=== PATIENT | male | born 1955 | race Caucasian/White ===

== ENCOUNTER 2016-11-14 12:33 | Emergency (ER) | payer OTHER ==
--- NOTE | 2016-11-14 14:10 | ERPHSYRPT ---
- History of Present Illness Time Seen by Provider: 11/14/16 14:04 Source: patient Exam Limitations: no limitations Patient Subjective Stated Complaint: urinary retention. has urinated off and on all day today but only scant amounts, groin and flank pain. abd soft nontender bowel sounds present in all four quads. Triage Nursing Assessment: pt alert x 3. walked into ER. skin is pink warm and dry. respirations even and unlabored. pt in constant pain sitting or standing. Physician History: The patient is a 61-year-old male complaining of urinary urgency, hesitancy, and retention since last night. He now has supra pubic pain and fullness. He typically has to get up 4 times a night to urinate. He denies fever or chills. His past medical history is significant for stroke, hypertension, high cholesterol, and BPH. Timing/Duration: yesterday Activites at Onset: none Quality: aching Onset Location: suprapubic Pain Radiation: none Severity of Pain-Max: moderate Severity of Pain-Current: none Modifying Factors: Improves With: nothing Associated Symptoms: urinary frequency Prior abdominal problems: none Sexual intercourse history: non-contributory Allergies/Adverse Reactions: acetaminophen [From Vicodin] Allergy (Mild, Verified 02/27/15 02:30) hydrocodone bitartrate [From Vicodin] Allergy (Mild, Verified 02/27/15 02:30) morphine Allergy (Mild, Verified 02/27/15 02:30) Home Medications: Clopidogrel Bisulfate [Plavix] 75 mg PO DAILY 01/17/14 [History] Metoprolol Succinate [Toprol Xl] 25 mg PO DAILY 01/17/14 [History] Amlodipine Besylate 5 mg [Norvasc 5 mg] 5 mg PO DAILY 09/18/14 [History] Atorvastatin Calcium 10 mg PO DAILY 09/18/14 [History] Hydrochlorothiazide 12.5 mg PO DAILY 09/18/14 [History] Losartan Potassium 50 mg [Cozaar 50 MG] 50 mg PO DAILY 09/18/14 [History] Hx Tetanus, Diphtheria Vaccination/Date Given: No Hx Influenza Vaccination/Date Given: No Hx Pneumococcal Vaccination/Date Given: Yes (2014) Immunizations Up to Date: Yes (unknown) - Past Medical History Pertinent Past Medical History: Yes Neurological History: Stroke, TIA, Other ENT History: Cataracts Cardiac History: Coronary Artery Disease, High Cholesterol, Hypertension, Myocardial Infarction ([place]) Respiratory History: COPD, Emphysema Endocrine Medical History: No Pertinent History Musculoskeletal History: No Pertinent History GI Medical History: No Pertinent History History: No Pertinent History Psycho-Social History: No Pertinent History Male Reproductive Disorders: No Pertinent History Other Medical History: pt-scarlet fever as a child. 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 - Past Surgical History Past Surgical History: Yes Neuro Surgical History: No Pertinent History Cardiac: Cardiac Catheterization, Cardiac Stent Respiratory: No Pertinent History Gastrointestinal: No Pertinent History Genitourinary: No Pertinent History Musculoskeletal: Orthopedic Surgery Male Surgical History: No Pertinent History Other Surgical History: R hand and R leg surgeries - Social History Smoking Status: Current every day smoker How long have you smoked: 47 Exposure to second hand smoke: Yes Drug Use: marijuana Patient Lives Alone: No - Review of Systems Constitutional: No Fever, No Chills Eyes: No Symptoms Ears, Nose, & Throat: No Symptoms Respiratory: No Cough, No Dyspnea Cardiac: No Chest Pain, No Edema, No Syncope Abdominal/Gastrointestinal: Abdominal Pain Genitourinary Symptoms: Dysuria, Frequency, Hesitancy, Urinary Retention Musculoskeletal: No Back Pain, No Neck Pain Skin: No Rash Neurological: No Dizziness, No Focal Weakness, No Sensory Changes Psychological: No Symptoms Endocrine: No Symptoms Hematologic/Lymphatic: No Symptoms Immunological/Allergic: No Symptoms All Other Systems: Reviewed and Negative - Nursing Vital Signs Nursing Vital Signs: Initial Vital Signs Temperature 98.3 F 11/14/16 12:48 Pulse Rate 87 11/14/16 12:48 Respiratory Rate 18 11/14/16 12:48 Blood Pressure 115/54 11/14/16 12:48 O2 Sat by Pulse Oximetry 91 L 11/14/16 12:48 Pain Scale Pain Intensity 6 - Physical Exam General Appearance: no apparent distress (brower cath has been placed), alert Eye Exam: PERRL/EOMI Ears, Nose, Throat Exam: pharynx normal, moist mucous membranes Neck Exam: normal inspection, supple Respiratory Exam: normal breath sounds, lungs clear Cardiovascular Exam: regular rate/rhythm, No edema Gastrointestinal/Abdomen Exam: soft, No tenderness Rectal Exam: not done Back Exam: normal inspection, No CVA tenderness Extremity Exam: normal inspection, normal range of motion, No pedal edema Neurologic Exam: alert, oriented x 3, cooperative, sensation nml, No motor deficits Skin Exam: normal color, warm, dry, No rash SpO2 Interpretation: normal SpO2: 91 Oxygen Delivery: Room Air Ordered Tests: Active Orders 24 hr Category Date Time Status Brower [Catheter-Seminary Brower] STAT Care 11/14/16 14:11 Active CULTURE,URINE Stat Lab 11/14/16 14:08 Received UA W/ MICROSCOPIC Stat Lab 11/14/16 14:08 Completed Lab/Rad Data: Laboratory Results 11/14/16 Range/Units 14:08 Ur Collection Type VOID Urine Color YELLOW (YELLOW) Urine Appearance CLOUDY (CLEAR) Urine pH 5.0 (5-6) Ur Specific [place] 1.025 (1.005-1.025) Urine Protein 100 (Negative) Urine Ketones TRACE (NEGATIVE) Urine Blood 250 (0-5) Javier/ul Urine Nitrite NEGATIVE (NEGATIVE) Urine Bilirubin NEGATIVE (NEGATIVE) Urine Urobilinogen NORMAL (0-1) mg/dL Ur Leukocyte Esterase 2+ (NEGATIVE) Urine Microscopic RBC >100 (0-2) /HPF Urine Microscopic WBC 50-100 (0-5) /HPF Ur Epithelial Cells FEW (FEW) /HPF Urine Bacteria FEW (NEGATIVE) /HPF Urine Glucose NEGATIVE (NEGATIVE) mg/dL Specimen Received 11/14/16 1400 - Progress Progress: improved Counseled pt/family regarding: lab results, diagnosis - Departure Time of Disposition: 15:59 Departure Disposition: Home Clinical Impression: Urinary retention, UTI (urinary tract infection) Condition: Stable Critical Care Time: No Referrals: PAULA LEONARD [Primary Care Provider] - Additional Instructions: You had urinary retention and a UTI. A Brower catheter was placed. Have the catheter removed by your doctor in 2-3 days. Take ciprofloxacin 500 mg twice a day for 10 days. You will also need to follow-up with the urologist within a week. Prescriptions: Ciprofloxacin [Cipro 500 MG] 1 tab PO BID #20 tablet
[2016-11-14 15:17] LABS: Collection Type VOID
[2016-11-14 15:18] LABS: Bilirubin NEGATIVE (NEGATIVE); Blood 250 Ery/ul (0-5); COMPLETE URINE MICROSCOPIC? YES; Epithelial Cells FEW /HPF (FEW); Glucose NEGATIVE (NEGATIVE); Leukocyte Esterase 2+ (NEGATIVE); WBC 50-100 /HPF (0-5)
[2016-11-14 15:19] LABS: ADD URINE CULTURE? YES (NO); Bacteria FEW /HPF (NEGATIVE)
[2016-11-14 16:16] VITALS: BP 154/67; PULSE 79; O2SAT 98
== END 2016-11-14 16:16 | disposition home or self-care (01) ==
LOC: ED 12:33
DX: R33.9 Retention of urine, unspecified (principal); N39.0 Urinary tract infection, site not specified
CPT/HCPCS: 51702; 81000; 87077; 87086; 87186; 99283; P9612

== ENCOUNTER 2019-10-29 03:25 | Observation (INO) | payer OTHER ==
[2019-10-29] MEDS ORDERED: Sodium Chloride 0.9% 1000 ML 1,000 ML IV STA (03:52)
[2019-10-29] MEDS ORDERED: Zofran 4 MG/2 ML VIAL IV ONE (03:52)
--- NOTE | 2019-10-29 03:53 | ERPHSYRPT ---
- History of Present Illness Time Seen by Provider: 10/29/19 03:45 Historian: patient Exam Limitations: no limitations Patient Subjective Stated Complaint: pt states for last 3 days he has had pain in his rt flank. radiating to rt groin and rt leg. pt states he thinks he has parasites from a bug bite approx 1.5 years ago and that is what is causing his pain. Triage Nursing Assessment: pt alert and oriented, answers questions approp. pt very restless in bed. respirations nonlabored. abd nontender to light palpation. skin warm and dry. no urine at this time. 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 However, in reviewing his medication list it appears as though he has not had the Plavix refilled in several months. He presents to the emergency department via EMS with complaint of right lower back pain with radiation to the right groin, right buttock and posterior leg. He has had the symptoms for about 3 days. Patient made comments to the nurses and myself about parasites causing the pain secondary to a bug bite he sustained many years ago. Patient denies chest pain, he denies shortness of breath, he denies abdominal pain. He has had no nausea vomiting or diarrhea. He denies fever. Denies loss of bowel or bladder control. He appears uncomfortable. She has been given fentanyl in the past and tolerated this intravenous narcotic. Timing/Duration: day(s) (3), worse Activities at Onset: none Quality: sharpness, stabbing Severity of Pain-Max: moderate Severity of Pain-Current: moderate Modifying Factors: Improves With: nothing Associated Symptoms: No chest pain, No loss of appetite, No shortness of breath, No testicular pain Previous symptoms: no prior history Allergies/Adverse Reactions: hydrocodone bitartrate [From Vicodin] Allergy (Mild, Verified 10/29/19 03:55) morphine Allergy (Mild, Verified 10/29/19 03:55) Home Medications: Clopidogrel Bisulfate [Plavix] 75 mg PO DAILY 01/17/14 [History] Metoprolol Succinate [Toprol Xl] 25 mg PO DAILY 01/17/14 [History] Amlodipine Besylate 5 mg [Norvasc 5 mg] 5 mg PO DAILY 09/18/14 [History] Atorvastatin Calcium 10 mg PO DAILY 09/18/14 [History] Losartan Potassium 50 mg [Cozaar 50 MG] 50 mg PO DAILY 09/18/14 [History] hydroCHLOROthiazide [Hydrochlorothiazide] 12.5 mg PO DAILY 09/18/14 [History] Hx Tetanus, Diphtheria Vaccination/Date Given: No Hx Influenza Vaccination/Date Given: No Hx Pneumococcal Vaccination/Date Given: Yes (2014) Immunizations Up to Date: No Travel Risk - International Travel Have you traveled outside of the country in past 3 weeks: No - Coronavirus Screening Are you exhibiting any of the following symptoms?: No Close contact with a COVID-19 positive Pt in past 14-21 Days: No - Review of Systems Constitutional: No Symptoms Eyes: No Symptoms Ears, Nose, & Throat: No Symptoms Respiratory: No Symptoms Cardiac: No Symptoms Abdominal/Gastrointestinal: No Symptoms Genitourinary Symptoms: Flank Pain (Right flank pain), No Urinary Retention Musculoskeletal: Back Pain (Right lower back pain), No Injury Skin: No Symptoms Neurological: No Symptoms Psychological: No Symptoms Endocrine: No Symptoms Hematologic/Lymphatic: No Symptoms Immunological/Allergic: No Symptoms All Other Systems: Reviewed and Negative - Past Medical History Pertinent Past Medical History: Yes Neurological History: Stroke, TIA, Other ENT History: Cataracts Cardiac History: Coronary Artery Disease, High Cholesterol, Hypertension, Myocardial Infarction ([place]) Respiratory History: COPD, Emphysema Endocrine Medical History: No Pertinent History Musculoskeletal History: No Pertinent History GI Medical History: No Pertinent History History: No Pertinent History Psycho-Social History: No Pertinent History Male Reproductive Disorders: No Pertinent History Other Medical History: pt-scarlet fever as a child. 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 mult blood clots - Past Surgical History Past Surgical History: Yes Neuro Surgical History: No Pertinent History Cardiac: Cardiac Catheterization, Cardiac Stent Respiratory: No Pertinent History Gastrointestinal: No Pertinent History Genitourinary: No Pertinent History Musculoskeletal: Orthopedic Surgery Male Surgical History: No Pertinent History Other Surgical History: R hand and R leg surgeries - Social History Smoking Status: Current every day smoker How long have you smoked: 47 Exposure to second hand smoke: Yes Drug Use: marijuana Patient Lives Alone: No - Nursing Vital Signs Nursing Vital Signs: Initial Vital Signs Pulse Rate 78 10/29/19 03:31 Respiratory Rate 18 10/29/19 03:31 Blood Pressure 178/78 10/29/19 03:31 O2 Sat by Pulse Oximetry 98 10/29/19 03:31 Pain Scale Pain Intensity 9 - Physical Exam General Appearance: moderate distress, alert, anxiety Eye Exam: PERRL/EOMI, eyes nml inspection Ears, Nose, Throat Exam: normal ENT inspection, moist mucous membranes Neck Exam: normal inspection, non-tender, supple, full range of motion Respiratory Exam: normal breath sounds, lungs clear, airway intact, No chest tenderness, No respiratory distress Cardiovascular Exam: regular rate/rhythm, normal heart sounds, normal peripheral pulses Gastrointestinal/Abdomen Exam: soft, normal bowel sounds, No tenderness Rectal Exam: not done Back Exam: CVA tenderness (Right side), decreased range of motion, muscle spasm (Right lower back), No vertebral tenderness Extremity Exam: normal inspection, normal range of motion, pelvis stable Neurologic Exam: alert, oriented x 3, cooperative, cardiology consultants II-XII nml as tested, sensation nml Skin Exam: normal color, warm, dry Lymphatic Exam: No adenopathy SpO2 Interpretation: normal SpO2: 98 O2 Delivery: Room Air - Course Nursing assessment & vital signs reviewed: Yes Ordered Tests: Active Orders 24 hr Category Date Time Status IV Insertion STAT Care 10/29/19 03:52 Active ABDOMEN AND PELVIS W/0 CONTRAS [CT] Stat Exams 10/29/19 03:53 Taken AMYLASE Stat Lab 10/29/19 04:00 Completed CBC W DIFF Stat Lab 10/29/19 04:00 Completed CMP Stat Lab 10/29/19 04:00 Completed D-DIMER QUANTITATIVE Stat Lab 10/29/19 04:00 Completed LIPASE Stat Lab 10/29/19 04:00 Completed Lactic Acid Stat Lab 10/29/19 04:15 Completed PROTIME WITH INR Stat Lab 10/29/19 04:00 Completed UA W/RFX UR CULTURE Stat Lab 10/29/19 04:00 Completed Medication Summary Discontinued Medications Generic Name Dose Route Start Last Admin Trade Name Freq PRN Reason Stop Dose Admin Fentanyl Citrate 50 mcg 10/29/19 03:59 10/29/19 04:05 Sublimaze 100 Mcg/2 Ml IV 10/29/19 04:00 50 mcg STAT ONE Administration Fentanyl Citrate Confirm 10/29/19 04:00 Sublimaze 100 Mcg/2 Ml Administered 10/29/19 04:01 Dose 100 mcg .ROUTE .STK-MED ONE Fentanyl Citrate 50 mcg 10/29/19 05:25 10/29/19 05:30 Sublimaze 100 Mcg/2 Ml IV 10/29/19 05:26 50 mcg STAT ONE Administration Sodium Chloride 1,000 mls @ 999 mls/hr 10/29/19 03:52 10/29/19 04:03 Sodium Chloride 0.9% 1000 Ml IV 10/29/19 04:52 999 mls/hr .Q1H1M STA Administration Sodium Chloride Confirm 10/29/19 04:01 Sodium Chloride 0.9% 1000 Ml Administered 10/29/19 04:02 Dose 1,000 mls @ ud .ROUTE .STK-MED ONE Lorazepam 1 mg 10/29/19 04:20 10/29/19 04:27 Ativan 2 Mg/1 Ml Vial IV 10/29/19 04:21 1 mg STAT ONE Administration Lorazepam Confirm 10/29/19 04:21 Ativan 2 Mg/1 Ml Vial Administered 10/29/19 04:22 Dose 2 mg .ROUTE .STK-MED ONE Lorazepam 1 mg 10/29/19 05:25 10/29/19 05:31 Ativan 2 Mg/1 Ml Vial IV 10/29/19 05:26 1 mg STAT ONE Administration Methylprednisolone Sodium Succinate 125 mg 10/29/19 05:24 10/29/19 05:30 Solu-Medrol 125 Mg IV 10/29/19 05:25 125 mg STAT ONE Administration Methylprednisolone Sodium Succinate Confirm 10/29/19 05:28 Solu-Medrol 125 Mg Administered 10/29/19 05:29 Dose 125 mg .ROUTE .STK-MED ONE Ondansetron HCl 4 mg 10/29/19 03:52 10/29/19 04:04 Zofran 4 Mg/2 Ml Vial IV 10/29/19 03:53 4 mg STAT ONE Administration Ondansetron HCl Confirm 10/29/19 04:00 Zofran 4 Mg/2 Ml Vial Administered 10/29/19 04:01 Dose 4 mg .ROUTE .STK-MED ONE Lab/Rad Data: Laboratory Result Diagrams 10/29/19 04:00 10/29/19 04:00 Laboratory Results 10/29/19 10/29/19 10/29/19 Range/Units 04:15 04:00 04:00 WBC (4.0-10.5) K/mm3 RBC (4.1-5.6) M/mm3 Hgb (12.5-18.0) gm/dl Hct (42-50) % MCV (78-100) fl MCH (26-32) pg MCHC (32-36) g/dl RDW (11.5-14.0) % Plt Count (150-450) K/mm3 MPV (7.5-11.0) fl Gran % (36.0-66.0) % Eos # (Auto) (0-0.5) Absolute Lymphs (auto) (1.0-4.6) Absolute Monos (auto) (0.0-1.3) Lymphocytes % (24.0-44.0) % Monocytes % (0.0-12.0) % Eosinophils % (0.00-5.0) % Basophils % (0.0-0.4) % Absolute Granulocytes (1.4-6.9) Basophils # (0-0.4) PT 12.9 H (8.83-12.87) SECONDS INR 1.14 (0.8-3.0) D-Dimer 296 (215-500) ng/mL Sodium (137-145) mmol/L Potassium (3.5-5.1) mmol/L Chloride (98-107) mmol/L Carbon Dioxide (22-30) mmol/L Anion Gap (5-15) MEQ/L BUN (9-20) mg/dL Creatinine (0.66-1.25) mg/dL Estimated GFR ML/MIN Glucose (74-106) mg/dL Lactic Acid 0.8 (0.4-2.0) Calcium (8.4-10.2) mg/dL Total Bilirubin (0.2-1.3) mg/dL AST (17-59) U/L ALT (0-50) U/L Alkaline Phosphatase (38-126) U/L Serum Total Protein (6.3-8.2) g/dL Albumin (3.5-5.0) g/dL Amylase (30-110) U/L Lipase (23-300) U/L Urine Color STRAW (YELLOW) Urine Appearance CLEAR (CLEAR) Urine pH 5.0 (5-6) Ur Specific [place] 1.004 (1.005-1.025) Urine Protein NEGATIVE (Negative) Urine Ketones NEGATIVE (NEGATIVE) Urine Blood MODERATE (0-5) Javier/ul Urine Nitrite NEGATIVE (NEGATIVE) Urine Bilirubin NEGATIVE (NEGATIVE) Urine Urobilinogen NEGATIVE (0-1) mg/dL Ur Leukocyte Esterase NEGATIVE (NEGATIVE) Urine WBC (Auto) 3-5 (0-5) /HPF Urine RBC (Auto) 3-5 (0-2) /HPF U Epithel Cells (Auto) NONE (FEW) /HPF Urine Bacteria (Auto) NONE (NEGATIVE) /HPF Uric Acid Cryst (Auto) 0-2 (NEGATIVE) /HPF Urine Mucus (Auto) SLIGHT (NEGATIVE) /HPF Urine Culture Reflexed NO (NO) Urine Glucose NEGATIVE (NEGATIVE) mg/dL 10/29/19 10/29/19 Range/Units 04:00 04:00 WBC 9.1 (4.0-10.5) K/mm3 RBC 4.24 (4.1-5.6) M/mm3 Hgb 13.2 (12.5-18.0) gm/dl Hct 39.6 L (42-50) % MCV 93.4 (78-100) fl MCH 31.1 (26-32) pg MCHC 33.3 (32-36) g/dl RDW 13.9 (11.5-14.0) % Plt Count 211 (150-450) K/mm3 MPV 9.1 (7.5-11.0) fl Gran % 48.5 (36.0-66.0) % Eos # (Auto) 0.46 (0-0.5) Absolute Lymphs (auto) 3.06 (1.0-4.6) Absolute Monos (auto) 1.11 (0.0-1.3) Lymphocytes % 33.8 (24.0-44.0) % Monocytes % 12.3 H (0.0-12.0) % Eosinophils % 5.1 H (0.00-5.0) % Basophils % 0.3 (0.0-0.4) % Absolute Granulocytes 4.39 (1.4-6.9) Basophils # 0.03 (0-0.4) PT (8.83-12.87) SECONDS INR (0.8-3.0) D-Dimer (215-500) ng/mL Sodium 134 L (137-145) mmol/L Potassium 4.1 (3.5-5.1) mmol/L Chloride 105 (98-107) mmol/L Carbon Dioxide 23 (22-30) mmol/L Anion Gap 9.8 (5-15) MEQ/L BUN 19 (9-20) mg/dL Creatinine 1.33 H (0.66-1.25) mg/dL Estimated GFR 57.5 ML/MIN Glucose 110 H (74-106) mg/dL Lactic Acid (0.4-2.0) Calcium 9.1 (8.4-10.2) mg/dL Total Bilirubin 0.60 (0.2-1.3) mg/dL AST 22 (17-59) U/L ALT 14 (0-50) U/L Alkaline Phosphatase 84 (38-126) U/L Serum Total Protein 7.2 (6.3-8.2) g/dL Albumin 4.0 (3.5-5.0) g/dL Amylase 76 (30-110) U/L Lipase 88 (23-300) U/L Urine Color (YELLOW) Urine Appearance (CLEAR) Urine pH (5-6) Ur Specific [place] (1.005-1.025) Urine Protein (Negative) Urine Ketones (NEGATIVE) Urine Blood (0-5) Javier/ul Urine Nitrite (NEGATIVE) Urine Bilirubin (NEGATIVE) Urine Urobilinogen (0-1) mg/dL Ur Leukocyte Esterase (NEGATIVE) Urine WBC (Auto) (0-5) /HPF Urine RBC (Auto) (0-2) /HPF U Epithel Cells (Auto) (FEW) /HPF Urine Bacteria (Auto) (NEGATIVE) /HPF Uric Acid Cryst (Auto) (NEGATIVE) /HPF Urine Mucus (Auto) (NEGATIVE) /HPF Urine Culture Reflexed (NO) Urine Glucose (NEGATIVE) mg/dL - Progress Progress: improved, pain not gone completely, re-examined Progress Note: 10/29/19 05:29 CAT scan of the abdomen and pelvis reveals no acute findings. There is no obstructive stone or hydronephrosis present. The appendix is visualized and it is normal. There is increased degenerative disc disease. The other chronic changes at the L5-S1 level have not changed when compared to a prior CAT scan of the lumbosacral spine Medical decision making: This patient clinically appeared as though he may have a ureteral stone. His work-up does not reveal this. He has no urinary tract infection. There was a moderate amount of blood microscopically in his urine. I feel his pain is secondary to degenerative disc disease in his lower spine. Patient has had fentanyl in the past and we will repeat the dose of fentanyl prior to his discharge, add methylprednisolone intravenously and a second dose of Ativan 1 mg intravenously. We will have him follow-up with Dr. Watson, his primary care physician today. 10/29/19 05:44 10/29/19 05:58 I reviewed old charts on Mr. Jones. Despite him having mild allergies to [place] and morphine, on 01/17/2014, patient had a toe injury and was given a prescription for oxycodone with acetaminophen. He tolerated this pain medicine well. We will discharge him to home with a prescription for Percocet 5, pr ednisone 10 mg, and Soma 350 mg. Counseled pt/family regarding: lab results, diagnosis, need for follow-up, rad results - Departure Departure Disposition: Home Clinical Impression: Acute exacerbation of chronic low back pain, Hematuria Condition: Stable Critical Care Time: No Referrals: PAULA WATSON [Primary Care Provider] - Additional Instructions: Call your primary care physician today, Dr. Watson, for further management and pain control. If unable to obtain an appointment today or tomorrow, you may follow-up as a walk-in to the [facility] orthopedic clinic between the hours of 8 AM and 10 AM Monday through Monday. Take your medication as prescribed. Prescriptions: Oxycodone HCl/Acetaminophen [Percocet 5-325 mg Tablet] 1 each PO Q8H PRN PRN #10 tablet MDD 3 PRN Reason: Pain Carisoprodol 350 mg [Soma 350 mg] 350 mg PO Q8H PRN PRN #10 tablet PRN Reason: Muscle Spasms Prednisone 10 mg [Deltasone 10 mg] 10 mg PO TID #12 tablet
[2019-10-29] MEDS ORDERED: SUBLIMAZE 100 MCG/2 ML IV ONE ×2 (03:59→05:25)
[2019-10-29] MEDS ORDERED: SUBLIMAZE 100 MCG/2 ML ONE (04:00)
[2019-10-29] MEDS ORDERED: Zofran 4 MG/2 ML VIAL ONE (04:00)
[2019-10-29] MEDS ORDERED: Sodium Chloride 0.9% 1000 ML 1,000 ML ONE (04:01)
[2019-10-29 04:04] LABS: Absolute Neutrophil Ct (ANC) 4.39 (1.4-6.9); BASOPHIL % 0.3 % (0.0-0.4); Basophil (Absolute #) 0.03 (0-0.4); Eosinophil % 5.1 % (0.00-5.0); Eosinophil (Absolute #) 0.46 (0-0.5); Hematocrit 39.6 % (42-50); Hemoglobin 13.2 gm/dl (12.5-18.0); Lymphocyte (Absolute #) 3.06 (1.0-4.6); Lymphocytes % 33.8 % (24.0-44.0); Mean Cell Volume 93.4 fl (78-100); Mean Corpuscular Hemoglobin 31.1 pg (26-32); Mean Corpuscular Hgb Concent. 33.3 g/dl (32-36); Mean Platelet Volume 9.1 fl (7.5-11.0); Monocyte (Absolute #) 1.11 (0.0-1.3); Monocytes % 12.3 % (0.0-12.0); Neutrophil % 48.5 % (36.0-66.0); Platelet Count 211 K/mm3 (150-450); Red Blood Count 4.24 M/mm3 (4.1-5.6); Red Cell Distribution Width 13.9 % (11.5-14.0); White Blood Count 9.1 K/mm3 (4.0-10.5)
[2019-10-29 04:14] LABS: INR 1.14 (0.8-3.0); PROTIME 12.9 SECONDS (8.83-12.87)
[2019-10-29 04:19] LABS: ANION GAP 9.8 MEQ/L (5-15); BILIRUBIN,TOTAL 0.6 mg/dL (0.2-1.3); Calcium 9.1 mg/dL (8.4-10.2); Creatinine 1 1.33 mg/dL (0.66-1.25); EST GLOMERULAR FILTRATION RATE 57.5 ML/MIN; Potassium 4.1 mmol/L (3.5-5.1); Total Protein 7.2 g/dL (6.3-8.2)
[2019-10-29] MEDS ORDERED: Ativan 2 MG/1 ML VIAL IV ONE ×2 (04:20→05:25)
[2019-10-29] MEDS ORDERED: Ativan 2 MG/1 ML VIAL ONE (04:21)
[2019-10-29 04:24] LABS: Appearance CLEAR (CLEAR); Bilirubin NEGATIVE (NEGATIVE); Blood MODERATE Ery/ul (0-5); Glucose NEGATIVE (NEGATIVE); Ketones NEGATIVE (NEGATIVE); Leukocyte Esterase NEGATIVE (NEGATIVE); Mucus SLIGHT /HPF (NEGATIVE); Nitrite NEGATIVE (NEGATIVE); Protein,Urine Dip NEGATIVE (Negative); Specific Gravity 1.004 (1.005-1.025); Uric Acid Crystals 0-2 /HPF (NEGATIVE); Urobilinogen NEGATIVE mg/dL (0-1)
[2019-10-29] MEDS ORDERED: solu-MEDROL 125 MG IV ONE ×2 (05:24→08:48)
[2019-10-29] MEDS ORDERED: solu-MEDROL 125 MG ONE (05:28)
[2019-10-29] MEDS ORDERED: Zofran 4 MG/2 ML VIAL IV PRN (08:13)
[2019-10-29] MEDS ORDERED: SUBLIMAZE 100 MCG/2 ML IV PRN (08:56)
--- NOTE | 2019-10-29 09:08 | XRAY ---
Indication: Right flank, right groin, and right leg pain. Multiple contiguous axial images obtained through the abdomen and pelvis without contrast as ordered. Comparison: August 01, 2014. Several images throughout the exam is slightly degraded by respiration artifact. Lung bases again demonstrates minimal bibasilar dependent atelectasis. No infiltrate or effusion. Heart is not enlarged. Stable small hiatal hernia. Noncontrasted stomach and bowel loops appear nonobstructed. Normal appendix. There is now mild diffuse scattered colonic fecal debris throughout. No free fluid/air. Right lower kidney demonstrates new subcentimeter exophytic hyperdense lesion. Remaining liver, gallbladder, pancreas, spleen, adrenal glands, kidneys, ureters, and bladder appear unremarkable for noncontrast exam. Again enlarged prostate gland impresses on the base of the bladder. Stable mild scattered aortoiliac calcifications again with minimal distal aortic ectasia. Osseous structures again demonstrates mild degenerative changes throughout the spine, bilateral L5 spondylolysis with grade 2 spondylolisthesis, and bilateral hip degenerative arthropathy. No ventral or inguinal hernias. Impression: 1. New diffuse fecal stasis. 2. New subcentimeter right lower renal hyperdense lesion, possible viscus/complex cyst. Initial renal sonogram may yield further information. 3. Stable small hiatal hernia, enlarged prostate gland, arteriosclerotic disease with distal aortic ectasia, and chronic bony findings. Comment: Preliminary interpretation was made by [facility]. No critical discrepancy.
[2019-10-29] MEDS: ENOXAPARIN SODIUM SQ SCH (10:17)
--- NOTE | 2019-10-29 13:09 | XRAY ---
Indication: Severe back pain radiating right groin and right buttock. Axial and coronal MRI of both hips performed using T1, T2, and STIR sequences. Additional T2 fat sat images obtained through the right hip. Comparison: None Both hips are bilaterally symmetric without large effusion. No acute fracture, suspicious bony lesions, bony remodeling, or evidence for avascular necrosis. Visualized surrounding soft tissues unremarkable. Visualized pelvis demonstrates enlarged prostate gland slightly impressing on the base of the bladder. Impression: Negative MRI hips. Incidental enlarged prostate gland.
--- NOTE | 2019-10-29 13:30 | XRAY ---
Indication: Severe low back pain radiating right groin and right buttock. No known injury. Sagittal and axial MRI lumbar spine performed using T1 and T2-weighted sequences. Comparison: None Same day CT abdomen/pelvis documents 5 lumbar vertebral segments. Sagittal MRI images demonstrates normal lumbar lordosis with mild multilevel degenerative disc desiccation signal with disc space narrowing greatest at L5-S1. The L4-L5 disc level is spared. L5-S1 level also demonstrates bilateral L5 spondylolysis with 1.5 cm spondylolisthesis. Same level also demonstrates opposing endplate degenerative discogenic signal changes, Modic type II. No acute fracture, suspicious bony lesions, or abnormal bone marrow signal. Conus medullaris terminates at the L2 level. Sagittal images through the T12-L3 levels demonstrates minimal broad-based disc bulge without spinal canal or foraminal stenosis. Axial images at the L3-L4 level demonstrates minimal annular disc bulge minimally effacing the thecal sac and producing minimal bilateral foraminal narrowing. No disc herniation or canal stenosis. Mild bilateral degenerative facet arthropathy. At the L4-L5 level, there is no disc herniation, spinal canal, or foraminal stenosis. Mild bilateral degenerative facet arthropathy. At the L5-S1 level, there is severe bilateral foraminal stenosis with bilateral L5 nerve root impingement due to combination of broad-based disc bulge and grade 2 spondylolisthesis. No focal disc herniation or canal stenosis. Impression: 1. Severe bilateral L5-S1 foraminal stenosis with bilateral L5 nerve root impingement due to combination of broad-based disc bulge and grade 2 spondylolisthesis. 2. Minimal T12-L4 degenerative disc disease as detailed. 3. Negative disc herniation or spinal canal stenosis.
[2019-10-30 07:44] VITALS: O2SAT 99
[2019-10-30] MEDS ORDERED: MELOXICAM PO SCH (10:30)
[2019-10-30] MEDS ORDERED: Lopressor 25MG Tab PO SCH (10:30)
[2019-10-30] MEDS ORDERED: Cyclobenzaprine 10 MG PO SCH (10:30)
[2019-10-30] MEDS ORDERED: ZOCOR 20MG PO SCH (10:30)
[2019-10-30] MEDS ORDERED: LASIX 20 MG PO SCH (10:30)
[2019-10-30] MEDS: ENOXAPARIN SODIUM SQ SCH (10:55)
[2019-10-30 11:49] VITALS: BP 145/63; PULSE 72
--- NOTE | 2019-10-30 14:31 | SSS ---
DISCHARGE DIAGNOSIS: INTRACTABLE BACK PAIN DUE TO SPINAL STENOSIS AND NEUROFAMINAL NARROWING IN THE L5-S1 AREA. HISTORY: The patient was seen in the emergency room. He was moaning despite medication. They were about to discharge him home but the patient was continuing to have pain. He lives alone and therefore it was felt the patient should be admitted for further evaluation and management of what was felt to be intractable back pain. The patient had CT scan in the emergency room which was essentially unremarkable. MRI was ordered which did show significant problems specifically showing severe bilateral L5-S1 foraminal stenosis with bilateral L5 nerve root impingement due to combination of broad base disc bulge and grade II spondylolisthesis. There was negative disc herniation or spinal canal stenosis. PAST MEDICAL HISTORY: Significant for hyperlipidemia and some mild cardiomyopathy. He sees Dr. Nicholas routinely. He has not seen me for three and a half years. HOME MEDICATIONS: Include atorvastatin 80 mg daily, furosemide 20 mg daily, metoprolol 12.5 mg b.i.d. ALLERGIES: VICODINE. MORPHINE. PHYSICAL EXAMINATION: Revealed a well-nourished, well-developed 64 year old white male patient in no obvious distress. The patient's vital signs on admission showed temperature afebrile, pulse 78, respiratory rate 18 and blood pressure 178/78. O2 saturation 98% on room air. HEENT: Normocephalic, atraumatic. Pupils equal round reactive to light. Extraocular movements intact. Oropharynx is pink and moist. NECK: Supple without lymphadenopathy, thyromegaly or JVD. CHEST: Clear to auscultation. HEART: Regular rate and rhythm. ABDOMEN: Soft. No palpable masses. EXTREMITIES: Without cyanosis, clubbing or edema. NEUROLOGIC: The patient is alert and oriented x3 at this time. On my initial evaluation however he was lethargic from the medications he received in the emergency room. HOSPITAL COURSE: The patient was admitted to the hospital. Evaluation by CT will be obtained and we will have evaluation by physical therapy. He will receive Flexeril 10 mg t.i.d. on PRN basis and Mobic 7.5 mg daily. We will also arrange for the patient to see Dr. Lamb in [place] for neurosurgery evaluation.
[2019-10-31] MEDS ORDERED: NON-FORMULARY ITEM (Atorvastatin Calcium [Atorvastatin Calcium] 80 MG) PO SCH (10:00)
== END 2019-10-30 12:57 | disposition home or self-care (01) ==
LOC: ED 03:25 → MED SURG 08:10
PROVIDERS: ADMIT Family Medicine; ATTEND Family Medicine
DX: M48.07 Spinal stenosis, lumbosacral region (principal); E78.5 Hyperlipidemia, unspecified; I42.9 Cardiomyopathy, unspecified; Z79.899 Other long term (current) drug therapy; Z86.718 Personal history of other venous thrombosis and embolism; E78.00 Pure hypercholesterolemia, unspecified; I25.2 Old myocardial infarction; J44.9 Chronic obstructive pulmonary disease, unspecified
CPT/HCPCS: 36000; 36415; 72148; 73721; 74176; 80053; 81001; 82150; 83605; 83690; 85025; 85379; 85610; 85652; 94762; 96374; 96375; 96376; 97161; 99285; G0378; J1650; J2060; J2405; J2930; J3010; 97110-GP; A9270-GY

== ENCOUNTER 2019-11-06 21:30 | Emergency (ER) | payer OTHER ==
[2019-11-06] MEDS ORDERED: Sodium Chloride 0.9% 1000 ML 1,000 ML IV STA ×2 (22:07→22:53)
--- NOTE | 2019-11-06 22:07 | ERPHSYRPT ---
- History of Present Illness Time Seen by Provider: 11/06/19 22:06 Source: patient, EMS Exam Limitations: no limitations Patient Subjective Stated Complaint: pt called EMS, pt had blurry vision and falling, had been taking too much rx medication Triage Nursing Assessment: pt called EMS, pt had blurry vision, dizziness and falling, had been taking too much rx medication. Pt was taking 3 Flexeril 10mg po bid instead of as prescribed of 10mg (1 tabs tid prn). Also pt's meloxicam 7.5 mg bottle was empty. Pt states, "I dropped them in the toilet". Both Rx were filled on 10/30/19, meloxicam #30, zero left. Cyclobenzaprine #90, 36 left. Pt alert and oriented, pleasant. Pt states, "I just took them to get rid of the pain, I was miserable". Lungs clear, heart tones reg. Pt has skin abrasion to left posterior head, 3.0 cm L x 2.0 cm W. Physician History: A 64-year-old male who has been having back pain he went to see his family doctor and was diagnosed with degenerative disc disease. He was treated with me loxicam and Flexeril apparently over the last 6 to 7 days he is taken 56 Flexeril and 30 meloxicam 7.5. His pain medicine is all gone. He rates his pain here he also has been lightheaded and has fallen and does have a skin tear on his occiput no loss of consciousness. Timing/Duration: today Severity: moderate Modifying Factors: Improves With: medication Associated Symptoms: headaches, syncope Allergies/Adverse Reactions: hydrocodone bitartrate [From Vicodin] Allergy (Mild, Verified 11/06/19 21:55) morphine Allergy (Mild, Verified 11/06/19 21:55) Home Medications: Atorvastatin Calcium 80 mg PO DAILY 10/29/19 [History] Furosemide 20 mg [Lasix 20 mg] 20 mg PO DAILY 10/29/19 [History] Metoprolol Tartrate 12.5 mg PO BID 10/29/19 [History] Hx Tetanus, Diphtheria Vaccination/Date Given: No Hx Influenza Vaccination/Date Given: No Hx Pneumococcal Vaccination/Date Given: Yes (2014) Immunizations Up to Date: No Travel Risk - International Travel Have you traveled outside of the country in past 3 weeks: No - Coronavirus Screening Close contact with a COVID-19 positive Pt in past 14-21 Days: No - Review of Systems Constitutional: Malaise, Weakness, No Fever, No Chills Eyes: No Symptoms Ears, Nose, & Throat: No Symptoms Respiratory: No Cough, No Dyspnea Cardiac: No Chest Pain, No Edema, No Syncope Abdominal/Gastrointestinal: No Abdominal Pain, No Nausea, No Vomiting, No Diarrhea Genitourinary Symptoms: No Dysuria Musculoskeletal: Back Pain, No Neck Pain Skin: No Rash Neurological: Other, No Dizziness, No Focal Weakness, No Sensory Changes Psychological: No Symptoms Endocrine: No Symptoms All Other Systems: Reviewed and Negative - Past Medical History Pertinent Past Medical History: Yes Neurological History: Stroke, TIA, Other ENT History: Cataracts Cardiac History: Coronary Artery Disease, High Cholesterol, Hypertension, Myocardial Infarction (MA) Respiratory History: COPD, Emphysema Endocrine Medical History: No Pertinent History Musculoskeletal History: No Pertinent History GI Medical History: No Pertinent History History: No Pertinent History Psycho-Social History: No Pertinent History Male Reproductive Disorders: No Pertinent History Other Medical History: pt-scarlet fever as a child. 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 mult blood clots. took home medication incorrectly - Past Surgical History Past Surgical History: Yes Neuro Surgical History: No Pertinent History Cardiac: Cardiac Catheterization, Cardiac Stent Respiratory: No Pertinent History Gastrointestinal: No Pertinent History Genitourinary: No Pertinent History Musculoskeletal: Orthopedic Surgery Male Surgical History: No Pertinent History Other Surgical History: R hand and R leg surgeries - Social History Smoking Status: Current every day smoker How long have you smoked: 50 yrs Exposure to second hand smoke: Yes Drug Use: none Patient Lives Alone: Yes - Nursing Vital Signs Nursing Vital Signs: Initial Vital Signs Temperature 98.1 F 11/06/19 21:32 Pulse Rate 91 H 11/06/19 21:32 Respiratory Rate 16 11/06/19 21:32 Blood Pressure 133/81 11/06/19 21:32 O2 Sat by Pulse Oximetry 98 11/06/19 21:32 Pain Scale Pain Intensity 0 - Physical Exam General Appearance: mild distress, alert Eye Exam: PERRL/EOMI, eyes nml inspection Ears, Nose, Throat Exam: normal ENT inspection, TMs normal, pharynx normal, moist mucous membranes Neck Exam: normal inspection, non-tender, supple, full range of motion Respiratory Exam: normal breath sounds, lungs clear, No respiratory distress Cardiovascular Exam: regular rate/rhythm, normal heart sounds, normal peripheral pulses Gastrointestinal/Abdomen Exam: soft, normal bowel sounds, No tenderness, No mass Back Exam: normal inspection, decreased range of motion, muscle spasm, No CVA tenderness, No vertebral tenderness Extremity Exam: normal inspection, normal range of motion, pelvis stable Neurologic Exam: alert, oriented x 3, cooperative, normal mood/affect, nml cerebellar function, nml station & gait, sensation nml, abnormal gait, No motor deficits Skin Exam: normal color, warm, dry, other (Laceration of the scalp on the over the occiput), No rash Lymphatic Exam: No adenopathy SpO2 Interpretation: normal SpO2: 98 O2 Delivery: Room Air Procedures - Laceration/Wound Repair Head Wound Location: head (Has a skin tear over the occiput cleaned dressed no sutures) - Course Nursing assessment & vital signs reviewed: Yes EKG Interpreted by Me: RATE (78), Sinus Rhythm, NORMAL AXIS, NORMAL INTERVALS, Left Bundle Branch Block, Non-specific ST Changes - CT Exams Head CT Interpretation: Negative Lumbar Spine CT Interpretation: Other (CT of the head showed no acute findings CT of the [place] mbar spine severe bilateral neural foraminal stenosis at L5-S1) Ordered Tests: Active Orders 24 hr Category Date Time Status Geomagnetist STAT Care 11/06/19 22:20 Active EKG-ER Only STAT Care 11/06/19 22:07 Active IV Insertion STAT Care 11/06/19 22:07 Active IV Insertion-2nd Peripheral STAT Care 11/06/19 22:19 Active CHEST 1 VIEW (PORTABLE) Stat Exams 11/06/19 22:07 Taken HEAD WITHOUT CONTRAST [CT] Stat Exams 11/06/19 22:07 Taken LUMBAR SPINE W/O [CT] Stat Exams 11/06/19 22:58 Taken ACETAMINOPHEN Stat Lab 11/06/19 22:31 Completed CBC W DIFF Stat Lab 11/06/19 22:31 Completed CMP Stat Lab 11/06/19 22:31 Completed ETHYL ALCOHOL Stat Lab 11/06/19 22:31 Completed Lactic Acid Stat Lab 11/06/19 22:16 Completed PROTIME WITH INR Stat Lab 11/06/19 22:31 Completed SALICYLATE Stat Lab 11/06/19 22:31 Completed UA W/RFX UR CULTURE Stat Lab 11/07/19 00:10 Completed Urine Triage Profile Stat Lab 11/07/19 00:10 Completed Medication Summary Discontinued Medications Generic Name Dose Route Start Last Admin Trade Name Coleman PRN Reason Stop Dose Admin Sodium Chloride 1,000 mls @ 999 mls/hr 11/06/19 22:07 11/06/19 22:55 Sodium Chloride 0.9% 1000 Ml IV 11/06/19 23:07 Infused .Q1H1M STA Infusion Sodium Chloride Confirm 11/06/19 22:23 Sodium Chloride 0.9% 1000 Ml Administered 11/06/19 22:24 Dose 1,000 mls @ ud .ROUTE .STK-MED ONE Sodium Chloride 1,000 mls @ 999 mls/hr 11/06/19 22:53 11/06/19 22:56 Sodium Chloride 0.9% 1000 Ml IV 11/06/19 23:53 999 mls/hr .Q1H1M STA Administration Sodium Chloride Confirm 11/06/19 22:55 Sodium Chloride 0.9% 1000 Ml Administered 11/06/19 22:56 Dose 1,000 mls @ ud .ROUTE .[facility] ONE Lab/Rad Data: Laboratory Result Diagrams 11/06/19 22:31 11/06/19 22:31 Laboratory Results 11/07/19 11/07/19 11/06/19 Range/Units 00:10 00:10 22:31 WBC (4.0-10.5) K/mm3 RBC (4.1-5.6) M/mm3 Hgb (12.5-18.0) gm/dl Hct (42-50) % MCV (78-100) fl MCH (26-32) pg MCHC (32-36) g/dl RDW (11.5-14.0) % Plt Count (150-450) K/mm3 MPV (7.5-11.0) fl Gran % (36.0-66.0) % Eos # (Auto) (0-0.5) Absolute Lymphs (auto) (1.0-4.6) Absolute Monos (auto) (0.0-1.3) Lymphocytes % (24.0-44.0) % Monocytes % (0.0-12.0) % Eosinophils % (0.00-5.0) % Basophils % (0.0-0.4) % Absolute Granulocytes (1.4-6.9) Basophils # (0-0.4) PT 13.1 H (8.83-12.87) SECONDS INR 1.16 (0.8-3.0) Sodium (137-145) mmol/L Potassium (3.5-5.1) mmol/L Chloride (98-107) mmol/L Carbon Dioxide (22-30) mmol/L Anion Gap (5-15) MEQ/L BUN (9-20) mg/dL Creatinine (0.66-1.25) mg/dL Estimated GFR ML/MIN Glucose (74-106) mg/dL Lactic Acid (0.4-2.0) Calcium (8.4-10.2) mg/dL Total Bilirubin (0.2-1.3) mg/dL AST (17-59) U/L ALT (0-50) U/L Alkaline Phosphatase (38-126) U/L Serum Total Protein (6.3-8.2) g/dL Albumin (3.5-5.0) g/dL Urine Color YELLOW (YELLOW) Urine Appearance CLEAR (CLEAR) Urine pH 6.0 (5-6) Ur Specific [place] 1.014 (1.005-1.025) Urine Protein NEGATIVE (Negative) Urine Ketones NEGATIVE (NEGATIVE) Urine Blood NEGATIVE (0-5) Javier/ul Urine Nitrite NEGATIVE (NEGATIVE) Urine Bilirubin NEGATIVE (NEGATIVE) Urine Urobilinogen NEGATIVE (0-1) mg/dL Ur Leukocyte Esterase NEGATIVE (NEGATIVE) Urine WBC (Auto) 0-2 (0-5) /HPF Urine RBC (Auto) 0-2 (0-2) /HPF U Hyaline Cast (Auto) 0-2 (0-2) /LPF U Epithel Cells (Auto) NONE (FEW) /HPF Urine Bacteria (Auto) NONE SEEN (NEGATIVE) /HPF Other Casts (Auto) NEGATIVE (NEGATIVE) /LPF Urine Mucus (Auto) SLIGHT (NEGATIVE) /HPF Urine Culture Reflexed NO (NO) Urine Glucose NEGATIVE (NEGATIVE) mg/dL Salicylates (2-20) mg/dL Urine Opiates Level NEGATIVE (NEGATIVE) Ur Methadone NEGATIVE (NEGATIVE) Acetaminophen (10-30) ug/ml Urine Barbiturates NEGATIVE (NEGATIVE) Ur Phencyclidine (PCP) NEGATIVE (NEGATIVE) Urine Amphetamine NEGATIVE (NEGATIVE) U Benzodiazepine Level NEGATIVE (NEGATIVE) Urine Cocaine NEGATIVE (NEGATIVE) Urine Marijuana (THC) POSITIVE (NEGATIVE) Ethyl Alcohol (0-10) mg/dL 11/06/19 11/06/19 11/06/19 Range/Units 22:31 22:31 22:16 WBC 10.2 (4.0-10.5) K/mm3 RBC 4.70 (4.1-5.6) M/mm3 Hgb 14.6 (12.5-18.0) gm/dl Hct 44.1 (42-50) % MCV 93.8 (78-100) fl MCH 31.1 (26-32) pg MCHC 33.1 (32-36) g/dl RDW 14.3 H (11.5-14.0) % Plt Count 234 (150-450) K/mm3 MPV 8.6 (7.5-11.0) fl Gran % 67.6 H (36.0-66.0) % Eos # (Auto) 0.10 (0-0.5) Absolute Lymphs (auto) 2.12 (1.0-4.6) Absolute Monos (auto) 1.06 (0.0-1.3) Lymphocytes % 20.8 L (24.0-44.0) % Monocytes % 10.4 (0.0-12.0) % Eosinophils % 1.0 (0.00-5.0) % Basophils % 0.2 (0.0-0.4) % Absolute Granulocytes 6.88 (1.4-6.9) Basophils # 0.02 (0-0.4) PT (8.83-12.87) SECONDS INR (0.8-3.0) Sodium 137 (137-145) mmol/L Potassium 4.7 (3.5-5.1) mmol/L Chloride 104 (98-107) mmol/L Carbon Dioxide 27 (22-30) mmol/L Anion Gap 9.5 (5-15) MEQ/L BUN 26 H (9-20) mg/dL Creatinine 2.04 H (0.66-1.25) mg/dL Estimated GFR 35.1 ML/MIN Glucose 119 H (74-106) mg/dL Lactic Acid 0.9 (0.4-2.0) Calcium 9.3 (8.4-10.2) mg/dL Total Bilirubin 0.60 (0.2-1.3) mg/dL AST 20 (17-59) U/L ALT 18 (0-50) U/L Alkaline Phosphatase 80 (38-126) U/L Serum Total Protein 7.2 (6.3-8.2) g/dL Albumin 3.9 (3.5-5.0) g/dL Urine Color (YELLOW) Urine Appearance (CLEAR) Urine pH (5-6) Ur Specific [place] (1.005-1.025) Urine Protein (Negative) Urine Ketones (NEGATIVE) Urine Blood (0-5) Javier/ul Urine Nitrite (NEGATIVE) Urine Bilirubin (NEGATIVE) Urine Urobilinogen (0-1) mg/dL Ur Leukocyte Esterase (NEGATIVE) Urine WBC (Auto) (0-5) /HPF Urine RBC (Auto) (0-2) /HPF U Hyaline Cast (Auto) (0-2) /LPF U Epithel Cells (Auto) (FEW) /HPF Urine Bacteria (Auto) (NEGATIVE) /HPF Other Casts (Auto) (NEGATIVE) /LPF Urine Mucus (Auto) (NEGATIVE) /HPF Urine Culture Reflexed (NO) Urine Glucose (NEGATIVE) mg/dL Salicylates < 1.0 L (2-20) mg/dL Urine Opiates Level (NEGATIVE) Ur Methadone (NEGATIVE) Acetaminophen < 10 L (10-30) ug/ml Urine Barbiturates (NEGATIVE) Ur Phencyclidine (PCP) (NEGATIVE) Urine Amphetamine (NEGATIVE) U Benzodiazepine Level (NEGATIVE) Urine Cocaine (NEGATIVE) Urine Marijuana (THC) (NEGATIVE) Ethyl Alcohol < 10 (0-10) mg/dL - Progress Progress: improved, pain not gone completely - Departure Departure Disposition: Home Clinical Impression: Dehydration, Bilateral neuroforaminal stenosis L5-S1, Acute exacerbation of chronic low back pain Condition: Stable Critical Care Time: No Referrals: PAULA LEONARD [Primary Care Provider] - Instructions: Dehydration, Adult (DC), Degenerative Disc Disease (DC) Prescriptions: Tramadol HCl 50 mg [Ultram 50 mg] 50 mg PO Q6H 3 Days #14 tablet
[2019-11-06] MEDS ORDERED: Sodium Chloride 0.9% 1000 ML 1,000 ML ONE ×2 (22:23→22:55)
[2019-11-06 22:34] LABS: Absolute Neutrophil Ct (ANC) 6.88 (1.4-6.9); BASOPHIL % 0.2 % (0.0-0.4); Basophil (Absolute #) 0.02 (0-0.4); Hematocrit 44.1 % (42-50); Hemoglobin 14.6 gm/dl (12.5-18.0); Lymphocyte (Absolute #) 2.12 (1.0-4.6); Lymphocytes % 20.8 % (24.0-44.0); Mean Cell Volume 93.8 fl (78-100); Mean Corpuscular Hemoglobin 31.1 pg (26-32); Mean Corpuscular Hgb Concent. 33.1 g/dl (32-36); Mean Platelet Volume 8.6 fl (7.5-11.0); Monocyte (Absolute #) 1.06 (0.0-1.3); Monocytes % 10.4 % (0.0-12.0); Neutrophil % 67.6 % (36.0-66.0); Platelet Count 234 K/mm3 (150-450); Red Cell Distribution Width 14.3 % (11.5-14.0); White Blood Count 10.2 K/mm3 (4.0-10.5)
[2019-11-06 22:42] LABS: INR 1.16 (0.8-3.0); PROTIME 13.1 SECONDS (8.83-12.87)
[2019-11-06 22:47] LABS: ACETAMINOPHEN < 10 ug/ml (10-30); ALBUMIN 3.9 g/dL (3.5-5.0); ALKALINE PHOSPHATASE 80 U/L (38-126); ANION GAP 9.5 MEQ/L (5-15); BLOOD UREA NITROGEN 26 mg/dL (9-20); CHLORIDE 104 mmol/L (98-107); Calcium 9.3 mg/dL (8.4-10.2); Carbon Dioxide 27 mmol/L (22-30); Creatinine 1 2.04 mg/dL (0.66-1.25); EST GLOMERULAR FILTRATION RATE 35.1 ML/MIN; ETHYL ALCOHOL < 10 mg/dL (0-10); Glucose 119 mg/dL (74-106); Potassium 4.7 mmol/L (3.5-5.1); SALICYLATE < 1.0 mg/dL (2-20); SGOT/AST 20 U/L (17-59); SGPT/ALT 18 U/L (0-50); SODIUM 137 mmol/L (137-145); Total Protein 7.2 g/dL (6.3-8.2)
[2019-11-07 00:32] LABS: Amphetamine,Urine NEGATIVE (NEGATIVE); Barbiturate,Urine NEGATIVE (NEGATIVE); Benzodiazepine,Urine NEGATIVE (NEGATIVE); Cocaine,Urine NEGATIVE (NEGATIVE); Methadone,Urine NEGATIVE (NEGATIVE); Opiate,Urine NEGATIVE (NEGATIVE); PCP,Urine NEGATIVE (NEGATIVE); THC,Urine POSITIVE (NEGATIVE)
[2019-11-07 00:33] LABS: Appearance CLEAR (CLEAR); Bilirubin NEGATIVE (NEGATIVE); Blood NEGATIVE Ery/ul (0-5); Glucose NEGATIVE (NEGATIVE); Hyaline Casts 0-2 /LPF (0-2); Ketones NEGATIVE (NEGATIVE); Leukocyte Esterase NEGATIVE (NEGATIVE); Mucus SLIGHT /HPF (NEGATIVE); Nitrite NEGATIVE (NEGATIVE); Protein,Urine Dip NEGATIVE (Negative); RBC 0-2 /HPF (0-2); Specific Gravity 1.014 (1.005-1.025); Urobilinogen NEGATIVE mg/dL (0-1); WBC 0-2 /HPF (0-5)
[2019-11-07 00:39] LABS: Bacteria NONE SEEN /HPF (NEGATIVE)
[2019-11-07] MEDS ORDERED: ULTRAM 50 MG PO PRN (01:35)
[2019-11-07] MEDS ORDERED: ULTRAM 50 MG ONE (01:43)
[2019-11-07] MEDS ORDERED: TORAdol 30 mg Injection IV ONE (05:25)
[2019-11-07] MEDS ORDERED: TORAdol 30 mg Injection ONE (05:27)
[2019-11-07] MEDS ORDERED: solu-MEDROL 125 MG IV ONE (05:36)
[2019-11-07] MEDS ORDERED: solu-MEDROL 125 MG ONE (05:36)
[2019-11-07 06:19] VITALS: BP 153/81; PULSE 67; O2SAT 100
--- NOTE | 2019-11-07 08:51 | XRAY ---
Indication: Status post fall. Comparison: August 01, 2014. Portable apical lordotic chest remains hyperinflated and clear with incidental calcified granulomas. Heart is not enlarged. Bony thorax intact again with mild degenerative changes and old right clavicle fracture. No new/acute findings.
--- NOTE | 2019-11-07 08:57 | XRAY ---
Indication: Posterior laceration following fall. Multiple contiguous axial images obtained through the head without contrast. Comparison: September 18, 2014. Again normal appearing brain parenchyma, ventricles, and bony calvarium. Visualized paranasal sinuses and mastoid air cells are clear. Impression: Continued normal CT head without contrast exam. Comment: Preliminary interpretation was made by [facility]. No critical discrepancy.
--- NOTE | 2019-11-07 08:58 | XRAY ---
Indication: Low back pain 3 weeks. Status post fall. Multiple contiguous axial images obtained through the lumbar spine. Sagittal and coronal reformatted images obtained. Comparison: October 29, 2019. Stable mild/moderate multilevel thoracolumbar degenerative spondylosis greatest L5-S1 and bilateral L5 spondylolysis with grade 2 spondylolisthesis. No acute fracture, suspicious bony lesions, or spinal canal stenosis. Visualized noncontrasted soft tissues again demonstrates mild scattered aortoiliac calcifications. Impression: Stable multilevel degenerative spondylosis and L5 spondylolysis with grade 2 spondylolisthesis. No new/acute findings. Comment: Preliminary interpretation was made by [facility]. No critical discrepancy.
== END 2019-11-07 06:30 | disposition home or self-care (01) ==
LOC: ED 21:30
DX: E86.0 Dehydration (principal); M48.07 Spinal stenosis, lumbosacral region; M54.5 Low back pain; S01.01XA Laceration without foreign body of scalp, initial encounter; Z79.899 Other long term (current) drug therapy; R51 Headache; R55 Syncope and collapse; I10 Essential (primary) hypertension; I25.2 Old myocardial infarction; I25.10 Atherosclerotic heart disease of native coronary artery without angina pectoris; E78.00 Pure hypercholesterolemia, unspecified
CPT/HCPCS: 36000; 36415; 70450; 71045; 72131; 80053; 80307; 81001; 83605; 85025; 85610; 93005; 93041; 96360; 96361; 96374; 96375; 99285; J1885; J2930; A9270-GY; G0480

== ENCOUNTER 2021-03-11 05:23 | Inpatient (IN) | payer MEDICARE ==
[2021-03-11] MEDS ORDERED: Zofran 4 MG/2 ML VIAL IV ONE (05:42)
[2021-03-11] MEDS ORDERED: Ativan 2 MG/1 ML VIAL IV ONE ×2 (05:43→07:39)
[2021-03-11] MEDS ORDERED: Zofran 4 MG/2 ML VIAL ONE (05:48)
[2021-03-11] MEDS ORDERED: Ativan 2 MG/1 ML VIAL ONE (05:49)
[2021-03-11 06:01] LABS: INR 1.08 (0.8-3.0); PROTIME 12.8 SECONDS (9.4-12.5)
[2021-03-11 06:04] LABS: PTT 31.9 SECONDS (25.1-36.5)
[2021-03-11 06:07] LABS: Absolute Neutrophil Ct (ANC) 6.34 (1.4-6.9); Basophil (Absolute #) 0 (0-0.4); Eosinophil % 0.1 % (0.00-5.0); Eosinophil (Absolute #) 0.01 (0-0.5); Hematocrit 47.5 % (42-50); Hemoglobin 16.2 gm/dl (12.5-18.0); Lymphocyte (Absolute #) 1.63 (1.0-4.6); Lymphocytes % 18.4 % (24.0-44.0); Mean Cell Volume 87.2 fl (78-100); Mean Corpuscular Hemoglobin 29.7 pg (26-32); Mean Corpuscular Hgb Concent. 34.1 g/dl (32-36); Mean Platelet Volume 9.3 fl (7.5-11.0); Monocyte (Absolute #) 0.88 (0.0-1.3); Monocytes % 9.9 % (0.0-12.0); Neutrophil % 71.6 % (36.0-66.0); Platelet Count 204 K/mm3 (150-450); Red Blood Count 5.45 M/mm3 (4.1-5.6); Red Cell Distribution Width 13.3 % (11.5-14.0); White Blood Count 8.9 K/mm3 (4.0-10.5)
--- NOTE | 2021-03-11 06:16 | ERPHSYRPT ---
- History of Present Illness Source: patient, EMS Exam Limitations: other (Poor historian) Patient Subjective Stated Complaint: Patient c/o SOB and N/V. He stated to nurse that he has been suffering from these things for the past 3 days then he told the MD that it has been around a week. Patient denies any pain at this time. Triage Nursing Assessment: Patient brought into ED by an ambulance. He was SOB upon arrival using accessory muscles to breath. Patient unable to lay flat in bed and is restless in bed. He is answering questions with one to two word answer; unable to speak in full sentences related to SOB. Patient is cool to touch. He did vomit a small amount during assessment X 1; yellow liquid. Lungs clear with rhales to right post base noted. Timing/Duration: other (1wk) Cough Quality/Degree: dry cough Possible Cause: no prior episodes Modifying Factors: Improves With: coughing Associated Symptoms: fever, chills, cough, muscle aches, nasal drainage, shortness of breath, sore throat Hx Tetanus, Diphtheria Vaccination/Date Given: No Hx Influenza Vaccination/Date Given: No Hx Pneumococcal Vaccination/Date Given: No Immunizations Up to Date: Yes <MARC HAJI - Last Filed: 03/11/21 07:03> <ELLEN REED - Last Filed: 03/11/21 07:51> - History of Present Illness Physician History: 65 yo wm w N/V/cough/coryza/fever/myalgias x 1wk. Pt smokes 1 ppd and is unvaccinated against CV19. (MARC HAJI) Allergies/Adverse Reactions: hydrocodone bitartrate [From Vicodin] Allergy (Mild, Verified 04/07/20 17:14) morphine Allergy (Mild, Verified 04/07/20 17:14) oxycodone [From OxyContin] Allergy (Verified 03/11/21 06:09) Home Medications: Atorvastatin Calcium 80 mg PO DAILY 10/29/19 [History] Furosemide 20 mg [Lasix 20 mg] 20 mg PO DAILY 10/29/19 [History] Metoprolol Tartrate 12.5 mg PO BID 10/29/19 [History] Clotrimazole/Betamet Diprop [Lotrisone Cream] 1 gm TOP BID 04/07/20 [History] Hydroxyzine HCl 25 mg [Atarax 25 mg] 25 mg PO TID 04/07/20 [History] Travel Risk - International Travel Have you traveled outside of the country in past 3 weeks: No - Coronavirus Screening Are you exhibiting any of the following symptoms?: Yes Symptoms: Cough: New Onset, Shortness of Breath, Vomiting/Diarrhea Close contact with a COVID-19 positive Pt in past 14-21 Days: No - Vaccine Status Have you recieved a Covid-19 vaccination: No <MARC HAJI - Last Filed: 03/11/21 07:03> - Review of Systems Constitutional: No Symptoms, Fever, Chills Eyes: No Symptoms Ears, Nose, & Throat: No Symptoms, Nose Congestion, Nose Discharge Respiratory: No Symptoms, Cough, Dyspnea Cardiac: No Symptoms Abdominal/Gastrointestinal: No Symptoms, Nausea, Vomiting Genitourinary Symptoms: No Symptoms Musculoskeletal: Arthralgias, Myalgias Skin: No Symptoms Neurological: No Symptoms Psychological: No Symptoms Endocrine: No Symptoms Hematologic/Lymphatic: No Symptoms Immunological/Allergic: No Symptoms <MARC HAJI - Last Filed: 03/11/21 07:03> - Past Medical History Pertinent Past Medical History: Yes Neurological History: Stroke ENT History: Cataracts Cardiac History: Coronary Artery Disease, Deep Vein Thrombosis, High Cholesterol, Hypertension, Myocardial Infarction ([place]) Respiratory History: COPD Endocrine Medical History: Adrenal Insufficiency, Diabetes Type II, Other Musculoskeletal History: Osteoarthritis GI Medical History: No Pertinent History History: No Pertinent History Psycho-Social History: Anxiety, Bipolar, Depression Male Reproductive Disorders: No Pertinent History Other Medical History: Blood clots - Past Surgical History Past Surgical History: Yes Neuro Surgical History: No Pertinent History Cardiac: Cardiac Catheterization, Cardiac Stent, Vascular Surgery Respiratory: No Pertinent History Gastrointestinal: No Pertinent History Genitourinary: No Pertinent History Musculoskeletal: Orthopedic Surgery Male Surgical History: No Pertinent History Other Surgical History: R hand and R leg surgeries - Social History Smoking Status: Current every day smoker How long have you smoked: 50 yrs Exposure to second hand smoke: Yes Drug Use: none Patient Lives Alone: Yes Significant Family History: no pertinent family hx <MARC HAJI - Last Filed: 03/11/21 07:03> - Physical Exam General Appearance: mild distress, anxiety Eye Exam: PERRL/EOMI, eyes nml inspection Ears, Nose, Throat Exam: normal ENT inspection, TMs normal, pharynx normal, moist mucous membranes Neck Exam: normal inspection, non-tender, No meningismus, No mass, No Brudzinski, No Kernig's Respiratory Exam: airway intact, crackles/rales (Rales B base) Cardiovascular Exam: regular rate/rhythm, No murmur Gastrointestinal/Abdomen Exam: soft, normal bowel sounds, No tenderness Back Exam: normal inspection, normal range of motion Extremity Exam: normal inspection, normal range of motion Neurologic Exam: alert, oriented x 3, health insurance assessor II-XII nml as tested, sensation nml, agitation, No motor deficits, No sensory deficit Skin Exam: warm, dry Lymphatic Exam: No adenopathy SpO2 Interpretation: normal SpO2: 99 O2 Delivery: Room Air <MARC HAJI - Last Filed: 03/11/21 07:03> - Nursing Vital Signs Nursing Vital Signs: Initial Vital Signs Temperature 98.3 F 03/11/21 05:33 Pulse Rate 64 03/11/21 05:33 Respiratory Rate 25 H 03/11/21 05:33 Blood Pressure 188/82 03/11/21 05:33 O2 Sat by Pulse Oximetry 99 03/11/21 05:33 Pain Scale Pain Intensity 0 Hypertensive/Tachyneic (MARC HAJI) - Course Nursing assessment & vital signs reviewed: Yes EKG Interpreted by Me: RATE (NSR/Rate 67/Prolonged QT-QTc/PVC occasion ally/Incomplete RBBB) - Radiology Exams Chest X-ray Interpretation: Interpreted by me (COPD/Nothing acute) <MARC HAJI - Last Filed: 03/11/21 07:03> Ordered Tests: Active Orders 24 hr Category Date Time Status EKG-ER Only STAT Care 03/11/21 05:41 Active CHEST 1 VIEW (PORTABLE) Stat Exams 03/11/21 06:21 Taken CBC W DIFF Stat Lab 03/11/21 05:46 Completed CMP Stat Lab 03/11/21 05:46 Completed NT PRO BNP Stat Lab 03/11/21 05:46 Completed PROTIME WITH INR Stat Lab 03/11/21 05:46 Completed PTT Stat Lab 03/11/21 05:46 Completed TROPONIN Q3H Lab 03/11/21 05:46 Completed TROPONIN Q3H Lab 03/11/21 08:45 Ordered TROPONIN Q3H Lab 03/11/21 11:45 Ordered TROPONIN Q3H Lab 03/11/21 14:45 Ordered TROPONIN Q3H Lab 03/11/21 17:45 Ordered UA W/RFX UR CULTURE Stat Lab 03/11/21 06:31 Ordered Urine Triage Profile Stat Lab 03/11/21 06:31 Ordered Transfer Order Routine Transfer 03/11/21 Ordered Medication Summary Discontinued Medications Generic Name Dose Route Start Last Admin Trade Name Freq PRN Reason Stop Dose Admin Enoxaparin Sodium 80 mg 03/11/21 07:40 Enoxaparin Sodium 80 Mg/0.8 Ml Syringe SQ 03/11/21 07:41 STAT ONE Furosemide 40 mg 03/11/21 07:33 Furosemide 40 Mg/4 Ml Vial IV 03/11/21 07:34 STAT ONE Lorazepam 1 mg 03/11/21 05:43 03/11/21 05:53 Lorazepam 2 Mg/1 Ml 2 Mg Vial IV 03/11/21 05:44 1 mg STAT ONE Administration Lorazepam Confirm 03/11/21 05:49 Lorazepam 2 Mg/1 Ml 2 Mg Vial Administered 03/11/21 05:50 Dose 2 mg .ROUTE .STK-MED ONE Lorazepam 1 mg 03/11/21 07:39 Lorazepam 2 Mg/1 Ml 2 Mg Vial IV 03/11/21 07:40 STAT ONE Ondansetron HCl 4 mg 03/11/21 05:42 03/11/21 05:50 Ondansetron Hcl 4 Mg/2 Ml Vial IV 03/11/21 05:43 4 mg STAT ONE Administration Ondansetron HCl Confirm 03/11/21 05:48 Ondansetron Hcl 4 Mg/2 Ml Vial Administered 03/11/21 05:49 Dose 4 mg .ROUTE .STK-MED ONE Lab/Rad Data: Laboratory Result Diagrams 03/11/21 05:46 03/11/21 05:46 Laboratory Results 03/11/21 03/11/21 03/11/21 Range/Units 06:06 05:46 05:46 WBC (4.0-10.5) K/mm3 RBC (4.1-5.6) M/mm3 Hgb (12.5-18.0) gm/dl Hct (42-50) % MCV (78-100) fl MCH (26-32) pg MCHC (32-36) g/dl RDW (11.5-14.0) % Plt Count (150-450) K/mm3 MPV (7.5-11.0) fl Gran % (36.0-66.0) % Eos # (Auto) (0-0.5) Absolute Lymphs (auto) (1.0-4.6) Absolute Monos (auto) (0.0-1.3) Lymphocytes % (24.0-44.0) % Monocytes % (0.0-12.0) % Eosinophils % (0.00-5.0) % Basophils % (0.0-0.4) % Absolute Granulocytes (1.4-6.9) Basophils # (0-0.4) PT 12.8 H (9.4-12.5) SECONDS INR 1.08 (0.8-3.0) APTT 31.9 (25.1-36.5) SECONDS Sodium (137-145) mmol/L Potassium (3.5-5.1) mmol/L Chloride (98-107) mmol/L Carbon Dioxide (22-30) mmol/L Anion Gap (5-15) MEQ/L BUN (9-20) mg/dL Creatinine (0.66-1.25) mg/dL Estimated GFR ML/MIN Glucose (74-106) mg/dL Calcium (8.4-10.2) mg/dL Total Bilirubin (0.2-1.3) mg/dL AST (17-59) U/L ALT (0-50) U/L Alkaline Phosphatase (38-126) U/L Troponin I 0.055 H* (0.000-0.034) ng/mL NT-Pro-B Natriuret Pep (0-900) pg/mL Serum Total Protein (6.3-8.2) g/dL Albumin (3.5-5.0) g/dL Influenza Type A Ag NEGATIVE (NEGATIVE) Influenza Type B Ag NEGATIVE (NEGATIVE) RSV (PCR) NEGATIVE (Negative) SARS-CoV-2 (PCR) POSITIVE A (NEGATIVE) 03/11/21 03/11/21 Range/Units 05:46 05:46 WBC 8.9 (4.0-10.5) K/mm3 RBC 5.45 (4.1-5.6) M/mm3 Hgb 16.2 (12.5-18.0) gm/dl Hct 47.5 (42-50) % MCV 87.2 (78-100) fl MCH 29.7 (26-32) pg MCHC 34.1 (32-36) g/dl RDW 13.3 (11.5-14.0) % Plt Count 204 (150-450) K/mm3 MPV 9.3 (7.5-11.0) fl Gran % 71.6 H (36.0-66.0) % Eos # (Auto) 0.01 (0-0.5) Absolute Lymphs (auto) 1.63 (1.0-4.6) Absolute Monos (auto) 0.88 (0.0-1.3) Lymphocytes % 18.4 L (24.0-44.0) % Monocytes % 9.9 (0.0-12.0) % Eosinophils % 0.1 (0.00-5.0) % Basophils % 0.0 (0.0-0.4) % Absolute Granulocytes 6.34 (1.4-6.9) Basophils # 0 (0-0.4) PT (9.4-12.5) SECONDS INR (0.8-3.0) APTT (25.1-36.5) SECONDS Sodium 139 (137-145) mmol/L Potassium 4.3 (3.5-5.1) mmol/L Chloride 104 (98-107) mmol/L Carbon Dioxide 18 L (22-30) mmol/L Anion Gap 21.2 H (5-15) MEQ/L BUN 24 H (9-20) mg/dL Creatinine 1.54 H (0.66-1.25) mg/dL Estimated GFR 48.4 ML/MIN Glucose 130 H (74-106) mg/dL Calcium 9.6 (8.4-10.2) mg/dL Total Bilirubin 1.00 (0.2-1.3) mg/dL AST 32 (17-59) U/L ALT 24 (0-50) U/L Alkaline Phosphatase 126 (38-126) U/L Troponin I (0.000-0.034) ng/mL NT-Pro-B Natriuret Pep 3620 H (0-900) pg/mL Serum Total Protein 8.1 (6.3-8.2) g/dL Albumin 4.3 (3.5-5.0) g/dL Influenza Type A Ag (NEGATIVE) Influenza Type B Ag (NEGATIVE) RSV (PCR) (Negative) SARS-CoV-2 (PCR) (NEGATIVE) <MARC HAJI - Last Filed: 03/11/21 07:03> - Progress Progress: improved, re-examined Air Movement: fair Discussed with DrMackenzie: Other (Katlyn) Counseled pt/family regarding: lab results, diagnosis, need for follow-up, rad results <ELLEN REED - Last Filed: 03/11/21 07:51> - Progress Progress Note: 03/11/21 06:51 4mg IV Zofran/1mg IV Ativan w improvement 03/11/21 07:[address] turned over to Dr[address] Reed at 7:00AM (MARC HAJI) <AMRC HAJI - Last Filed: 03/11/21 07:03> - Departure Departure Disposition: In-patient Admission Critical Care Time: Yes Critical Care Time(excluding separately billable procedures): Critical 30-74 mins (30) <ELLEN REED - Last Filed: 03/11/21 07:51> - Departure Clinical Impression: COVID-19 virus infection, CHF (congestive heart failure), Non-STEMI (non-ST elevated myocardial infarction), Shortness of breath Condition: Fair Referrals: PAULA LEONARD [Primary Care Provider] - Follow up/PCP as directed Instructions: Heart Failure
[2021-03-11 06:51] LABS: ALBUMIN 4.3 g/dL (3.5-5.0); ANION GAP 21.2 MEQ/L (5-15); Calcium 9.6 mg/dL (8.4-10.2); Creatinine 1 1.54 mg/dL (0.66-1.25); EST GLOMERULAR FILTRATION RATE 48.4 ML/MIN; Total Protein 8.1 g/dL (6.3-8.2)
[2021-03-11 06:52] LABS: Potassium 4.3 mmol/L (3.5-5.1)
[2021-03-11 07:10] LABS: INFLUENZA A NEGATIVE (NEGATIVE); INFLUENZA B NEGATIVE (NEGATIVE); RESPIRATORY SYNCTIAL VIRUS NEGATIVE (Negative)
[2021-03-11 07:21] LABS: SARS-CoV-2 Xpert Express POSITIVE (NEGATIVE)
[2021-03-11] MEDS ORDERED: Lasix 40 MG/4 ML IV ONE (07:33)
[2021-03-11] MEDS ORDERED: ENOXAPARIN SODIUM SQ ONE ×2 (07:40→08:16)
[2021-03-11] MEDS ORDERED: Lasix 40 MG/4 ML ONE (08:16)
[2021-03-11] MEDS ORDERED: Compazine 10 MG/2 ML IV ONE (08:59)
[2021-03-11] MEDS ORDERED: Compazine 10 MG/2 ML ONE (09:05)
[2021-03-11 09:29] LABS: Appearance SLIGHTLY CLOUDY (CLEAR); Bilirubin NEGATIVE (NEGATIVE); Blood SMALL Ery/ul (0-5); Epithelial Cells RARE /HPF (FEW); Glucose NEGATIVE (NEGATIVE); Hyaline Casts 0-2 /LPF (0-2); Ketones SMALL (NEGATIVE); Leukocyte Esterase NEGATIVE (NEGATIVE); Mucus SLIGHT /HPF (NEGATIVE); Nitrite NEGATIVE (NEGATIVE); Protein,Urine Dip NEGATIVE (Negative); RBC 0-2 /HPF (0-2); Specific Gravity 1.011 (1.005-1.025); Urobilinogen NEGATIVE mg/dL (0-1)
--- NOTE | 2021-03-11 09:29 | XRAY ---
Indication: Cough. Short of breath. Comparison: November 06, 2019. Portable chest again hyperinflated with incidental calcified granulomas. No focal infiltrate, consolidation, or large effusion. Heart not enlarged. Bony thorax intact again with mild osteopenia, degenerative changes, and old right clavicle fracture. Impression: Continued nonacute hyperinflated chest with chronic features.
[2021-03-11 09:40] LABS: Amphetamine,Urine NEGATIVE (NEGATIVE); Bacteria FEW /HPF (NEGATIVE); Barbiturate,Urine NEGATIVE (NEGATIVE); Benzodiazepine,Urine NEGATIVE (NEGATIVE); Cocaine,Urine NEGATIVE (NEGATIVE); Methadone,Urine NEGATIVE (NEGATIVE); Opiate,Urine NEGATIVE (NEGATIVE); PCP,Urine NEGATIVE (NEGATIVE); THC,Urine POSITIVE (NEGATIVE); WBC 0-2 /HPF (0-5)
[2021-03-11] MEDS ORDERED: Sodium Chloride 0.9% 1000 ML 1,000 ML IV SCH (09:43)
[2021-03-11] MEDS ORDERED: Ativan 2 MG/1 ML VIAL IV PRN (09:43)
[2021-03-11] MEDS ORDERED: Zofran 4 MG/2 ML VIAL IV PRN (09:43)
[2021-03-11] MEDS ORDERED: TYLENOL 325 MG PO PRN (09:43)
[2021-03-11] MEDS: ENOXAPARIN SODIUM SQ SCH (10:05)
[2021-03-11] MEDS: DECADRON 10MG INJ. IV SCH (10:29)
[2021-03-11] MEDS ORDERED: REMDESIVIR 200 MG in Sodium Chloride 0.9% 250 ML 250 ML IV ONE (11:00)
[2021-03-11] MEDS ORDERED: Ativan 1 MG PO PRN (14:07)
[2021-03-11] MEDS ORDERED: TYLENOL EXTRA STRENGTH 500 MG PO PRN (14:08)
[2021-03-11] MEDS ORDERED: HYDROCODONE-CHLORPHEN ER SUSP PO PRN (14:08)
[2021-03-11] MEDS ORDERED: VENTOLIN COMMON CANISTER IH PRN (14:09)
[2021-03-11] MEDS: OLUMIANT PO SCH (14:26)
[2021-03-11] MEDS: ENTRESTO 49 MG-51 MG TABLET PO SCH (14:26)
[2021-03-11] MEDS: ZOCOR 20MG PO SCH (14:26)
[2021-03-11] MEDS: PLAVIX 75 MG Tablet PO SCH (14:26)
[2021-03-11] MEDS: lamISIL 250 MG PO SCH (14:26)
--- NOTE | 2021-03-11 15:14 | HP ---
CHIEF COMPLAINT: Nausea, vomiting, cough, shortness of breath. HISTORY OF PRESENT ILLNESS: The patient has been having nausea and vomiting for three to four days and now he has started coughing and had gotten short of breath last night so they called an ambulance. He denied any chest pain. He said he had a heart attack several years ago but does not feel anything like that. He just feels really tired, short of breath, nauseated and sick. We are in the middle of a COVID epidemic at the present time and he is not vaccinated. He states he has had some fever but he has not checked it. He has some runny nose, drainage, stopped up and aches all over. CORONAVIRUS SCREENING: No COVID immunizations, none for influenza. MEDICATIONS: Atorvastatin, Lasix 20 q.d., metoprolol 12.5 b.i.d., Lotrisone cream b.i.d. to his legs, hydralazine 25 t.i.d. for itching. ALLERGIES: HYDROCODONE. MORPHINE. OXYCODONE. PAST MEDICAL HISTORY: Cataracts, coronary artery disease, deep vein thrombosis, hypertension, myocardial infarction, osteoarthritis, chronic obstructive pulmonary disease, anxiety, bipolar, depression. PAST SURGICAL HISTORY: Cardiac stenting. Vein stripping right leg. Broken bones in right hand and leg in the distant past requiring surgery. REVIEW OF SYSTEMS: He denies any psychiatric problems. CONSTITUTIONAL: He thinks he has had some fever perhaps, does not have a thermometer. HEENT: The patient still has his taste. Runny nose. RESPIRATORY: A little bit of a cough. He feels short of breathe all of the time in the last 24 hours. CVS: No symptoms. Myocardial infarction apparently several years ago. : No problems urinating. MUSCULOSKELETAL: Aching all over. SKIN: No problems. NEUROLOGIC: The patient apparently had a stroke while in [place] with damage to his right leg. He had some vein stripping there and had some type of trauma there. PSYCHOSOCIAL: The patient said he has anxiety, bipolar and depression. He does strike me as being somewhat bipolar. Apparently I am supposed to know him from the past but I do not really remember him but if I do it is more in relationship to his mother. 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 SOCIAL HISTORY: He has smoked a pack a day for 50 years. He has drank a fair amount but known recently. No drug use. He lives by himself. PHYSICAL EXAMINATION: The patient is a pretty strong, healthy looking 70-year-old white male in no acute distress as 12 o'clock today. VITAL SIGNS: Temperature 98F, pulse 80, respirations 20, blood pressure 188/82. O2 saturations 99%. Pain score 0. GENERAL APPEARANCE: Mild anxiety, depressed, speaking fast. No severe pain. HEENT: Pupils equal and reactive to light. NECK: Supple without adenopathy. CHEST: Clear. CVS: No murmurs or gallops. ABDOMEN: Soft. No tenderness. EXTREMITIES: He has got pedal stasis right side more than left otherwise extremities are normal. LAB DATA AND TESTS: Chest x-ray showed some chronic obstructive pulmonary disease changes. His troponins are mildly elevated x3 but not extremely so. He probably has some subendocardial ischemia probably secondary to the COVID, nothing that would require a heart cath. His white count is 8.9, hemoglobin 16.2. Electrolytes are normal. Creatinine 1.5, glucose 130. BNP markedly elevated at 3600. Total protein is a little bit high at 8.1. IMPRESSION: The patient has: 1) COVID-19. 2) Gastroenteritis from COVID-19. 3) Shortness of breath from COVID. 4) History of congestive heart failure. 5) Coronary artery disease and possibly non-STEMI. PLAN: The patient will be treated with the usual COVID medications, IV fluid, Lovenox, Remdesivir, Decadron and be followed with cardiac monitoring. His BNP will be followed. It is elevated at 3,600. He will be continued on his Lasix, potassium and should be on an NELSY inhibitor like lisinopril.
[2021-03-11] MEDS ORDERED: Lasix 20 MG/2 ML IV SCH (17:00)
[2021-03-11] MEDS: Lopressor 25MG Tab PO SCH (21:44)
[2021-03-12 05:50] LABS: Absolute Neutrophil Ct (ANC) 6.48 (1.4-6.9); Basophil (Absolute #) 0 (0-0.4); Eosinophil (Absolute #) 0 (0-0.5); Hematocrit 41.1 % (42-50); Hemoglobin 13.9 gm/dl (12.5-18.0); Lymphocyte (Absolute #) 1.24 (1.0-4.6); Lymphocytes % 13.8 % (24.0-44.0); Mean Cell Volume 88.4 fl (78-100); Mean Corpuscular Hemoglobin 29.9 pg (26-32); Mean Corpuscular Hgb Concent. 33.8 g/dl (32-36); Mean Platelet Volume 9.1 fl (7.5-11.0); Monocyte (Absolute #) 1.24 (0.0-1.3); Monocytes % 13.8 % (0.0-12.0); Neutrophil % 72.4 % (36.0-66.0); Platelet Count 174 K/mm3 (150-450); Red Blood Count 4.65 M/mm3 (4.1-5.6); Red Cell Distribution Width 13.4 % (11.5-14.0)
[2021-03-12 06:44] LABS: ALBUMIN 3.3 g/dL (3.5-5.0); ANION GAP 14.3 MEQ/L (5-15); BILIRUBIN,TOTAL 0.4 mg/dL (0.2-1.3); Calcium 8.5 mg/dL (8.4-10.2); Creatinine 1 1.4 mg/dL (0.66-1.25); EST GLOMERULAR FILTRATION RATE 54.1 ML/MIN; Potassium 3.9 mmol/L (3.5-5.1); Total Protein 6.3 g/dL (6.3-8.2)
[2021-03-12] MEDS: Lopressor 25MG Tab PO SCH ×2 (09:15→21:29)
[2021-03-12] MEDS: ENOXAPARIN SODIUM SQ SCH (09:15)
[2021-03-12] MEDS: OLUMIANT PO SCH (09:16)
[2021-03-12] MEDS: ENTRESTO 49 MG-51 MG TABLET PO SCH (09:16)
[2021-03-12] MEDS: ZOCOR 20MG PO SCH (09:16)
[2021-03-12] MEDS: PLAVIX 75 MG Tablet PO SCH (09:17)
[2021-03-12] MEDS: LASIX 20 MG PO SCH (09:17)
[2021-03-12] MEDS: DECADRON 10MG INJ. IV SCH (09:17)
[2021-03-12] MEDS: REMDESIVIR 100 MG in Sodium Chloride 0.9% 100 ML BAG 100 ML IV SCH (09:17)
[2021-03-12] MEDS: lamISIL 250 MG PO SCH (09:17)
[2021-03-12] MEDS ORDERED: NON-FORMULARY ITEM (Sacubitril/Valsartan [Entresto 24 Mg-26 Mg Tablet] 1 EACH Tablet) PO SCH (10:00)
[2021-03-12] MEDS ORDERED: NON-FORMULARY ITEM (Atorvastatin Calcium [Atorvastatin Calcium] 80 MG Tablet) PO SCH (10:00)
--- NOTE | 2021-03-12 12:55 | PROG NOTE ---
DATE: 03/12/2021 CHIEF COMPLAINT: Cough, shortness of breath, nausea. HISTORY: The patient's history and physical was done yesterday. The patient has improved. He is eating small amounts, has less nausea. His O2 is now at 2 liters. He has O2 saturation at 90%. PHYSICAL EXAMINATION: CHEST: Clear. CVS: Heart sounds are regular. ABDOMEN: Soft. LAB DATA AND TESTS: The patient is improved. We note his D-dimer is 5591. Creatinine 1.40. Chest x-ray is not on the chart and will have to get that. IMPRESSION: 1) COVID gastroenteritis. 2) COVID pneumonia, improved. 3) Coronary artery disease with history of congestive heart failure. PLAN: Hopefully if he is eating well and his O2 saturations are holding on 2 liters, we will send him home tomorrow on oxygen. PROGNOSIS: Fairly good.
[2021-03-13 07:42] VITALS: BP 133/89
[2021-03-13] MEDS: DECADRON 10MG INJ. IV SCH (09:49)
[2021-03-13] MEDS: ENOXAPARIN SODIUM SQ SCH (09:49)
[2021-03-13] MEDS: ENTRESTO 49 MG-51 MG TABLET PO SCH (09:50)
[2021-03-13] MEDS: lamISIL 250 MG PO SCH (09:51)
[2021-03-13] MEDS: LASIX 20 MG PO SCH (09:51)
[2021-03-13] MEDS: Lopressor 25MG Tab PO SCH (09:52)
[2021-03-13] MEDS: PLAVIX 75 MG Tablet PO SCH (09:53)
[2021-03-13] MEDS: OLUMIANT PO SCH (09:53)
[2021-03-13] MEDS: ZOCOR 20MG PO SCH (09:54)
[2021-03-13] MEDS: REMDESIVIR 100 MG in Sodium Chloride 0.9% 100 ML BAG 100 ML IV SCH (09:54)
[2021-03-13 11:48] VITALS: PULSE 55; O2SAT 96
== END 2021-03-13 12:15 | disposition home or self-care (01) | DRG 177 ==
LOC: ED 05:23 → OBSVTOIN 09:30 → MED SURG 09:30
PROVIDERS: ADMIT Family Medicine; ATTEND Family Medicine
DX: U07.1 COVID-19 (principal); J12.82 Pneumonia due to coronavirus disease 2019; K52.9 Noninfective gastroenteritis and colitis, unspecified; I11.0 Hypertensive heart disease with heart failure; I50.9 Heart failure, unspecified; I25.10 Atherosclerotic heart disease of native coronary artery without angina pectoris; J44.9 Chronic obstructive pulmonary disease, unspecified; E11.9 Type 2 diabetes mellitus without complications; I25.2 Old myocardial infarction; Z72.0 Tobacco use; Z79.899 Other long term (current) drug therapy; Z86.718 Personal history of other venous thrombosis and embolism
CPT/HCPCS: 0241U; 36415; 71045; 80053; 80307; 81001; 83880; 84484; 85025; 85610; 85730; 93005; 94762; 96372; 96374; 96375; 99285; 99291; J0248; J1100; J1650; J1940; J2060; J2405; A9270-GY

== ENCOUNTER 2021-08-09 22:08 | Emergency (ER) | payer MEDICARE ==
--- NOTE | 2021-08-09 22:11 | ERPHSYRPT ---
- History of Present Illness Time Seen by Provider: 08/09/21 22:11 Historian: patient Exam Limitations: clinical condition Physician History: This is a 66-year-old white male patient who has a history of COPD, hypertension, coronary artery disease, type 2 diabetes, anxiety, bipolar disorder and elevated cholesterol who presents with nausea and vomiting episodes x2 days. He also has some generalized abdominal pain. Patient states that he drank one half beer 2 days ago. He feels that maybe he was poisoned. He is a current daily smoker of cigarettes. He denies chest pain. He denies shortness of breath. Timing/Duration: day(s) (2) Activities at Onset: none Quality: aching Abdominal Pain Onset Location: generalized abdomen Pain Radiation: no radiation Severity of Pain-Max: moderate Severity of Pain-Current: mild Modifying Factors: Improves With: vomiting Associated Symptoms: loss of appetite, nausea, vomiting Previous symptoms: no prior history Allergies/Adverse Reactions: hydrocodone bitartrate [From Vicodin] Allergy (Mild, Verified 08/09/21 22:24) morphine Allergy (Mild, Verified 08/09/21 22:24) oxycodone [From OxyContin] Allergy (Verified 08/09/21 22:24) Home Medications: Atorvastatin Calcium 80 mg PO DAILY 10/29/19 [History] Furosemide 20 mg [Lasix 20 mg] 20 mg PO DAILY 10/29/19 [History] Metoprolol Tartrate 12.5 mg PO BID 10/29/19 [History] Clopidogrel Bisulfate [PLAVIX 75 MG Tablet] 75 mg PO DAILY 03/11/21 [History] Sacubitril/Valsartan [Entresto 24 mg-26 mg Tablet] 1 tab PO DAILY 03/11/21 [History] terbinafine HCL [Terbinafine HCl] 250 mg PO DAILY 03/11/21 [History] Hx Tetanus, Diphtheria Vaccination/Date Given: No Hx Influenza Vaccination/Date Given: No Hx Pneumococcal Vaccination/Date Given: No Travel Risk - International Travel Have you traveled outside of the country in past 3 weeks: No - Coronavirus Screening Are you exhibiting any of the following symptoms?: Yes Symptoms: Vomiting/Diarrhea Close contact with a COVID-19 positive Pt in past 14-21 Days: No - Vaccine Status Have you recieved a Covid-19 vaccination: No - Review of Systems Constitutional: Weakness Eyes: No Symptoms Ears, Nose, & Throat: No Symptoms Respiratory: No Symptoms Cardiac: No Symptoms Abdominal/Gastrointestinal: Abdominal Pain, Nausea Genitourinary Symptoms: No Symptoms Musculoskeletal: No Symptoms Skin: No Symptoms Neurological: No Symptoms Psychological: Anxiety Endocrine: No Symptoms Hematologic/Lymphatic: No Symptoms Immunological/Allergic: No Symptoms All Other Systems: Reviewed and Negative - Past Medical History Pertinent Past Medical History: Yes Neurological History: Stroke ENT History: Cataracts Cardiac History: Coronary Artery Disease, Deep Vein Thrombosis, High Cholesterol, Hypertension, Myocardial Infarction (DE) Respiratory History: COPD Endocrine Medical History: Adrenal Insufficiency, Diabetes Type II, Other Musculoskeletal History: Osteoarthritis GI Medical History: No Pertinent History History: No Pertinent History Psycho-Social History: Anxiety, Bipolar, Depression Male Reproductive Disorders: No Pertinent History Other Medical History: Blood clots - Past Surgical History Past Surgical History: Yes Neuro Surgical History: No Pertinent History Cardiac: Cardiac Catheterization, Cardiac Stent, Vascular Surgery Respiratory: No Pertinent History Gastrointestinal: No Pertinent History Genitourinary: No Pertinent History Musculoskeletal: Orthopedic Surgery Male Surgical History: No Pertinent History Other Surgical History: R hand and R leg surgeries - Social History Smoking Status: Current every day smoker How long have you smoked: 50 yrs Exposure to second hand smoke: Yes Drug Use: none Patient Lives Alone: Yes Significant Family History: no pertinent family hx - Nursing Vital Signs Nursing Vital Signs: Initial Vital Signs Temperature 97.9 F 08/09/21 22:09 Pulse Rate 70 08/09/21 22:09 Respiratory Rate 24 08/09/21 22:09 Blood Pressure 181/91 08/09/21 22:09 O2 Sat by Pulse Oximetry 100 08/09/21 22:09 Pain Scale Pain Intensity 0 - Physical Exam General Appearance: mild distress, alert, anxiety, other (? smells of alcohol) Eye Exam: PERRL/EOMI, eyes nml inspection Ears, Nose, Throat Exam: normal ENT inspection, moist mucous membranes Neck Exam: normal inspection, non-tender, supple, full range of motion Respiratory Exam: normal breath sounds, lungs clear, airway intact, No chest tenderness, No respiratory distress Cardiovascular Exam: regular rate/rhythm, normal heart sounds, normal peripheral pulses Gastrointestinal/Abdomen Exam: soft, normal bowel sounds, tenderness, No guarding (Mild), No rebound Rectal Exam: not done Back Exam: normal inspection, normal range of motion, No CVA tenderness, No vertebral tenderness Extremity Exam: normal inspection, normal range of motion, pelvis stable Neurologic Exam: alert, oriented x 3, cooperative, 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 nml as tested, normal mood/affect Skin Exam: normal color, warm, dry Lymphatic Exam: No adenopathy SpO2 Interpretation: normal O2 Delivery: Room Air - Course Nursing assessment & vital signs reviewed: Yes Ordered Tests: Active Orders 24 hr Category Date Time Status IV Insertion STAT Care 08/09/21 22:55 Active ABDOMEN AND PELVIS W/0 CONTRAS [CT] Stat Exams 08/10/21 00:15 Taken AMYLASE Stat Lab 08/09/21 23:07 Completed CBC W DIFF Stat Lab 08/09/21 23:07 Completed CMP Stat Lab 08/09/21 23:07 Completed ETHYL ALCOHOL Stat Lab 08/09/21 23:07 Completed LIPASE Stat Lab 08/09/21 23:07 Completed Lactic Acid Stat Lab 08/09/21 23:07 Completed Urine Triage Profile Stat Lab 08/10/21 00:58 Completed Medication Summary Discontinued Medications Generic Name Dose Route Start Last Admin Trade Name Deepakq PRN Reason Stop Dose Admin Sodium Chloride 1,000 mls @ 999 mls/hr 08/09/21 22:55 08/10/21 00:51 Sodium Chloride 0.9% 1000 Ml IV 08/09/21 23:55 Infused .Q1H1M STA Infusion Sodium Chloride Confirm 08/09/21 23:01 Sodium Chloride 0.9% 1000 Ml Administered 08/09/21 23:02 Dose 1,000 mls @ ud .ROUTE .STK-MED ONE Sodium Chloride 500 mls @ 500 mls/hr 08/10/21 00:15 08/10/21 00:53 Sodium Chloride 0.9% 500 Ml IV 08/10/21 01:14 500 mls/hr .Q1H ONE Administration Sodium Chloride Confirm 08/10/21 00:52 Sodium Chloride 0.9% 500 Ml Administered 08/10/21 00:53 Dose 500 mls @ ud IV .STK-MED ONE Pantoprazole Sodium 40 mg 08/09/21 23:02 08/09/21 23:08 Pantoprazole 40 Mg Vial IV 08/09/21 23:03 40 mg STAT ONE Administration Pantoprazole Sodium Confirm 08/09/21 23:03 Pantoprazole 40 Mg Vial Administered 08/09/21 23:04 Dose 40 mg IV .STK-MED ONE Potassium Chloride 10 meq 08/10/21 02:37 08/10/21 02:42 Potassium Chloride Tab 10 Meq Tab PO 08/10/21 02:38 10 meq STAT ONE Administration Potassium Chloride Confirm 08/10/21 02:42 Potassium Chloride Tab 10 Meq Tab Administered 08/10/21 02:43 Dose 10 meq PO .STK-MED ONE Prochlorperazine Edisylate 10 mg 08/09/21 22:55 08/09/21 23:07 Prochlorperazine Edisylate 10 Mg/2 Ml Vial IV 08/09/21 22:56 10 mg STAT ONE Administration Prochlorperazine Edisylate Confirm 08/09/21 23:00 Prochlorperazine Edisylate 10 Mg/2 Ml Vial Administered 08/09/21 23:01 Dose 10 mg .ROUTE .STK-MED ONE Lab/Rad Data: Laboratory Result Diagrams 08/09/21 23:07 08/09/21 23:07 Laboratory Results 08/10/21 08/10/21 08/09/21 Range/Units 00:58 00:37 Unknown WBC (4.0-10.5) x10^3/uL RBC (4.1-5.6) x10^6/uL Hgb (12.5-18.0) g/dL Hct (42-50) % MCV (78-100) fL MCH (26-32) pg MCHC (32-36) g/dL RDW (11.5-14.0) % Plt Count (150-450) x10^3/uL MPV (7.5-11.0) fL Gran % (36.0-66.0) % Immature Gran % (Auto) (0.00-0.4) % Nucleat RBC Rel Count (0.00-0.1) % Eos # (Auto) (0-0.5) x10^3/uL Immature Gran # (Auto) (0.00-0.03) x10^3u/L Absolute Lymphs (auto) (1.0-4.6) x10^3/uL Absolute Monos (auto) (0.0-1.3) x10^3/uL Absolute Nucleated RBC (0.00-0.01) x10^3u/L Lymphocytes % (24.0-44.0) % Monocytes % (0.0-12.0) % Eosinophils % (0.00-5.0) % Basophils % (0.0-0.4) % Absolute Granulocytes (1.4-6.9) x10^3/uL Basophils # (0-0.4) x10^3/uL Sodium (137-145) mmol/L Potassium (3.5-5.1) mmol/L Chloride (98-107) mmol/L Carbon Dioxide (22-30) mmol/L Anion Gap (5-15) MEQ/L BUN (9-20) mg/dL Creatinine (0.66-1.25) mg/dL Estimated GFR ML/MIN Glucose (74-106) mg/dL Lactic Acid (0.4-2.0) Calcium (8.4-10.2) mg/dL Total Bilirubin (0.2-1.3) mg/dL AST (17-59) U/L ALT (0-50) U/L Alkaline Phosphatase (38-126) U/L Serum Total Protein (6.3-8.2) g/dL Albumin (3.5-5.0) g/dL Amylase (30-110) U/L Lipase (23-300) U/L Urinalys Dipstick Clnc MAIN LAB Urine Color YELLOW (YELLOW) Urine Appearance CLEAR (CLEAR) Urine pH 7.0 (5-6) Ur Specific [place] 1.020 (1.005-1.025) POC Urine Protein Conf 30 (Negative) Urine Ketones SMALL-15 (NEGATIVE) Urine Nitrite NEGATIVE (NEGATIVE) Urine Bilirubin NEGATIVE (NEGATIVE) Urine Urobilinogen 1 (0-1) mg/dL Urine Leukocytes NEGATIVE (NEGATIVE) Urine WBC (Auto) 0-2 (0-5) /HPF Urine RBC (Auto) 3-5 (0-2) /HPF U Hyaline Cast (Auto) 3-5 (0-2) /LPF U Epithel Cells (Auto) RARE (FEW) /HPF Urine Bacteria (Auto) RARE (NEGATIVE) /HPF Urine RBC SMALL (0-5) Javier/ul Urine Mucus (Auto) SLIGHT (NEGATIVE) /HPF Ur Culture Indicated? YES Urine Glucose NEGATIVE (NEGATIVE) mg/dL Urine Opiates Level NEGATIVE (NEGATIVE) Ur Methadone NEGATIVE (NEGATIVE) Urine Barbiturates NEGATIVE (NEGATIVE) Ur Phencyclidine (PCP) NEGATIVE (NEGATIVE) Urine Amphetamine NEGATIVE (NEGATIVE) U Benzodiazepine Level NEGATIVE (NEGATIVE) Urine Cocaine NEGATIVE (NEGATIVE) Urine Marijuana (THC) POSITIVE (NEGATIVE) Ethyl Alcohol (0-10) mg/dL Influenza Type A Ag NEGATIVE (NEGATIVE) Influenza Type B Ag NEGATIVE (NEGATIVE) RSV (PCR) NEGATIVE (Negative) SARS-CoV-2 (PCR) NEGATIVE (NEGATIVE) 08/09/21 08/09/21 08/09/21 Range/Units 23:07 23:07 23:07 WBC (4.0-10.5) x10^3/uL RBC (4.1-5.6) x10^6/uL Hgb (12.5-18.0) g/dL Hct (42-50) % MCV (78-100) fL MCH (26-32) pg MCHC (32-36) g/dL RDW (11.5-14.0) % Plt Count (150-450) x10^3/uL MPV (7.5-11.0) fL Gran % (36.0-66.0) % Immature Gran % (Auto) (0.00-0.4) % Nucleat RBC Rel Count (0.00-0.1) % Eos # (Auto) (0-0.5) x10^3/uL Immature Gran # (Auto) (0.00-0.03) x10^3u/L Absolute Lymphs (auto) (1.0-4.6) x10^3/uL Absolute Monos (auto) (0.0-1.3) x10^3/uL Absolute Nucleated RBC (0.00-0.01) x10^3u/L Lymphocytes % (24.0-44.0) % Monocytes % (0.0-12.0) % Eosinophils % (0.00-5.0) % Basophils % (0.0-0.4) % Absolute Granulocytes (1.4-6.9) x10^3/uL Basophils # (0-0.4) x10^3/uL Sodium 138 (137-145) mmol/L Potassium 3.3 L (3.5-5.1) mmol/L Chloride 102 (98-107) mmol/L Carbon Dioxide 23 (22-30) mmol/L Anion Gap 16.5 H (5-15) MEQ/L BUN 32 H (9-20) mg/dL Creatinine 1.87 H (0.66-1.25) mg/dL Estimated GFR 38.6 ML/MIN Glucose 141 H (74-106) mg/dL Lactic Acid 4.1 H (0.4-2.0) Calcium 9.4 (8.4-10.2) mg/dL Total Bilirubin 1.50 H (0.2-1.3) mg/dL AST 29 (17-59) U/L ALT 23 (0-50) U/L Alkaline Phosphatase 120 (38-126) U/L Serum Total Protein 7.4 (6.3-8.2) g/dL Albumin 4.1 (3.5-5.0) g/dL Amylase 64 (30-110) U/L Lipase 68 (23-300) U/L Urinalys Dipstick Clnc Urine Color (YELLOW) Urine Appearance (CLEAR) Urine pH (5-6) Ur Specific [place] (1.005-1.025) POC Urine Protein Conf (Negative) Urine Ketones (NEGATIVE) Urine Nitrite (NEGATIVE) Urine Bilirubin (NEGATIVE) Urine Urobilinogen (0-1) mg/dL Urine Leukocytes (NEGATIVE) Urine WBC (Auto) (0-5) /HPF Urine RBC (Auto) (0-2) /HPF U Hyaline Cast (Auto) (0-2) /LPF U Epithel Cells (Auto) (FEW) /HPF Urine Bacteria (Auto) (NEGATIVE) /HPF Urine RBC (0-5) Javier/ul Urine Mucus (Auto) (NEGATIVE) /HPF Ur Culture Indicated? Urine Glucose (NEGATIVE) mg/dL Urine Opiates Level (NEGATIVE) Ur Methadone (NEGATIVE) Urine Barbiturates (NEGATIVE) Ur Phencyclidine (PCP) (NEGATIVE) Urine Amphetamine (NEGATIVE) U Benzodiazepine Level (NEGATIVE) Urine Cocaine (NEGATIVE) Urine Marijuana (THC) (NEGATIVE) Ethyl Alcohol < 10 (0-10) mg/dL Influenza Type A Ag (NEGATIVE) Influenza Type B Ag (NEGATIVE) RSV (PCR) (Negative) SARS-CoV-2 (PCR) (NEGATIVE) 08/09/21 Range/Units 23:07 WBC 10.0 (4.0-10.5) x10^3/uL RBC 4.78 (4.1-5.6) x10^6/uL Hgb 14.3 (12.5-18.0) g/dL Hct 42.7 (42-50) % MCV 89.3 (78-100) fL MCH 29.9 (26-32) pg MCHC 33.5 (32-36) g/dL RDW 13.0 (11.5-14.0) % Plt Count 249 (150-450) x10^3/uL MPV 8.5 (7.5-11.0) fL Gran % 76.3 H (36.0-66.0) % Immature Gran % (Auto) 0.4 (0.00-0.4) % Nucleat RBC Rel Count 0.0 (0.00-0.1) % Eos # (Auto) 0.03 (0-0.5) x10^3/uL Immature Gran # (Auto) 0.04 H (0.00-0.03) x10^3u/L Absolute Lymphs (auto) 1.23 (1.0-4.6) x10^3/uL Absolute Monos (auto) 1.04 (0.0-1.3) x10^3/uL Absolute Nucleated RBC 0.00 (0.00-0.01) x10^3u/L Lymphocytes % 12.3 L (24.0-44.0) % Monocytes % 10.4 (0.0-12.0) % Eosinophils % 0.3 (0.00-5.0) % Basophils % 0.3 (0.0-0.4) % Absolute Granulocytes 7.60 H (1.4-6.9) x10^3/uL Basophils # 0.03 (0-0.4) x10^3/uL Sodium (137-145) mmol/L Potassium (3.5-5.1) mmol/L Chloride (98-107) mmol/L Carbon Dioxide (22-30) mmol/L Anion Gap (5-15) MEQ/L BUN (9-20) mg/dL Creatinine (0.66-1.25) mg/dL Estimated GFR ML/MIN Glucose (74-106) mg/dL Lactic Acid (0.4-2.0) Calcium (8.4-10.2) mg/dL Total Bilirubin (0.2-1.3) mg/dL AST (17-59) U/L ALT (0-50) U/L Alkaline Phosphatase (38-126) U/L Serum Total Protein (6.3-8.2) g/dL Albumin (3.5-5.0) g/dL Amylase (30-110) U/L Lipase (23-300) U/L Urinalys Dipstick Clnc Urine Color (YELLOW) Urine Appearance (CLEAR) Urine pH (5-6) Ur Specific [place] (1.005-1.025) POC Urine Protein Conf (Negative) Urine Ketones (NEGATIVE) Urine Nitrite (NEGATIVE) Urine Bilirubin (NEGATIVE) Urine Urobilinogen (0-1) mg/dL Urine Leukocytes (NEGATIVE) Urine WBC (Auto) (0-5) /HPF Urine RBC (Auto) (0-2) /HPF U Hyaline Cast (Auto) (0-2) /LPF U Epithel Cells (Auto) (FEW) /HPF Urine Bacteria (Auto) (NEGATIVE) /HPF Urine RBC (0-5) Javier/ul Urine Mucus (Auto) (NEGATIVE) /HPF Ur Culture Indicated? Urine Glucose (NEGATIVE) mg/dL Urine Opiates Level (NEGATIVE) Ur Methadone (NEGATIVE) Urine Barbiturates (NEGATIVE) Ur Phencyclidine (PCP) (NEGATIVE) Urine Amphetamine (NEGATIVE) U Benzodiazepine Level (NEGATIVE) Urine Cocaine (NEGATIVE) Urine Marijuana (THC) (NEGATIVE) Ethyl Alcohol (0-10) mg/dL Influenza Type A Ag (NEGATIVE) Influenza Type B Ag (NEGATIVE) RSV (PCR) (Negative) SARS-CoV-2 (PCR) (NEGATIVE) - Progress Progress Note: 08/10/21 03:02 CAT scan of the abdomen and pelvis shows no acute abdominal or pelvic abnormality. There is a 12 mm isodense lesion arising from the inferior pole of the right kidney not definitely characterized on this CAT scan of the abdomen pelvis. Recommend further evaluation. This was discussed with the patient. Mild compression deformity of the superior endplate of L5 vertebral body which was new from compared to study on 10/29/2019. 08/10/21 03:05 Patient states that he is feeling much better at the time of discharge. Counseled pt/family regarding: lab results, diagnosis, need for follow-up, rad results - Departure Departure Disposition: Home Clinical Impression: Vomiting, Hypokalemia, Lesion of right [place] kidney Condition: Stable Critical Care Time: No Referrals: SAMANTHA GRIFFITH MD [Primary Care Provider] - Follow up/PCP as directed Additional Instructions: Drink plenty of fluids. If not allergic and or no contraindications eat more green leafy vegetables, bananas and nuts. Follow-up with your primary care physician to further analyze the right kidney lesion.
[2021-08-09] MEDS ORDERED: Sodium Chloride 0.9% 1000 ML 1,000 ML IV STA (22:55)
[2021-08-09] MEDS ORDERED: Compazine 10 MG/2 ML IV ONE (22:55)
[2021-08-09] MEDS ORDERED: Compazine 10 MG/2 ML ONE (23:00)
[2021-08-09] MEDS ORDERED: Sodium Chloride 0.9% 1000 ML 1,000 ML ONE (23:01)
[2021-08-09] MEDS ORDERED: PROTONIX 40 MG IV IV ONE ×2 (23:02→23:03)
[2021-08-09 23:09] LABS: Basophil (Absolute #) 0.03 x10^3/uL (0-0.4); Eosinophil % 0.3 % (0.00-5.0); Eosinophil (Absolute #) 0.03 x10^3/uL (0-0.5); Hematocrit 42.7 % (42-50); Hemoglobin 14.3 g/dL (12.5-18.0); Lymphocyte (Absolute #) 1.23 x10^3/uL (1.0-4.6); Lymphocytes % 12.3 % (24.0-44.0); Mean Cell Volume 89.3 fL (78-100); Mean Corpuscular Hemoglobin 29.9 pg (26-32); Mean Corpuscular Hgb Concent. 33.5 g/dL (32-36); Mean Platelet Volume 8.5 fL (7.5-11.0); Monocyte (Absolute #) 1.04 x10^3/uL (0.0-1.3); Monocytes % 10.4 % (0.0-12.0); Neutrophil % 76.3 % (36.0-66.0); Platelet Count 249 x10^3/uL (150-450); Red Blood Count 4.78 x10^6/uL (4.1-5.6)
[2021-08-09 23:29] LABS: ALBUMIN 4.1 g/dL (3.5-5.0); ANION GAP 16.5 MEQ/L (5-15); BILIRUBIN,TOTAL 1.5 mg/dL (0.2-1.3); Calcium 9.4 mg/dL (8.4-10.2); Creatinine 1 1.87 mg/dL (0.66-1.25); EST GLOMERULAR FILTRATION RATE 38.6 ML/MIN; Potassium 3.3 mmol/L (3.5-5.1); Total Protein 7.4 g/dL (6.3-8.2)
[2021-08-10] MEDS ORDERED: Sodium Chloride 0.9% 500 ML 500 ML IV ONE ×2 (00:15→00:52)
[2021-08-10 01:12] LABS: Bacteria RARE /HPF (NEGATIVE); Epithelial Cells RARE /HPF (FEW); Mucus SLIGHT /HPF (NEGATIVE); WBC 0-2 /HPF (0-5)
[2021-08-10 01:13] LABS: Appearance CLEAR (CLEAR); Bilirubin NEGATIVE (NEGATIVE); Glucose NEGATIVE (NEGATIVE); Ketones SMALL-15 (NEGATIVE); RBC SMALL Ery/ul (0-5)
[2021-08-10 01:14] LABS: Dipstick done @ ? MAIN LAB; Nitrite NEGATIVE (NEGATIVE); Protein,Urine Dip 30 (Negative); Urine Cultured Indicated? YES; Urobilinogen 1 mg/dL (0-1)
[2021-08-10 01:19] LABS: SARS-CoV-2 Xpert Express NEGATIVE (NEGATIVE)
[2021-08-10 01:20] LABS: INFLUENZA A NEGATIVE (NEGATIVE); INFLUENZA B NEGATIVE (NEGATIVE); RESPIRATORY SYNCTIAL VIRUS NEGATIVE (Negative)
[2021-08-10 01:21] LABS: Benzodiazepine,Urine NEGATIVE (NEGATIVE); Cocaine,Urine NEGATIVE (NEGATIVE); Methadone,Urine NEGATIVE (NEGATIVE); Opiate,Urine NEGATIVE (NEGATIVE); PCP,Urine NEGATIVE (NEGATIVE); THC,Urine POSITIVE (NEGATIVE)
[2021-08-10 01:42] LABS: Amphetamine,Urine NEGATIVE (NEGATIVE); Barbiturate,Urine NEGATIVE (NEGATIVE)
[2021-08-10] MEDS ORDERED: Klor Con PO ONE ×2 (02:37→02:42)
[2021-08-10 03:12] VITALS: BP 101/40; PULSE 71; O2SAT 98
--- NOTE | 2021-08-10 08:51 | XRAY ---
Indication: Midabdomen pain, nausea, vomiting, and dry heaves. Multiple contiguous axial images obtained through the abdomen and pelvis without contrast. Comparison: October 29, 2019. Lung bases again demonstrates mild dependent atelectasis. Incidental tiny right lower lobe calcified granuloma not previously imaged. No infiltrate or effusion. Heart not enlarged. Stable small hiatal hernia. Noncontrasted stomach and bowel loops are nonobstructed again with normal appendix. Stable enlarged prostate gland impresses on the base of the bladder and subcentimeter right lower renal exophytic hyperdense lesion. No free fluid/air. Remaining liver, gallbladder, pancreas, spleen, adrenal glands, kidneys, ureters, and bladder are unremarkable for noncontrast exam. There remains mild diffuse scattered arteriosclerotic calcifications with minimal distal aortic ectasia. Osseous structures demonstrates new L5 concave superior endplate fracture with 25-50% height loss, subacute to chronic in appearance. Stable osteopenia, mild/moderate multilevel degenerative spondylosis, bilateral L5 spondylolysis with grade 2 anterolisthesis, and mild bilateral hip degenerative arthropathy. Impression: 1. New subacute to chronic appearing L5 endplate fracture. 2. Again chronic findings including small hiatal hernia, enlarged prostate gland, subcentimeter right lower renal hyperdense lesion, arteriosclerotic disease with distal aortic ectasia, and chronic bony findings. 3. Remaining CT abdomen/pelvis without contrast exam is negative. Comment: Preliminary interpretation made by [facility]. No critical discrepancy.
== END 2021-08-10 03:19 | disposition home or self-care (01) ==
LOC: ED 22:08
DX: E87.6 Hypokalemia (principal); R11.2 Nausea with vomiting, unspecified; N28.9 Disorder of kidney and ureter, unspecified; R10.84 Generalized abdominal pain; J44.9 Chronic obstructive pulmonary disease, unspecified; I10 Essential (primary) hypertension; E11.9 Type 2 diabetes mellitus without complications; E78.5 Hyperlipidemia, unspecified; Z79.02 Long term (current) use of antithrombotics/antiplatelets; Z79.899 Other long term (current) drug therapy; Z72.0 Tobacco use; Z28.310 Unvaccinated for COVID-19
CPT/HCPCS: 0241U; 36000; 36415; 74176; 80053; 80307; 81015; 82150; 83605; 83690; 85025; 87086; 96360; 96374; 96375; 99284; G0480; A9270-GY

== ENCOUNTER 2021-10-18 12:59 | Emergency (ER) | payer MEDICARE ==
[2021-10-18 13:09] VITALS: O2SAT 98
--- NOTE | 2021-10-18 13:20 | ERPHSYRPT ---
- History of Present Illness Time Seen by Provider: 10/18/21 13:10 Source: patient Exam Limitations: no limitations Patient Subjective Stated Complaint: PT states "I hurt all over and I just feel tired and weak." Triage Nursing Assessment: Pt presented alert and oriented X 3, skin pwd. Pt ambulates with an upright steady gait, able to speak in clear full sentences. pt in no apparent respiratory distress. pt resting comfortably on the bed, laughing and telling jokes. Physician History: This is a 66 yr old pt. presenting with hurting all over from last night - reports subjective fever, chills, sweats, headache- frontal, not the worst headache of his life - Had covid in february - is on plavix - Endorses mild occasional cough. 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 Timing/Duration: yesterday Fever Severity: mild Fever Therapy [employer]PERINTENDENT: none Associated Symptoms: cough, headache, muscle aches, weakness, No abdominal pain, No chest pain, No confusion, No diaphoresis, No shortness of breath, No sore throat, No stiff neck, No syncope Allergies/Adverse Reactions: hydrocodone bitartrate [From Vicodin] Allergy (Mild, Verified 08/09/21 22:24) morphine Allergy (Mild, Verified 08/09/21 22:24) oxycodone [From OxyContin] Allergy (Verified 08/09/21 22:24) Home Medications: Atorvastatin Calcium 80 mg PO DAILY 10/29/19 [History] Furosemide 20 mg [Lasix 20 mg] 20 mg PO DAILY 10/29/19 [History] Metoprolol Tartrate 12.5 mg PO BID 10/29/19 [History] Clopidogrel Bisulfate [PLAVIX 75 MG Tablet] 75 mg PO DAILY 03/11/21 [History] Sacubitril/Valsartan [Entresto 24 mg-26 mg Tablet] 1 tab PO DAILY 03/11/21 [History] terbinafine HCL [Terbinafine HCl] 250 mg PO DAILY 03/11/21 [History] Hx Tetanus, Diphtheria Vaccination/Date Given: No Hx Influenza Vaccination/Date Given: No Hx Pneumococcal Vaccination/Date Given: No Immunizations Up to Date: Yes Travel Risk - International Travel Have you traveled outside of the country in past 3 weeks: No - Coronavirus Screening Are you exhibiting any of the following symptoms?: No Close contact with a COVID-19 positive Pt in past 14-21 Days: No - Vaccine Status Have you recieved a Covid-19 vaccination: No - Review of Systems Constitutional: Fever, Chills Eyes: No Discharge, No Vision Changes, No Double Vision, No Foreign Body Sensation Ears, Nose, & Throat: No Ear Pain, No Ear Discharge, No Nose Congestion, No Sinus Drainage, No Throat Pain, No Painful Swallowing Respiratory: Cough, No Dyspnea, No Dyspnea on Exertion (OLIVER) Cardiac: No Chest Pain, No Palpitations, No Syncope, No Orthopnea, No PND Abdominal/Gastrointestinal: No Abdominal Pain, No Nausea, No Vomiting, No Chivo temesis, No Hematochezia, No Melena, No Dysphagia Genitourinary Symptoms: No Dysuria, No Frequency, No Hematuria, No Hesitancy, No Flank Pain Musculoskeletal: No Arthralgias, No Back Pain, No Joint Pain, No Joint Swelling Skin: No Cellulitis, No Rash Neurological: Headache, No Dizziness, No Focal Weakness, No Gait Changes, No Irritability, No Lethargy, No Paralysis, No Seizure, No Speech Changes, No Vertigo Psychological: No Alcohol Abuse, No Drug Abuse Endocrine: No Symptoms Hematologic/Lymphatic: No Symptoms Immunological/Allergic: No Symptoms All Other Systems: Reviewed and Negative - Past Medical History Pertinent Past Medical History: Yes Neurological History: Stroke ENT History: Cataracts Cardiac History: Coronary Artery Disease, Deep Vein Thrombosis, High Cholesterol, Hypertension, Myocardial Infarction (VA) Respiratory History: COPD Endocrine Medical History: Adrenal Insufficiency, Diabetes Type II, Other Musculoskeletal History: Osteoarthritis GI Medical History: No Pertinent History History: No Pertinent History Psycho-Social History: Anxiety, Bipolar, Depression Male Reproductive Disorders: No Pertinent History Other Medical History: Blood clots - Past Surgical History Past Surgical History: Yes Neuro Surgical History: No Pertinent History Cardiac: Cardiac Catheterization, Cardiac Stent, Vascular Surgery Respiratory: No Pertinent History Gastrointestinal: No Pertinent History Genitourinary: No Pertinent History Musculoskeletal: Orthopedic Surgery Male Surgical History: No Pertinent History Other Surgical History: R hand and R leg surgeries - Social History Smoking Status: Current every day smoker How long have you smoked: 50 yrs Exposure to second hand smoke: Yes Drug Use: none Patient Lives Alone: Yes Significant Family History: no pertinent family hx - Nursing Vital Signs Nursing Vital Signs: Initial Vital Signs Temperature 98.2 F 10/18/21 13:03 Pulse Rate 75 10/18/21 13:03 Respiratory Rate 20 10/18/21 13:03 Blood Pressure 180/74 10/18/21 13:03 O2 Sat by Pulse Oximetry 98 10/18/21 13:03 Pain Scale Pain Intensity 0 - Physical Exam General Appearance: no apparent distress Eye Exam: PERRL/EOMI, eyes nml inspection ENT Exam: normal ENT inspection, no apparent trauma, hearing grossly normal Neck Exam: normal inspection, non-tender, supple, full range of motion Respiratory Exam: normal breath sounds, chest non-tender, lungs clear, no respiratory distress, no accessory muscle use Cardiovascular/Chest Exam: normal heart sounds, regular rate/rhythm, normal peripheral pulses, No murmur, No edema Gastrointestinal/Abdominal Exam: soft, non tender, no distention, no mass, no organomegaly, normal bowel sounds, No distended, No guarding, No rebound Rectal Exam: deferred Extremity Exam: non-tender, normal range of motion, normal inspection, normal capillary refill Neurologic Exam: alert, oriented x 3, cooperative, 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, nml cerebellar function, nml station & gait, other (NIH 0), No motor deficits, No sensory deficit, No disoriented, No confusion, No abnormal gait Skin Exam: normal color, warm, dry Lymphatic: No adenopathy SpO2 Interpretation: normal SpO2: 98 O2 Delivery: Room Air Lab/Rad Data: Laboratory Results 10/18/21 10/18/21 Range/Units Unknown 13:51 Urinalys Dipstick Clnc MAIN LAB Urine Color YELLOW (YELLOW) Urine Appearance CLEAR (CLEAR) Urine pH 6.0 (5-6) Ur Specific [place] 1.010 (1.005-1.025) POC Urine Protein Conf NEGATIVE (Negative) Urine Ketones NEGATIVE (NEGATIVE) Urine Nitrite NEGATIVE (NEGATIVE) Urine Bilirubin NEGATIVE (NEGATIVE) Urine Urobilinogen 0.2 (0-1) mg/dL Urine Leukocytes NEGATIVE (NEGATIVE) Urine WBC (Auto) NONE (0-5) /HPF Urine RBC (Auto) 0-2 (0-2) /HPF U Epithel Cells (Auto) NONE (FEW) /HPF Urine Bacteria (Auto) NONE (NEGATIVE) /HPF Urine RBC TRACE-INTACT (0-5) Javier/ul Urine Mucus (Auto) SLIGHT (NEGATIVE) /HPF Ur Culture Indicated? NO Urine Glucose NEGATIVE (NEGATIVE) mg/dL Influenza Type A Ag NEGATIVE (NEGATIVE) Influenza Type B Ag NEGATIVE (NEGATIVE) RSV (PCR) NEGATIVE (Negative) SARS-CoV-2 (PCR) NEGATIVE (NEGATIVE) - Progress Progress: improved, re-examined (Much improved, no s/s) Progress Note: 1) Flu like s/s - NIH 0 - CXR showed no acute acrdiopulmonary disease - UA- showed no evidence of UTI - Covid/flu/RSV negative - Initially pt. was hypertensive with pressure of 180/74 which improved to 124/70 without intervention - Pt. kept pacing the room and was wanting to go home. - Discussed results and advised to alternate tylenol/motrin for fever - F/u with pcp in am - Advised to return for any new or worsening s/s or any concern at all - Pt. voiced understanding - Departure Clinical Impression: Flu-like symptoms Condition: Stable Critical Care Time: No Referrals: SAMANTHA GRIFFITH MD [Primary Care Provider] - Follow up/PCP as directed Additional Instructions: Discharge/Care Plan MIRELLA AQUINO was seen on 10/18/21 in the Emergency Room. The patient was co unseled regarding Diagnosis,Lab results, Imaging studies, need for follow up and when to return to the Emergency Room. Prescriptions given: Discharge Note I have spoken with the patient and/or caregivers. I have explained the patient's condition, diagnosis and treatment plan based on the information available to me at this time. I have answered the patient's and/or caregiver's questions and addressed any concerns. The patient and/or caregivers have as good understanding of the patient's diagnosis, condition and treatment plan as can be expected at this point. The vital signs have been stable. The patient's condition is stable and appropriate for discharge from the emergency department. The patient will pursue further outpatient evaluation with the primary care physician or other designated or consulting physician as outlined in the discharge instructions. The patient and/or caregivers are agreeable to this plan of care and follow-up instructions have been explained in detail. The patient and/or caregivers have received these instruction. The patient/and or caregivers are aware that any significant change in condition or worsening of symptoms should prompt an immediate return to this or the closest emergency department or call 911.
[2021-10-18 14:10] LABS: INFLUENZA A NEGATIVE (NEGATIVE); INFLUENZA B NEGATIVE (NEGATIVE); RESPIRATORY SYNCTIAL VIRUS NEGATIVE (Negative); SARS-CoV-2 Xpert Express NEGATIVE (NEGATIVE)
[2021-10-18 14:20] LABS: Mucus SLIGHT /HPF (NEGATIVE); RBC 0-2 /HPF (0-2)
[2021-10-18 14:22] LABS: Appearance CLEAR (CLEAR); Bilirubin NEGATIVE (NEGATIVE); Dipstick done @ ? MAIN LAB; Glucose NEGATIVE (NEGATIVE); Ketones NEGATIVE (NEGATIVE); Nitrite NEGATIVE (NEGATIVE); Protein,Urine Dip NEGATIVE (Negative); RBC TRACE-INTACT Ery/ul (0-5); Urine Cultured Indicated? NO; Urobilinogen 0.2 mg/dL (0-1)
--- NOTE | 2021-10-18 14:58 | XRAY ---
Exam: PA and lateral chest films from 10/18/2021. Comparison: PA and lateral chest films from 06/30/2021. Indication: Shortness of breath. Findings: Upright PA and lateral chest films were obtained. The heart size is normal. The fadumo and mediastinal structures appear intact. There is either a coronary artery stent or coronary artery vascular calcification overlying the upper left side of the heart. Correlate with prior surgical procedures. A stable calcified granuloma is seen at the right lung base. There is mild right apical pleural-parenchymal scarring representing no change. The remainder of the lung yang appears well-inflated and clear. Pulmonary vascularity is normal. No pneumothorax or pleural effusion is seen. I again see an old fracture deformity of the lateral aspect of the right clavicle. Degenerative changes are seen within the mid and lower thoracic spine representing no change. Impression: 1. No acute cardiopulmonary disease is seen. This appears similar to 06/30/2021.
[2021-10-18 15:05] VITALS: BP 124/70; PULSE 57
== END 2021-10-18 15:15 | disposition home or self-care (01) ==
LOC: ED 12:59
DX: B34.9 Viral infection, unspecified (principal); M79.10 Myalgia, unspecified site; R50.9 Fever, unspecified; R51.9 Headache, unspecified; R05.9 Cough, unspecified; E78.5 Hyperlipidemia, unspecified; I10 Essential (primary) hypertension; J44.9 Chronic obstructive pulmonary disease, unspecified; Z72.0 Tobacco use; Z79.02 Long term (current) use of antithrombotics/antiplatelets; Z79.899 Other long term (current) drug therapy; Z28.310 Unvaccinated for COVID-19; Z86.16 Personal history of COVID-19
CPT/HCPCS: 0241U; 71046; 81015; 99283

== ENCOUNTER 2022-07-27 22:51 | Emergency (ER) | payer MEDICARE ==
[2022-07-27] MEDS ORDERED: Sodium Chloride 0.9% 1000 ML 1,000 ML IV STA (23:22)
--- NOTE | 2022-07-27 23:25 | ERPHSYRPT ---
- History of Present Illness Time Seen by Provider: 07/27/22 23:25 Historian: patient Exam Limitations: clinical condition Patient Subjective Stated Complaint: vomiting and diarrhea x 3 days Triage Nursing Assessment: pt brought in by ambulance. Pt alert and oriented x3, cooperative. Pt c/o nausea, vomiting and diarrhea x3 days. Pt did cough up some blood this evening. Abd soft with active bs x4 quad, nontender. LBM today, diarrhea. Vomiting and diarrhea have improved somewhat today. Pt denies any chest pain. Pt aches all over. Pt's voice is hoarse, lung yang are coarse throughout bilat ant/post. Physician History: 67-year-old male presents to the emergency room via ambulance after a 3-day history of nausea, vomiting, diarrhea and generalized abdominal pain. Patient reports the symptoms began worsening today. He rates his pain as a 8 out of 10 in severity without radiation. He feels like his belly is very full and distended despite having multiple episodes of vomiting and diarrhea. He denies any fever, chills or sick contacts. Patient has no dysuria or hematuria. It is difficult to obtain history from the patient as he is very vague and unsure of a lot of historical questions. On arrival patient was placed on 4 L of oxygen due to desaturations. He does report increased shortness of breath over the past day. He has a history of multiple clots and is supposed to be on a blood thinner but he is unsure what the name of it is. He has no current chest pain, but does say he has some chest pressure. Timing/Duration: day(s) (3) Activities at Onset: none Quality: fullness, pressure Abdominal Pain Onset Location: generalized abdomen Pain Radiation: no radiation Severity of Pain-Max: severe Severity of Pain-Current: severe Modifying Factors: Improves With: nothing. Worsens With: movement, palpation, vomiting Associated Symptoms: chest pain, diarrhea, fever/chills, loss of appetite, nausea, vomiting, No diaphoresis Previous symptoms: no prior history Allergies/Adverse Reactions: hydrocodone bitartrate [From Vicodin] Allergy (Mild, Verified 07/27/22 23:07) morphine Allergy (Mild, Verified 07/27/22 23:07) oxycodone [From OxyContin] Allergy (Verified 07/27/22 23:07) Home Medications: Atorvastatin Calcium 80 mg PO DAILY 10/29/19 [History] Furosemide 20 mg [Lasix 20 mg] 20 mg PO DAILY 10/29/19 [History] Metoprolol Tartrate 12.5 mg PO BID 10/29/19 [History] Clopidogrel Bisulfate [PLAVIX 75 MG Tablet] 75 mg PO DAILY 03/11/21 [History] Sacubitril/Valsartan [Entresto 24 mg-26 mg Tablet] 1 tab PO DAILY 03/11/21 [History] terbinafine HCL [Terbinafine HCl] 250 mg PO DAILY 03/11/21 [History] Hx Tetanus, Diphtheria Vaccination/Date Given: (unknown) Hx Influenza Vaccination/Date Given: No Hx Pneumococcal Vaccination/Date Given: No Travel Risk - International Travel Have you traveled outside of the country in past 3 weeks: No - Coronavirus Screening Symptoms: Cough: New Onset, Vomiting/Diarrhea Close contact with a COVID-19 positive Pt in past 14-21 Days: No - Vaccine Status Have you recieved a Covid-19 vaccination: No - Review of Systems Constitutional: Fever, Chills Eyes: No Symptoms Ears, Nose, & Throat: No Symptoms Respiratory: Dyspnea, Dyspnea on Exertion (OLIVER), No Cough Cardiac: Chest Pain, No Edema, No Orthopnea, No PND Abdominal/Gastrointestinal: Abdominal Pain, Nausea, Vomiting, Diarrhea, Hematemesis, Appetite Changes Genitourinary Symptoms: No Symptoms Musculoskeletal: No Symptoms Skin: No Symptoms Neurological: No Symptoms Hematologic/Lymphatic: Blood Clots All Other Systems: Reviewed and Negative - Past Medical History Pertinent Past Medical History: Yes Neurological History: Stroke ENT History: Cataracts Cardiac History: Coronary Artery Disease, Deep Vein Thrombosis, High Cholesterol, Hypertension, Myocardial Infarction ([place]) Respiratory History: COPD Endocrine Medical History: Adrenal Insufficiency, Diabetes Type II, Other Musculoskeletal History: Osteoarthritis GI Medical History: No Pertinent History History: No Pertinent History Psycho-Social History: Anxiety, Bipolar, Depression Male Reproductive Disorders: No Pertinent History Other Medical History: Blood clots, skin cancer - Past Surgical History Past Surgical History: Yes Neuro Surgical History: No Pertinent History Cardiac: Cardiac Catheterization, Cardiac Stent, Vascular Surgery Respiratory: No Pertinent History Gastrointestinal: No Pertinent History Genitourinary: No Pertinent History Musculoskeletal: Orthopedic Surgery Male Surgical History: No Pertinent History Other Surgical History: R hand and R leg surgeries - Social History Smoking Status: Current every day smoker How long have you smoked: 40 yrs Exposure to second hand smoke: Yes Drug Use: marijuana Patient [place] Al[place]: [place] Significant Family History: no pertinent family hx - Nursing Vital Signs Nursing Vital Signs: Initial Vital Signs Temperature 98.1 F 07/27/22 22:52 Pulse Rate 98 H 07/27/22 22:52 Respiratory Rate 20 07/27/22 22:52 Blood Pressure 118/77 07/27/22 22:52 O2 Sat by Pulse Oximetry 94 L 07/27/22 22:52 Pain Scale Pain Intensity 0 - Physical Exam General Appearance: mild distress Eye Exam: eyes nml inspection Ears, Nose, Throat Exam: normal ENT inspection Neck Exam: normal inspection, non-tender, supple, full range of motion Respiratory Exam: airway intact, crackles/rales (b/l lungs in all yang), No respiratory distress Cardiovascular Exam: normal heart sounds, tachycardia, capillary refill <2 sec Gastrointestinal/Abdomen Exam: soft, normal bowel sounds, tenderness (generalized), distention, No mass, No guarding, No rebound Back Exam: normal inspection, normal range of motion, No CVA tenderness Extremity Exam: normal inspection, normal range of motion, No swelling, No tenderness Neurologic Exam: alert, oriented x 3, cooperative Skin Exam: normal color, warm, dry SpO2 Interpretation: hypoxic, O2 applied SpO2: 94 O2 Delivery: Nasal Cannula (4L) - Course Nursing assessment & vital signs reviewed: Yes EKG Interpreted by Me: RATE (102), Sinus Tach, NORMAL AXIS, prolonged QT interval (qtc 504), NORMAL QRS, Non-specific ST Changes - CT Exams Chest CT Interpretation: Tele-radiologist Report, No PE, Other (pleural effusion on right w/ ground glass opacitites throughout right lung and some areas in left) Abdomen/Pelvis CT Interpretation: Tele-radiologist Report, Other (bladder wall thickening, prostamegaly w/ signs of prostatitis, but similar to previous exams) Ordered Tests: Active Orders 24 hr Category Date Time Status EKG-ER Only STAT Care 07/27/22 23:22 Active IV Insertion STAT Care 07/27/22 23:22 Active ABDOMEN AND PELVIS W CONTRAST [CT] Stat Exams 07/27/22 23:23 Completed CHEST WITH CONTRAST [CT] Stat Exams 07/27/22 23:24 Completed BLOOD CULTURE Stat Lab 07/28/22 00:20 Received BNPII [NT PRO BNPII] Stat Lab 07/28/22 00:07 Completed CBC W DIFF Stat Lab 07/27/22 23:32 Completed CMP Stat Lab 07/27/22 23:32 Completed CULTURE,URINE Stat Lab 07/28/22 01:09 Received Direct Bilirubin Stat Lab 07/28/22 00:01 Completed LIPASE Stat Lab 07/27/22 23:32 Completed Lactic Acid Stat Lab 07/27/22 23:31 Completed MAGNESIUM Stat Lab 07/27/22 23:43 Completed Manual Differential NC Stat Lab 07/27/22 23:32 Completed PROCALCITONIN Stat Lab 07/28/22 00:01 Completed TROPONIN Q4H Lab 07/27/22 23:32 Completed TROPONIN Q4H Lab 07/28/22 03:30 Ordered TROPONIN Q4H Lab 07/28/22 07:30 Ordered UA W/RFX UR CULTURE Stat Lab 07/28/22 01:09 Completed VENOUS BLOOD GAS Stat Lab 07/28/22 00:05 Completed Respiratory Therapy Assessment DAILY RT 07/27/22 23:57 Active Medication Summary Discontinued Medications Generic Name Dose Route Start Last Admin Trade Name Freq PRN Reason Stop Dose Admin Acetaminophen 975 mg 07/28/22 00:05 07/28/22 00:27 Acetaminophen 325 Mg Tablet PO 07/28/22 00:06 975 mg STAT STA Administration Acetaminophen Confirm 07/28/22 00:26 Acetaminophen 325 Mg Tablet Administered 07/28/22 00:27 Dose 975 mg .ROUTE .STK-MED ONE Albuterol/Ipratropium 3 ml 07/27/22 23:40 07/27/22 23:57 Ipratropium/Albuterol Sulfate 3 Ml Ampul.Neb IH 07/27/22 23:41 3 ml STAT ONE Administration Albuterol/Ipratropium Confirm 07/27/22 23:48 Ipratropium/Albuterol Sulfate 3 Ml Ampul.Neb Administered 07/27/22 23:49 Dose 3 ml IH .STK-MED ONE Droperidol 1.25 mg 07/27/22 23:22 07/27/22 23:59 Droperidol 5 Mg/2 Ml Vial IV 07/27/22 23:23 Not Given STAT ONE Furosemide 40 mg 07/28/22 01:08 07/28/22 01:28 Furosemide 40 Mg/4 Ml Vial IV 07/28/22 01:09 40 mg STAT ONE Administration Furosemide Confirm 07/28/22 01:27 Furosemide 40 Mg/4 Ml Vial Administered 07/28/22 01:28 Dose 40 mg .ROUTE .STK-MED ONE Sodium Chloride 1,000 mls @ 999 mls/hr 07/27/22 23:22 07/27/22 23:54 Sodium Chloride 0.9% 1000 Ml IV 07/28/22 00:22 999 mls/hr .Q1H1M STA Administration Sodium Chloride Confirm 07/27/22 23:54 Sodium Chloride 0.9% 1000 Ml Administered 07/27/22 23:55 Dose 1,000 mls @ ud .ROUTE .STK-MED ONE Piperacillin Sod/Tazobactam 100 mls @ 200 mls/hr 07/28/22 00:05 07/28/22 0 0:27 Sod 3.375 gm/ Sodium Chloride IV 07/28/22 00:34 200 mls/hr STAT ONE Administration Vancomycin HCl 1 gm in 200 mls @ 125 mls/hr 07/28/22 00:05 07/28/22 01:23 Vancomycin 1 Gram/200 Ml Bag IV 07/28/22 01:40 125 mls/hr STAT ONE 125 mls/hr Administration Sodium Chloride Confirm 07/28/22 00:26 Sodium Chloride 100ml Mini-Bag Plus Administered 07/28/22 00:27 Dose 100 mls @ ud IV .STK-MED ONE Vancomycin HCl Confirm 07/28/22 00:57 Vancomycin 1 Gram/200 Ml Bag Administered 07/28/22 00:58 Dose 1 gm in 200 mls @ ud IV .STK-MED ONE Piperacillin Sod/Tazobactam Sod Confirm 07/28/22 00:26 Piperacillin/Tazobactam Sodium 3.375 Gm Vial Administered 07/28/22 00:27 Dose 3.375 gm IV .STK-MED ONE Lab/Rad Data: Laboratory Result Diagrams 07/27/22 23:32 07/27/22 23:32 Laboratory Results 07/28/22 07/28/22 07/28/22 Range/Units 01:09 00:07 00:05 WBC (4.0-10.5) x10^3/uL RBC (4.1-5.6) x10^6/uL Hgb (12.5-18.0) g/dL Hct (42-50) % MCV (78-100) fL MCH (26-32) pg MCHC (32-36) g/dL RDW (11.5-14.0) % Plt Count (150-450) x10^3/uL MPV (7.5-11.0) fL Segmented Neutrophils (36.-66.) % Band Neutrophils (0.0-2.0) % Lymphocytes (Manual) (24-44) % Monocytes (Manual) (0.0-12.0) % Platelet Estimate (NORMAL) RBC Morphology pO2/FiO2 Ratio 21.0 % VBG pH 7.52 H (7.32-7.42) VBG pCO2 at Pat Temp 41 L (42-55) mm/Hg VBG pO2 at Pat Temp 29 (25-40) mm/Hg VBG HCO3 33.5 H* (22-28) meq/L VBG O2 Sat (Roberta) 49.5 L (95-100) VBG Base Excess 9.7 H (-2.0-2.0) VBG Hemoglobin 13.0 VBG Carboxyhemoglobin 3.6 (0.0-6.9) % T HGB POC Potassium 3.8 (3.5-5.1) Sodium (137-145) mmol/L Potassium (3.5-5.1) mmol/L Chloride (98-107) mmol/L Carbon Dioxide (22-30) mmol/L Anion Gap (5-15) MEQ/L BUN (9-20) mg/dL Creatinine (0.66-1.25) mg/dL Estimated GFR ML/MIN Glucose (74-106) mg/dL Lactic Acid (0.4-2.0) Calcium (8.4-10.2) mg/dL Magnesium (1.6-2.3) mg/dL Total Bilirubin (0.2-1.3) mg/dL Direct Bilirubin (0.0-0.4) mg/dL AST (17-59) U/L ALT (0-50) U/L Alkaline Phosphatase (38-126) U/L Troponin I (0.000-0.034) ng/mL NT-Pro-B Natriuret Pep > 83740 (<300) pg/mL Serum Total Protein (6.3-8.2) g/dL Albumin (3.5-5.0) g/dL Lipase (23-300) U/L Procalcitonin (0.030-0.080) ng/mL Urine Color Yellow (Yellow) Urine Appearance Clear (Clear) Urine pH 6.0 (4.6-8.0) Ur Specific [place] >=1.030 A (1.005-1.030) Urine Protein 30 (Negative) Urine Glucose (UA) Negative (Negative) mg/dL Urine Ketones Negative (Negative) Urine Blood Large A (Negative) Urine Nitrite Negative (Negative) Urine Bilirubin Negative (Negative) Urine Urobilinogen 1.0 A (0.2) mg/dL Ur Leukocyte Esterase Negative (Negative) U Hyaline Cast (Auto) 3-5 A (0-2) /LPF Urine Microscopic RBC 51-100 A (0-5) /HPF Urine Microscopic WBC 3-5 (0-5) /HPF Ur Epithelial Cells None Seen (None Seen) /HPF Urine Bacteria None Seen (None Seen) /HPF Urine Culture Reflexed YES (NO) 07/28/22 07/28/22 07/27/22 Range/Units 00:01 00:01 23:43 WBC (4.0-10.5) x10^3/uL RBC (4.1-5.6) x10^6/uL Hgb (12.5-18.0) g/dL Hct (42-50) % MCV (78-100) fL MCH (26-32) pg MCHC (32-36) g/dL RDW (11.5-14.0) % Plt Count (150-450) x10^3/uL MPV (7.5-11.0) fL Segmented Neutrophils (36.-66.) % Band Neutrophils (0.0-2.0) % Lymphocytes (Manual) (24-44) % Monocytes (Manual) (0.0-12.0) % Platelet Estimate (NORMAL) RBC Morphology pO2/FiO2 Ratio % VBG pH (7.32-7.42) VBG pCO2 at Pat Temp (42-55) mm/Hg VBG pO2 at Pat Temp (25-40) mm/Hg VBG HCO3 (22-28) meq/L VBG O2 Sat (Roberta) (95-100) VBG Base Excess (-2.0-2.0) VBG Hemoglobin VBG Carboxyhemoglobin (0.0-6.9) % T HGB POC Potassium (3.5-5.1) Sodium (137-145) mmol/L Potassium (3.5-5.1) mmol/L Chloride (98-107) mmol/L Carbon Dioxide (22-30) mmol/L Anion Gap (5-15) MEQ/L BUN (9-20) mg/dL Creatinine (0.66-1.25) mg/dL Estimated GFR ML/MIN Glucose (74-106) mg/dL Lactic Acid (0.4-2.0) Calcium (8.4-10.2) mg/dL Magnesium 1.9 (1.6-2.3) mg/dL Total Bilirubin (0.2-1.3) mg/dL Direct Bilirubin 0.1 (0.0-0.4) mg/dL AST (17-59) U/L ALT (0-50) U/L Alkaline Phosphatase (38-126) U/L Troponin I (0.000-0.034) ng/mL NT-Pro-B Natriuret Pep (<300) pg/mL Serum Total Protein (6.3-8.2) g/dL Albumin (3.5-5.0) g/dL Lipase (23-300) U/L Procalcitonin 0.173 H (0.030-0.080) ng/mL Urine Color (Yellow) Urine Appearance (Clear) Urine pH (4.6-8.0) Ur Specific [place] (1.005-1.030) Urine Protein (Negative) Urine Glucose (UA) (Negative) mg/dL Urine Ketones (Negative) Urine Blood (Negative) Urine Nitrite (Negative) Urine Bilirubin (Negative) Urine Urobilinogen (0.2) mg/dL Ur Leukocyte Esterase (Negative) U Hyaline Cast (Auto) (0-2) /LPF Urine Microscopic RBC (0-5) /HPF Urine Microscopic WBC (0-5) /HPF Ur Epithelial Cells (None Seen) /HPF Urine Bacteria (None Seen) /HPF Urine Culture Reflexed (NO) 07/27/22 07/27/22 07/27/22 Range/Units 23:32 23:32 23:32 WBC 19.1 H (4.0-10.5) x10^3/uL RBC 4.15 (4.1-5.6) x10^6/uL Hgb 12.7 (12.5-18.0) g/dL Hct 38.5 L (42-50) % MCV 92.8 (78-100) fL MCH 30.6 (26-32) pg MCHC 33.0 (32-36) g/dL RDW 13.2 (11.5-14.0) % Plt Count 194 (150-450) x10^3/uL MPV 8.6 (7.5-11.0) fL Segmented Neutrophils 85 H (36.-66.) % Band Neutrophils 2 (0.0-2.0) % Lymphocytes (Manual) 6 L (24-44) % Monocytes (Manual) 7 (0.0-12.0) % Platelet Estimate NORMAL (NORMAL) RBC Morphology NORMAL pO2/FiO2 Ratio % VBG pH (7.32-7.42) VBG pCO2 at Pat Temp (42-55) mm/Hg VBG pO2 at Pat Temp (25-40) mm/Hg VBG HCO3 (22-28) meq/L VBG O2 Sat (Roberta) (95-100) VBG Base Excess (-2.0-2.0) VBG Hemoglobin VBG Carboxyhemoglobin (0.0-6.9) % T HGB POC Potassium (3.5-5.1) Sodium 136 L (137-145) mmol/L Potassium 3.8 (3.5-5.1) mmol/L Chloride 98 (98-107) mmol/L Carbon Dioxide 30 (22-30) mmol/L Anion Gap 11.0 (5-15) MEQ/L BUN 39 H (9-20) mg/dL Creatinine 1.32 H (0.66-1.25) mg/dL Estimated GFR 57.5 ML/MIN Glucose 132 H (74-106) mg/dL Lactic Acid (0.4-2.0) Calcium 8.4 (8.4-10.2) mg/dL Magnesium (1.6-2.3) mg/dL Total Bilirubin 1.40 H (0.2-1.3) mg/dL Direct Bilirubin (0.0-0.4) mg/dL AST 36 (17-59) U/L ALT 23 (0-50) U/L Alkaline Phosphatase 80 (38-126) U/L Troponin I 0.682 H* (0.000-0.034) ng/mL NT-Pro-B Natriuret Pep (<300) pg/mL Serum Total Protein 6.9 (6.3-8.2) g/dL Albumin 3.6 (3.5-5.0) g/dL Lipase 21 L (23-300) U/L Procalcitonin (0.030-0.080) ng/mL Urine Color (Yellow) Urine Appearance (Clear) Urine pH (4.6-8.0) Ur Specific [place] (1.005-1.030) Urine Protein (Negative) Urine Glucose (UA) (Negative) mg/dL Urine Ketones (Negative) Urine Blood (Negative) Urine Nitrite (Negative) Urine Bilirubin (Negative) Urine Urobilinogen (0.2) mg/dL Ur Leukocyte Esterase (Negative) U Hyaline Cast (Auto) (0-2) /LPF Urine Microscopic RBC (0-5) /HPF Urine Microscopic WBC (0-5) /HPF Ur Epithelial Cells (None Seen) /HPF Urine Bacteria (None Seen) /HPF Urine Culture Reflexed (NO) 07/27/ Range/Units 23:31 WBC (4.0-10.5) x10^3/uL RBC (4.1-5.6) x10^6/uL Hgb (12.5-18.0) g/dL Hct (42-50) % MCV (78-100) fL MCH (26-32) pg MCHC (32-36) g/dL RDW (11.5-14.0) % Plt Count (150-450) x10^3/uL MPV (7.5-11.0) fL Segmented Neutrophils (36.-66.) % Band Neutrophils (0.0-2.0) % Lymphocytes (Manual) (24-44) % Monocytes (Manual) (0.0-12.0) % Platelet Estimate (NORMAL) RBC Morphology pO2/FiO2 Ratio % VBG pH (7.32-7.42) VBG pCO2 at Pat Temp (42-55) mm/Hg VBG pO2 at Pat Temp (25-40) mm/Hg VBG HCO3 (22-28) meq/L VBG O2 Sat (Roberta) (95-100) VBG Base Excess (-2.0-2.0) VBG Hemoglobin VBG Carboxyhemoglobin (0.0-6.9) % T HGB POC Potassium (3.5-5.1) Sodium (137-145) mmol/L Potassium (3.5-5.1) mmol/L Chloride (98-107) mmol/L Carbon Dioxide (22-30) mmol/L Anion Gap (5-15) MEQ/L BUN (9-20) mg/dL Creatinine (0.66-1.25) mg/dL Estimated GFR ML/MIN Glucose (74-106) mg/dL Lactic Acid 1.6 (0.4-2.0) Calcium (8.4-10.2) mg/dL Magnesium (1.6-2.3) mg/dL Total Bilirubin (0.2-1.3) mg/dL Direct Bilirubin (0.0-0.4) mg/dL AST (17-59) U/L ALT (0-50) U/L Alkaline Phosphatase (38-126) U/L Troponin I (0.000-0.034) ng/mL NT-Pro-B Natriuret Pep (<300) pg/mL Serum Total Protein (6.3-8.2) g/dL Albumin (3.5-5.0) g/dL Lipase (23-300) U/L Procalcitonin (0.030-0.080) ng/mL Urine Color (Yellow) Urine Appearance (Clear) Urine pH (4.6-8.0) Ur Specific [place] (1.005-1.030) Urine Protein (Negative) Urine Glucose (UA) (Negative) mg/dL Urine Ketones (Negative) Urine Blood (Negative) Urine Nitrite (Negative) Urine Bilirubin (Negative) Urine Urobilinogen (0.2) mg/dL Ur Leukocyte Esterase (Negative) U Hyaline Cast (Auto) (0-2) /LPF Urine Microscopic RBC (0-5) /HPF Urine Microscopic WBC (0-5) /HPF Ur Epithelial Cells (None Seen) /HPF Urine Bacteria (None Seen) /HPF Urine Culture Reflexed (NO) - Progress Progress: unchanged Progress Note: 07/28/22 00:08 Patient's white blood cell count came back greater than 19,000, his heart rate continues to be in the low 100s with a respiratory rate in the low 20s. His mental status is still intact, but due to meeting 3 out of 4 SIRS criteria decision was made to treat the patient as sepsis so blood cultures were ordered and broad-spectrum antibiotics were initiated. Patient has a history of heart failure and has bilateral crackles on exam with increased oxygen requirement but due to current clinical situation decision was made to give a 1 L bolus and reassess if needed we will give IV Lasix but feel that IV hydration is more imperative to his clinical outcome at this time. 07/28/22 02:08 Lab evaluation shows a venous blood gas pH of 7.52, PCO2 of 41 and a bicarb of 33.5. Patient has a white blood cell count of 19.1 and a creatinine of 1.32 which is actually better than his baseline kidney function. His AST and ALT were 36 and 23 respectively with a total bilirubin of 1.4. Indirect bilirubin was obtained which was normal at 0.1. His initial troponin was 0.682 with an EKG that was similar to his baseline. His BNP was over 30,000. His procal citonin was 0.173. His urinalysis showed large amounts of blood with 51-100 red blood cells. CTA of the chest showed no PE, right-sided mild pleural effusion with groundglass opacities throughout the right lung. There was a few focal areas of groundglass opacities in the left lung without pleural effusion. CT of his abdomen and pelvis showed bladder wall thickening with prostamegaly and signs of prostatitis, but CT scan was similar to scans in the past. Due to the patient's laboratory and imaging findings and current clinical situation I will reach out to surrounding hospitals to see if the patient can be transferred. 07/28/22 02:39 Patient accepted for ER to ER transfer by Dr. Schafer at 231. No further orders requested. 07/28/22 02:41 Patient wishes to be full code. Discussed with : Luther (Robin Schafer [facility]) Counseled pt/family regarding: lab results, diagnosis, need for follow-up, rad results Medical Desision Making - Discussion of managment Care discussed with:: hospitalist Reviewed:: Test results Agreed on:: Treatment plan, decision to admit - Diagnostic Testing Diagnostic test were ordered, analyzed, and reviewed by me: Yes Radiological Interpretation: Interpreted by me, Reviewed by me, Teleradiologist Report - Risk of complications The pt has a mod risk of morbidity or mortality based on: Need for prescription drug management The pt has a high risk of morbidity or mortality based on: Decision regarding hospitilization or escalation of hosp level of care - Departure Departure Disposition: Transfer ([facility]) Clinical Impression: Non-STEMI (non-ST elevated myocardial infarction), Hematuria, Enlarged prostate, Acute and chronic respiratory failure with hypoxia, Acute exacerbation of CHF (congestive heart failure), Pleural effusion, Bladder wall thickening, Ground glass opacity present on imaging of lung, Sepsis, Indirect hype rbilirubinemia, Pneumonia, Generalized abdominal pain, Nausea and vomiting, Diarrhea Condition: Stable Critical Care Time: No Referrals: SAMANTHA GRIFFITH MD [Primary Care Provider] - Follow up/PCP as directed Instructions: Heart Failure, Pneumonia, Adult (DC)
[2022-07-27 23:34] LABS: Hematocrit 38.5 % (42-50); Hemoglobin 12.7 g/dL (12.5-18.0); Mean Cell Volume 92.8 fL (78-100); Mean Corpuscular Hemoglobin 30.6 pg (26-32); Mean Platelet Volume 8.6 fL (7.5-11.0); Platelet Count 194 x10^3/uL (150-450); Red Blood Count 4.15 x10^6/uL (4.1-5.6); Red Cell Distribution Width 13.2 % (11.5-14.0); White Blood Count 19.1 x10^3/uL (4.0-10.5)
[2022-07-27] MEDS ORDERED: DUONEB 0.5-3 MG/3 ml Neb IH ONE ×2 (23:40→23:48)
[2022-07-27 23:48] LABS: ALBUMIN 3.6 g/dL (3.5-5.0); BILIRUBIN,TOTAL 1.4 mg/dL (0.2-1.3); Calcium 8.4 mg/dL (8.4-10.2); Creatinine 1 1.32 mg/dL (0.66-1.25); EST GLOMERULAR FILTRATION RATE 57.5 ML/MIN; Potassium 3.8 mmol/L (3.5-5.1); Total Protein 6.9 g/dL (6.3-8.2)
[2022-07-27] MEDS ORDERED: Sodium Chloride 0.9% 1000 ML 1,000 ML ONE (23:54)
[2022-07-28] MEDS ORDERED: PIPERACILLIN/TAZOBACTAM 3.375 GM in Sodium Chloride 100ML MINI-BAG PLUS 100 ML IV ONE (00:05)
[2022-07-28] MEDS ORDERED: VANCOMYCIN 1 GRAM/200 ML BAG 1 GM/200 ML PIGGYBACK IV ONE ×2 (00:05→00:57)
[2022-07-28] MEDS ORDERED: TYLENOL 325 MG PO STA (00:05)
[2022-07-28 00:15] LABS: VBG BASE EXCESS 9.7 (-2.0-2.0); VBG CARBOXYHEMOGLOBIN 3.6 % T HGB (0.0-6.9); VBG HCO3- 33.5 meq/L (22-28); VBG O2 SATURATION 49.5 (95-100); VBG POTASSIUM 3.8 (3.5-5.1); VBG pH 7.52 (7.32-7.42)
[2022-07-28] MEDS ORDERED: TYLENOL 325 MG ONE (00:26)
[2022-07-28] MEDS ORDERED: Sodium Chloride 100ML MINI-BAG PLUS 100 ML IV ONE (00:26)
[2022-07-28] MEDS ORDERED: PIPERACILLIN/TAZOBACTAM IV ONE (00:26)
[2022-07-28 00:28] LABS: BAND 2 % (0.0-2.0); Lymphocytes 6 % (24-44); Monocyte 7 % (0.0-12.0); Neutrophils 85 % (36.-66.); Platelet Estimate NORMAL (NORMAL); Total Cells Counted 100
[2022-07-28] MEDS ORDERED: Lasix 40 MG/4 ML IV ONE (01:08)
[2022-07-28 01:22] LABS: Appearance Clear (Clear); Bacteria None Seen /HPF (None Seen); Bilirubin Negative (Negative); Blood Large (Negative); Epithelial Cells None Seen /HPF (None Seen); Glucose, Urine Negative (Negative); Ketones Negative (Negative); Leukocyte Esterase Negative (Negative); Nitrite Negative (Negative); Protein,Urine Dip 30 (Negative); RBC 51-100 /HPF (0-5); Specific Gravity >=1.030 (1.005-1.030)
[2022-07-28 01:25] LABS: ADD URINE CULTURE? YES (NO)
[2022-07-28] MEDS ORDERED: Lasix 40 MG/4 ML ONE (01:27)
--- NOTE | 2022-07-28 01:42 | XRAY ---
CLINICAL HISTORY:Chest pain, rule out PE; COMPARISON:06/26/2006; TECHNIQUES:Contiguous 3.[address] images of the chest were acquired with the administration of intravenous contrast. Coronal and sagittal reconstructions were obtained. 80cc of Isovue 370 was given as a contrast agent; FINDINGS: Mild right-sided pleural effusion noted. Confluent areas of ground-glass haziness with interstitial thickening are seen involving the majority of the right upper lobe with partial involvement of the right middle and lower lobes, and relative sparing of the periphery. A few focal areas of ground-glass haziness are also seen in the left lung. No pleural effusion was seen on the left side. Bibasal subpleural reticulations and atelectatic changes are seen. Heart size is normal, and there is no pericardial effusion. No pathologically enlarged mediastinal, hilar, or axillary lymph node was identified. The thoracic spine shows degenerative changes. There is no definite mass lesion in the chest wall. The scanned upper abdomen is unremarkable. IMPRESSION: Confluent areas of ground-glass haziness in the right lung with mild right-sided pleural effusion and focal areas of ground-glass haziness in the left lung, the possibility of infective etiology appears likely. No evidence of pulmonary embolism in the present study. In comparison to the previous CT chest dated 06/26/2006, there is the development of pleural effusion with ground-glass haziness in the right lung at the present study. Electronically Signed by: Mauricio Phillip MD. (07/28/2022 00:37:44 SOLE BUFFER)
--- NOTE | 2022-07-28 02:02 | XRAY ---
CLINICAL HISTORY:Abdominal pain, and hematuria for 3 days; COMPARISON:08/10/2021; TECHNIQUES:CT scan of the abdomen and pelvis was performed with contrast. Coronal and sagittal reconstructive images were also obtained. 80cc of Isovue 370 was given as a contrast agent; FINDINGS: Abdomen: The liver is of average size. No focal or diffuse parenchymal abnormality. The portal vein, intrahepatic biliary radicals, and bile ducts are normal. The spleen, pancreas, and adrenal glands are unremarkable. The kidneys are unremarkable. They are normal in size and shape. No calculi or hydronephrosis. The gallbladder is distended. There is no evidence of wall thickening/ pericholecystic collection. The ascending colon, the transverse colon, and the descending colon visualized small bowel loops are unremarkable. There is no evidence of significant enlargement of the mesenteric or retroperitoneal lymph nodes. The abdominal aorta and its branches show atherosclerotic changes with calcified plaques. Pelvis: The urinary bladder is distended and shows mild diffuse wall thickening. The prostate is enlarged, measuring 4.4 x 5.8 x 5 cm, and reveals a few small hypodense areas in its parenchyma. No evidence of pelvic lymphadenopathy. The lumbar spine shows degenerative changes. IMPRESSION: Mild urinary bladder wall thickening, suggestion of cystitis, and/or chronic outflow obstruction. Prostatomegaly with possible prostatitis. Suggested clinical and biochemical correlation. When compared to previous CT: The findings are similar. Electronically Signed by: Mauricio Phillip MD. (07/28/2022 00:57:20 DIRECTOR OF CUSTOMER SERVICE)
[2022-07-28 03:45] VITALS: BP 154/86; PULSE 88; O2SAT 92
== END 2022-07-28 03:18 | disposition short-term general hospital (02) ==
LOC: ED 22:51
DX: I21.4 Non-ST elevation (NSTEMI) myocardial infarction (principal); R31.9 Hematuria, unspecified; N40.0 Benign prostatic hyperplasia without lower urinary tract symptoms; A41.9 Sepsis, unspecified organism; J18.9 Pneumonia, unspecified organism; R65.20 Severe sepsis without septic shock; J96.21 Acute and chronic respiratory failure with hypoxia; J91.8 Pleural effusion in other conditions classified elsewhere; I11.0 Hypertensive heart disease with heart failure; I50.9 Heart failure, unspecified; R93.41 Abnormal radiologic findings on diagnostic imaging of renal pelvis, ureter, or bladder; R91.8 Other nonspecific abnormal finding of lung field; E80.6 Other disorders of bilirubin metabolism; R10.84 Generalized abdominal pain; R11.2 Nausea with vomiting, unspecified; R19.7 Diarrhea, unspecified; E78.5 Hyperlipidemia, unspecified; E11.9 Type 2 diabetes mellitus without complications; Z79.02 Long term (current) use of antithrombotics/antiplatelets; Z79.899 Other long term (current) drug therapy; Z28.310 Unvaccinated for COVID-19; Z72.0 Tobacco use
CPT/HCPCS: 36000; 36415; 51702; 71260; 74177; 80053; 81001; 82248; 82805; 83605; 83690; 83735; 83880; 84145; 84484; 85025; 87040; 87086; 93005; 94640; 96360; 96365; 96366; 96374; 96375; 99285; J1940; A9270-GY; J3370

== ENCOUNTER 2022-10-06 20:43 | Emergency (ER) | payer MEDICARE ==
--- NOTE | 2022-10-06 20:55 | ERPHSYRPT ---
- History of Present Illness Time Seen by Provider: 10/06/22 20:55 Historian: patient, EMS Exam Limitations: clinical condition Physician History: This is a 67-year-old white male patient of Dr. Griffith who has multiple medical problems. Patient presents with diaphoresis, severe anxiety and complaints of intermittent vomiting for a month. He denies chest pain. He states he has shortness of breath when he starts to gag and vomit. Patient has severe anxiety issues as well as bipolar disorder. Patient has a history of hyperlipidemia, CHF, coronary artery disease (stents) COPD, hypertension and diabetes. He is on Plavix because he has had DVTs in the past. Patient was brought into the hospital by the ambulance service who provided independent medical history. In addition, I reviewed the most recent hospital stay in our facility as an inpatient. Timing/Duration: other (Symptoms worsening over 1 month period of time) Activities at Onset: emotional stress Quality: other (A "knot" in his abdomen) Abdominal Pain Onset Location: periumbilical, other (A "knot" central abdomen) Pain Radiation: no radiation Severity of Pain-Max: mild Severity of Pain-Current: mild Modifying Factors: Improves With: nothing Associated Symptoms: diaphoresis, nausea, vomiting, No chest pain, No fever/chills, No headache, No heartburn, No shortness of breath Previous symptoms: same symptoms as today, no recent treatment Allergies/Adverse Reactions: hydrocodone bitartrate [From Vicodin] Allergy (Mild, Verified 10/06/22 21:44) morphine Allergy (Mild, Verified 10/06/22 21:44) oxycodone [From OxyContin] Allergy (Verified 10/06/22 21:44) Home Medications: Atorvastatin Calcium 80 mg PO DAILY 10/29/19 [History] Furosemide 20 mg [Lasix 20 mg] 20 mg PO DAILY 10/29/19 [History] Metoprolol Tartrate 12.5 mg PO BID 10/29/19 [History] Clopidogrel Bisulfate [PLAVIX 75 MG Tablet] 75 mg PO DAILY 03/11/21 [History] Sacubitril/Valsartan [Entresto 24 mg-26 mg Tablet] 1 tab PO DAILY 03/11/21 [History] terbinafine HCL [Terbinafine HCl] 250 mg PO DAILY 03/11/21 [History] Hx Tetanus, Diphtheria Vaccination/Date Given: (unknown) Hx Influenza Vaccination/Date Given: No Hx Pneumococcal Vaccination/Date Given: No Travel Risk - International Travel Have you traveled outside of the country in past 3 weeks: No - Coronavirus Screening Are you exhibiting any of the following symptoms?: No Close contact with a COVID-19 positive Pt in past 14-21 Days: No - Vaccine Status Have you recieved a Covid-19 vaccination: No - Review of Systems Constitutional: No Symptoms Eyes: No Symptoms Ears, Nose, & Throat: No Symptoms Respiratory: No Symptoms Cardiac: No Symptoms Abdominal/Gastrointestinal: Abdominal Pain (A "knot" in his central abdomen), Nausea, Vomiting Genitourinary Symptoms: No Symptoms Musculoskeletal: No Symptoms Skin: No Symptoms Neurological: No Symptoms Psychological: No Symptoms Endocrine: No Symptoms Hematologic/Lymphatic: No Symptoms Immunological/Allergic: No Symptoms All Other Systems: Reviewed and Negative - Past Medical History Pertinent Past Medical History: Yes Neurological History: Stroke ENT History: Cataracts Cardiac History: Coronary Artery Disease, Deep Vein Thrombosis, High Cholesterol , Hypertension, Myocardial Infarction ([place]) Respiratory History: COPD Endocrine Medical History: Adrenal Insufficiency, Diabetes Type II, Other Musculoskeletal History: Osteoarthritis GI Medical History: No Pertinent History History: No Pertinent History Psycho-Social History: Anxiety, Bipolar, Depression Male Reproductive Disorders: No Pertinent History Other Medical History: Blood clots, skin cancer - Past Surgical History Past Surgical History: Yes Neuro Surgical History: No Pertinent History Cardiac: Cardiac Catheterization, Cardiac Stent, Vascular Surgery Respiratory: No Pertinent History Gastrointestinal: No Pertinent History Genitourinary: No Pertinent History Musculoskeletal: Orthopedic Surgery Male Surgical History: No Pertinent History Other Surgical History: R hand and R leg surgeries - Social History Smoking Status: Current every day smoker How long have you smoked: 40 yrs Exposure to second hand smoke: Yes Drug Use: marijuana Patient Lives Alone: [place] Significant Family History: no pertinent family hx - Nursing Vital Signs Nursing Vital Signs: Initial Vital Signs Temperature 97.0 F 10/06/22 21:05 Pulse Rate 85 10/06/22 21:05 Respiratory Rate 20 10/06/22 21:05 Blood Pressure 111/81 10/06/22 21:05 O2 Sat by Pulse Oximetry 100 10/06/22 21:05 Pain Scale Pain Intensity 0 - Physical Exam General Appearance: mild distress, alert, anxiety Eye Exam: PERRL/EOMI, eyes nml inspection Ears, Nose, Throat Exam: normal ENT inspection, moist mucous membranes Neck Exam: normal inspection, non-tender, supple, full range of motion Respiratory Exam: lungs clear, airway intact, No normal breath sounds, No chest tenderness, No respiratory distress Cardiovascular Exam: regular rate/rhythm, normal heart sounds, normal peripheral pulses Gastrointestinal/Abdomen Exam: soft, normal bowel sounds, tenderness (Mild central abdominal pressure to palpation), guarding (Mild central abdominal pain to palpation), No rebound Rectal Exam: not done Back Exam: normal inspection, normal range of motion, No CVA tenderness, No vertebral tenderness Extremity Exam: normal inspection, normal range of motion, pelvis stable Neurologic Exam: alert, oriented x 3, cooperative, 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 as tested, nml station & gait, sensation nml, other ([place] anxious) Skin Exam: diaphoresis Lymphatic Exam: No adenopathy SpO2 Interpretation: normal O2 Delivery: Nasal Cannula - Course Nursing assessment & vital signs reviewed: Yes Ordered Tests: Active Orders 24 hr Category Date Time Status EKG-ER Only STAT Care 10/06/22 21:37 Active IV Insertion STAT Care 10/06/22 20:55 Active ABDOMEN AND PELVIS W/0 CONTRAS [CT] Stat Exams 10/06/22 21:34 Taken CHEST 1 VIEW (PORTABLE) Stat Exams 10/06/22 22:44 Completed AMYLASE Stat Lab 10/06/22 21:20 Completed BLOOD CULTURE Stat Lab 10/06/22 21:20 Received CBC W DIFF Stat Lab 10/06/22 21:20 Completed CMP Stat Lab 10/06/22 21:20 Completed CULTURE,URINE Stat Lab 10/07/22 00:24 Received NT PRO BNPII Stat Lab 10/06/22 21:39 Completed TROPONIN Q4H Lab 10/06/22 21:39 Completed TROPONIN Q4H Lab 10/07/22 01:45 Ordered TROPONIN Q4H Lab 10/07/22 05:45 Ordered UA W/RFX UR CULTURE Stat Lab 10/07/22 00:24 Completed Medication Summary Generic Name Dose Route Start Last Admin Trade Name Freq PRN Reason Stop Dose Admin Sodium Chloride 1,000 mls @ 100 mls/hr 10/06/22 21:00 10/07/22 00:18 Sodium Chloride 0.9% 1000 Ml IV 11/05/22 20:59 100 mls/hr .Q10H BUSHRA Administration Discontinued Medications Generic Name Dose Route Start Last Admin Trade Name Deepakq PRN Reason Stop Dose Admin Lorazepam 2 mg 10/06/22 20:57 10/06/22 21:02 Lorazepam 2 Mg/1 Ml 2 Mg Vial IV 10/06/22 20:58 2 mg STAT ONE Administration Lorazepam Confirm 10/06/22 20:57 Lorazepam 2 Mg/1 Ml 2 Mg Vial Administered 10/06/22 20:58 Dose 2 mg .ROUTE .STK-MED ONE Pantoprazole Sodium 40 mg 10/06/22 20:56 10/06/22 21:02 Pantoprazole 40 Mg Vial IV 10/06/22 20:57 40 mg STAT ONE Administration Pantoprazole Sodium Confirm 10/06/22 20:57 Pantoprazole 40 Mg Vial Administered 10/06/22 20:58 Dose 40 mg IV .STK-MED ONE Prochlorperazine Edisylate 5 mg 10/07/22 00:07 10/07/22 00:18 Prochlorperazine Edisylate 10 Mg/2 Ml Vial IV 10/07/22 00:08 5 mg STAT ONE Administration Prochlorperazine Edisylate Confirm 10/07/22 00:14 Prochlorperazine Edisylate 10 Mg/2 Ml Vial Administered 10/07/22 00:15 Dose 10 mg .ROUTE .STK-MED ONE Lab/Rad Data: Laboratory Result Diagrams 10/06/22 21:20 10/06/22 21:20 Laboratory Results 10/07/22 10/06/22 10/06/22 Range/Units 00:24 22:45 21:39 WBC (4.0-10.5) x10^3/uL RBC (4.1-5.6) x10^6/uL Hgb (12.5-18.0) g/dL Hct (42-50) % MCV (78-100) fL MCH (26-32) pg MCHC (32-36) g/dL RDW (11.5-14.0) % Plt Count (150-450) x10^3/uL MPV (7.5-11.0) fL Gran % (36.0-66.0) % Immature Gran % (Auto) (0.00-0.4) % Nucleat RBC Rel Count (0.00-0.1) % Eos # (Auto) (0-0.5) x10^3/uL Immature Gran # (Auto) (0.00-0.03) x10^3u/L Absolute Lymphs (auto) (1.0-4.6) x10^3/uL Absolute Monos (auto) (0.0-1.3) x10^3/uL Absolute Nucleated RBC (0.00-0.01) x10^3u/L Lymphocytes % (24.0-44.0) % Monocytes % (0.0-12.0) % Eosinophils % (0.00-5.0) % Basophils % (0.0-0.4) % Absolute Granulocytes (1.4-6.9) x10^3/uL Basophils # (0-0.4) x10^3/uL Sodium (137-145) mmol/L Potassium (3.5-5.1) mmol/L Chloride (98-107) mmol/L Carbon Dioxide (22-30) mmol/L Anion Gap (5-15) MEQ/L BUN (9-20) mg/dL Creatinine (0.66-1.25) mg/dL Estimated GFR ML/MIN Glucose (74-106) mg/dL Calcium (8.4-10.2) mg/dL Total Bilirubin (0.2-1.3) mg/dL AST (17-59) U/L ALT (0-50) U/L Alkaline Phosphatase (38-126) U/L Troponin I 0.014 (0.000-0.034) ng/mL NT-Pro-B Natriuret Pep 1470 (<300) pg/mL Serum Total Protein (6.3-8.2) g/dL Albumin (3.5-5.0) g/dL Amylase (30-110) U/L Urine Color Yellow (Yellow) Urine Appearance Clear (Clear) Urine pH 7.0 (4.6-8.0) Ur Specific [place] 1.015 (1.005-1.030) Urine Protein 30 (Negative) Urine Glucose (UA) Negative (Negative) mg/dL Urine Ketones 15 A (Negative) Urine Blood Trace (Negative) Urine Nitrite Negative (Negative) Urine Bilirubin Negative (Negative) Urine Urobilinogen 0.2 (0.2) mg/dL Ur Leukocyte Esterase Negative (Negative) U Hyaline Cast (Auto) 6-10 A (0-2) /LPF Urine Microscopic RBC 6-10 A (0-5) /HPF Urine Microscopic WBC 0-2 (0-5) /HPF Ur Epithelial Cells None Seen (None Seen) /HPF Urine Bacteria None Seen (None Seen) /HPF Urine Culture Reflexed YES (NO) Influenza Type A Ag NEGATIVE (NEGATIVE) Influenza Type B Ag NEGATIVE (NEGATIVE) RSV (PCR) NEGATIVE (NEGATIVE) SARS-CoV-2 (PCR) NEGATIVE (NEGATIVE) 10/06/22 10/06/22 Range/Units 21:20 21:20 WBC 14.4 H (4.0-10.5) x10^3/uL RBC 4.73 (4.1-5.6) x10^6/uL Hgb 14.5 (12.5-18.0) g/dL Hct 42.5 (42-50) % MCV 89.9 (78-100) fL MCH 30.7 (26-32) pg MCHC 34.1 (32-36) g/dL RDW 12.7 (11.5-14.0) % Plt Count 286 (150-450) x10^3/uL MPV 9.0 (7.5-11.0) fL Gran % 44.3 (36.0-66.0) % Immature Gran % (Auto) 0.3 (0.00-0.4) % Nucleat RBC Rel Count 0.0 (0.00-0.1) % Eos # (Auto) 0.29 (0-0.5) x10^3/uL Immature Gran # (Auto) 0.05 H (0.00-0.03) x10^3u/L Absolute Lymphs (auto) 6.32 H (1.0-4.6) x10^3/uL Absolute Monos (auto) 1.32 H (0.0-1.3) x10^3/uL Absolute Nucleated RBC 0.00 (0.00-0.01) x10^3u/L Lymphocytes % 43.9 (24.0-44.0) % Monocytes % 9.2 (0.0-12.0) % Eosinophils % 2.0 (0.00-5.0) % Basophils % 0.3 (0.0-0.4) % Absolute Granulocytes 6.35 (1.4-6.9) x10^3/uL Basophils # 0.05 (0-0.4) x10^3/uL Sodium 135 L (137-145) mmol/L Potassium 3.7 (3.5-5.1) mmol/L Chloride 104 (98-107) mmol/L Carbon Dioxide 14 L* (22-30) mmol/L Anion Gap 22.2 H (5-15) MEQ/L BUN 20 (9-20) mg/dL Creatinine 1.95 H (0.66-1.25) mg/dL Estimated GFR 36.7 ML/MIN Glucose 124 H (74-106) mg/dL Calcium 9.4 (8.4-10.2) mg/dL Total Bilirubin 0.70 (0.2-1.3) mg/dL AST 32 (17-59) U/L ALT 42 (0-50) U/L Alkaline Phosphatase 133 H (38-126) U/L Troponin I (0.000-0.034) ng/mL NT-Pro-B Natriuret Pep (<300) pg/mL Serum Total Protein 7.8 (6.3-8.2) g/dL Albumin 4.5 (3.5-5.0) g/dL Amylase 95 (30-110) U/L Urine Color (Yellow) Urine Appearance (Clear) Urine pH (4.6-8.0) Ur Specific [place] (1.005-1.030) Urine Protein (Negative) Urine Glucose (UA) (Negative) mg/dL Urine Ketones (Negative) Urine Blood (Negative) Urine Nitrite (Negative) Urine Bilirubin (Negative) Urine Urobilinogen (0.2) mg/dL Ur Leukocyte Esterase (Negative) U Hyaline Cast (Auto) (0-2) /LPF Urine Microscopic RBC (0-5) /HPF Urine Microscopic WBC (0-5) /HPF Ur Epithelial Cells (None Seen) /HPF Urine Bacteria (None Seen) /HPF Urine Culture Reflexed (NO) Influenza Type A Ag (NEGATIVE) Influenza Type B Ag (NEGATIVE) RSV (PCR) (NEGATIVE) SARS-CoV-2 (PCR) (NEGATIVE) - Progress Progress: improved, re-examined Progress Note: 10/06/22 22:32 This patient's medical issue is at least moderate complexity. He was brought into the emergency department by the ambulance who provided independent separate medical information. I also reviewed the patient's old admission chart. Patient is very anxious and diaphoretic. Workup in this patient was performed based on review of the patient's past medical history, based on review of the patient's medication list, review the patient's drug allergy list, history of present illness and physical findings on examination. The workup included placement of intravenous line, infusion of intravenous fluids, CBC, CMP, troponin level, BNP, twelve-lead EKG, chest x-ray, CT scan of the abdomen pelvis. The results of the CT scan of the abdomen pelvis without contrast was interpreted by the radiologist and I reviewed the impression. The CT scan shows a small hiatal hernia and no new or acute findings when compared to CT scan of the abdomen pelvis dated 07/28/2022. There is persistent minimal urinary bladder thickening. There is enlarged prostate that is unchanged from prior CT scan. We are awaiting obtaining a urine specimen. We are also awaiting the COVID swabs and the chest x-ray result. 10/06/22 23:08 Chest x-ray was interpreted by the radiologist. I reviewed the impression. There is no evidence of any lung consolidation. There is no acute cardiopulmonary abnormality. 10/07/22 02:03 The urinalysis returned and there is no evidence of any urinary tract infection. The patient, clinically, is now comfortable after receiving Compazine 5 mg intravenously to help with his dry heaving and vomiting. He verbally states he is better. His cyclical vomiting may be secondary to marijuana he smokes but he does not believe this is true. We will discharge him to home with instructions to stop smoking marijuana, to follow-up with his primary care physician and I will remotely send a prescription of Compazine to his pharmacy. We turned off the oxygen during the last hour to hour and a half of his stay here and he maintained his oxygen saturation at 97 to 98%. Counseled pt/family regarding: lab results, diagnosis, need for follow-up, rad results Medical Desision Making - Independent Historian Additional History obtained from: In Classroom Tutor/EMT - Diagnostic Testing Diagnostic test were ordered, analyzed, and reviewed by me: Yes Radiological Interpretation: Reviewed by me, Teleradiologist Report - Risk of complications The pt has a mod risk of morbidity or mortality based on: Need for prescription drug management - Departure Departure Disposition: Home Clinical Impression: Anxiety about health, Cyclical vomiting Condition: Stable Critical Care Time: No Referrals: SAMANTHA GRIFFITH MD [Primary Care Provider] - Follow up/PCP as directed Additional Instructions: Stop smoking marijuana. Take your medication as prescribed. Call your primary care provider today, 10/07/2022, to make arrangements for further evaluation management. Prescriptions: Prochlorperazine Maleate 5 mg* [Compazine 5 MG] 5 mg PO Q8H PRN #8 tablet PRN Reason: Nausea/Vomiting
[2022-10-06] MEDS ORDERED: PROTONIX 40 MG IV IV ONE ×2 (20:56→20:57)
[2022-10-06] MEDS ORDERED: Ativan 2 MG/1 ML VIAL IV ONE (20:57)
[2022-10-06] MEDS ORDERED: Ativan 2 MG/1 ML VIAL ONE (20:57)
[2022-10-06] MEDS ORDERED: Sodium Chloride 0.9% 1000 ML 1,000 ML IV SCH (21:00)
[2022-10-06 21:32] LABS: Absolute Neutrophil Ct (ANC) 6.35 x10^3/uL (1.4-6.9); BASOPHIL % 0.3 % (0.0-0.4); Basophil (Absolute #) 0.05 x10^3/uL (0-0.4); Eosinophil (Absolute #) 0.29 x10^3/uL (0-0.5); Hematocrit 42.5 % (42-50); Hemoglobin 14.5 g/dL (12.5-18.0); IMMATURE GRAN # 0.05 x10^3u/L (0.00-0.03); IMMATURE GRAN % 0.3 % (0.00-0.4); Lymphocyte (Absolute #) 6.32 x10^3/uL (1.0-4.6); Lymphocytes % 43.9 % (24.0-44.0); Mean Cell Volume 89.9 fL (78-100); Mean Corpuscular Hemoglobin 30.7 pg (26-32); Mean Corpuscular Hgb Concent. 34.1 g/dL (32-36); Monocyte (Absolute #) 1.32 x10^3/uL (0.0-1.3); Monocytes % 9.2 % (0.0-12.0); Neutrophil % 44.3 % (36.0-66.0); Platelet Count 286 x10^3/uL (150-450); Red Blood Count 4.73 x10^6/uL (4.1-5.6); Red Cell Distribution Width 12.7 % (11.5-14.0); White Blood Count 14.4 x10^3/uL (4.0-10.5)
[2022-10-06 21:47] LABS: ALBUMIN 4.5 g/dL (3.5-5.0); ANION GAP 22.2 MEQ/L (5-15); BILIRUBIN,TOTAL 0.7 mg/dL (0.2-1.3); Calcium 9.4 mg/dL (8.4-10.2); Creatinine 1 1.95 mg/dL (0.66-1.25); EST GLOMERULAR FILTRATION RATE 36.7 ML/MIN; Potassium 3.7 mmol/L (3.5-5.1); Total Protein 7.8 g/dL (6.3-8.2)
[2022-10-06 21:59] LABS: TROPONIN 0.014 ng/mL (0.000-0.034)
--- NOTE | 2022-10-06 23:06 | XRAY ---
CLINICAL HISTORY:fever, chills COMPARISON:No prior chest X-ray is done. TECHNIQUE:Portable X-ray of chest, AP upright view. FINDINGS: No lung consolidation or collapse. Few tiny calcified nodules in the right lung. Normal configuration of the mediastinum. The fadumo are normal in size and position. The cardiac size is normal. Mild degenerative changes along bilateral shoulder joints. The costophrenic and cardiophrenic angles are clear. IMPRESSION: No lung consolidation or collapse. No acute cardiopulmonary abnormality. Electronically Signed by: Mauricio Phillip MD. (10/06/2022 22:04:43 DENTISTRY PROFESSOR)
[2022-10-06 23:26] LABS: INFLUENZA A NEGATIVE (NEGATIVE); INFLUENZA B NEGATIVE (NEGATIVE); RESPIRATORY SYNCTIAL VIRUS NEGATIVE (NEGATIVE); SARS-CoV-2 Xpert Express NEGATIVE (NEGATIVE)
[2022-10-07] MEDS ORDERED: Compazine 10 MG/2 ML IV ONE (00:07)
[2022-10-07] MEDS ORDERED: Compazine 10 MG/2 ML ONE ×2 (00:14→03:35)
[2022-10-07] MEDS ORDERED: Sodium Chloride 0.9% 1000 ML 1,000 ML ONE (00:14)
[2022-10-07 00:49] VITALS: TEMP 97.7
[2022-10-07 00:52] LABS: Appearance Clear (Clear); Bacteria None Seen /HPF (None Seen); Bilirubin Negative (Negative); Blood Trace (Negative); Epithelial Cells None Seen /HPF (None Seen); Glucose, Urine Negative (Negative); Ketones 15 (Negative); Leukocyte Esterase Negative (Negative); Nitrite Negative (Negative); Protein,Urine Dip 30 (Negative); Specific Gravity 1.015 (1.005-1.030); Urobilinogen 0.2 mg/dL (0.2); WBC 0-2 /HPF (0-5)
[2022-10-07 00:53] LABS: ADD URINE CULTURE? YES (NO)
[2022-10-07] MEDS ORDERED: Compazine 10 MG/2 ML IM PRN (03:27)
[2022-10-07 05:36] VITALS: O2SAT 96
[2022-10-07 07:13] VITALS: BP 154/78; PULSE 78; RESP 20
--- NOTE | 2022-10-07 08:47 | XRAY ---
Indication: Nausea, vomiting, and abdomen pain 1 month. Multiple contiguous axial images obtained through the abdomen and pelvis without contrast. Comparison: July 27, 2022 Lung bases again demonstrates pulmonary emphysema with mild/moderate bibasilar peripheral fibrosis/scarring. No infiltrate or effusion. Heart not enlarged. Stable small hiatal hernia. Noncontrasted stomach and bowel loops appear nonobstructed with normal appearing appendix. Mildly distended urinary bladder again demonstrates minimal circumferential wall thickening either incomplete distention versus cystitis. Stable enlarged prostate gland impresses on the base of the bladder. No free fluid/air. Remaining liver, gallbladder, pancreas, spleen, adrenal glands, kidneys, ureters, and bladder are unremarkable for noncontrast exam. Stable moderate scattered aortoiliac calcifications without AAA. Osseous structures again demonstrates osteopenia, mild/moderate multilevel degenerative spondylosis, bilateral L5 spondylolysis with grade 2 listhesis, prominent superior L5 Schmorl node, and mild degenerative changes both hips. Impression: 1. Again pulmonary emphysema, pulmonary fibrosis/scarring, hiatal hernia, urinary bladder wall thickening, enlarged prostate, arteriosclerotic disease, and chronic bony findings. 2. Remaining CT abdomen/pelvis without contrast exam is negative.
== END 2022-10-07 06:54 | disposition home or self-care (01) ==
LOC: ED 20:43
DX: F45.9 Somatoform disorder, unspecified (principal); R11.15 Cyclical vomiting syndrome unrelated to migraine; R06.02 Shortness of breath; E78.5 Hyperlipidemia, unspecified; I11.0 Hypertensive heart disease with heart failure; I50.9 Heart failure, unspecified; E11.9 Type 2 diabetes mellitus without complications; Z79.02 Long term (current) use of antithrombotics/antiplatelets; Z79.899 Other long term (current) drug therapy; Z28.310 Unvaccinated for COVID-19; Z72.0 Tobacco use
CPT/HCPCS: 0241U; 36000; 36415; 71045; 74176; 80053; 81001; 82150; 83880; 84484; 85025; 87040; 87086; 93005; 96372; 96374; 96375; 99285; J2060

== ENCOUNTER 2022-12-12 08:02 | Day surgery (SDC) | payer MEDICARE ==
[2022-12-12] MEDS: Lactated Ringers 1,000 ML IV SCH (08:47)
--- NOTE | 2022-12-12 09:02 | HP ---
DATE OF SURGERY: 12/12/2022 HISTORY OF PRESENT ILLNESS: The patient is a 67-year-old developed abdominal pain. He was here a couple months ago. History of positive Cologuard. No bloody stools. No change in bowel movement. No prior colonoscopy. Some mild abdominal aches. Family history negative for colon cancer. PAST MEDICAL HISTORY: Myocardial infarction, hyperlipidemia, congestive heart failure, coronary artery disease, chronic obstructive pulmonary disease, diabetes mellitus type II, melanoma in the past, hypertension, high cholesterol, chronic back pain. PAST SURGICAL HISTORY: Melanoma removed from face. Lymph nodes biopsied. Fem-pop. Hand surgery in the past. MEDICATIONS: Prochlorperazine, metoprolol, furosemide, Entresto, desvenlafaxine, clopidogrel, Cefdinir, carbidopa/levodopa, atorvastatin, amitriptyline. ALLERGIES: MORPHINE. OXYCONTIN. VICODIN. FAMILY HISTORY: Heart disease, Parkinson's. Negative for colon cancer. SOCIAL HISTORY: Smoker. No alcohol abuse. REVIEW OF SYSTEMS: Fourteen systems reviewed. No chest pain or palpitations. Other systems negative or noncontributory as above and per preadmission questionnaire. PHYSICAL EXAMINATION: Height 6 foot. BMI 24.4. GENERAL: No acute distress. HEENT: Sclerae nonicteric. EOMI. Oral mucous membranes moist. NECK: No JVD. CHEST: Equal excursion, nonlabored breathing. CVS: Regular rate and rhythm. ABDOMEN: Soft. EXTREMITIES: No significant edema. NEURO: Alert, oriented, moving extremities symmetrically. RECTAL: Deferred timed to endoscopy exam. PSYCH: Appropriate mood and affect. SKIN: Dry. IMPRESSION: Multiple medical problems with question of melena, positive Cologuard, right abdominal pain. He is in need of EGD/colonoscopy. Risks and benefits explained in detail including but not limited to risk of bleeding or infection, risk of bowel injury or perforation possibly requiring further procedure, risk of missed or nondiagnosis or incomplete exam possibly requiring barium enema, other studies or procedures, general risk of anesthesia or sedation, risk of bowel prep but not limited to, consent obtained. Will proceed with EGD and colonoscopy as an outpatient under MAC anesthesia. If the endoscopy is negative will need consideration of CT scan in the future. Otherwise, continue medications for heart disease, hypertension and hyperlipidemia. Proceed with EGD and colonoscopy as an outpatient.
[2022-12-12] MEDS: Zofran 4 MG/2 ML VIAL IV STA (11:20)
[2022-12-12] MEDS ORDERED: Xylocaine-Mpf 2% 5 Ml Vial ONE (12:33)
[2022-12-12] MEDS ORDERED: DIPRIVAN 200 MG/20 ML IV ONE ×2 (12:33→13:08)
[2022-12-12] MEDS ORDERED: PHENYLEPHRINE HCL ONE (12:55)
[2022-12-12] MEDS ORDERED: Lactated Ringers 1,000 ML IV ONE (13:08)
[2022-12-12] MEDS ORDERED: Ephedrine Sulfate 50 MG/ML ONE (13:14)
[2022-12-12 13:55] VITALS: RESP 16; TEMP 97.7
--- NOTE | 2022-12-12 14:11 | OP ---
SURGERY DATE/TIME: 12/12/2022 1240 PREOPERATIVE DIAGNOSES: 1) Question of melena. 2) History of positive Cologuard. 3) History of right abdominal aches. POSTOPERATIVE DIAGNOSES: 1) Mild erosive gastritis. 2) Very short segment of distal esophagitis. 3) Poor colon prep. 4) Diverticulosis. 5) Sigmoid colon polyp. 6) ASA Class IV. 7) Withdrawal time less than ten minutes on the colonoscopy. PROCEDURES: 1) EGD with cold biopsy of small bowel to evaluate for celiac sprue. 2) Cold biopsy of antrum to evaluate for Helicobacter pylori. 3) Cold biopsy distal esophagus to evaluate for esophagitis. 4) Colonoscopy to cecum with hot snare polypectomy sigmoid colon polyp. 5) Random cold biopsy of colon to evaluate for microscopic colitis. SURGEON: Dr. Stanley Velázquez. ANESTHESIA: MAC. ESTIMATED BLOOD LOSS: Minimal. INDICATIONS: As noted above. Risks and benefits explained in detail and not limited to and consent obtained. DESCRIPTION OF PROCEDURE AND FINDINGS: The patient is taken to the endoscopy room. MAC anesthesia introduced. After official time out and no disagreement with planned procedure, bite block positioned. Video gastroscope passed down the esophagus to the patent pylorus to the junction of the third and fourth portion of the duodenum. Duodenum grossly unremarkable. Cold biopsy taken to evaluate for celiac given his symptom complaints. After biopsying the small bowel, the scope was pulled back in the stomach. He did have some superficial erosions and small petechial abrasions consistent with some mild erosive gastritis. No signs of any ulcers, polyps or masses. On retroflex the gastroesophageal junction snug against the scope. Scope is straightened. Gastroesophageal junction 40 cm. There was some subsegmental 0.5 mm distal esophagitis, little fingerlet of esophagitis. Cold biopsy is taken. Good hemostasis noted. The remainder of the esophagus grossly unremarkable. The scope is withdrawn. Attention is then turned to colonoscopy. Digital rectal exam did not reveal any rectal masses. He did have some minimal internal hemorrhoids. Video colonoscope inserted and passed up through the poorly prepped colon to the tortuous colon down the transverse colon, ascending colon around to the cecum. Appendiceal orifice and valve well visualized and photo documented. Because of looping the scope would not easily go up the ileum at this stage. The colon was irrigated as well as possible. Appendiceal orifice and valve photo documented. The scope is carefully withdrawn over the next ten minutes. Random cold biopsies taken to evaluate for microscopic colitis. There was no evidence of any gross macroscopic colitis. There was a polyp about 3.5 mm or so in the sigmoid colon removed with hot snare polypectomy. Overall poor prep with large amount of liquidy, semisolid stool coating the wall limiting the exam for small lesions. There was however no evidence of any obvious large or obstructing lesion in the colon and did have two diverticula in the left colon. The scope is withdrawn. The patient tolerated the procedure well. There was no family to discuss the findings with out in the waiting room. Follow up colonoscopy in short term given his poor prep. Await path evaluation.
[2022-12-12 14:22] VITALS: BP 109/62; PULSE 68; O2SAT 91
== END 2022-12-12 14:34 | disposition home or self-care (01) ==
LOC: SDC 08:02
PROVIDERS: ATTEND Surgery
DX: D12.5 Benign neoplasm of sigmoid colon (principal); K29.70 Gastritis, unspecified, without bleeding; R19.5 Other fecal abnormalities; R10.9 Unspecified abdominal pain; E11.9 Type 2 diabetes mellitus without complications; K20.90 Esophagitis, unspecified without bleeding; K57.30 Diverticulosis of large intestine without perforation or abscess without bleeding; K64.8 Other hemorrhoids
CPT/HCPCS: 82947; J2371; J2405; J2704

== ENCOUNTER 2022-12-15 17:14 | Observation (INO) | payer MEDICARE ==
[2022-12-15] MEDS ORDERED: DUONEB 0.5-3 MG/3 ml Neb IH ONE ×2 (17:21→17:32)
[2022-12-15] MEDS ORDERED: solu-MEDROL 125 MG, Sterile H2O 10 ml 2 ML IV ONE ×2 (17:21)
[2022-12-15 17:29] LABS: A-aADO2 500; ABG HEMOGLOBIN 14.9; ABG POTASSIUM 3.5 (3.5-5.1); ARTERIAL BLD GAS O2 SATURATION 99.8 % (95-100); ARTERIAL BLOOD GAS BASE EXCESS -6.1 (-2.0-2.0); ARTERIAL BLOOD GAS FIO2 100 %; ARTERIAL BLOOD GAS PO2 202 mmHg (75-100); ARTERIAL BLOOD GAS VENT MODE NRB; CARBOXYHEMOGLOBIN 1.2 % THgb (0.0-6.9); HCO3- 9.9 (22-28); HGB O2 SAT 97.5 g/dF (94-100); Lactic Acid 6.5 (0.4-2.0); Methhemoglobin 1.1 % (1.4-1.5); paO2 pAO1 0.29
[2022-12-15 17:30] LABS: ARTERIAL BLOOD GAS PCO2 9 mmHg (35-45); ARTERIAL BLOOD GAS pH 7.65 (7.35-7.45)
[2022-12-15] MEDS ORDERED: Zofran 4 MG/2 ML VIAL IV ONE (17:30)
[2022-12-15 17:31] LABS: ABG SITE LEFT BRACHIAL
[2022-12-15] MEDS ORDERED: Zofran 4 MG/2 ML VIAL ONE (17:32)
[2022-12-15] MEDS ORDERED: Sterile H2O 10 ml IJ ONE ×2 (17:32→23:38)
[2022-12-15] MEDS ORDERED: Ativan 2 MG/1 ML VIAL IV ONE (17:32)
[2022-12-15] MEDS ORDERED: solu-MEDROL ONE ×2 (17:33→23:34)
[2022-12-15] MEDS ORDERED: Ativan 2 MG/1 ML VIAL ONE (17:33)
[2022-12-15 17:50] LABS: Absolute Neutrophil Ct (ANC) 13.03 x10^3/uL (1.4-6.9); BASOPHIL % 0.3 % (0.0-0.4); Basophil (Absolute #) 0.05 x10^3/uL (0-0.4); Eosinophil % 0.1 % (0.00-5.0); Eosinophil (Absolute #) 0.01 x10^3/uL (0-0.5); Hematocrit 43.3 % (42-50); Hemoglobin 14.8 g/dL (12.5-18.0); IMMATURE GRAN % 0.6 % (0.00-0.4); Lymphocyte (Absolute #) 1.46 x10^3/uL (1.0-4.6); Lymphocytes % 9.4 % (24.0-44.0); Mean Cell Volume 89.6 fL (78-100); Mean Corpuscular Hemoglobin 30.6 pg (26-32); Mean Corpuscular Hgb Concent. 34.2 g/dL (32-36); Mean Platelet Volume 8.8 fL (7.5-11.0); Monocyte (Absolute #) 0.83 x10^3/uL (0.0-1.3); Monocytes % 5.4 % (0.0-12.0); Neutrophil % 84.2 % (36.0-66.0); Platelet Count 331 x10^3/uL (150-450); Red Blood Count 4.83 x10^6/uL (4.1-5.6); Red Cell Distribution Width 13.2 % (11.5-14.0); White Blood Count 15.5 x10^3/uL (4.0-10.5)
--- NOTE | 2022-12-15 17:59 | ERPHSYRPT ---
- History of Present Illness Time Seen by Provider: 12/15/22 17:21 Source: patient, EMS Exam Limitations: clinical condition Patient Subjective Stated Complaint: EMS states pt is short of breath, have respiratory on standby Triage Nursing Assessment: pt came into the er via ambulance; pt was transferred to cot per ems; c/o SOB; pt is anxious, restless; pt is in a tripod position; labored breathing present; use of accessory muscles; pt was on non-rebreather; clear lung sounds in all lobes; skin PDW; c/o nausea; hypertension; tachypnea; Physician History: 67-year-old male with history of tobacco abuse, COPD, coronary artery disease status post stenting, congestive heart failure presented in the ER via EMS with worsening shortness of breath. Patient reported he was nauseated and vomited x1 earlier and around noon time started to have difficulty breathing. Patient is on nonrebreather with oxygen saturation of 100%, hyperventilating on presentation. He denies any chest pain but shortness of breath. Does report having subjective feeling of fever and chills. No abdominal pain. EKG showed normal sinus rhythm with no acute ischemic changes/STEMI. ABG showed PO2 of 202 and pH of 7.6 with lactate of 6.5. Patient while in the ER started to have chilling. Sepsis work-up is obtained and patient is started on fluids, neb treatment and Solu-Medrol is given. Patient was very anxious and given a dose of Ativan and he calmed down very well. Patient is currently afebrile on presentation. Lungs are fairly clear to auscultation. Allergies/Adverse Reactions: hydrocodone bitartrate [From Vicodin] Allergy (Mild, Verified 12/15/22 17:15) morphine Allergy (Mild, Verified 12/15/22 17:15) oxycodone [From OxyContin] Allergy (Verified 12/15/22 17:15) Home Medications: Atorvastatin Calcium 80 mg PO DAILY 10/29/19 [History] Furosemide 20 mg [Lasix 20 mg] 20 mg PO DAILY 10/29/19 [History] Metoprolol Tartrate 12.5 mg PO BID 10/29/19 [History] Clopidogrel Bisulfate [PLAVIX Tablet] 75 mg PO DAILY 03/11/21 [History] Sacubitril/Valsartan [Entresto 24 mg-26 mg Tablet] 1 tab PO DAILY 03/11/21 [History] Amitriptyline HCl 25 mg [Amitriptyline 25 mg Tablet] 25 mg PO DAILY 11/28/22 [History] Aspirin EC 81 mg [Ecotrin 81 mg] 81 mg PO DAILY 11/28/22 [History] Carbidopa/Levodopa [Carbidopa-Levo 25-100 mg Odt] 1 tab PO DAILY 11/28/22 [Hi story] Desvenlafaxine Succinate [Desvenlafaxine Succinate ER] 50 mg PO DAILY 11/28/22 [History] Hx Tetanus, Diphtheria Vaccination/Date Given: (unknown) Hx Influenza Vaccination/Date Given: No Hx Pneumococcal Vaccination/Date Given: No Travel Risk - International Travel Have you traveled outside of the country in past 3 weeks: No - Coronavirus Screening Are you exhibiting any of the following symptoms?: Yes Symptoms: Fever, Shortness of Breath Close contact with a COVID-19 positive Pt in past 14-21 Days: No - Vaccine Status Have you recieved a Covid-19 vaccination: No - Review of Systems Constitutional: Fever, Chills, Fatigue, Weakness Eyes: No Symptoms Ears, Nose, & Throat: No Symptoms Respiratory: Cough, Dyspnea Cardiac: No Symptoms Abdominal/Gastrointestinal: Nausea, Vomiting Genitourinary Symptoms: No Symptoms Musculoskeletal: No Symptoms Skin: No Symptoms Neurological: No Symptoms - Past Medical History Pertinent Past Medical History: Yes Neurological History: Stroke ENT History: Cataracts Cardiac History: Coronary Artery Disease, Deep Vein Thrombosis, High Cholesterol, Hypertension, Myocardial Infarction ([place]) Respiratory History: COPD Endocrine Medical History: Adrenal Insufficiency, Diabetes Type II, Other Musculoskeletal History: Osteoarthritis GI Medical History: No Pertinent History History: No Pertinent History Psycho-Social History: Anxiety, Bipolar, Depression Male Reproductive Disorders: No Pertinent History Other Medical History: Blood clots, skin cancer,melanoma 2 years ago - Past Surgical History Past Surgical History: Yes Neuro Surgical History: No Pertinent History Cardiac: Cardiac Catheterization, Cardiac Stent, Vascular Surgery Respiratory: No Pertinent History Gastrointestinal: No Pertinent History Genitourinary: No Pertinent History Musculoskeletal: Orthopedic Surgery Male Surgical History: No Pertinent History Other Surgical History: R hand and R leg surgeries, skin cancers removed - Social History Smoking Status: Current every day smoker How long have you smoked: age 15 Exposure to second hand smoke: Yes Drug Use: marijuana Patient Lives Alone: No Significant Family History: no pertinent family hx - Nursing Vital Signs Nursing Vital Signs: Initial Vital Signs Temperature 96.7 F 12/15/22 17:14 Pulse Rate 86 12/15/22 17:14 Respiratory Rate 40 H 12/15/22 17:14 Blood Pressure 182/101 12/15/22 17:14 O2 Sat by Pulse Oximetry 100 12/15/22 17:14 Pain Scale Pain Intensity 0 - Physical Exam General Appearance: moderate distress, alert, anxiety Eye Exam: PERRL/EOMI Ears, Nose, Throat Exam: hearing grossly normal, normal ENT inspection, normal pharynx Neck Exam: normal inspection, non-tender, supple, full range of motion Respiratory Exam: normal breath sounds, respiratory distress, accessory muscle use Cardiovascular/Chest Exam: normal heart sounds, regular rate/rhythm Abdominal/Gastrointestinal Exam: soft, normal bowel sounds, No tenderness Extremity Exam: non-tender, normal range of motion, normal inspection, normal capillary refill Neurologic Exam: alert, oriented x 3, cooperative, 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 nml as tested, nml cerebellar function, sensation nml, No normal mood/affect (Anxious), No motor deficits Skin Exam: normal color SpO2 Interpretation: O2 applied SpO2: 100 O2 Delivery: Nasal Cannula (3 L) - Course EKG Interpreted by Me: RATE, Sinus Rhythm, NORMAL INTERVALS, Left Bundle Branch Block, Non-specific ST Changes Ordered Tests: Active Orders 24 hr Category Date Time Status Front End Engineer STAT Care 12/15/22 17:21 Active EKG-ER Only STAT Care 12/15/22 17:21 Active IV Insertion STAT Care 12/15/22 17:21 Active Oxygen-ED Only Nasal Cannula 6 lpm Care 12/15/22 17:21 Active CHEST 1 VIEW (PORTABLE) Stat Exams 12/15/22 17:15 Taken ARTERIAL BLOOD GASES Stat Lab 12/15/22 17:21 Completed BLOOD CULTURE Stat Lab 12/15/22 17:35 Received CBC W DIFF Stat Lab 12/15/22 17:50 Completed CMP Stat Lab 12/15/22 17:50 Completed D-DIMER QUANTITATIVE Stat Lab 12/15/22 17:21 Completed ETHYL ALCOHOL Stat Lab 12/15/22 17:21 Completed Lactic Acid Stat Lab 12/15/22 17:21 Completed Lactic Acid Stat Lab 12/15/22 19:31 Received MAGNESIUM Stat Lab 12/15/22 17:50 Completed NT PRO BNPII Stat Lab 12/15/22 17:50 Completed POCT GLUCOSE Stat Lab 12/15/22 17:18 Completed PROCALCITONIN Stat Lab 12/15/22 17:50 Completed TROPONIN Q4H Lab 12/15/22 17:50 Completed TROPONIN Q4H Lab 12/15/22 21:30 Ordered TROPONIN Q4H Lab 12/16/22 01:30 Ordered UA W/RFX UR CULTURE Stat Lab 12/15/22 18:34 Completed Urine Triage Profile Stat Lab 12/15/22 18:34 Completed Respiratory Therapy Assessment DAILY RT 12/15/22 17:48 Active Transfer Order Routine Transfer 12/15/22 Ordered Medication Summary Discontinued Medications Generic Name Dose Route Start Last Admin Trade Name Freq PRN Reason Stop Dose Admin Albuterol/Ipratropium 3 ml 12/15/22 17:21 12/15/22 17:36 Ipratropium/Albuterol Sulfate 3 Ml Ampul.Neb IH 12/15/22 17:22 3 ml STAT ONE Administration Albuterol/Ipratropium Confirm 12/15/22 17:32 Ipratropium/Albuterol Sulfate 3 Ml Ampul.Neb Administered 12/15/22 17:33 Dose 3 ml IH .STK-MED ONE Methylprednisolone Sodium 0 mg 12/15/22 17:21 12/15/22 17:34 Succinate 125 mg/ Sterile IV 12/15/22 17:22 125 mg Water 2 ml STAT ONE Administration Ceftriaxone Sodium/Dextrose 2 g in 50 mls @ 100 mls/hr 12/15/22 18:12 12/15/22 19:17 Rocephin 2 Gm-D5w 50ml Bag IV 12/15/22 18:41 Infused STAT STA Infusion Azithromycin 500 mg in 250 mls @ 250 mls/hr 12/15/22 18:12 12/15/22 19:18 Zithromax 500 Mg/ 250 Ml Nacl Premix IV 12/15/22 19:11 Infused STAT STA Infusion Sodium Chloride 1,000 mls @ 999 mls/hr 12/15/22 18:14 12/15/22 19:19 Sodium Chloride 0.9% 1000 Ml IV 12/15/22 19:14 Infused .Q1H1M STA Infusion Azithromycin Confirm 12/15/22 18:17 Zithromax 500 Mg/ 250 Ml Nacl Premix Administered 12/15/22 18:18 Dose 500 mg in 250 mls @ ud IV .STK-MED ONE Sodium Chloride Confirm 12/15/22 18:17 Sodium Chloride 0.9% 1000 Ml Administered 12/15/22 18:18 Dose 1,000 mls @ ud .ROUTE .STK-MED ONE Ceftriaxone Sodium/Dextrose Confirm 12/15/22 18:17 Rocephin 2 Gm-D5w 50ml Bag Administered 12/15/22 18:18 Dose 2 g in 50 mls @ ud IV .STK-MED ONE Lorazepam 1 mg 12/15/22 17:32 12/15/22 17:34 Lorazepam 2 Mg/1 Ml 2 Mg Vial IV 12/15/22 17:33 1 mg STAT ONE Administration Lorazepam Confirm 12/15/22 17:33 Lorazepam 2 Mg/1 Ml 2 Mg Vial Administered 12/15/22 17:34 Dose 2 mg .ROUTE .STK-MED ONE Methylprednisolone Sodium Succinate Confirm 12/15/22 17:33 Methylprednis Sod Succ 125 Mg/2 Ml Vial Administered 12/15/22 17:34 Dose 125 mg .ROUTE .STK-MED ONE Ondansetron HCl 4 mg 12/15/22 17:30 12/15/22 17:34 Ondansetron Hcl 4 Mg/2 Ml Vial IV 12/15/22 17:31 4 mg STAT ONE Administration Ondansetron HCl Confirm 12/15/22 17:32 Ondansetron Hcl 4 Mg/2 Ml Vial Administered 12/15/22 17:33 Dose 4 mg .ROUTE .STK-MED ONE Sterile Water Confirm 12/15/22 17:32 Water For Injection,Sterile 10 Ml Vial Administered 12/15/22 17:33 Dose 10 ml IJ .STK-MED ONE Lab/Rad Data: Laboratory Result Diagrams 12/15/22 17:50 12/15/22 17:50 Laboratory Results 12/15/22 12/15/22 12/15/22 Range/Units 18:34 18:34 17:50 WBC (4.0-10.5) x10^3/uL RBC (4.1-5.6) x10^6/uL Hgb (12.5-18.0) g/dL Hct (42-50) % MCV (78-100) fL MCH (26-32) pg MCHC (32-36) g/dL RDW (11.5-14.0) % Plt Count (150-450) x10^3/uL MPV (7.5-11.0) fL Gran % (36.0-66.0) % Immature Gran % (Auto) (0.00-0.4) % Nucleat RBC Rel Count (0.00-0.1) % Eos # (Auto) (0-0.5) x10^3/uL Immature Gran # (Auto) (0.00-0.03) x10^3u/L Absolute Lymphs (auto) (1.0-4.6) x10^3/uL Absolute Monos (auto) (0.0-1.3) x10^3/uL Absolute Nucleated RBC (0.00-0.01) x10^3u/L Lymphocytes % (24.0-44.0) % Monocytes % (0.0-12.0) % Eosinophils % (0.00-5.0) % Basophils % (0.0-0.4) % Absolute Granulocytes (1.4-6.9) x10^3/uL Basophils # (0-0.4) x10^3/uL D-Dimer (0.0-0.50) mg/L Puncture Site pCO2 (35-45) mmHg pO2 (75-100) mmHg Base Excess (-2.0-2.0) O2 Saturation (94-100) g/dF ABG pH (7.35-7.45) ABG HCO3 (22-28) ABG O2 Sat (Measured) (95-100) % Robbin Test A-a Gradient a/A Ratio Hemoglobin Carboxyhemoglobin (0.0-6.9) % THgb Methemoglobin (1.4-1.5) % Potassium (3.5-5.1) Temperature C POC O2 Flow Rate % Vent Mode Sodium (137-145) mmol/L Chloride (98-107) mmol/L Carbon Dioxide (22-30) mmol/L Anion Gap (5-15) MEQ/L BUN (9-20) mg/dL Creatinine (0.66-1.25) mg/dL Estimated GFR ML/MIN Glucose (74-106) mg/dL POC Glucometer (74 to 106) mg/dL Lactic Acid (0.4-2.0) Calcium (8.4-10.2) mg/dL Magnesium (1.6-2.3) mg/dL Total Bilirubin (0.2-1.3) mg/dL AST (17-59) U/L ALT (0-50) U/L Alkaline Phosphatase (38-126) U/L Troponin I (0.000-0.034) ng/mL NT-Pro-B Natriuret Pep (<300) pg/mL Serum Total Protein (6.3-8.2) g/dL Albumin (3.5-5.0) g/dL Procalcitonin 0.050 (0.030-0.080) ng/mL Urine Color Yellow (Yellow) Urine Appearance Clear (Clear) Urine pH 7.5 (4.6-8.0) Ur Specific [place] 1.015 (1.005-1.030) Urine Protein Trace A (Negative) Urine Glucose (UA) Negative (Negative) mg/dL Urine Ketones 15 A (Negative) Urine Blood Negative (Negative) Urine Nitrite Negative (Negative) Urine Bilirubin Negative (Negative) Urine Urobilinogen 0.2 (0.2) mg/dL Ur Leukocyte Esterase Negative (Negative) U Hyaline Cast (Auto) NONE SEEN (0-2) /LPF Urine Microscopic RBC 3-5 (0-5) /HPF Urine Microscopic WBC 0-2 (0-5) /HPF Ur Epithelial Cells None Seen (None Seen) /HPF Urine Bacteria None Seen (None Seen) /HPF Urine Culture Reflexed NO (NO) Urine Opiates Level NEGATIVE (NEGATIVE) Ur Methadone NEGATIVE (NEGATIVE) Urine Barbiturates NEGATIVE (NEGATIVE) Ur Phencyclidine (PCP) NEGATIVE (NEGATIVE) Urine Amphetamine NEGATIVE (NEGATIVE) U Benzodiazepine Level NEGATIVE (NEGATIVE) Urine Cocaine NEGATIVE (NEGATIVE) Urine Marijuana (THC) POSITIVE (NEGATIVE) Ethyl Alcohol (0-10) mg/dL Influenza Type A Ag (NEGATIVE) Influenza Type B Ag (NEGATIVE) RSV (PCR) (NEGATIVE) SARS-CoV-2 (PCR) (NEGATIVE) 12/15/22 12/15/22 12/15/22 Range/Units 17:50 17:50 17:50 WBC 15.5 H (4.0-10.5) x10^3/uL RBC 4.83 (4.1-5.6) x10^6/uL Hgb 14.8 (12.5-18.0) g/dL Hct 43.3 (42-50) % MCV 89.6 (78-100) fL MCH 30.6 (26-32) pg MCHC 34.2 (32-36) g/dL RDW 13.2 (11.5-14.0) % Plt Count 331 (150-450) x10^3/uL MPV 8.8 (7.5-11.0) fL Gran % 84.2 H (36.0-66.0) % Immature Gran % (Auto) 0.6 H (0.00-0.4) % Nucleat RBC Rel Count 0.0 (0.00-0.1) % Eos # (Auto) 0.01 (0-0.5) x10^3/uL Immature Gran # (Auto) 0.10 H (0.00-0.03) x10^3u/L Absolute Lymphs (auto) 1.46 (1.0-4.6) x10^3/uL Absolute Monos (auto) 0.83 (0.0-1.3) x10^3/uL Absolute Nucleated RBC 0.00 (0.00-0.01) x10^3u/L Lymphocytes % 9.4 L (24.0-44.0) % Monocytes % 5.4 (0.0-12.0) % Eosinophils % 0.1 (0.00-5.0) % Basophils % 0.3 (0.0-0.4) % Absolute Granulocytes 13.03 H (1.4-6.9) x10^3/uL Basophils # 0.05 (0-0.4) x10^3/uL D-Dimer (0.0-0.50) mg/L Puncture Site pCO2 (35-45) mmHg pO2 (75-100) mmHg Base Excess (-2.0-2.0) O2 Saturation (94-100) g/dF ABG pH (7.35-7.45) ABG HCO3 (22-28) ABG O2 Sat (Measured) (95-100) % Robbin Test A-a Gradient a/A Ratio Hemoglobin Carboxyhemoglobin (0.0-6.9) % THgb Methemoglobin (1.4-1.5) % Potassium 3.4 L (3.5-5.1) Temperature C POC O2 Flow Rate % Vent Mode Sodium 137 (137-145) mmol/L Chloride 107 (98-107) mmol/L Carbon Dioxide 10 L* (22-30) mmol/L Anion Gap 23.7 H (5-15) MEQ/L BUN 19 (9-20) mg/dL Creatinine 1.61 H (0.66-1.25) mg/dL Estimated GFR 45.7 ML/MIN Glucose 151 H (74-106) mg/dL POC Glucometer (74 to 106) mg/dL Lactic Acid (0.4-2.0) Calcium 9.7 (8.4-10.2) mg/dL Magnesium 1.9 (1.6-2.3) mg/dL Total Bilirubin 1.30 (0.2-1.3) mg/dL AST 36 (17-59) U/L ALT 34 (0-50) U/L Alkaline Phosphatase 174 H (38-126) U/L Troponin I 0.020 (0.000-0.034) ng/mL NT-Pro-B Natriuret Pep 2780 (<300) pg/mL Serum Total Protein 8.3 H (6.3-8.2) g/dL Albumin 4.7 (3.5-5.0) g/dL Procalcitonin (0.030-0.080) ng/mL Urine Color (Yellow) Urine Appearance (Clear) Urine pH (4.6-8.0) Ur Specific [place] (1.005-1.030) Urine Protein (Negative) Urine Glucose (UA) (Negative) mg/dL Urine Ketones (Negative) Urine Blood (Negative) Urine Nitrite (Negative) Urine Bilirubin (Negative) Urine Urobilinogen (0.2) mg/dL Ur Leukocyte Esterase (Negative) U Hyaline Cast (Auto) (0-2) /LPF Urine Microscopic RBC (0-5) /HPF Urine Microscopic WBC (0-5) /HPF Ur Epithelial Cells (None Seen) /HPF Urine Bacteria (None Seen) /HPF Urine Culture Reflexed (NO) Urine Opiates Level (NEGATIVE) Ur Methadone (NEGATIVE) Urine Barbiturates (NEGATIVE) Ur Phencyclidine (PCP) (NEGATIVE) Urine Amphetamine (NEGATIVE) U Benzodiazepine Level (NEGATIVE) Urine Cocaine (NEGATIVE) Urine Marijuana (THC) (NEGATIVE) Ethyl Alcohol (0-10) mg/dL Influenza Type A Ag (NEGATIVE) Influenza Type B Ag (NEGATIVE) RSV (PCR) (NEGATIVE) SARS-CoV-2 (PCR) (NEGATIVE) 12/15/22 12/15/22 12/15/22 Range/Units 17:32 17:21 17:21 WBC (4.0-10.5) x10^3/uL RBC (4.1-5.6) x10^6/uL Hgb (12.5-18.0) g/dL Hct (42-50) % MCV (78-100) fL MCH (26-32) pg MCHC (32-36) g/dL RDW (11.5-14.0) % Plt Count (150-450) x10^3/uL MPV (7.5-11.0) fL Gran % (36.0-66.0) % Immature Gran % (Auto) (0.00-0.4) % Nucleat RBC Rel Count (0.00-0.1) % Eos # (Auto) (0-0.5) x10^3/uL Immature Gran # (Auto) (0.00-0.03) x10^3u/L Absolute Lymphs (auto) (1.0-4.6) x10^3/uL Absolute Monos (auto) (0.0-1.3) x10^3/uL Absolute Nucleated RBC (0.00-0.01) x10^3u/L Lymphocytes % (24.0-44.0) % Monocytes % (0.0-12.0) % Eosinophils % (0.00-5.0) % Basophils % (0.0-0.4) % Absolute Granulocytes (1.4-6.9) x10^3/uL Basophils # (0-0.4) x10^3/uL D-Dimer 0.42 (0.0-0.50) mg/L Puncture Site pCO2 (35-45) mmHg pO2 (75-100) mmHg Base Excess (-2.0-2.0) O2 Saturation (94-100) g/dF ABG pH (7.35-7.45) ABG HCO3 (22-28) ABG O2 Sat (Measured) (95-100) % Robbin Test A-a Gradient a/A Ratio Hemoglobin Carboxyhemoglobin (0.0-6.9) % THgb Methemoglobin (1.4-1.5) % Potassium (3.5-5.1) Temperature C POC O2 Flow Rate % Vent Mode Sodium (137-145) mmol/L Chloride (98-107) mmol/L Carbon Dioxide (22-30) mmol/L Anion Gap (5-15) MEQ/L BUN (9-20) mg/dL Creatinine (0.66-1.25) mg/dL Estimated GFR ML/MIN Glucose (74-106) mg/dL POC Glucometer (74 to 106) mg/dL Lactic Acid (0.4-2.0) Calcium (8.4-10.2) mg/dL Magnesium (1.6-2.3) mg/dL Total Bilirubin (0.2-1.3) mg/dL AST (17-59) U/L ALT (0-50) U/L Alkaline Phosphatase (38-126) U/L Troponin I (0.000-0.034) ng/mL NT-Pro-B Natriuret Pep (<300) pg/mL Serum Total Protein (6.3-8.2) g/dL Albumin (3.5-5.0) g/dL Procalcitonin (0.030-0.080) ng/mL Urine Color (Yellow) Urine Appearance (Clear) Urine pH (4.6-8.0) Ur Specific [place] (1.005-1.030) Urine Protein (Negative) Urine Glucose (UA) (Negative) mg/dL Urine Ketones (Negative) Urine Blood (Negative) Urine Nitrite (Negative) Urine Bilirubin (Negative) Urine Urobilinogen (0.2) mg/dL Ur Leukocyte Esterase (Negative) U Hyaline Cast (Auto) (0-2) /LPF Urine Microscopic RBC (0-5) /HPF Urine Microscopic WBC (0-5) /HPF Ur Epithelial Cells (None Seen) /HPF Urine Bacteria (None Seen) /HPF Urine Culture Reflexed (NO) Urine Opiates Level (NEGATIVE) Ur Methadone (NEGATIVE) Urine Barbiturates (NEGATIVE) Ur Phencyclidine (PCP) (NEGATIVE) Urine Amphetamine (NEGATIVE) U Benzodiazepine Level (NEGATIVE) Urine Cocaine (NEGATIVE) Urine Marijuana (THC) (NEGATIVE) Ethyl Alcohol < 10 (0-10) mg/dL Influenza Type A Ag NEGATIVE (NEGATIVE) Influenza Type B Ag NEGATIVE (NEGATIVE) RSV (PCR) NEGATIVE (NEGATIVE) SARS-CoV-2 (PCR) NEGATIVE (NEGATIVE) 12/15/22 12/15/22 Range/Units 17:21 17:18 WBC (4.0-10.5) x10^3/uL RBC (4.1-5.6) x10^6/uL Hgb (12.5-18.0) g/dL Hct (42-50) % MCV (78-100) fL MCH (26-32) pg MCHC (32-36) g/dL RDW (11.5-14.0) % Plt Count (150-450) x10^3/uL MPV (7.5-11.0) fL Gran % (36.0-66.0) % Immature Gran % (Auto) (0.00-0.4) % Nucleat RBC Rel Count (0.00-0.1) % Eos # (Auto) (0-0.5) x10^3/uL Immature Gran # (Auto) (0.00-0.03) x10^3u/L Absolute Lymphs (auto) (1.0-4.6) x10^3/uL Absolute Monos (auto) (0.0-1.3) x10^3/uL Absolute Nucleated RBC (0.00-0.01) x10^3u/L Lymphocytes % (24.0-44.0) % Monocytes % (0.0-12.0) % Eosinophils % (0.00-5.0) % Basophils % (0.0-0.4) % Absolute Granulocytes (1.4-6.9) x10^3/uL Basophils # (0-0.4) x10^3/uL D-Dimer (0.0-0.50) mg/L Puncture Site LEFT BRACHIAL pCO2 9 L* (35-45) mmHg pO2 202 H* (75-100) mmHg Base Excess -6.1 L (-2.0-2.0) O2 Saturation 97.5 (94-100) g/dF ABG pH 7.65 H* (7.35-7.45) ABG HCO3 9.9 L* (22-28) ABG O2 Sat (Measured) 99.8 (95-100) % Robbin Test NOT APPLICABLE A-a Gradient 500 a/A Ratio 0.29 Hemoglobin 14.9 Carboxyhemoglobin 1.2 (0.0-6.9) % THgb Methemoglobin 1.1 L (1.4-1.5) % Potassium 3.5 (3.5-5.1) Temperature 37.0 C POC O2 Flow Rate 100 % Vent Mode NRB Sodium (137-145) mmol/L Chloride (98-107) mmol/L Carbon Dioxide (22-30) mmol/L Anion Gap (5-15) MEQ/L BUN (9-20) mg/dL Creatinine (0.66-1.25) mg/dL Estimated GFR ML/MIN Glucose (74-106) mg/dL POC Glucometer 137 H (74 to 106) mg/dL Lactic Acid 6.5 H (0.4-2.0) Calcium (8.4-10.2) mg/dL Magnesium (1.6-2.3) mg/dL Total Bilirubin (0.2-1.3) mg/dL AST (17-59) U/L ALT (0-50) U/L Alkaline Phosphatase (38-126) U/L Troponin I (0.000-0.034) ng/mL NT-Pro-B Natriuret Pep (<300) pg/mL Serum Total Protein (6.3-8.2) g/dL Albumin (3.5-5.0) g/dL Procalcitonin (0.030-0.080) ng/mL Urine Color (Yellow) Urine Appearance (Clear) Urine pH (4.6-8.0) Ur Specific [place] (1.005-1.030) Urine Protein (Negative) Urine Glucose (UA) (Negative) mg/dL Urine Ketones (Negative) Urine Blood (Negative) Urine Nitrite (Negative) Urine Bilirubin (Negative) Urine Urobilinogen (0.2) mg/dL Ur Leukocyte Esterase (Negative) U Hyaline Cast (Auto) (0-2) /LPF Urine Microscopic RBC (0-5) /HPF Urine Microscopic WBC (0-5) /HPF Ur Epithelial Cells (None Seen) /HPF Urine Bacteria (None Seen) /HPF Urine Culture Reflexed (NO) Urine Opiates Level (NEGATIVE) Ur Methadone (NEGATIVE) Urine Barbiturates (NEGATIVE) Ur Phencyclidine (PCP) (NEGATIVE) Urine Amphetamine (NEGATIVE) U Benzodiazepine Level (NEGATIVE) Urine Cocaine (NEGATIVE) Urine Marijuana (THC) (NEGATIVE) Ethyl Alcohol (0-10) mg/dL Influenza Type A Ag (NEGATIVE) Influenza Type B Ag (NEGATIVE) RSV (PCR) (NEGATIVE) SARS-CoV-2 (PCR) (NEGATIVE) - Progress Progress: improved, re-examined Air Movement: good Progress Note: 12/15/22 17:59 67-year-old male with history of tobacco abuse, COPD, coronary artery disease status post stenting, congestive heart failure presented in the ER via EMS with worsening shortness of breath. Patient reported he was nauseated and vomited x1 earlier and around noon time started to have difficulty breathing. Patient is on nonrebreather with oxygen saturation of 100%, hyperventilating on presentation. He denies any chest pain but shortness of breath. Does report having subjective feeling of fever and chills. No abdominal pain. EKG showed normal sinus rhythm with no acute ischemic changes/STEMI. ABG showed PO2 of 202 and pH of 7.6 with lactate of 6.5. Patient while in the ER started to have chilling. Sepsis work-up is obtained and patient is started on fluids, neb treatment and Solu-Medrol is given. Patient was very anxious and given a dose of Ativan and he calmed down very well. Patient is currently afebrile on presentation. Lungs are fairly clear to auscultation. 12/15/22 19:53 Chest x-ray showed no obvious consolidation. Initial troponins negative. White count is 15, lactate of 6.5, given fluids. Patient has a creatinine of 1.6 which is around baseline. Given a dose of antibiotics. Discussed with Dr. Andres, reviewed history, work-up and agreed with admission. Blood Culture(s) Obtained: Yes Antibiotics given: Yes Discussed with : Jb Will see patient in: hospital (observation) Counseled pt/family regarding: lab results, diagnosis, rad results, smoking cessation Medical Desision Making - Discussion of managment Care discussed with:: hospitalist Reviewed:: Test results Agreed on:: Treatment plan, place in obs Will see patient: in hospital - Diagnostic Testing Diagnostic test were ordered, analyzed, and reviewed by me: Yes Radiological Interpretation: Interpreted by me, Reviewed by me - Risk of complications The pt has a high risk of morbidity or mortality based on: Decision regarding hospitilization or escalation of hosp level of care - Departure Departure Disposition: Observation Clinical Impression: COPD with exacerbation, Anxiety Condition: Stable Critical Care Time: Yes Critical Care Time(excluding separately billable procedures): Critical 30-74 mins Referrals: SAMANTHA GRIFFITH MD [Primary Care Provider] - Follow up/PCP as directed Instructions: Chronic Obstructive Pulmonary Disease
[2022-12-15 18:06] LABS: ALBUMIN 4.7 g/dL (3.5-5.0); ANION GAP 23.7 MEQ/L (5-15); BILIRUBIN,TOTAL 1.3 mg/dL (0.2-1.3); Calcium 9.7 mg/dL (8.4-10.2); Creatinine 1 1.61 mg/dL (0.66-1.25); EST GLOMERULAR FILTRATION RATE 45.7 ML/MIN; MAGNESIUM 1.9 mg/dL (1.6-2.3); Potassium 3.4 mmol/L (3.5-5.1); Total Protein 8.3 g/dL (6.3-8.2)
[2022-12-15] MEDS ORDERED: ROCEPHIN 2 Gm-D5w 50ML BAG** 2 G/50 ML IVPB IV STA (18:12)
[2022-12-15] MEDS ORDERED: Zithromax 500 MG/ 250 ML NaCl Premix 500 MG/250 ML IVPB IV STA (18:12)
[2022-12-15] MEDS ORDERED: Sodium Chloride 0.9% 1000 ML 1,000 ML IV STA (18:14)
[2022-12-15] MEDS ORDERED: Zithromax 500 MG/ 250 ML NaCl Premix 500 MG/250 ML IVPB IV ONE (18:17)
[2022-12-15] MEDS ORDERED: ROCEPHIN 2 Gm-D5w 50ML BAG** 2 G/50 ML IVPB IV ONE (18:17)
[2022-12-15] MEDS ORDERED: Sodium Chloride 0.9% 1000 ML 1,000 ML ONE (18:17)
[2022-12-15 18:18] LABS: TROPONIN 0.02 ng/mL (0.000-0.034)
[2022-12-15 18:27] LABS: INFLUENZA A NEGATIVE (NEGATIVE); INFLUENZA B NEGATIVE (NEGATIVE); RESPIRATORY SYNCTIAL VIRUS NEGATIVE (NEGATIVE); SARS-CoV-2 Xpert Express NEGATIVE (NEGATIVE)
[2022-12-15 18:45] LABS: Appearance Clear (Clear); Bacteria None Seen /HPF (None Seen); Bilirubin Negative (Negative); Blood Negative (Negative); Epithelial Cells None Seen /HPF (None Seen); Glucose, Urine Negative (Negative); Hyaline Casts NONE SEEN /LPF (0-2); Ketones 15 (Negative); Leukocyte Esterase Negative (Negative); Nitrite Negative (Negative); Ph 7.5 (4.6-8.0); Protein,Urine Dip Trace (Negative); Specific Gravity 1.015 (1.005-1.030); Urobilinogen 0.2 mg/dL (0.2); WBC 0-2 /HPF (0-5)
[2022-12-15 18:46] LABS: ADD URINE CULTURE? NO (NO)
[2022-12-15 18:56] LABS: Amphetamine,Urine NEGATIVE (NEGATIVE); Barbiturate,Urine NEGATIVE (NEGATIVE); Benzodiazepine,Urine NEGATIVE (NEGATIVE); Cocaine,Urine NEGATIVE (NEGATIVE); Methadone,Urine NEGATIVE (NEGATIVE); Opiate,Urine NEGATIVE (NEGATIVE); PCP,Urine NEGATIVE (NEGATIVE); THC,Urine POSITIVE (NEGATIVE)
[2022-12-15] MEDS ORDERED: Compazine 5 MG PO PRN (21:11)
[2022-12-15] MEDS ORDERED: TYLENOL 325 MG PO PRN (21:24)
[2022-12-15] MEDS ORDERED: Docusate Sodium 100 MG PO PRN (21:24)
[2022-12-15] MEDS ORDERED: Zofran 4 MG/2 ML VIAL IV PRN (21:24)
--- NOTE | 2022-12-15 21:35 | PCM.HP ---
History of Present Illness - Chief Complaint Chief Complaint: COPD EXACERBATION Date: 12/15/22 History of Present Illness: is a 67 year old male with history of tobacco abuse, COPD (not on home oxygen), coronary artery disease (status post stenting), and congestive heart failure who presented to the hospital with worsening shortness of breath. The patient had 1 episode nausea and emesis (nonbilious and nonbloody) but denies diarrhea or abdominal pain. He denied chest pain, but has reported subjective fevers and chills. The patient received treatment in the ED and has had some improvement in his dyspnea. When he was evaluated by EMS, he had been noted to be hyperventilating and was initially placed on a NRB mask, and in the ED was placed on 6L NC which was weaned down to 2L. The patient is able to speak in complete sentences during my assessment - Review of Systems Constitutional: Fever, Chills Eyes: No Symptoms Ears, Nose, & Throat: No Symptoms Respiratory: Cough, Short Of Breath, Wheezing Cardiac: No Symptoms Abdominal/Gastrointestinal: Nausea, Vomiting Genitourinary Symptoms: No Symptoms Musculoskeletal: No Symptoms Skin: No Symptoms Neurological: No Symptoms Psychological: No Symptoms Endocrine: No Symptoms Hematologic/Lymphatic: No Symptoms Immunological/Allergic: No Symptoms Medications & Allergies Home Medications: Home Medication List Atorvastatin Calcium 80 mg PO DAILY 10/29/19 [History Confirmed 12/15/22] Furosemide 20 mg [Lasix 20 mg] 20 mg PO DAILY 10/29/19 [History Confirmed 12/15/22] Metoprolol Tartrate 12.5 mg PO BID 10/29/19 [History Confirmed 12/15/22] Clopidogrel Bisulfate [PLAVIX Tablet] 75 mg PO DAILY 03/11/21 [History Confirmed 12/15/22] Sacubitril/Valsartan [Entresto 24 mg-26 mg Tablet] 1 tab PO DAILY 03/11/21 [History Confirmed 12/15/22] Prochlorperazine Maleate 5 mg* [Compazine 5 MG] 5 mg PO Q8H PRN #8 tablet 10/07/22 [Rx Confirmed 12/15/22] Amitriptyline HCl 25 mg [Amitriptyline 25 mg Tablet] 25 mg PO DAILY 11/28/22 [History Confirmed 12/15/22] Aspirin EC 81 mg [Ecotrin 81 mg] 81 mg PO DAILY 11/28/22 [History Confirmed 12/15/22] Carbidopa/Levodopa [Carbidopa-Levo 25-100 mg Odt] 1 tab PO DAILY 11/28/22 [History Confirmed 12/15/22] Desvenlafaxine Succinate [Desvenlafaxine Succinate ER] 50 mg PO DAILY 11/28/22 [History Confirmed 12/15/22] Allergies/Adverse Reactions: Allergies Allergy/AdvReac Type Severity Reaction Status Date / Time hydrocodone bitartrate Allergy Mild Verified 12/15/22 17:15 [From Vicodin] morphine Allergy Mild Verified 12/15/22 17:15 oxycodone [From OxyContin] Allergy Verified 12/15/22 17:15 - Past Medical History Past Medical History: Yes Neurological History: Stroke, Other (Appears to have history of Parkinsons but has not established care with a neurologist) ENT History: Cataracts Cardiac History: Coronary Artery Disease, Deep Vein Thrombosis, High Cholesterol, Hypertension, Myocardial Infarction ([place]) Respiratory History: COPD Endocrine Medical History: Adrenal Insufficiency, Diabetes Type II, Other Musculoskelatal History: Osteoarthritis GI Medical History: No Pertinent History History: No Pertinent History Pyscho-Social History: Anxiety, Bipolar, Depression Male Reproductive Disorders: No Pertinent History Comment: Blood clots, skin cancer,melanoma 2 years ago - Past Surgical History Past Surgical History: Yes Neuro Surgical History: No Pertinent History Cardiac History: Cardiac Catheterization, Cardiac Stent, Vascular Surgery Respiratory Surgery: No Pertinent History GI Surgical History: No Pertinent History Genitourinary Surgical Hx: No Pertinent History Musculskeletal Surgical Hx: Orthopedic Surgery Male Surgical History: No Pertinent History Other Surgical History: R hand and R leg surgeries, skin cancers removed - Social History Smoking Status: Current every day smoker How long have you smoked: age 15 Exposure to second hand smoke: Yes Alcohol: None Drug Use: marijuana Significant Family History: no pertinent family hx - Physical Exam Vital Signs: Vital Signs - 24 hr Temp Pulse Resp BP BP Pulse Ox 12/15/22 20:26 97.8 F 101 H 18 131/67 94 L 12/15/22 20:00 90 32 H 157/74 98 12/15/22 19:55 100 12/15/22 19:30 91 H 23 158/137 97 12/15/22 19:00 97 H 17 152/76 100 12/15/22 18:30 174/88 12/15/22 18:00 82 36 H 167/108 99 12/15/22 17:51 79 21 156/81 99 12/15/22 17:48 89 30 H 100 12/15/22 17:24 78 17 182/101 96 12/15/22 17:14 96.7 F 86 40 H 182/101 100 General Appearance: no apparent distress, alert Neurologic Exam: alert, oriented x 3, cooperative, 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 II-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 nml as tested, normal mood/affect, nml cerebellar function Eye Exam: PERRL/EOMI, eyes nml inspection Neck Exam: normal inspection, non-tender, supple, full range of motion Respiratory Exam: wheezing (trace wheezes bilaterally but improved relative to reported initial assessment by ED physician) Cardiovascular Exam: regular rate/rhythm, normal heart sounds Gastrointestinal/Abdomen Exam: soft, normal bowel sounds Extremity Exam: normal inspection, normal range of motion Skin Exam: normal color Results - Labs Lab/Micro Results: Lab Results-Last 24 Hours 12/15/22 12/15/22 12/15/22 Range/Units 17:18 17:21 17:21 WBC (4.0-10.5) x10^3/uL RBC (4.1-5.6) x10^6/uL Hgb (12.5-18.0) g/dL Hct (42-50) % MCV (78-100) fL MCH (26-32) pg MCHC (32-36) g/dL RDW (11.5-14.0) % Plt Count (150-450) x10^3/uL MPV (7.5-11.0) fL Gran % (36.0-66.0) % Immature Gran % (Auto) (0.00-0.4) % Nucleat RBC Rel Count (0.00-0.1) % Eos # (Auto) (0-0.5) x10^3/uL Immature Gran # (Auto) (0.00-0.03) x10^3u/L Absolute Lymphs (auto) (1.0-4.6) x10^3/uL Absolute Monos (auto) (0.0-1.3) x10^3/uL Absolute Nucleated RBC (0.00-0.01) x10^3u/L Lymphocytes % (24.0-44.0) % Monocytes % (0.0-12.0) % Eosinophils % (0.00-5.0) % Basophils % (0.0-0.4) % Absolute Granulocytes (1.4-6.9) x10^3/uL Basophils # (0-0.4) x10^3/uL D-Dimer 0.42 (0.0-0.50) mg/L Puncture Site LEFT BRACHIAL pCO2 9 L* (35-45) mmHg pO2 202 H* (75-100) mmHg Base Excess -6.1 L (-2.0-2.0) O2 Saturation 97.5 (94-100) g/dF ABG pH 7.65 H* (7.35-7.45) ABG HCO3 9.9 L* (22-28) ABG O2 Sat (Measured) 99.8 (95-100) % Robbin Test NOT APPLICABLE A-a Gradient 500 a/A Ratio 0.29 Hemoglobin 14.9 Carboxyhemoglobin 1.2 (0.0-6.9) % THgb Methemoglobin 1.1 L (1.4-1.5) % Potassium 3.5 (3.5-5.1) Temperature 37.0 C POC O2 Flow Rate 100 % Vent Mode NRB Sodium (137-145) mmol/L Chloride (98-107) mmol/L Carbon Dioxide (22-30) mmol/L Anion Gap (5-15) MEQ/L BUN (9-20) mg/dL Creatinine (0.66-1.25) mg/dL Estimated GFR ML/MIN Glucose (74-106) mg/dL POC Glucometer 137 H (74 to 106) mg/dL Lactic Acid 6.5 H (0.4-2.0) Calcium (8.4-10.2) mg/dL Magnesium (1.6-2.3) mg/dL Total Bilirubin (0.2-1.3) mg/dL AST (17-59) U/L ALT (0-50) U/L Alkaline Phosphatase (38-126) U/L Troponin I (0.000-0.034) ng/mL NT-Pro-B Natriuret Pep (<300) pg/mL Serum Total Protein (6.3-8.2) g/dL Albumin (3.5-5.0) g/dL Procalcitonin (0.030-0.080) ng/mL Urine Color (Yellow) Urine Appearance (Clear) Urine pH (4.6-8.0) Ur Specific [place] (1.005-1.030) Urine Protein (Negative) Urine Glucose (UA) (Negative) mg/dL Urine Ketones (Negative) Urine Blood (Negative) Urine Nitrite (Negative) Urine Bilirubin (Negative) Urine Urobilinogen (0.2) mg/dL Ur Leukocyte Esterase (Negative) U Hyaline Cast (Auto) (0-2) /LPF Urine Microscopic RBC (0-5) /HPF Urine Microscopic WBC (0-5) /HPF Ur Epithelial Cells (None Seen) /HPF Urine Bacteria (None Seen) /HPF Urine Culture Reflexed (NO) Urine Opiates Level (NEGATIVE) Ur Methadone (NEGATIVE) Urine Barbiturates (NEGATIVE) Ur Phencyclidine (PCP) (NEGATIVE) Urine Amphetamine (NEGATIVE) U Benzodiazepine Level (NEGATIVE) Urine Cocaine (NEGATIVE) Urine Marijuana (THC) (NEGATIVE) Ethyl Alcohol (0-10) mg/dL Influenza Type A Ag (NEGATIVE) Influenza Type B Ag (NEGATIVE) RSV (PCR) (NEGATIVE) SARS-CoV-2 (PCR) (NEGATIVE) 12/15/22 12/15/22 12/15/22 Range/Units 17:21 17:32 17:50 WBC 15.5 H (4.0-10.5) x10^3/uL RBC 4.83 (4.1-5.6) x10^6/uL Hgb 14.8 (12.5-18.0) g/dL Hct 43.3 (42-50) % MCV 89.6 (78-100) fL MCH 30.6 (26-32) pg MCHC 34.2 (32-36) g/dL RDW 13.2 (11.5-14.0) % Plt Count 331 (150-450) x10^3/uL MPV 8.8 (7.5-11.0) fL Gran % 84.2 H (36.0-66.0) % Immature Gran % (Auto) 0.6 H (0.00-0.4) % Nucleat RBC Rel Count 0.0 (0.00-0.1) % Eos # (Auto) 0.01 (0-0.5) x10^3/uL Immature Gran # (Auto) 0.10 H (0.00-0.03) x10^3u/L Absolute Lymphs (auto) 1.46 (1.0-4.6) x10^3/uL Absolute Monos (auto) 0.83 (0.0-1.3) x10^3/uL Absolute Nucleated RBC 0.00 (0.00-0.01) x10^3u/L Lymphocytes % 9.4 L (24.0-44.0) % Monocytes % 5.4 (0.0-12.0) % Eosinophils % 0.1 (0.00-5.0) % Basophils % 0.3 (0.0-0.4) % Absolute Granulocytes 13.03 H (1.4-6.9) x10^3/uL Basophils # 0.05 (0-0.4) x10^3/uL D-Dimer (0.0-0.50) mg/L Puncture Site pCO2 (35-45) mmHg pO2 (75-100) mmHg Base Excess (-2.0-2.0) O2 Saturation (94-100) g/dF ABG pH (7.35-7.45) ABG HCO3 (22-28) ABG O2 Sat (Measured) (95-100) % Robbin Test A-a Gradient a/A Ratio Hemoglobin Carboxyhemoglobin (0.0-6.9) % THgb Methemoglobin (1.4-1.5) % Potassium (3.5-5.1) Temperature C POC O2 Flow Rate % Vent Mode Sodium (137-145) mmol/L Chloride (98-107) mmol/L Carbon Dioxide (22-30) mmol/L Anion Gap (5-15) MEQ/L BUN (9-20) mg/dL Creatinine (0.66-1.25) mg/dL Estimated GFR ML/MIN Glucose (74-106) mg/dL POC Glucometer (74 to 106) mg/dL Lactic Acid (0.4-2.0) Calcium (8.4-10.2) mg/dL Magnesium (1.6-2.3) mg/dL Total Bilirubin (0.2-1.3) mg/dL AST (17-59) U/L ALT (0-50) U/L Alkaline Phosphatase (38-126) U/L Troponin I (0.000-0.034) ng/mL NT-Pro-B Natriuret Pep (<300) pg/mL Serum Total Protein (6.3-8.2) g/dL Albumin (3.5-5.0) g/dL Procalcitonin (0.030-0.080) ng/mL Urine Color (Yellow) Urine Appearance (Clear) Urine pH (4.6-8.0) Ur Specific [place] (1.005-1.030) Urine Protein (Negative) Urine Glucose (UA) (Negative) mg/dL Urine Ketones (Negative) Urine Blood (Negative) Urine Nitrite (Negative) Urine Bilirubin (Negative) Urine Urobilinogen (0.2) mg/dL Ur Leukocyte Esterase (Negative) U Hyaline Cast (Auto) (0-2) /LPF Urine Microscopic RBC (0-5) /HPF Urine Microscopic WBC (0-5) /HPF Ur Epithelial Cells (None Seen) /HPF Urine Bacteria (None Seen) /HPF Urine Culture Reflexed (NO) Urine Opiates Level (NEGATIVE) Ur Methadone (NEGATIVE) Urine Barbiturates (NEGATIVE) Ur Phencyclidine (PCP) (NEGATIVE) Urine Amphetamine (NEGATIVE) U Benzodiazepine Level (NEGATIVE) Urine Cocaine (NEGATIVE) Urine Marijuana (THC) (NEGATIVE) Ethyl Alcohol < 10 (0-10) mg/dL Influenza Type A Ag NEGATIVE (NEGATIVE) Influenza Type B Ag NEGATIVE (NEGATIVE) RSV (PCR) NEGATIVE (NEGATIVE) SARS-CoV-2 (PCR) NEGATIVE (NEGATIVE) 12/15/22 12/15/22 12/15/22 Range/Units 17:50 17:50 17:50 WBC (4.0-10.5) x10^3/uL RBC (4.1-5.6) x10^6/uL Hgb (12.5-18.0) g/dL Hct (42-50) % MCV (78-100) fL MCH (26-32) pg MCHC (32-36) g/dL RDW (11.5-14.0) % Plt Count (150-450) x10^3/uL MPV (7.5-11.0) fL Gran % (36.0-66.0) % Immature Gran % (Auto) (0.00-0.4) % Nucleat RBC Rel Count (0.00-0.1) % Eos # (Auto) (0-0.5) x10^3/uL Immature Gran # (Auto) (0.00-0.03) x10^3u/L Absolute Lymphs (auto) (1.0-4.6) x10^3/uL Absolute Monos (auto) (0.0-1.3) x10^3/uL Absolute Nucleated RBC (0.00-0.01) x10^3u/L Lymphocytes % (24.0-44.0) % Monocytes % (0.0-12.0) % Eosinophils % (0.00-5.0) % Basophils % (0.0-0.4) % Absolute Granulocytes (1.4-6.9) x10^3/uL Basophils # (0-0.4) x10^3/uL D-Dimer (0.0-0.50) mg/L Puncture Site pCO2 (35-45) mmHg pO2 (75-100) mmHg Base Excess (-2.0-2.0) O2 Saturation (94-100) g/dF ABG pH (7.35-7.45) ABG HCO3 (22-28) ABG O2 Sat (Measured) (95-100) % Robbin Test A-a Gradient a/A Ratio Hemoglobin Carboxyhemoglobin (0.0-6.9) % THgb Methemoglobin (1.4-1.5) % Potassium 3.4 L (3.5-5.1) Temperature C POC O2 Flow Rate % Vent Mode Sodium 137 (137-145) mmol/L Chloride 107 (98-107) mmol/L Carbon Dioxide 10 L* (22-30) mmol/L Anion Gap 23.7 H (5-15) MEQ/L BUN 19 (9-20) mg/dL Creatinine 1.61 H (0.66-1.25) mg/dL Estimated GFR 45.7 ML/MIN Glucose 151 H (74-106) mg/dL POC Glucometer (74 to 106) mg/dL Lactic Acid (0.4-2.0) Calcium 9.7 (8.4-10.2) mg/dL Magnesium 1.9 (1.6-2.3) mg/dL Total Bilirubin 1.30 (0.2-1.3) mg/dL AST 36 (17-59) U/L ALT 34 (0-50) U/L Alkaline Phosphatase 174 H (38-126) U/L Troponin I 0.020 (0.000-0.034) ng/mL NT-Pro-B Natriuret Pep 2780 (<300) pg/mL Serum Total Protein 8.3 H (6.3-8.2) g/dL Albumin 4.7 (3.5-5.0) g/dL Procalcitonin 0.050 (0.030-0.080) ng/mL Urine Color (Yellow) Urine Appearance (Clear) Urine pH (4.6-8.0) Ur Specific [place] (1.005-1.030) Urine Protein (Negative) Urine Glucose (UA) (Negative) mg/dL Urine Ketones (Negative) Urine Blood (Negative) Urine Nitrite (Negative) Urine Bilirubin (Negative) Urine Urobilinogen (0.2) mg/dL Ur Leukocyte Esterase (Negative) U Hyaline Cast (Auto) (0-2) /LPF Urine Microscopic RBC (0-5) /HPF Urine Microscopic WBC (0-5) /HPF Ur Epithelial Cells (None Seen) /HPF Urine Bacteria (None Seen) /HPF Urine Culture Reflexed (NO) Urine Opiates Level (NEGATIVE) Ur Methadone (NEGATIVE) Urine Barbiturates (NEGATIVE) Ur Phencyclidine (PCP) (NEGATIVE) Urine Amphetamine (NEGATIVE) U Benzodiazepine Level (NEGATIVE) Urine Cocaine (NEGATIVE) Urine Marijuana (THC) (NEGATIVE) Ethyl Alcohol (0-10) mg/dL Influenza Type A Ag (NEGATIVE) Influenza Type B Ag (NEGATIVE) RSV (PCR) (NEGATIVE) SARS-CoV-2 (PCR) (NEGATIVE) 12/15/22 12/15/22 12/15/22 Range/Units 18:34 18:34 20:47 WBC (4.0-10.5) x10^3/uL RBC (4.1-5.6) x10^6/uL Hgb (12.5-18.0) g/dL Hct (42-50) % MCV (78-100) fL MCH (26-32) pg MCHC (32-36) g/dL RDW (11.5-14.0) % Plt Count (150-450) x10^3/uL MPV (7.5-11.0) fL Gran % (36.0-66.0) % Immature Gran % (Auto) (0.00-0.4) % Nucleat RBC Rel Count (0.00-0.1) % Eos # (Auto) (0-0.5) x10^3/uL Immature Gran # (Auto) (0.00-0.03) x10^3u/L Absolute Lymphs (auto) (1.0-4.6) x10^3/uL Absolute Monos (auto) (0.0-1.3) x10^3/uL Absolute Nucleated RBC (0.00-0.01) x10^3u/L Lymphocytes % (24.0-44.0) % Monocytes % (0.0-12.0) % Eosinophils % (0.00-5.0) % Basophils % (0.0-0.4) % Absolute Granulocytes (1.4-6.9) x10^3/uL Basophils # (0-0.4) x10^3/uL D-Dimer (0.0-0.50) mg/L Puncture Site pCO2 (35-45) mmHg pO2 (75-100) mmHg Base Excess (-2.0-2.0) O2 Saturation (94-100) g/dF ABG pH (7.35-7.45) ABG HCO3 (22-28) ABG O2 Sat (Measured) (95-100) % Robbin Test A-a Gradient a/A Ratio Hemoglobin Carboxyhemoglobin (0.0-6.9) % THgb Methemoglobin (1.4-1.5) % Potassium (3.5-5.1) Temperature C POC O2 Flow Rate % Vent Mode Sodium (137-145) mmol/L Chloride (98-107) mmol/L Carbon Dioxide (22-30) mmol/L Anion Gap (5-15) MEQ/L BUN (9-20) mg/dL Creatinine (0.66-1.25) mg/dL Estimated GFR ML/MIN Glucose (74-106) mg/dL POC Glucometer 151 H (74 to 106) mg/dL Lactic Acid (0.4-2.0) Calcium (8.4-10.2) mg/dL Magnesium (1.6-2.3) mg/dL Total Bilirubin (0.2-1.3) mg/dL AST (17-59) U/L ALT (0-50) U/L Alkaline Phosphatase (38-126) U/L Troponin I (0.000-0.034) ng/mL NT-Pro-B Natriuret Pep (<300) pg/mL Serum Total Protein (6.3-8.2) g/dL Albumin (3.5-5.0) g/dL Procalcitonin (0.030-0.080) ng/mL Urine Color Yellow (Yellow) Urine Appearance Clear (Clear) Urine pH 7.5 (4.6-8.0) Ur Specific [place] 1.015 (1.005-1.030) Urine Protein Trace A (Negative) Urine Glucose (UA) Negative (Negative) mg/dL Urine Ketones 15 A (Negative) Urine Blood Negative (Negative) Urine Nitrite Negative (Negative) Urine Bilirubin Negative (Negative) Urine Urobilinogen 0.2 (0.2) mg/dL Ur Leukocyte Esterase Negative (Negative) U Hyaline Cast (Auto) NONE SEEN (0-2) /LPF Urine Microscopic RBC 3-5 (0-5) /HPF Urine Microscopic WBC 0-2 (0-5) /HPF Ur Epithelial Cells None Seen (None Seen) /HPF Urine Bacteria None Seen (None Seen) /HPF Urine Culture Reflexed NO (NO) Urine Opiates Level NEGATIVE (NEGATIVE) Ur Methadone NEGATIVE (NEGATIVE) Urine Barbiturates NEGATIVE (NEGATIVE) Ur Phencyclidine (PCP) NEGATIVE (NEGATIVE) Urine Amphetamine NEGATIVE (NEGATIVE) U Benzodiazepine Level NEGATIVE (NEGATIVE) Urine Cocaine NEGATIVE (NEGATIVE) Urine Marijuana (THC) POSITIVE (NEGATIVE) Ethyl Alcohol (0-10) mg/dL Influenza Type A Ag (NEGATIVE) Influenza Type B Ag (NEGATIVE) RSV (PCR) (NEGATIVE) SARS-CoV-2 (PCR) (NEGATIVE) - Radiology Impressions Radiology Exams & Impressions: Radiology Procedures Category Date Time Status CHEST 1 VIEW (PORTABLE) Stat Exams 12/15/22 17:15 Taken - Other Procedures and Tests Respiratory Therapy 12/15/22 17:48 Respiratory Therapy Assessment DAILY 12/15/22 20:22 Oxygen Nasal Cannula 2 lpm Respiratory Therapy Consult ONCE Assessment/Plan (1) COPD with exacerbation Current Visit: Yes Status: Acute Assessment & Plan: Nebs steroids, wean oxygen as tolerated for acute hypoxic respiratory failure present on admission. May benefit from referral to pulmonology but the patient does not indicate that he currently follows with pulmonology. PT eval in AM to assess ambulatory oxygen needs. Code(s): J44.1 - CHRONIC OBSTRUCTIVE PULMONARY DISEASE W (ACUTE) EXACERBATION (2) Acute bronchitis Current Visit: Yes Status: Acute Assessment & Plan: CXR negative for infiltrate but patient has had fever, chills, cough and has leukocytosis. Will continue antibiotics. Follow blood culture. Code(s): J20.9 - ACUTE BRONCHITIS, UNSPECIFIED (3) Leukocytosis Current Visit: Yes Status: Acute Assessment & Plan: As above, on antibiotics. Follow blood culture. UA unremarkable. Code(s): D72.829 - ELEVATED WHITE BLOOD CELL COUNT, UNSPECIFIED Telemedicine Encounter - Telemedicine Encounter Telemedicine Encounter: The entirety of this encounter was performed via Telemedicine"
[2022-12-15] MEDS: Lopressor 25MG Tab PO SCH (22:15)
[2022-12-15] MEDS: HEPARIN 5000 UNITS/0.5 ML (HIGH RISK MED) SQ SCH (22:15)
[2022-12-15] MEDS: solu-MEDROL 40 MG, Sterile H2O 10 ml 1 ML IV SCH ×2 (23:37)
[2022-12-16] MEDS ORDERED: Klor Con PO ONE (02:20)
[2022-12-16 04:35] LABS: Absolute Neutrophil Ct (ANC) 6.49 x10^3/uL (1.4-6.9); BASOPHIL % 0.1 % (0.0-0.4); Basophil (Absolute #) 0.01 x10^3/uL (0-0.4); Eosinophil (Absolute #) 0 x10^3/uL (0-0.5); Hematocrit 38.3 % (42-50); Hemoglobin 12.9 g/dL (12.5-18.0); IMMATURE GRAN # 0.06 x10^3u/L (0.00-0.03); IMMATURE GRAN % 0.8 % (0.00-0.4); Lymphocyte (Absolute #) 0.58 x10^3/uL (1.0-4.6); Lymphocytes % 8.1 % (24.0-44.0); Mean Corpuscular Hemoglobin 30.6 pg (26-32); Mean Corpuscular Hgb Concent. 33.7 g/dL (32-36); Mean Platelet Volume 8.8 fL (7.5-11.0); Monocyte (Absolute #) 0.06 x10^3/uL (0.0-1.3); Monocytes % 0.8 % (0.0-12.0); Neutrophil % 90.2 % (36.0-66.0); Platelet Count 258 x10^3/uL (150-450); Red Blood Count 4.21 x10^6/uL (4.1-5.6); Red Cell Distribution Width 14.1 % (11.5-14.0); White Blood Count 7.2 x10^3/uL (4.0-10.5)
[2022-12-16 04:43] LABS: Calcium 8.9 mg/dL (8.4-10.2); Creatinine 1 1.54 mg/dL (0.66-1.25); EST GLOMERULAR FILTRATION RATE 48.1 ML/MIN; Potassium 4.2 mmol/L (3.5-5.1)
[2022-12-16 04:44] LABS: ANION GAP 12.2 MEQ/L (5-15)
[2022-12-16 04:48] LABS: A-aADO2 -30; ABG HEMOGLOBIN 13.1; ABG POTASSIUM 4.3 (3.5-5.1); ARTERIAL BLD GAS O2 SATURATION 99.7 % (95-100); ARTERIAL BLOOD GAS BASE EXCESS -0.5 (-2.0-2.0); ARTERIAL BLOOD GAS FIO2 28 %; ARTERIAL BLOOD GAS PCO2 34 mmHg (35-45); ARTERIAL BLOOD GAS PO2 187 mmHg (75-100); ARTERIAL BLOOD GAS pH 7.44 (7.35-7.45); CARBOXYHEMOGLOBIN 4.7 % THgb (0.0-6.9); HCO3- 23.1 (22-28); HGB O2 SAT 93.9 g/dF (94-100); Methhemoglobin 1.1 % (1.4-1.5); paO2 pAO1 1.19
[2022-12-16 04:49] LABS: ABG SITE LEFT RADIAL; ALLEN TEST OK? YES
[2022-12-16] MEDS: DUONEB 0.5-3 MG/3 ml Neb IH SCH ×4 (05:21→18:45)
[2022-12-16] MEDS ORDERED: solu-MEDROL ONE (05:39)
--- NOTE | 2022-12-16 05:48 | PCM.NOTE ---
Date and Time: 12/16/22544 Subjective Assessment: is a 67 year old male with history of tobacco abuse, COPD (not on home oxygen), coronary artery disease (status post stenting), and congestive heart failure who presented to the hospital 12/15/22 with worsening shortness of breath with one episode of n/v, admitted for copd exacerbation. Currently being treated with DuoNebs, steroids, Ceftriaxone, and azithromycin. Endorses improvement in shortness of breath, continued cough with clear sputum. Titrated from 2L to baseline room air. BP has been soft. Will start oral prednisone and possible discharge tomorrow. Denies fever,cp, abdominal pain, GALLARDO, dizziness, N/V/D. - Review of Systems Constitutional: No Symptoms Eyes: No Symptoms Ears, Nose, & Throat: No Symptoms Respiratory: Cough, Short Of Breath Cardiac: No Symptoms Abdominal/Gastrointestinal: Nausea Genitourinary Symptoms: No Symptoms Musculoskeletal: No Symptoms Skin: No Symptoms Neurological: No Symptoms Psychological: No Symptoms Objective Exam General Appearance: no apparent distress Neurologic Exam: alert, oriented x 3, cooperative Skin Exam: normal color Eye Exam: PERRL Ears, Nose, Throat Exam: normal ENT inspection Respiratory Exam: wheezing Cardiovascular Exam: regular rate/rhythm, normal heart sounds Gastrointestinal/Abdomen Exam: soft, normal bowel sounds Extremity Exam: normal inspection Back Exam: normal inspection OBJECTIVE DATA Vital Signs: Vital Signs - 24 hr Temp Pulse Resp BP BP Pulse Ox 12/16/22 04:00 97.9 F 88 20 96/53 98 12/15/22 23:41 97.9 F 84 19 108/55 99 12/15/22 21:46 95 H 18 93 L 12/15/22 20:26 97.8 F 101 H 18 131/67 94 L 12/15/22 20:00 90 32 H 157/74 98 12/15/22 19:55 100 12/15/22 19:30 91 H 23 158/137 97 12/15/22 19:00 97 H 17 152/76 100 12/15/22 18:30 174/88 12/15/22 18:00 82 36 H 167/108 99 12/15/22 17:51 79 21 156/81 99 12/15/22 17:48 89 30 H 100 12/15/22 17:24 78 17 182/101 96 12/15/22 17:14 96.7 F 86 40 H 182/101 100 Pain Assessment - Last Documented Pain Intensity 0 Intake and Output: Intake & Output 12/13/22 12/14/22 12/15/22 12/16/22 11:59 11:59 11:59 11:59 Weight 81.5 kg Lab Results: Lab Results-Last 24 Hours 12/15/22 12/15/22 12/15/22 Range/Units 17:18 17:21 17:21 WBC (4.0-10.5) x10^3/uL RBC (4.1-5.6) x10^6/uL Hgb (12.5-18.0) g/dL Hct (42-50) % MCV (78-100) fL MCH (26-32) pg MCHC (32-36) g/dL RDW (11.5-14.0) % Plt Count (150-450) x10^3/uL MPV (7.5-11.0) fL Gran % (36.0-66.0) % Immature Gran % (Auto) (0.00-0.4) % Nucleat RBC Rel Count (0.00-0.1) % Eos # (Auto) (0-0.5) x10^3/uL Immature Gran # (Auto) (0.00-0.03) x10^3u/L Absolute Lymphs (auto) (1.0-4.6) x10^3/uL Absolute Monos (auto) (0.0-1.3) x10^3/uL Absolute Nucleated RBC (0.00-0.01) x10^3u/L Lymphocytes % (24.0-44.0) % Monocytes % (0.0-12.0) % Eosinophils % (0.00-5.0) % Basophils % (0.0-0.4) % Absolute Granulocytes (1.4-6.9) x10^3/uL Basophils # (0-0.4) x10^3/uL D-Dimer 0.42 (0.0-0.50) mg/L Puncture Site LEFT BRACHIAL pCO2 9 L* (35-45) mmHg pO2 202 H* (75-100) mmHg Base Excess -6.1 L (-2.0-2.0) O2 Saturation 97.5 (94-100) g/dF ABG pH 7.65 H* (7.35-7.45) ABG HCO3 9.9 L* (22-28) ABG O2 Sat (Measured) 99.8 (95-100) % Robbin Test NOT APPLICABLE A-a Gradient 500 a/A Ratio 0.29 Hemoglobin 14.9 Carboxyhemoglobin 1.2 (0.0-6.9) % THgb Methemoglobin 1.1 L (1.4-1.5) % Potassium 3.5 (3.5-5.1) Temperature 37.0 C POC O2 Flow Rate 100 % Vent Mode NRB Sodium (137-145) mmol/L Chloride (98-107) mmol/L Carbon Dioxide (22-30) mmol/L Anion Gap (5-15) MEQ/L BUN (9-20) mg/dL Creatinine (0.66-1.25) mg/dL Estimated GFR ML/MIN Glucose (74-106) mg/dL POC Glucometer 137 H (74 to 106) mg/dL Lactic Acid 6.5 H (0.4-2.0) Calcium (8.4-10.2) mg/dL Magnesium (1.6-2.3) mg/dL Total Bilirubin (0.2-1.3) mg/dL AST (17-59) U/L ALT (0-50) U/L Alkaline Phosphatase (38-126) U/L Troponin I (0.000-0.034) ng/mL NT-Pro-B Natriuret Pep (<300) pg/mL Serum Total Protein (6.3-8.2) g/dL Albumin (3.5-5.0) g/dL Procalcitonin (0.030-0.080) ng/mL Urine Color (Yellow) Urine Appearance (Clear) Urine pH (4.6-8.0) Ur Specific [place] (1.005-1.030) Urine Protein (Negative) Urine Glucose (UA) (Negative) mg/dL Urine Ketones (Negative) Urine Blood (Negative) Urine Nitrite (Negative) Urine Bilirubin (Negative) Urine Urobilinogen (0.2) mg/dL Ur Leukocyte Esterase (Negative) U Hyaline Cast (Auto) (0-2) /LPF Urine Microscopic RBC (0-5) /HPF Urine Microscopic WBC (0-5) /HPF Ur Epithelial Cells (None Seen) /HPF Urine Bacteria (None Seen) /HPF Urine Culture Reflexed (NO) Urine Opiates Level (NEGATIVE) Ur Methadone (NEGATIVE) Urine Barbiturates (NEGATIVE) Ur Phencyclidine (PCP) (NEGATIVE) Urine Amphetamine (NEGATIVE) U Benzodiazepine Level (NEGATIVE) Urine Cocaine (NEGATIVE) Urine Marijuana (THC) (NEGATIVE) Ethyl Alcohol (0-10) mg/dL Influenza Type A Ag (NEGATIVE) Influenza Type B Ag (NEGATIVE) RSV (PCR) (NEGATIVE) SARS-CoV-2 (PCR) (NEGATIVE) 12/15/22 12/15/22 12/15/22 Range/Units 17:21 17:32 17:50 WBC 15.5 H (4.0-10.5) x10^3/uL RBC 4.83 (4.1-5.6) x10^6/uL Hgb 14.8 (12.5-18.0) g/dL Hct 43.3 (42-50) % MCV 89.6 (78-100) fL MCH 30.6 (26-32) pg MCHC 34.2 (32-36) g/dL RDW 13.2 (11.5-14.0) % Plt Count 331 (150-450) x10^3/uL MPV 8.8 (7.5-11.0) fL Gran % 84.2 H (36.0-66.0) % Immature Gran % (Auto) 0.6 H (0.00-0.4) % Nucleat RBC Rel Count 0.0 (0.00-0.1) % Eos # (Auto) 0.01 (0-0.5) x10^3/uL Immature Gran # (Auto) 0.10 H (0.00-0.03) x10^3u/L Absolute Lymphs (auto) 1.46 (1.0-4.6) x10^3/uL Absolute Monos (auto) 0.83 (0.0-1.3) x10^3/uL Absolute Nucleated RBC 0.00 (0.00-0.01) x10^3u/L Lymphocytes % 9.4 L (24.0-44.0) % Monocytes % 5.4 (0.0-12.0) % Eosinophils % 0.1 (0.00-5.0) % Basophils % 0.3 (0.0-0.4) % Absolute Granulocytes 13.03 H (1.4-6.9) x10^3/uL Basophils # 0.05 (0-0.4) x10^3/uL D-Dimer (0.0-0.50) mg/L Puncture Site pCO2 (35-45) mmHg pO2 (75-100) mmHg Base Excess (-2.0-2.0) O2 Saturation (94-100) g/dF ABG pH (7.35-7.45) ABG HCO3 (22-28) ABG O2 Sat (Measured) (95-100) % Robbin Test A-a Gradient a/A Ratio Hemoglobin Carboxyhemoglobin (0.0-6.9) % THgb Methemoglobin (1.4-1.5) % Potassium (3.5-5.1) Temperature C POC O2 Flow Rate % Vent Mode Sodium (137-145) mmol/L Chloride (98-107) mmol/L Carbon Dioxide (22-30) mmol/L Anion Gap (5-15) MEQ/L BUN (9-20) mg/dL Creatinine (0.66-1.25) mg/dL Estimated GFR ML/MIN Glucose (74-106) mg/dL POC Glucometer (74 to 106) mg/dL Lactic Acid (0.4-2.0) Calcium (8.4-10.2) mg/dL Magnesium (1.6-2.3) mg/dL Total Bilirubin (0.2-1.3) mg/dL AST (17-59) U/L ALT (0-50) U/L Alkaline Phosphatase (38-126) U/L Troponin I (0.000-0.034) ng/mL NT-Pro-B Natriuret Pep (<300) pg/mL Serum Total Protein (6.3-8.2) g/dL Albumin (3.5-5.0) g/dL Procalcitonin (0.030-0.080) ng/mL Urine Color (Yellow) Urine Appearance (Clear) Urine pH (4.6-8.0) Ur Specific [place] (1.005-1.030) Urine Protein (Negative) Urine Glucose (UA) (Negative) mg/dL Urine Ketones (Negative) Urine Blood (Negative) Urine Nitrite (Negative) Urine Bilirubin (Negative) Urine Urobilinogen (0.2) mg/dL Ur Leukocyte Esterase (Negative) U Hyaline Cast (Auto) (0-2) /LPF Urine Microscopic RBC (0-5) /HPF Urine Microscopic WBC (0-5) /HPF Ur Epithelial Cells (None Seen) /HPF Urine Bacteria (None Seen) /HPF Urine Culture Reflexed (NO) Urine Opiates Level (NEGATIVE) Ur Methadone (NEGATIVE) Urine Barbiturates (NEGATIVE) Ur Phencyclidine (PCP) (NEGATIVE) Urine Amphetamine (NEGATIVE) U Benzodiazepine Level (NEGATIVE) Urine Cocaine (NEGATIVE) Urine Marijuana (THC) (NEGATIVE) Ethyl Alcohol < 10 (0-10) mg/dL Influenza Type A Ag NEGATIVE (NEGATIVE) Influenza Type B Ag NEGATIVE (NEGATIVE) RSV (PCR) NEGATIVE (NEGATIVE) SARS-CoV-2 (PCR) NEGATIVE (NEGATIVE) 12/15/22 12/15/22 12/15/22 Range/Units 17:50 17:50 17:50 WBC (4.0-10.5) x10^3/uL RBC (4.1-5.6) x10^6/uL Hgb (12.5-18.0) g/dL Hct (42-50) % MCV (78-100) fL MCH (26-32) pg MCHC (32-36) g/dL RDW (11.5-14.0) % Plt Count (150-450) x10^3/uL MPV (7.5-11.0) fL Gran % (36.0-66.0) % Immature Gran % (Auto) (0.00-0.4) % Nucleat RBC Rel Count (0.00-0.1) % Eos # (Auto) (0-0.5) x10^3/uL Immature Gran # (Auto) (0.00-0.03) x10^3u/L Absolute Lymphs (auto) (1.0-4.6) x10^3/uL Absolute Monos (auto) (0.0-1.3) x10^3/uL Absolute Nucleated RBC (0.00-0.01) x10^3u/L Lymphocytes % (24.0-44.0) % Monocytes % (0.0-12.0) % Eosinophils % (0.00-5.0) % Basophils % (0.0-0.4) % Absolute Granulocytes (1.4-6.9) x10^3/uL Basophils # (0-0.4) x10^3/uL D-Dimer (0.0-0.50) mg/L Puncture Site pCO2 (35-45) mmHg pO2 (75-100) mmHg Base Excess (-2.0-2.0) O2 Saturation (94-100) g/dF ABG pH (7.35-7.45) ABG HCO3 (22-28) ABG O2 Sat (Measured) (95-100) % Robbin Test A-a Gradient a/A Ratio Hemoglobin Carboxyhemoglobin (0.0-6.9) % THgb Methemoglobin (1.4-1.5) % Potassium 3.4 L (3.5-5.1) Temperature C POC O2 Flow Rate % Vent Mode Sodium 137 (137-145) mmol/L Chloride 107 (98-107) mmol/L Carbon Dioxide 10 L* (22-30) mmol/L Anion Gap 23.7 H (5-15) MEQ/L BUN 19 (9-20) mg/dL Creatinine 1.61 H (0.66-1.25) mg/dL Estimated GFR 45.7 ML/MIN Glucose 151 H (74-106) mg/dL POC Glucometer (74 to 106) mg/dL Lactic Acid (0.4-2.0) Calcium 9.7 (8.4-10.2) mg/dL Magnesium 1.9 (1.6-2.3) mg/dL Total Bilirubin 1.30 (0.2-1.3) mg/dL AST 36 (17-59) U/L ALT 34 (0-50) U/L Alkaline Phosphatase 174 H (38-126) U/L Troponin I 0.020 (0.000-0.034) ng/mL NT-Pro-B Natriuret Pep 2780 (<300) pg/mL Serum Total Protein 8.3 H (6.3-8.2) g/dL Albumin 4.7 (3.5-5.0) g/dL Procalcitonin 0.050 (0.030-0.080) ng/mL Urine Color (Yellow) Urine Appearance (Clear) Urine pH (4.6-8.0) Ur Specific [place] (1.005-1.030) Urine Protein (Negative) Urine Glucose (UA) (Negative) mg/dL Urine Ketones (Negative) Urine Blood (Negative) Urine Nitrite (Negative) Urine Bilirubin (Negative) Urine Urobilinogen (0.2) mg/dL Ur Leukocyte Esterase (Negative) U Hyaline Cast (Auto) (0-2) /LPF Urine Microscopic RBC (0-5) /HPF Urine Microscopic WBC (0-5) /HPF Ur Epithelial Cells (None Seen) /HPF Urine Bacteria (None Seen) /HPF Urine Culture Reflexed (NO) Urine Opiates Level (NEGATIVE) Ur Methadone (NEGATIVE) Urine Barbiturates (NEGATIVE) Ur Phencyclidine (PCP) (NEGATIVE) Urine Amphetamine (NEGATIVE) U Benzodiazepine Level (NEGATIVE) Urine Cocaine (NEGATIVE) Urine Marijuana (THC) (NEGATIVE) Ethyl Alcohol (0-10) mg/dL Influenza Type A Ag (NEGATIVE) Influenza Type B Ag (NEGATIVE) RSV (PCR) (NEGATIVE) SARS-CoV-2 (PCR) (NEGATIVE) 12/15/22 12/15/22 12/15/22 Range/Units 18:34 18:34 19:31 WBC (4.0-10.5) x10^3/uL RBC (4.1-5.6) x10^6/uL Hgb (12.5-18.0) g/dL Hct (42-50) % MCV (78-100) fL MCH (26-32) pg MCHC (32-36) g/dL RDW (11.5-14.0) % Plt Count (150-450) x10^3/uL MPV (7.5-11.0) fL Gran % (36.0-66.0) % Immature Gran % (Auto) (0.00-0.4) % Nucleat RBC Rel Count (0.00-0.1) % Eos # (Auto) (0-0.5) x10^3/uL Immature Gran # (Auto) (0.00-0.03) x10^3u/L Absolute Lymphs (auto) (1.0-4.6) x10^3/uL Absolute Monos (auto) (0.0-1.3) x10^3/uL Absolute Nucleated RBC (0.00-0.01) x10^3u/L Lymphocytes % (24.0-44.0) % Monocytes % (0.0-12.0) % Eosinophils % (0.00-5.0) % Basophils % (0.0-0.4) % Absolute Granulocytes (1.4-6.9) x10^3/uL Basophils # (0-0.4) x10^3/uL D-Dimer (0.0-0.50) mg/L Puncture Site pCO2 (35-45) mmHg pO2 (75-100) mmHg Base Excess (-2.0-2.0) O2 Saturation (94-100) g/dF ABG pH (7.35-7.45) ABG HCO3 (22-28) ABG O2 Sat (Measured) (95-100) % Robbin Test A-a Gradient a/A Ratio Hemoglobin Carboxyhemoglobin (0.0-6.9) % THgb Methemoglobin (1.4-1.5) % Potassium (3.5-5.1) Temperature C POC O2 Flow Rate % Vent Mode Sodium (137-145) mmol/L Chloride (98-107) mmol/L Carbon Dioxide (22-30) mmol/L Anion Gap (5-15) MEQ/L BUN (9-20) mg/dL Creatinine (0.66-1.25) mg/dL Estimated GFR ML/MIN Glucose (74-106) mg/dL POC Glucometer (74 to 106) mg/dL Lactic Acid 2.5 H (0.4-2.0) Calcium (8.4-10.2) mg/dL Magnesium (1.6-2.3) mg/dL Total Bilirubin (0.2-1.3) mg/dL AST (17-59) U/L ALT (0-50) U/L Alkaline Phosphatase (38-126) U/L Troponin I (0.000-0.034) ng/mL NT-Pro-B Natriuret Pep (<300) pg/mL Serum Total Protein (6.3-8.2) g/dL Albumin (3.5-5.0) g/dL Procalcitonin (0.030-0.080) ng/mL Urine Color Yellow (Yellow) Urine Appearance Clear (Clear) Urine pH 7.5 (4.6-8.0) Ur Specific [place] 1.015 (1.005-1.030) Urine Protein Trace A (Negative) Urine Glucose (UA) Negative (Negative) mg/dL Urine Ketones 15 A (Negative) Urine Blood Negative (Negative) Urine Nitrite Negative (Negative) Urine Bilirubin Negative (Negative) Urine Urobilinogen 0.2 (0.2) mg/dL Ur Leukocyte Esterase Negative (Negative) U Hyaline Cast (Auto) NONE SEEN (0-2) /LPF Urine Microscopic RBC 3-5 (0-5) /HPF Urine Microscopic WBC 0-2 (0-5) /HPF Ur Epithelial Cells None Seen (None Seen) /HPF Urine Bacteria None Seen (None Seen) /HPF Urine Culture Reflexed NO (NO) Urine Opiates Level NEGATIVE (NEGATIVE) Ur Methadone NEGATIVE (NEGATIVE) Urine Barbiturates NEGATIVE (NEGATIVE) Ur Phencyclidine (PCP) NEGATIVE (NEGATIVE) Urine Amphetamine NEGATIVE (NEGATIVE) U Benzodiazepine Level NEGATIVE (NEGATIVE) Urine Cocaine NEGATIVE (NEGATIVE) Urine Marijuana (THC) POSITIVE (NEGATIVE) Ethyl Alcohol (0-10) mg/dL Influenza Type A Ag (NEGATIVE) Influenza Type B Ag (NEGATIVE) RSV (PCR) (NEGATIVE) SARS-CoV-2 (PCR) (NEGATIVE) 12/15/22 12/15/22 12/16/22 Range/Units 20:47 21:26 01:45 WBC (4.0-10.5) x10^3/uL RBC (4.1-5.6) x10^6/uL Hgb (12.5-18.0) g/dL Hct (42-50) % MCV (78-100) fL MCH (26-32) pg MCHC (32-36) g/dL RDW (11.5-14.0) % Plt Count (150-450) x10^3/uL MPV (7.5-11.0) fL Gran % (36.0-66.0) % Immature Gran % (Auto) (0.00-0.4) % Nucleat RBC Rel Count (0.00-0.1) % Eos # (Auto) (0-0.5) x10^3/uL Immature Gran # (Auto) (0.00-0.03) x10^3u/L Absolute Lymphs (auto) (1.0-4.6) x10^3/uL Absolute Monos (auto) (0.0-1.3) x10^3/uL Absolute Nucleated RBC (0.00-0.01) x10^3u/L Lymphocytes % (24.0-44.0) % Monocytes % (0.0-12.0) % Eosinophils % (0.00-5.0) % Basophils % (0.0-0.4) % Absolute Granulocytes (1.4-6.9) x10^3/uL Basophils # (0-0.4) x10^3/uL D-Dimer (0.0-0.50) mg/L Puncture Site pCO2 (35-45) mmHg pO2 (75-100) mmHg Base Excess (-2.0-2.0) O2 Saturation (94-100) g/dF ABG pH (7.35-7.45) ABG HCO3 (22-28) ABG O2 Sat (Measured) (95-100) % Robbin Test A-a Gradient a/A Ratio Hemoglobin Carboxyhemoglobin (0.0-6.9) % THgb Methemoglobin (1.4-1.5) % Potassium (3.5-5.1) Temperature C POC O2 Flow Rate % Vent Mode Sodium (137-145) mmol/L Chloride (98-107) mmol/L Carbon Dioxide (22-30) mmol/L Anion Gap (5-15) MEQ/L BUN (9-20) mg/dL Creatinine (0.66-1.25) mg/dL Estimated GFR ML/MIN Glucose (74-106) mg/dL POC Glucometer 151 H (74 to 106) mg/dL Lactic Acid (0.4-2.0) Calcium (8.4-10.2) mg/dL Magnesium (1.6-2.3) mg/dL Total Bilirubin (0.2-1.3) mg/dL AST (17-59) U/L ALT (0-50) U/L Alkaline Phosphatase (38-126) U/L Troponin I 0.035 H 0.046 H* (0.000-0.034) ng/mL NT-Pro-B Natriuret Pep (<300) pg/mL Serum Total Protein (6.3-8.2) g/dL Albumin (3.5-5.0) g/dL Procalcitonin (0.030-0.080) ng/mL Urine Color (Yellow) Urine Appearance (Clear) Urine pH (4.6-8.0) Ur Specific [place] (1.005-1.030) Urine Protein (Negative) Urine Glucose (UA) (Negative) mg/dL Urine Ketones (Negative) Urine Blood (Negative) Urine Nitrite (Negative) Urine Bilirubin (Negative) Urine Urobilinogen (0.2) mg/dL Ur Leukocyte Esterase (Negative) U Hyaline Cast (Auto) (0-2) /LPF Urine Microscopic RBC (0-5) /HPF Urine Microscopic WBC (0-5) /HPF Ur Epithelial Cells (None Seen) /HPF Urine Bacteria (None Seen) /HPF Urine Culture Reflexed (NO) Urine Opiates Level (NEGATIVE) Ur Methadone (NEGATIVE) Urine Barbiturates (NEGATIVE) Ur Phencyclidine (PCP) (NEGATIVE) Urine Amphetamine (NEGATIVE) U Benzodiazepine Level (NEGATIVE) Urine Cocaine (NEGATIVE) Urine Marijuana (THC) (NEGATIVE) Ethyl Alcohol (0-10) mg/dL Influenza Type A Ag (NEGATIVE) Influenza Type B Ag (NEGATIVE) RSV (PCR) (NEGATIVE) SARS-CoV-2 (PCR) (NEGATIVE) 12/16/22 12/16/22 12/16/22 Range/Units 01:45 01:45 04:43 WBC 7.2 (4.0-10.5) x10^3/uL RBC 4.21 (4.1-5.6) x10^6/uL Hgb 12.9 (12.5-18.0) g/dL Hct 38.3 L (42-50) % MCV 91.0 (78-100) fL MCH 30.6 (26-32) pg MCHC 33.7 (32-36) g/dL RDW 14.1 H (11.5-14.0) % Plt Count 258 (150-450) x10^3/uL MPV 8.8 (7.5-11.0) fL Gran % 90.2 H (36.0-66.0) % Immature Gran % (Auto) 0.8 H (0.00-0.4) % Nucleat RBC Rel Count 0.0 (0.00-0.1) % Eos # (Auto) 0 (0-0.5) x10^3/uL Immature Gran # (Auto) 0.06 H (0.00-0.03) x10^3u/L Absolute Lymphs (auto) 0.58 L (1.0-4.6) x10^3/uL Absolute Monos (auto) 0.06 (0.0-1.3) x10^3/uL Absolute Nucleated RBC 0.00 (0.00-0.01) x10^3u/L Lymphocytes % 8.1 L (24.0-44.0) % Monocytes % 0.8 (0.0-12.0) % Eosinophils % 0.0 (0.00-5.0) % Basophils % 0.1 (0.0-0.4) % Absolute Granulocytes 6.49 (1.4-6.9) x10^3/uL Basophils # 0.01 (0-0.4) x10^3/uL D-Dimer (0.0-0.50) mg/L Puncture Site LEFT RADIAL pCO2 34 L (35-45) mmHg pO2 187 H* (75-100) mmHg Base Excess -0.5 (-2.0-2.0) O2 Saturation 93.9 L (94-100) g/dF ABG pH 7.44 (7.35-7.45) ABG HCO3 23.1 (22-28) ABG O2 Sat (Measured) 99.7 (95-100) % Robbin Test YES A-a Gradient -30 a/A Ratio 1.19 Hemoglobin 13.1 Carboxyhemoglobin 4.7 (0.0-6.9) % THgb Methemoglobin 1.1 L (1.4-1.5) % Potassium 4.2 D 4.3 (3.5-5.1) Temperature 37.0 C POC O2 Flow Rate 28 % Vent Mode Sodium 136 L (137-145) mmol/L Chloride 106 (98-107) mmol/L Carbon Dioxide 21 L (22-30) mmol/L Anion Gap 12.2 (5-15) MEQ/L BUN 23 H (9-20) mg/dL Creatinine 1.54 H (0.66-1.25) mg/dL Estimated GFR 48.1 ML/MIN Glucose 175 H (74-106) mg/dL POC Glucometer (74 to 106) mg/dL Lactic Acid (0.4-2.0) Calcium 8.9 (8.4-10.2) mg/dL Magnesium (1.6-2.3) mg/dL Total Bilirubin (0.2-1.3) mg/dL AST (17-59) U/L ALT (0-50) U/L Alkaline Phosphatase (38-126) U/L Troponin I (0.000-0.034) ng/mL NT-Pro-B Natriuret Pep (<300) pg/mL Serum Total Protein (6.3-8.2) g/dL Albumin (3.5-5.0) g/dL Procalcitonin (0.030-0.080) ng/mL Urine Color (Yellow) Urine Appearance (Clear) Urine pH (4.6-8.0) Ur Specific [place] (1.005-1.030) Urine Protein (Negative) Urine Glucose (UA) (Negative) mg/dL Urine Ketones (Negative) Urine Blood (Negative) Urine Nitrite (Negative) Urine Bilirubin (Negative) Urine Urobilinogen (0.2) mg/dL Ur Leukocyte Esterase (Negative) U Hyaline Cast (Auto) (0-2) /LPF Urine Microscopic RBC (0-5) /HPF Urine Microscopic WBC (0-5) /HPF Ur Epithelial Cells (None Seen) /HPF Urine Bacteria (None Seen) /HPF Urine Culture Reflexed (NO) Urine Opiates Level (NEGATIVE) Ur Methadone (NEGATIVE) Urine Barbiturates (NEGATIVE) Ur Phencyclidine (PCP) (NEGATIVE) Urine Amphetamine (NEGATIVE) U Benzodiazepine Level (NEGATIVE) Urine Cocaine (NEGATIVE) Urine Marijuana (THC) (NEGATIVE) Ethyl Alcohol (0-10) mg/dL Influenza Type A Ag (NEGATIVE) Influenza Type B Ag (NEGATIVE) RSV (PCR) (NEGATIVE) SARS-CoV-2 (PCR) (NEGATIVE) Radiology Exams: Radiology Procedures Category Date Time Status CHEST 1 VIEW (PORTABLE) Stat Exams 12/15/22 17:15 Taken Assessment/Plan (1) COPD with exacerbation Current Visit: Yes Status: Acute Assessment & Plan: Nebs steroids, wean oxygen as tolerated for acute hypoxic respiratory failure present on admission. May benefit from referral to pulmonology but the patient does not indicate that he currently follows with pulmonology. PT eval in AM to assess ambulatory oxygen needs. 12/16: -Resp eval today -On RA currently with spo2 @ 98% -Will start oral prednisone, continue abx Code(s): J44.1 - CHRONIC OBSTRUCTIVE PULMONARY DISEASE W (ACUTE) EXACERBATION (2) Acute bronchitis Current Visit: Yes Status: Acute Assessment & Plan: CXR negative for infiltrate but patient has had fever, chills, cough and has leukocytosis. Will continue antibiotics. Follow blood culture. Code(s): J20.9 - ACUTE BRONCHITIS, UNSPECIFIED (3) Leukocytosis Current Visit: Yes Status: Acute Assessment & Plan: As above, on antibiotics. Follow blood culture. UA unremarkable. 12/16: -resolved Code(s): D72.829 - ELEVATED WHITE BLOOD CELL COUNT, UNSPECIFIED (4) Hypotension Current Visit: Yes Status: Acute Assessment & Plan: -may be secondary to medications, entresto, lasix, metoprolol held Code(s): I95.9 - HYPOTENSION, UNSPECIFIED (5) Anxiety Current Visit: Yes Status: Acute Assessment & Plan: -Continue home meds, will add buspar Code(s): F41.9 - ANXIETY DISORDER, UNSPECIFIED
[2022-12-16] MEDS: solu-MEDROL 40 MG, Sterile H2O 10 ml 1 ML IV SCH ×2 (05:51)
--- NOTE | 2022-12-16 08:36 | XRAY ---
Indication: Short of breath. Comparison: October 06, 2022 Portable chest unchanged again demonstrating COPD and scattered tiny calcified granulomas. Heart not enlarged. Bony thorax intact again with osteopenia and mild degenerative changes. No new/acute findings.
[2022-12-16] MEDS ORDERED: NON-FORMULARY ITEM (Carbidopa/Levodopa [Carbidopa-Levo 25-100 Mg Odt] 1 EACH Tab.Rapdis) PO SCH (10:00)
[2022-12-16] MEDS ORDERED: NON-FORMULARY ITEM (Atorvastatin Calcium [Atorvastatin Calcium] 80 MG Tablet) PO SCH (10:00)
[2022-12-16] MEDS ORDERED: AMITRIPTYLINE 25 MG TABLET PO SCH ×2 (10:00→22:00)
[2022-12-16] MEDS ORDERED: NON-FORMULARY ITEM (Sacubitril/Valsartan [Entresto 24 Mg-26 Mg Tablet] 1 EACH Tablet) PO SCH (10:00)
[2022-12-16] MEDS ORDERED: ZOCOR 20MG PO SCH (10:00)
[2022-12-16] MEDS: ROCEPHIN 1 Gm-D5w 50 ml Bag** 1 G/50 ML IVPB IV SCH ×2 (11:02→12:00)
[2022-12-16] MEDS: ZOCOR 20MG PO SCH (11:03)
[2022-12-16] MEDS: PLAVIX Tablet PO SCH (11:03)
[2022-12-16] MEDS: ECOTRIN 81 MG PO SCH (11:03)
[2022-12-16] MEDS: PRISTIQ ER PO SCH (11:03)
[2022-12-16] MEDS: Protonix 40MG Tablet PO SCH (11:03)
[2022-12-16] MEDS: Sinemet 25/100 MG PO SCH (11:03)
[2022-12-16] MEDS: Lopressor 25MG Tab PO SCH ×2 (11:32→21:31)
[2022-12-16] MEDS: LASIX 20 MG PO SCH (11:32)
[2022-12-16] MEDS: ENTRESTO 49 MG-51 MG TABLET PO SCH (11:32)
[2022-12-16] MEDS ORDERED: BUSPAR 5 MG PO SCH (11:50)
[2022-12-16] MEDS ORDERED: Ativan 2 MG/1 ML VIAL IV PRN (11:53)
[2022-12-16] MEDS: Zithromax 500 MG/ 250 ML NaCl Premix 500 MG/250 ML IVPB IV SCH (12:28)
[2022-12-16] MEDS: HEPARIN 5000 UNITS/0.5 ML (HIGH RISK MED) SQ SCH ×2 (12:28→21:30)
[2022-12-16] MEDS: DELTASONE 20 MG PO SCH ×2 (12:41→21:31)
[2022-12-17] MEDS: DUONEB 0.5-3 MG/3 ml Neb IH SCH ×2 (03:59→07:09)
--- NOTE | 2022-12-17 05:26 | PCM.DS ---
Discharge Summary Date of Admission: 12/15/22 20:05 Date of Discharge: 12/17/22 Admitting Physician: VANNESSA CASTELAN MD Consults: Consults on Case 12/15/22 21:28 Case Management SDAL DC Needs Assessment ROUTINE Primary Care Provider: SAMANTHA GRIFFITH Allergies Allergies hydrocodone bitartrate [From Vicodin] Allergy (Mild, Verified 12/15/22 17:15) morphine Allergy (Mild, Verified 12/15/22 17:15) oxycodone [From OxyContin] Allergy (Verified 12/15/22 17:15) Hospital Summary - Hospital Course Hospital Course: is a 67 year old male with history of tobacco abuse, COPD (not on home oxygen), coronary artery disease (status post stenting), and congestive heart failure who presented to the hospital 12/15/22 with worsening shortness of breath with one episode of n/v, admitted for copd exacerbation. He is improved from admission, no longer short of breath. Patient does state he believes anxiety may be contributing to his shortness of breath. Troponin mildly elevated but no chest pain and EKG shows no acute changes. On RA with spo2 @ 98%. Stable for discharge with advisement for follow up with PCP. New Diagnosis: COPD exacerbation New Medications: Prednisone/azithromycin/xanax Follow Up: PCP Latest Assessment & Plan (1) COPD with exacerbation Current Visit: Yes Status: Acute Assessment & Plan: Nebs steroids, wean oxygen as tolerated for acute hypoxic respiratory failure present on admission. May benefit from referral to pulmonology but the patient does not indicate that he currently follows with pulmonology. PT eval in AM to assess ambulatory oxygen needs. 12/16: -Resp eval today -On RA currently with spo2 @ 98% -Will start oral prednisone, continue abx Code(s): J44.1 - CHRONIC OBSTRUCTIVE PULMONARY DISEASE W (ACUTE) EXACERBATION (2) Acute bronchitis Current Visit: Yes Status: Acute Assessment & Plan: CXR negative for infiltrate but patient has had fever, chills, cough and has leukocytosis. Will continue antibiotics. Follow blood culture. Code(s): J20.9 - ACUTE BRONCHITIS, UNSPECIFIED (3) Leukocytosis Current Visit: Yes Status: Acute Assessment & Plan: As above, on antibiotics. Follow blood culture. UA unremarkable. 12/16: -resolved Code(s): D72.829 - ELEVATED WHITE BLOOD CELL COUNT, UNSPECIFIED (4) Hypotension Current Visit: Yes Status: Acute Assessment & Plan: -may be secondary to medications, entresto, lasix, metoprolol held Code(s): I95.9 - HYPOTENSION, UNSPECIFIED (5) Anxiety Current Visit: Yes Status: Acute Assessment & Plan: -Continue home meds, will add buspar I spent 35 minutes [id number] with the patient on the day of discharge performing discharge exam, discussing hospital stay and discharge instructions with patient and caregivers, preparation of discharge records, prescriptions & referral forms and addressing any questions/concerns the patient had as documented above. - Vitals & Intake/Output Vital Signs: Vital Signs Temperature 97.8 F 12/17/22 04:00 Pulse Rate 83 12/17/22 04:00 Respiratory Rate 21 12/17/22 04:00 Blood Pressure 117/62 12/17/22 04:00 O2 Sat by Pulse Oximetry 99 12/17/22 04:00 Intake & Output: Intake & Output 12/14/22 12/15/22 12/16/22 12/17/22 11:59 11:59 11:59 11:59 Intake Total 480 Output Total 300 500 Balance -300 -20 Weight 81.5 kg - Lab Result Diagrams: 12/17/22 08:11 12/17/22 08:11 Lab Results-Last 24 Hrs: Lab Results-Last 24 Hours 12/16/22 Range/Units 07:05 POC Glucometer 150 H (74 to 106) mg/dL Micro Results-Entire Visit: Accuchecks Date 12/16/22 Time 07:23 - Radiology Exams Ordered Rad Exams-Entire Visit: Radiology Procedures Category Date Time Status CHEST 1 VIEW (PORTABLE) Stat Exams 12/15/22 17:15 Completed - Procedures and Test Procedures and Tests throughout Hospitalization: Therapy Orders & Screens 12/15/22 17:48 Respiratory Therapy Assessment DAILY Comment: 12/15/22 20:22 Oxygen Nasal Cannula 2 lpm Comment: Respiratory Therapy Consult ONCE Comment: Reason For Exam: 12/15/22 21:24 PT Eval & Treat ( Order) ONCE Reason for Eval:: debility, assess ambulatory O2 needs Diagnosis: COPD EXACERBATION 12/16/22 07:00 EKG STAT Comment: Diagnosis: COPD EXACERBATION 12/16/22 10:08 Qualify for Home Oxygen TODAY Comment: Diagnosis: COPD EXACERBATION Discharge Exam General Appearance: no apparent distress Neurologic Exam: alert, oriented x 3, cooperative Eye Exam: PERRL Ears, Nose, Throat Exam: normal ENT inspection Neck Exam: normal inspection Respiratory Exam: crackles/rales Cardiovascular Exam: regular rate/rhythm, normal heart sounds Gastrointestinal/Abdomen Exam: soft, normal bowel sounds Male Genitalia Exam: deferred Rectal Exam: deferred Back Exam: normal inspection Extremity Exam: normal inspection Skin Exam: normal color Final Diagnosis/Problem List - Final Discharge Diagnosis/Problem (1) COPD with exacerbation Current Visit: Yes Status: Acute Code(s): J44.1 - CHRONIC OBSTRUCTIVE PULMONARY DISEASE W (ACUTE) EXACERBATION (2) Acute bronchitis Current Visit: Yes Status: Acute Code(s): J20.9 - ACUTE BRONCHITIS, UNSP ECIFIED (3) Leukocytosis Current Visit: Yes Status: Acute Code(s): D72.829 - ELEVATED WHITE BLOOD CELL COUNT, UNSPECIFIED (4) Hypotension Current Visit: Yes Status: Acute Code(s): I95.9 - HYPOTENSION, UNSPECIFIED (5) Anxiety Current Visit: Yes Status: Acute Code(s): F41.9 - ANXIETY DISORDER, UNSPECIFIED - Discharge Disposition: Home, Self-Care Condition: Stable Prescriptions: New Azithromycin [Azithromycin 250 mg Pack] 250 mg PO UD 5 Days #6 tablet Prednisone 20 mg [Deltasone 20 mg] 20 mg PO BID 5 Days #10 tablet ALPRAZolam 0.25 MG [xanAX 0.25 MG] 0.25 mg PO Q6HPRN PRN 3 Days #12 tablet PRN Reason: Anxiety Continue Metoprolol Tartrate 12.5 mg PO BID Furosemide 20 mg [Lasix 20 mg] 20 mg PO DAILY Atorvastatin Calcium 80 mg PO DAILY Sacubitril/Valsartan [Entresto 24 mg-26 mg Tablet] 1 tab PO BID Clopidogrel Bisulfate [PLAVIX Tablet] 75 mg PO DAILY Prochlorperazine Maleate 5 mg* [Compazine 5 MG] 5 mg PO Q8H PRN #8 tablet PRN Reason: Nausea/Vomiting Desvenlafaxine Succinate [Desvenlafaxine Succinate ER] 50 mg PO DAILY Carbidopa/Levodopa [Carbidopa-Levo 25-100 mg Odt] 1 tab PO DAILY Amitriptyline HCl 25 mg [Amitriptyline 25 mg Tablet] 25 mg PO DAILY Aspirin EC 81 mg [Ecotrin 81 mg] 81 mg PO DAILY Additional Instructions: [facility] HAS BEEN SET UP FOR YOU. THEY WILL CALL YOU TO ARRANGE A TIME TO COME SEE YOU. THEIR PHONE NUMBER IS [phone] IF YOU NEED ANYTHING PRIOR TO THEIR FIRST VISIT Follow up with: SAMANTHA GRIFFITH MD [Primary Care Provider] - 12/23/22 3:30 pm
[2022-12-17 08:16] LABS: Hematocrit 37.4 % (42-50); Hemoglobin 12.4 g/dL (12.5-18.0); Mean Cell Volume 93.3 fL (78-100); Mean Corpuscular Hemoglobin 30.9 pg (26-32); Mean Corpuscular Hgb Concent. 33.2 g/dL (32-36); Mean Platelet Volume 8.6 fL (7.5-11.0); Platelet Count 240 x10^3/uL (150-450); Red Blood Count 4.01 x10^6/uL (4.1-5.6); Red Cell Distribution Width 14.6 % (11.5-14.0); White Blood Count 16.8 x10^3/uL (4.0-10.5)
[2022-12-17 08:41] LABS: ALBUMIN 3.8 g/dL (3.5-5.0); ANION GAP 10.8 MEQ/L (5-15); BILIRUBIN,TOTAL 0.5 mg/dL (0.2-1.3); Calcium 8.7 mg/dL (8.4-10.2); Creatinine 1 1.61 mg/dL (0.66-1.25); EST GLOMERULAR FILTRATION RATE 45.7 ML/MIN; Potassium 4.6 mmol/L (3.5-5.1); Total Protein 6.7 g/dL (6.3-8.2)
[2022-12-17] MEDS: ROCEPHIN 1 Gm-D5w 50 ml Bag** 1 G/50 ML IVPB IV SCH (09:50)
[2022-12-17] MEDS: Sinemet 25/100 MG PO SCH (09:53)
[2022-12-17] MEDS: ZOCOR 20MG PO SCH (09:53)
[2022-12-17] MEDS: PRISTIQ ER PO SCH (09:53)
[2022-12-17] MEDS: DELTASONE 20 MG PO SCH (09:53)
[2022-12-17] MEDS: PLAVIX Tablet PO SCH (09:53)
[2022-12-17] MEDS: Protonix 40MG Tablet PO SCH (09:53)
[2022-12-17] MEDS: ECOTRIN 81 MG PO SCH (09:54)
[2022-12-17] MEDS: HEPARIN 5000 UNITS/0.5 ML (HIGH RISK MED) SQ SCH (09:54)
[2022-12-17] MEDS ORDERED: BUSPAR 5 MG PO SCH (10:00)
[2022-12-17] MEDS: Lopressor 25MG Tab PO SCH (10:05)
[2022-12-17] MEDS: ENTRESTO 49 MG-51 MG TABLET PO SCH (10:05)
[2022-12-17] MEDS: LASIX 20 MG PO SCH (10:06)
[2022-12-17] MEDS: Zithromax 500 MG/ 250 ML NaCl Premix 500 MG/250 ML IVPB IV SCH (10:27)
[2022-12-17 12:59] VITALS: BP 120/77; PULSE 83; RESP 22; TEMP 98.4; O2SAT 98
== END 2022-12-17 13:13 | disposition home health service (06) ==
LOC: ED 17:14 → MED SURG 20:05 → UNDOADMOB 20:18
PROVIDERS: ADMIT Internal Medicine; ATTEND Internal Medicine
DX: J44.1 Chronic obstructive pulmonary disease with (acute) exacerbation (principal); J20.9 Acute bronchitis, unspecified; D72.829 Elevated white blood cell count, unspecified; I95.9 Hypotension, unspecified; F41.9 Anxiety disorder, unspecified; Z86.79 Personal history of other diseases of the circulatory system; Z79.899 Other long term (current) drug therapy; Z79.01 Long term (current) use of anticoagulants; Z11.59 Encounter for screening for other viral diseases; Z86.718 Personal history of other venous thrombosis and embolism
CPT/HCPCS: 0241U; 36000; 36415; 36600; 71045; 80048; 80053; 80307; 81001; 82077; 82375; 82803; 82947; 83605; 83735; 83880; 84145; 84484; 85025; 85027; 85379; 87040; 93005; 93041; 93268; 94640; 94762; 96360; 96374; 96375; 97161; 99285; 99291; G0378; Q3014; J0456; J0696; J1644; J2060; J2405; J2920; J2930; A9270-GY

== ENCOUNTER 2023-06-12 14:58 | Emergency (ER) | payer MEDICARE ==
[2023-06-12 15:09] VITALS: TEMP 97.1
--- NOTE | 2023-06-12 15:16 | ERPHSYRPT ---
- History of Present Illness Time Seen by Provider: 06/12/23 15:15 Source: patient, EMS, old records Exam Limitations: no limitations Patient Subjective Stated Complaint: Pt states "I have had a couple of days of dizziness. I had surgery from Dr. Wick in february to clean out my vessels in my neck. I also had 6 bypasses surgery in february as well." Triage Nursing Assessment: Pt presented alert and oriented X 3, skin pwd. Pt able to speak in clear full sentences. Pt in no apparent respiratory distress. Pt resting comfortably on the bed. Physician History: This is a 68-year-old white male patient of Dr. Graham who presents with 2-day history of dizziness. He was brought into the emergency department from his home by the paramedics. Patient states that he underwent a right carotid endarterectomy in February 2023 as well as a 6 vessel coronary artery bypass graft surgical procedure to help resolve the dizziness. He was concerned because the dizziness recurred 2 days ago. Is been intermittent. Patient denie s chest pain. He denies shortness of breath. He denies visual changes. Patient is a daily smoker of cigarettes. He also consumes marijuana. Patient has multiple medical problems including hyperlipidemia, hypertension, Parkinson disease, CHF, history of stroke in the past, diabetes, anxiety and history of DVT. Patient is on Plavix. Patient has not had any head trauma. Timing/Duration: day(s) (2), intermittent Severity: mild Character of Deficits: none Deficits: no difficulties Baseline/Normal Cognition: alert oriented x 3 Current Cognition: alert oriented x 3 Associated Symptoms: denies symptoms Allergies/Adverse Reactions: hydrocodone bitartrate [From Vicodin] Allergy (Mild, Verified 02/24/23 07:42) morphine Allergy (Mild, Verified 02/24/23 07:42) oxycodone [From OxyContin] Allergy (Verified 02/24/23 07:42) Home Medications: Atorvastatin Calcium 80 mg PO DAILY 10/29/19 [History] Furosemide 20 mg [Lasix 20 mg] 20 mg PO DAILY 10/29/19 [History] Metoprolol Tartrate 12.5 mg PO BID 10/29/19 [History] Clopidogrel Bisulfate [PLAVIX Tablet] 75 mg PO DAILY 03/11/21 [History] Sacubitril/Valsartan [Entresto 24 mg-26 mg Tablet] 1 tab PO BID 03/11/21 [History] Amitriptyline HCl 25 mg [Amitriptyline 25 mg Tablet] 25 mg PO DAILY 11/28/22 [History] Carbidopa/Levodopa [Carbidopa-Levo 25-100 mg Odt] 1 tab PO DAILY 11/28/22 [History] Desvenlafaxine Succinate [Desvenlafaxine Succinate ER] 50 mg PO DAILY 11/28/22 [History] Hx Tetanus, Diphtheria Vaccination/Date Given: (unknown) Hx Influenza Vaccination/Date Given: No Hx Pneumococcal Vaccination/Date Given: No Immunizations Up to Date: No Travel Risk - International Travel Have you traveled outside of the country in past 3 weeks: No - Emerging Infectious Disease Are you exhibiting symptoms associated with any current EIDs: No - Review of Systems Constitutional: No Symptoms Eyes: No Symptoms Ears, Nose, & Throat: No Symptoms Respiratory: No Symptoms Cardiac: No Symptoms Abdominal/Gastrointestinal: No Symptoms Genitourinary Symptoms: No Symptoms Musculoskeletal: No Symptoms Skin: No Symptoms Neurological: Dizziness (Intermittent dizziness over the last 2 days) Psychological: No Symptoms Endocrine: No Symptoms Hematologic/Lymphatic: No Symptoms Immunological/Allergic: No Symptoms All Other Systems: Reviewed and Negative - Past Medical History Pertinent Past Medical History: Yes Neurological History: Stroke, Other ENT History: Cataracts Cardiac History: Coronary Artery Disease, Deep Vein Thrombosis, High Cholesterol, Hypertension, Myocardial Infarction ([place]) Respiratory History: COPD Endocrine Medical History: Adrenal Insufficiency, Diabetes Type II, Other Musculoskeletal History: Osteoarthritis GI Medical History: No Pertinent History History: No Pertinent History Psycho-Social History: Anxiety, Bipolar, Depression Male Reproductive Disorders: No Pertinent History Other Medical History: Blood clots, skin cancer,melanoma 2 years ago - Past Surgical History Past Surgical History: Yes Neuro Surgical History: No Pertinent History Cardiac: Cardiac Catheterization, Cardiac Stent, Vascular Surgery Respiratory: No Pertinent History Gastrointestinal: No Pertinent History Genitourinary: No Pertinent History Musculoskeletal: Orthopedic Surgery Male Surgical History: No Pertinent History Other Surgical History: R hand and R leg surgeries, skin cancers removed Significant Family History: no pertinent family hx - Social History Smoking Status: Current every day smoker How long have you smoked: age 15 Exposure to second hand smoke: Yes Drug Use: marijuana Patient Lives Alone: No - Nursing Vital Signs Nursing Vital Signs: Initial Vital Signs Temperature 97.1 F 06/12/23 14:59 Pulse Rate 54 L 06/12/23 14:59 Respiratory Rate 20 06/12/23 14:59 Blood Pressure 145/57 06/12/23 14:59 O2 Sat by Pulse Oximetry 99 06/12/23 14:59 Pain Scale Pain Intensity 0 - Zainab Coma Scale Best Eye Response (Zainab): (4) open spontaneously Best Verbal Response ([place]): (5) oriented Best Motor Response ([place]): (6) obeys commands Zainab Total: 15 - Physical Exam General Appearance: no apparent distress, alert, anxiety Eye Exam: bilateral eye: normal inspection, PERRL, EOMI Ears, Nose, Throat Exam: normal ENT inspection, moist mucous membranes Neck Exam: normal inspection, non-tender, supple, full range of motion Respiratory: normal breath sounds, lungs clear, airway intact, No chest tenderness, No respiratory distress Cardiovascular: regular rate/rhythm, normal heart sounds, normal peripheral pulses Gastrointestinal: soft, normal bowel sounds, No tenderness Rectal Exam: not done Back Exam: normal inspection, normal range of motion, No CVA tenderness, No vertebral tenderness Extremity Exam: normal inspection, normal range of motion, pelvis stable Mental Status: alert, oriented x 3, 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 No acute ischemic changes on today's twelve-lead EKG. I did compare today's twelve-lead EKG to that twelve- lead EKG that was performed on 12/15/2022. Since that twelve-lead EKG was performed the patient has had 6 vessel coronary artery bypass graft as well as a right CEA) Ordered Tests: Active Orders 24 hr Category Date Time Status EKG-ER Only STAT Care 06/12/23 15:45 Active IV Insertion STAT Care 06/12/23 15:45 Active NPO (ED) STAT Care 06/12/23 15:45 Active Pulse Oximetry (ED) STAT Care 06/12/23 15:45 Active ACO SDOH Referral ONCE Cons 06/12/23 15:09 Active HEAD WITHOUT CONTRAST [CT] Stat Exams 06/12/23 15:45 Completed CBC W DIFF Stat Lab 06/12/23 15:45 Completed CMP Stat Lab 06/12/23 15:45 Completed UA W/RFX UR CULTURE Stat Lab 06/12/23 16:23 Completed Medication Summary Generic Name Dose Route Start Last Admin Trade Name Coleman PRN Reason Stop Dose Admin Sodium Chloride 1,000 mls @ 100 mls/hr 06/12/23 15:45 06/12/23 15:53 Sodium Chloride 0.9% 1000 Ml IV 07/12/23 15:44 100 mls/hr .Q10H BUSHRA Administration Lab/Rad Data: Laboratory Result Diagrams 06/12/23 15:45 06/12/23 15:45 Laboratory Results 06/12/23 06/12/23 06/12/23 Range/Units 16:23 15:45 15:45 WBC 7.2 (4.0-10.5) x10^3/uL RBC 4.31 (4.1-5.6) x10^6/uL Hgb 12.3 L (12.5-18.0) g/dL Hct 38.5 L (42-50) % MCV 89.3 (78-100) fL MCH 28.5 (26-32) pg MCHC 31.9 L (32-36) g/dL RDW 14.2 H (11.5-14.0) % Plt Count 247 (150-450) x10^3/uL MPV 9.1 (7.5-11.0) fL Gran % 56.6 (36.0-66.0) % Immature Gran % (Auto) 0.6 H (0.00-0.4) % Nucleat RBC Rel Count 0.0 (0.00-0.1) % Eos # (Auto) 0.31 (0-0.5) x10^3/uL Immature Gran # (Auto) 0.04 H (0.00-0.03) x10^3u/L Absolute Lymphs (auto) 2.11 (1.0-4.6) x10^3/uL Absolute Monos (auto) 0.59 (0.0-1.3) x10^3/uL Absolute Nucleated RBC 0.00 (0.00-0.01) x10^3u/L Lymphocytes % 29.5 (24.0-44.0) % Monocytes % 8.3 (0.0-12.0) % Eosinophils % 4.3 (0.00-5.0) % Basophils % 0.7 (0.0-0.4) % Absolute Granulocytes 4.05 (1.4-6.9) x10^3/uL Basophils # 0.05 (0-0.4) x10^3/uL Sodium 138 (135-145) mmol/L Potassium 4.3 (3.5-5.1) mmol/L Chloride 104 (98-107) mmol/L Carbon Dioxide 26 (22-30) mmol/L Anion Gap 12.1 (5-15) MEQ/L BUN 31 H (9-20) mg/dL Creatinine 1.69 H (0.66-1.25) mg/dL Estimated GFR 43.7 ML/MIN Glucose 107 H (74-106) mg/dL Calcium 9.5 (8.4-10.2) mg/dL Total Bilirubin 0.90 (0.2-1.3) mg/dL AST 24 (17-59) U/L ALT 6 (0-50) U/L Alkaline Phosphatase 113 (38-126) U/L Serum Total Protein 8.5 H (6.3-8.2) g/dL Albumin 4.3 (3.5-5.0) g/dL Urine Color Yellow (Yellow) Urine Appearance Clear (Clear) Urine pH 6.0 (4.6-8.0) Ur Specific Brandt 1.015 (1.005-1.030) Urine Protein Negative (Negative) Urine Glucose (UA) Negative (Negative) mg/dL Urine Ketones Negative (Negative) Urine Blood Negative (Negative) Urine Nitrite Negative (Negative) Urine Bilirubin Negative (Negative) Urine Urobilinogen 1.0 A (0.2) mg/dL Ur Leukocyte Esterase Negative (Negative) U Hyaline Cast (Auto) 3-5 A (0-2) /LPF Urine Microscopic RBC 0-2 (0-5) /HPF Urine Microscopic WBC 0-2 (0-5) /HPF Ur Epithelial Cells None Seen (None Seen) /HPF Urine Bacteria None Seen (None Seen) /HPF Urine Culture Reflexed NO (NO) - Progress Progress: improved, re-examined Progress Note: 06/12/23 18:33 My decision making and assignment of moderate complexity to this patient's medical issue today is based on review of the patient's past medical history, review the patient's medication list, history present illness and physical findings on examination. The workup in this patient includes CT scan of the head, placement of intravenous line, twelve-lead EKG, troponin level, CBC, CMP, magnesium level, urinalysis. Differential diagnosis includes urinary tract infection, dehydration, electrolyt e abnormalities, intracranial abnormality, dysrhythmias 06/12/23 18:34 I interpreted the patient's laboratory data results. There is no evidence of any acute or emergent medical issue based on the patient's laboratory data results. The CT scan of the head without contrast shows no acute intracranial abnormality. This study was interpreted by the radiologist. Counseled pt/family regarding: lab results, diagnosis, need for follow-up, rad results Medical Desision Making - Diagnostic Testing Diagnostic test were ordered, analyzed, and reviewed by me: Yes Radiological Interpretation: Reviewed by me, Teleradiologist Report - Risk of complications Low Risk: Low risk of morbidity from additional dx testing or treatment - Departure Departure Disposition: Home Clinical Impression: Dizziness Condition: Stable Critical Care Time: No Referrals: [facility] OF [LOCATION] - Follow up/PCP as directed Additional Instructions: Plenty of fluids. Take your medications as prescribed. Follow-up with your primary care provider, senior devops engineer and neurologist tomorrow, 06/13/2023, by phone to make follow-up appointments in the next 5 to 7 days.
[2023-06-12] MEDS ORDERED: Sodium Chloride 0.9% 1000 ML 1,000 ML ONE (15:52)
[2023-06-12] MEDS: Sodium Chloride 0.9% 1000 ML 1,000 ML IV SCH (15:53)
[2023-06-12 15:59] LABS: ALBUMIN 4.3 g/dL (3.5-5.0); ANION GAP 12.1 MEQ/L (5-15); Absolute Neutrophil Ct (ANC) 4.05 x10^3/uL (1.4-6.9); BASOPHIL % 0.7 % (0.0-0.4); BILIRUBIN,TOTAL 0.9 mg/dL (0.2-1.3); Basophil (Absolute #) 0.05 x10^3/uL (0-0.4); Calcium 9.5 mg/dL (8.4-10.2); Creatinine 1 1.69 mg/dL (0.66-1.25); EST GLOMERULAR FILTRATION RATE 43.7 ML/MIN; Eosinophil % 4.3 % (0.00-5.0); Eosinophil (Absolute #) 0.31 x10^3/uL (0-0.5); Hematocrit 38.5 % (42-50); Hemoglobin 12.3 g/dL (12.5-18.0); IMMATURE GRAN # 0.04 x10^3u/L (0.00-0.03); IMMATURE GRAN % 0.6 % (0.00-0.4); Lymphocyte (Absolute #) 2.11 x10^3/uL (1.0-4.6); Lymphocytes % 29.5 % (24.0-44.0); Mean Cell Volume 89.3 fL (78-100); Mean Corpuscular Hemoglobin 28.5 pg (26-32); Mean Corpuscular Hgb Concent. 31.9 g/dL (32-36); Mean Platelet Volume 9.1 fL (7.5-11.0); Monocyte (Absolute #) 0.59 x10^3/uL (0.0-1.3); Monocytes % 8.3 % (0.0-12.0); Neutrophil % 56.6 % (36.0-66.0); Platelet Count 247 x10^3/uL (150-450); Potassium 4.3 mmol/L (3.5-5.1); Red Blood Count 4.31 x10^6/uL (4.1-5.6); Red Cell Distribution Width 14.2 % (11.5-14.0); Total Protein 8.5 g/dL (6.3-8.2); White Blood Count 7.2 x10^3/uL (4.0-10.5)
[2023-06-12 17:04] VITALS: BP 158/86; PULSE 54; RESP 21
[2023-06-12 17:05] LABS: Appearance Clear (Clear); Bacteria None Seen /HPF (None Seen); Bilirubin Negative (Negative); Blood Negative (Negative); Epithelial Cells None Seen /HPF (None Seen); Glucose, Urine Negative (Negative); Ketones Negative (Negative); Leukocyte Esterase Negative (Negative); Nitrite Negative (Negative); Protein,Urine Dip Negative (Negative); RBC 0-2 /HPF (0-5); Specific Gravity 1.015 (1.005-1.030); WBC 0-2 /HPF (0-5)
[2023-06-12 17:06] LABS: ADD URINE CULTURE? NO (NO)
--- NOTE | 2023-06-12 17:18 | XRAY ---
Indication: Dizziness. Multiple contiguous axial images obtained of the head without contrast. Comparison: November 06, 2019 Normal appearing brain parenchyma, ventricles, and bony calvarium for patient's age. Bony calvarium intact. Visualized paranasal sinuses and mastoid air cells are clear. Impression: Continued normal CT head without contrast exam.
[2023-06-12 18:31] VITALS: O2SAT 99
== END 2023-06-12 18:47 | disposition home or self-care (01) ==
LOC: ED 14:58
DX: R42 Dizziness and giddiness (principal); E78.5 Hyperlipidemia, unspecified; I11.0 Hypertensive heart disease with heart failure; I50.9 Heart failure, unspecified; E11.9 Type 2 diabetes mellitus without complications; Z79.02 Long term (current) use of antithrombotics/antiplatelets; Z79.899 Other long term (current) drug therapy; Z72.0 Tobacco use
CPT/HCPCS: 36000; 36415; 70450; 80053; 81001; 85025; 93005; 94760; 99284

== ENCOUNTER 2023-09-06 12:59 | Observation (INO) | payer MEDICARE ==
[2023-09-06] MEDS ORDERED: Zofran 4 MG/2 ML VIAL ONE ×2 (13:14→15:10)
[2023-09-06] MEDS ORDERED: BENADRYL 50 MG/ML ONE (13:14)
[2023-09-06] MEDS ORDERED: PROTONIX 40 MG IV IV ONE (13:15)
[2023-09-06] MEDS: PROTONIX 40 MG IV IV ONE (13:16)
[2023-09-06] MEDS: BENADRYL 50 MG/ML IV ONE (13:16)
[2023-09-06] MEDS: Zofran 4 MG/2 ML VIAL IV ONE ×2 (13:16→15:13)
--- NOTE | 2023-09-06 13:33 | XRAY ---
Indication: Chest pain. Comparison: February 03, 2013 Portable chest remains hyperinflated and clear with incidental tiny calcified granulomas. Heart not enlarged with interval CABG. Bony thorax intact again with osteopenia and degenerative changes. Impression: Continued nonacute hyperinflated chest with chronic features.
[2023-09-06 13:39] LABS: Absolute Neutrophil Ct (ANC) 5.89 x10^3/uL (1.78-5.38); BASOPHIL % 0.4 % (0.2-1.2); Basophil (Absolute #) 0.05 x10^3/uL (0.01-0.08); Eosinophil % 2.8 % (0.8-7.0); Eosinophil (Absolute #) 0.34 x10^3/uL (0.04-0.54); Hematocrit 35.5 % (40.1-51.0); Hemoglobin 11.6 g/dL (13.7-17.5); IMMATURE GRAN # 0.05 x10^3u/L (0.001-0.031); IMMATURE GRAN % 0.4 % (0.001-0.429); Lymphocyte (Absolute #) 4.55 x10^3/uL (1.32-3.57); Lymphocytes % 37.8 % (21.8-53.1); Mean Cell Volume 82.6 fL (79.0-92.2); Mean Corpuscular Hgb Concent. 32.7 g/dL (32.3-36.5); Mean Platelet Volume 8.8 fL (9.4-12.4); Monocyte (Absolute #) 1.16 x10^3/uL (0.30-0.82); Monocytes % 9.6 % (5.3-12.2); Platelet Count 339 x10^3/uL (163-337); Red Cell Distribution Width 16.3 % (11.6-14.4)
[2023-09-06 14:07] LABS: ALBUMIN 4.5 g/dL (3.5-5.0); ANION GAP 17.1 MEQ/L (5-15); BILIRUBIN,TOTAL 0.7 mg/dL (0.2-1.3); Calcium 10.2 mg/dL (8.4-10.2); Creatinine 1 1.53 mg/dL (0.66-1.25); EST GLOMERULAR FILTRATION RATE 49.2 ML/MIN; Potassium 4.2 mmol/L (3.5-5.1); Total Protein 8.8 g/dL (6.3-8.2)
[2023-09-06 14:21] LABS: INFLUENZA A NEGATIVE (NEGATIVE); INFLUENZA B NEGATIVE (NEGATIVE); RESPIRATORY SYNCTIAL VIRUS NEGATIVE (NEGATIVE); SARS-CoV-2 Xpert Express NEGATIVE (NEGATIVE)
[2023-09-06 15:02] LABS: Appearance Clear (Clear); Bacteria None Seen /HPF (None Seen); Bilirubin Negative (Negative); Blood NHT (Negative); Epithelial Cells None Seen /HPF (None Seen); Glucose, Urine Negative (Negative); Ketones Trace (Negative); Leukocyte Esterase Negative (Negative); Nitrite Negative (Negative); Ph 6.5 (4.6-8.0); Protein,Urine Dip 30 (Negative); WBC 0-2 /HPF (0-5)
[2023-09-06 15:14] LABS: ADD URINE CULTURE? NO (NO)
[2023-09-06 15:15] LABS: Amphetamine,Urine NEGATIVE (NEGATIVE); Barbiturate,Urine NEGATIVE (NEGATIVE); Benzodiazepine,Urine NEGATIVE (NEGATIVE); Cocaine,Urine NEGATIVE (NEGATIVE); Methadone,Urine NEGATIVE (NEGATIVE); Opiate,Urine NEGATIVE (NEGATIVE); PCP,Urine NEGATIVE (NEGATIVE); THC,Urine POSITIVE (NEGATIVE)
--- NOTE | 2023-09-06 16:33 | XRAY ---
Indication: Short of breath. Pulmonary embolus. Multiple contiguous axial images obtained through the chest using 80 cc SUV 370 contrast and PE protocol. Comparison: July 27, 2022. Good opacification of the pulmonary arteries to include the lobar and segmental branches. No pulmonary embolus. Heart is now borderline enlarged with interval CABG surgery. Aorta remains normal in course and caliber. Stable tiny mediastinal and right hilar calcified nodes. No pathologic mediastinal/hilar lymphadenopathy. Stable small hiatal hernia. Lungs demonstrates new mild diffuse pulmonary edema and tiny bilateral effusions. Stable minimal biapical subpleural cystic changes and small left lower lobe bleb No suspicious pulmonary mass/nodule. Bony thorax intact again with osteopenia and mild degenerative changes throughout spine. New sternotomy wires. Limited upper abdomen including adrenal glands are unremarkable. Impression: 1. Continued negative pulmonary embolus. 2. New borderline cardiomegaly with CABG surgery, diffuse pulmonary edema, and tiny bilateral effusions. Rule out mild cardiac composition/CHF versus fluid overload. 3. Again chronic findings including biapical subpleural cystic changes, left lower lobe bleb, hiatal hernia, and chronic bony findings.
--- NOTE | 2023-09-06 16:49 | ERPHSYRPT ---
- History of Present Illness Time Seen by Provider: 09/06/23 13:06 Source: patient Exam Limitations: no limitations Patient Subjective Stated Complaint: PT HERE WORRIED ABOUT B/P AND STATES HE IS SOB. HE ASLO STATES HE STARTED VOMITING AFTER TOOK PILLS TODAY . Triage Nursing Assessment: PT ARRIVED PER WMD ALERT, VERY ANXIOUS, VOMITING, SWEATY, SKIN PINK, MOVES ALL EXT WELL, NO EDEMA NOTED . CHEST WITH CRACKLES Physician History: Patient here with shortness of breath, wheezing. Started vomiting last night has not been able to take his blood pressure medications. Patient has elevated blood pressure here. Very anxious, vomiting, sweaty. He has active vomiting as I walk into the room. No lower extremity edema noted. However it does appear like he has an increased work of breathing. Patient placed on 2 L of oxygen by EMS. Patient does have a heart history including CABG and known CHF. Allergies/Adverse Reactions: hydrocodone bitartrate [From Vicodin] Allergy (Mild, Verified 09/06/23 13:03) morphine Allergy (Mild, Verified 09/06/23 13:03) oxycodone [From OxyContin] Allergy (Verified 09/06/23 13:03) Home Medications: Atorvastatin Calcium 80 mg PO DAILY 10/29/19 [History] Furosemide 20 mg [Lasix 20 mg] 20 mg PO DAILY 10/29/19 [History] Metoprolol Tartrate 12.5 mg PO BID 10/29/19 [History] Clopidogrel Bisulfate [PLAVIX Tablet] 75 mg PO DAILY 03/11/21 [History] Sacubitril/Valsartan [Entresto 24 mg-26 mg Tablet] 1 tab PO BID 03/11/21 [History] Amitriptyline HCl 25 mg [Amitriptyline 25 mg Tablet] 25 mg PO DAILY 11/28/22 [History] Carbidopa/Levodopa [Carbidopa-Levo 25-100 mg Odt] 1 tab PO DAILY 11/28/22 [History] Desvenlafaxine Succinate [Desvenlafaxine Succinate ER] 50 mg PO DAILY 11/28/22 [History] Hx Tetanus, Diphtheria Vaccination/Date Given: (unknown) Hx Influenza Vaccination/Date Given: No Hx Pneumococcal Vaccination/Date Given: No Immunizations Up to Date: Yes Travel Risk - International Travel Have you traveled outside of the country in past 3 weeks: No - Emerging Infectious Disease Are you exhibiting symptoms associated with any current EIDs: No - Past Medical History Pertinent Past Medical History: Yes Neurological History: Stroke, Other ENT History: Cataracts Cardiac History: Coronary Artery Disease, Deep Vein Thrombosis, High Cholesterol, Hypertension, Myocardial Infarction ([place]) Respiratory History: COPD Endocrine Medical History: Adrenal Insufficiency, Diabetes Type II, Other Musculoskeletal History: Osteoarthritis GI Medical History: No Pertinent History History: No Pertinent History Psycho-Social History: Anxiety, Bipolar, Depression Male Reproductive Disorders: No Pertinent History Other Medical History: Blood clots, skin cancer,melanoma 2 years ago - Past Surgical History Past Surgical History: Yes Neuro Surgical History: No Pertinent History Cardiac: Cardiac Catheterization, Cardiac Stent, Vascular Surgery Respiratory: No Pertinent History Gastrointestinal: No Pertinent History Genitourinary: No Pertinent History Musculoskeletal: Orthopedic Surgery Male Surgical History: No Pertinent History Other Surgical History: R hand and R leg surgeries, skin cancers removed Significant Family History: no pertinent family hx - Social History Smoking Status: Former smoker How long have you smoked: age 15 Exposure to second hand smoke: Yes Drug Use: marijuana Patient Lives Alone: No - Social Determinants of Health Will the patient participate in the screening: Yes Do you worry about a steady place to live?: No Do you have any problems with any of the following?: No known problems In the past 12 months,have you had to go without utilities?: No Transportation Issues: Yes Has anyone in your support network made you feel unsafe?: No Have you or anyone in your house had to go without enough: No - Nursing Vital Signs Nursing Vital Signs: Initial Vital Signs Respiratory Rate 24 09/06/23 13:02 O2 Sat by Pulse Oximetry 100 09/06/23 13:02 Pain Scale Pain Intensity 0 - Physical Exam SpO2: 95 Comments: 09/06/23 17:18 Review of Systems Constitutional: Negative for fever. HENT: Negative for congestion. Respiratory: Increased work of breathing, shortness of breath Cardiovascular: Hypertension, sweaty, dizzy Gastrointestinal: Negative for abdominal pain. Vomiting Genitourinary: Negative for dysuria. Musculoskeletal: Negative for back pain. Skin: Negative for rash. Neurological: Negative for headaches. Psychiatric/Behavioral: Negative for behavioral problems. All other systems reviewed and are negative. Physical Exam Vitals signs and nursing note reviewed. Constitutional: Appearance: Patient is well-developed. Diaphoretic, pale, sweaty HENT: Head: Normocephalic and atraumatic. Eyes: Conjunctiva/sclera: Conjunctivae normal. Neck: Musculoskeletal: Normal range of motion. Trachea: No tracheal deviation. Cardiovascular: Rate and Rhythm: Normal rate. Pulmonary: Effort: On 2 L of oxygen, increased work of breathing, appears uncomfortable, 100% on 2 L Abdominal: Palpations: Abdomen is soft. Musculoskeletal: General: No deformity. Skin: General: Skin is warm and dry. Neurological/ Psychiatric: Mental Status: Mental status, behavior, interaction with environment is appropriate for patient's age and condition - Course Nursing assessment & vital signs reviewed: Yes EKG Interpreted by Me: Sinus Rhythm Ordered Tests: Active Orders 24 hr Category Date Time Status Call Admit Doctor for Orders ON ADMISSION Care 09/06/23 16:53 Active Code Status Order ROUTINE Care 09/06/23 16:53 Active EKG-ER Only STAT Care 09/06/23 13:06 Active IV Insertion STAT Care 09/06/23 13:[address] in Observation ROUTINE Care 09/06/23 16:53 Active Telemetry q6h Care 09/06/23 16:54 Active Heart-Healthy Diet Diet 09/07/23 Breakfast Active CHEST 1 VIEW (PORTABLE) Stat Exams 09/06/23 13:07 Completed CHEST WITH CONTRAST [CT] Stat Exams 09/06/23 14:20 Completed AMYLASE Stat Lab 09/06/23 13:15 Completed CBC W DIFF Stat Lab 09/06/23 13:15 Completed CMP Stat Lab 09/06/23 13:15 Completed LIPASE Stat Lab 09/06/23 13:15 Completed NT PRO BNPII Stat Lab 09/06/23 13:15 Completed TROPONIN Q4H Lab 09/06/23 13:15 Completed TROPONIN Q4H Lab 09/06/23 16:30 Completed TROPONIN Q4H Lab 09/06/23 21:15 Ordered UA W/RFX UR CULTURE Stat Lab 09/06/23 14:39 Completed Urine Triage Profile Stat Lab 09/06/23 14:39 Completed Pulse Oximetry CONTINUOUS RT 09/06/23 16:54 Active Respiratory Therapy Consult ONCE RT 09/06/23 16:54 Active Medication Summary Discontinued Medications Generic Name Dose Route Start Last Admin Trade Name Freq PRN Reason Stop Dose Admin Diphenhydramine HCl 25 mg 09/06/23 13:06 09/06/23 13:16 Diphenhydramine Hcl 50 Mg/Ml Vial IV 09/06/23 13:07 25 mg STAT ONE Administration Diphenhydramine HCl Confirm 09/06/23 13:14 Diphenhydramine Hcl 50 Mg/Ml Vial Administered 09/06/23 13:15 Dose 50 mg .ROUTE .STK-MED ONE Droperidol 1.25 mg 09/06/23 13:06 09/06/23 13:16 Droperidol 5 Mg/2 Ml Vial IV 09/06/23 13:07 1.25 mg STAT ONE Administration Droperidol Confirm 09/06/23 13:14 Droperidol 5 Mg/2 Ml Vial Administered 09/06/23 13:15 Dose 5 mg .ROUTE .STK-MED ONE Furosemide 60 mg 09/06/23 16:47 09/06/23 16:53 Furosemide 100 Mg/10 Ml Vial IV 09/06/23 16:48 60 mg STAT ONE Administration Furosemide Confirm 09/06/23 16:51 Furosemide 100 Mg/10 Ml Vial Administered 09/06/23 16:52 Dose 100 mg .ROUTE .STK-MED ONE Ondansetron HCl 4 mg 09/06/23 13:06 09/06/23 13:16 Ondansetron Hcl 4 Mg/2 Ml Vial IV 09/06/23 13:07 4 mg STAT ONE Administration Ondansetron HCl Confirm 09/06/23 13:14 Ondansetron Hcl 4 Mg/2 Ml Vial Administered 09/06/23 13:15 Dose 4 mg .ROUTE .STK-MED ONE Ondansetron HCl 4 mg 09/06/23 15:11 09/06/23 15:13 Ondansetron Hcl 4 Mg/2 Ml Vial IV 09/06/23 15:12 4 mg STAT ONE Administration Ondansetron HCl Confirm 09/06/23 15:10 Ondansetron Hcl 4 Mg/2 Ml Vial Administered 09/06/23 15:11 Dose 4 mg .ROUTE .STK-MED ONE Pantoprazole Sodium 40 mg 09/06/23 13:06 09/06/23 13:16 Pantoprazole 40 Mg Vial IV 09/06/23 13:07 40 mg STAT ONE Administration Pantoprazole Sodium Confirm 09/06/23 13:15 Pantoprazole 40 Mg Vial Administered 09/06/23 13:16 Dose 40 mg IV .STK-MED ONE Lab/Rad Data: Laboratory Result Diagrams 09/06/23 13:15 09/06/23 13:15 Laboratory Results 09/06/23 09/06/23 09/06/23 Range/Units 16:30 14:39 14:39 WBC (4.23-9.07) x10^3/uL RBC (4.63-6.08) x10^6/uL Hgb (13.7-17.5) g/dL Hct (40.1-51.0) % MCV (79.0-92.2) fL MCH (25.7-32.2) pg MCHC (32.3-36.5) g/dL RDW (11.6-14.4) % Plt Count (163-337) x10^3/uL MPV (9.4-12.4) fL Gran % (34.0-67.9) % Immature Gran % (Auto) (0.001-0.429) % Nucleat RBC Rel Count (0.00-0.2) % Eos # (Auto) (0.04-0.54) x10^3/uL Immature Gran # (Auto) (0.001-0.031) x10^3u/L Absolute Lymphs (auto) (1.32-3.57) x10^3/uL Absolute Monos (auto) (0.30-0.82) x10^3/uL Absolute Nucleated RBC (0.00-0.012) x10^3u/L Lymphocytes % (21.8-53.1) % Monocytes % (5.3-12.2) % Eosinophils % (0.8-7.0) % Basophils % (0.2-1.2) % Absolute Granulocytes (1.78-5.38) x10^3/uL Basophils # (0.01-0.08) x10^3/uL Sodium (135-145) mmol/L Potassium (3.5-5.1) mmol/L Chloride (98-107) mmol/L Carbon Dioxide (22-30) mmol/L Anion Gap (5-15) MEQ/L BUN (9-20) mg/dL Creatinine (0.66-1.25) mg/dL Estimated GFR ML/MIN Glucose (74-106) mg/dL Calcium (8.4-10.2) mg/dL Total Bilirubin (0.2-1.3) mg/dL AST (17-59) U/L ALT (0-50) U/L Alkaline Phosphatase (38-126) U/L Troponin I 0.019 (0.000-0.033) ng/mL NT-Pro-B Natriuret Pep (<300) pg/mL Serum Total Protein (6.3-8.2) g/dL Albumin (3.5-5.0) g/dL Amylase (30-110) U/L Lipase (23-300) U/L Urine Color Dark Yellow (Yellow) Urine Appearance Clear (Clear) Urine pH 6.5 (4.6-8.0) Ur Specific [place] 1.020 (1.005-1.030) Urine Protein 30 (Negative) Urine Glucose (UA) Negative (Negative) mg/dL Urine Ketones Trace A (Negative) Urine Blood NHT (Negative) Urine Nitrite Negative (Negative) Urine Bilirubin Negative (Negative) Urine Urobilinogen 1.0 A (0.2) mg/dL Ur Leukocyte Esterase Negative (Negative) U Hyaline Cast (Auto) 3-5 A (0-2) /LPF Urine Microscopic RBC 3-5 (0-5) /HPF Urine Microscopic WBC 0-2 (0-5) /HPF Ur Epithelial Cells None Seen (None Seen) /HPF Urine Bacteria None Seen (None Seen) /HPF Urine Culture Reflexed NO (NO) Urine Opiates Level NEGATIVE (NEGATIVE) Ur Methadone NEGATIVE (NEGATIVE) Urine Barbiturates NEGATIVE (NEGATIVE) Ur Phencyclidine (PCP) NEGATIVE (NEGATIVE) Urine Amphetamine NEGATIVE (NEGATIVE) U Benzodiazepine Level NEGATIVE (NEGATIVE) Urine Cocaine NEGATIVE (NEGATIVE) Urine Marijuana (THC) POSITIVE A (NEGATIVE) Influenza Type A Ag (NEGATIVE) Influenza Type B Ag (NEGATIVE) RSV (PCR) (NEGATIVE) SARS-CoV-2 (PCR) (NEGATIVE) 09/06/23 09/06/23 09/06/23 Range/Units 13:15 13:15 13:15 WBC (4.23-9.07) x10^3/uL RBC (4.63-6.08) x10^6/uL Hgb (13.7-17.5) g/dL Hct (40.1-51.0) % MCV (79.0-92.2) fL MCH (25.7-32.2) pg MCHC (32.3-36.5) g/dL RDW (11.6-14.4) % Plt Count (163-337) x10^3/uL MPV (9.4-12.4) fL Gran % (34.0-67.9) % Immature Gran % (Auto) (0.001-0.429) % Nucleat RBC Rel Count (0.00-0.2) % Eos # (Auto) (0.04-0.54) x10^3/uL Immature Gran # (Auto) (0.001-0.031) x10^3u/L Absolute Lymphs (auto) (1.32-3.57) x10^3/uL Absolute Monos (auto) (0.30-0.82) x10^3/uL Absolute Nucleated RBC (0.00-0.012) x10^3u/L Lymphocytes % (21.8-53.1) % Monocytes % (5.3-12.2) % Eosinophils % (0.8-7.0) % Basophils % (0.2-1.2) % Absolute Granulocytes (1.78-5.38) x10^3/uL Basophils # (0.01-0.08) x10^3/uL Sodium 140 (135-145) mmol/L Potassium 4.2 (3.5-5.1) mmol/L Chloride 107 (98-107) mmol/L Carbon Dioxide 20 L (22-30) mmol/L Anion Gap 17.1 H (5-15) MEQ/L BUN 21 H (9-20) mg/dL Creatinine 1.53 H (0.66-1.25) mg/dL Estimated GFR 49.2 ML/MIN Glucose 127 H (74-106) mg/dL Calcium 10.2 (8.4-10.2) mg/dL Total Bilirubin 0.70 (0.2-1.3) mg/dL AST 30 (17-59) U/L ALT 26 (0-50) U/L Alkaline Phosphatase 145 H (38-126) U/L Troponin I 0.027 (0.000-0.033) ng/mL NT-Pro-B Natriuret Pep 3650 (<300) pg/mL Serum Total Protein 8.8 H (6.3-8.2) g/dL Albumin 4.5 (3.5-5.0) g/dL Amylase 81 (30-110) U/L Lipase 71 (23-300) U/L Urine Color (Yellow) Urine Appearance (Clear) Urine pH (4.6-8.0) Ur Specific [place] (1.005-1.030) Urine Protein (Negative) Urine Glucose (UA) (Negative) mg/dL Urine Ketones (Negative) Urine Blood (Negative) Urine Nitrite (Negative) Urine Bilirubin (Negative) Urine Urobilinogen (0.2) mg/dL Ur Leukocyte Esterase (Negative) U Hyaline Cast (Auto) (0-2) /LPF Urine Microscopic RBC (0-5) /HPF Urine Microscopic WBC (0-5) /HPF Ur Epithelial Cells (None Seen) /HPF Urine Bacteria (None Seen) /HPF Urine Culture Reflexed (NO) Urine Opiates Level (NEGATIVE) Ur Methadone (NEGATIVE) Urine Barbiturates (NEGATIVE) Ur Phencyclidine (PCP) (NEGATIVE) Urine Amphetamine (NEGATIVE) U Benzodiazepine Level (NEGATIVE) Urine Cocaine (NEGATIVE) Urine Marijuana (THC) (NEGATIVE) Influenza Type A Ag NEGATIVE (NEGATIVE) Influenza Type B Ag NEGATIVE (NEGATIVE) RSV (PCR) NEGATIVE (NEGATIVE) SARS-CoV-2 (PCR) NEGATIVE (NEGATIVE) 09/06/23 Range/Units 13:15 WBC 12.0 H (4.23-9.07) x10^3/uL RBC 4.30 L (4.63-6.08) x10^6/uL Hgb 11.6 L (13.7-17.5) g/dL Hct 35.5 L (40.1-51.0) % MCV 82.6 (79.0-92.2) fL MCH 27.0 (25.7-32.2) pg MCHC 32.7 (32.3-36.5) g/dL RDW 16.3 H (11.6-14.4) % Plt Count 339 H (163-337) x10^3/uL MPV 8.8 L (9.4-12.4) fL Gran % 49.0 (34.0-67.9) % Immature Gran % (Auto) 0.4 (0.001-0.429) % Nucleat RBC Rel Count 0.0 (0.00-0.2) % Eos # (Auto) 0.34 (0.04-0.54) x10^3/uL Immature Gran # (Auto) 0.05 H (0.001-0.031) x10^3u/L Absolute Lymphs (auto) 4.55 H (1.32-3.57) x10^3/uL Absolute Monos (auto) 1.16 H (0.30-0.82) x10^3/uL Absolute Nucleated RBC 0.00 (0.00-0.012) x10^3u/L Lymphocytes % 37.8 (21.8-53.1) % Monocytes % 9.6 (5.3-12.2) % Eosinophils % 2.8 (0.8-7.0) % Basophils % 0.4 (0.2-1.2) % Absolute Granulocytes 5.89 H (1.78-5.38) x10^3/uL Basophils # 0.05 (0.01-0.08) x10^3/uL Sodium (135-145) mmol/L Potassium (3.5-5.1) mmol/L Chloride (98-107) mmol/L Carbon Dioxide (22-30) mmol/L Anion Gap (5-15) MEQ/L BUN (9-20) mg/dL Creatinine (0.66-1.25) mg/dL Estimated GFR ML/MIN Glucose (74-106) mg/dL Calcium (8.4-10.2) mg/dL Total Bilirubin (0.2-1.3) mg/dL AST (17-59) U/L ALT (0-50) U/L Alkaline Phosphatase (38-126) U/L Troponin I (0.000-0.033) ng/mL NT-Pro-B Natriuret Pep (<300) pg/mL Serum Total Protein (6.3-8.2) g/dL Albumin (3.5-5.0) g/dL Amylase (30-110) U/L Lipase (23-300) U/L Urine Color (Yellow) Urine Appearance (Clear) Urine pH (4.6-8.0) Ur Specific [place] (1.005-1.030) Urine Protein (Negative) Urine Glucose (UA) (Negative) mg/dL Urine Ketones (Negative) Urine Blood (Negative) Urine Nitrite (Negative) Urine Bilirubin (Negative) Urine Urobilinogen (0.2) mg/dL Ur Leukocyte Esterase (Negative) U Hyaline Cast (Auto) (0-2) /LPF Urine Microscopic RBC (0-5) /HPF Urine Microscopic WBC (0-5) /HPF Ur Epithelial Cells (None Seen) /HPF Urine Bacteria (None Seen) /HPF Urine Culture Reflexed (NO) Urine Opiates Level (NEGATIVE) Ur Methadone (NEGATIVE) Urine Barbiturates (NEGATIVE) Ur Phencyclidine (PCP) (NEGATIVE) Urine Amphetamine (NEGATIVE) U Benzodiazepine Level (NEGATIVE) Urine Cocaine (NEGATIVE) Urine Marijuana (THC) (NEGATIVE) Influenza Type A Ag (NEGATIVE) Influenza Type B Ag (NEGATIVE) RSV (PCR) (NEGATIVE) SARS-CoV-2 (PCR) (NEGATIVE) - Progress Progress: improved Progress Note: 09/06/23 17:20 Patient here with increased work of breathing, shortness of breath, chest tightness, volume overload most likely Differential diagnosis includes: PNA, STEMI, NSTEMI, other infection, musculoskeletal pain, pneumothorax - We'll obtain basic labs, fluids, EKG, troponin, chest x-ray - EKG shows no ST changes - my read - O2 saturations consistently greater than 95% on 2 L of oxygen - CXR shows no pneumonia, pneumothorax - my read 2 EKGs obtained throughout hospital stay to make sure there was no progression to an NSTEMI or STEMI. Initial EKG at 1303 demonstrates sinus rhythm, no ST changes, incomplete left bundle branch block, no obvious ischemia, rate 79, AK interval 193, QRS 118, QTc is 475. Second EKG obtained at 1342 serial EKGs are not demonstrating any progression into his ST ischemia of any type, this EKG demonstrated no obvious ST changes, continued left bundle branch block, rate 74, AK interval 200, QRS 123, QTc is 469 We did obtain a CTA to ensure there is no other sinister pathology. Patient does appear to be in acute heart failure on CT scan. Patient is volume overload, pulmonary effusion, previous CABG was visualized. Patient is vomiting resolved with medication here. Given all of this I did discuss with the inpatient physician, Dr. Martinez. We decided to bring his blood pressure down and get some volume off with Lasix, 60 mg IV. Most likely hypertensive from not taking his medications due to vomiting and overall clinical condition. He has stabilized, blood pressure stable, heart rate has been consistent. Overall picture is volume overload with hypertensive urgency and vomiting. Given all of this I do believe patient will need to be admitted to the hospital. Discussed in detail with Dr. Martinez. She did accept the patient for admission. 09/06/23 17:24 ED critical care statement As staff physician, I have provided critical care. Time: 48 mins Criteria for critical illness: Hypertensive urgency, acute congestive heart failure with respiratory distress Treatment and management provided include: Coordination of management with ETC care team, consultants, and inpatient care team. [id number] assessment of condition and response to therapy. Review and interpretation of emergent diagnostic testing. Medical chart review and completion. Direction and immediate supervision of the following therapy: Critical care was time spent personally by me on the following activities: blood draw for specimens, development of treatment plan with patient or surrogate, discussions with consultants, discussions with primary provider, interpretation of cardiac output measurements, evaluation of patient's response to treatment, examination of patient, obtaining history from patient or surrogate, ordering and performing treatments and interventions, ordering and review of laboratory studies, ordering and review of radiographic studies, pulse oximetry, re-evaluation of patient's condition and review of old charts. This time was independent of all procedures performed. Cristhian Larsen Discussed with Dr.: Other (Michelle) Will see patient in: hospital (observation) Counseled pt/family regarding: lab results, diagnosis, need for follow-up, rad results - Departure Departure Disposition: Observation Clinical Impression: Volume overload, Hypertensive urgency, Shortness of breath, Vomiting, Acute CHF Condition: Stable Critical Care Time: Yes Critical Care Time(excluding separately billable procedures): Critical 30-74 mins Referrals: SAMANTHA GRIFFITH MD [Primary Care Provider] - Follow up/PCP as directed Instructions: Heart Failure
[2023-09-06] MEDS ORDERED: Furosemide 100mg/10 ml Vial ONE (16:51)
[2023-09-06] MEDS: Furosemide 100mg/10 ml Vial IV ONE (16:53)
--- NOTE | 2023-09-06 17:30 | PCM.HP ---
<MASOUD MORRIS - Last Filed: 09/06/23 18:18> History of Present Illness - Chief Complaint Chief Complaint: acute chf Date: 09/06/23 History of Present Illness: is a 67 year old male with history of COPD (not on home oxygen), coronary artery disease (CABG 03/22), [place], Stroke, CKD, anxiety, chronic THC use, DM, and congestive heart failure who presented to the hospital 09/06/23 with complaints of vomiting and progressive shortness of breath. Patient states he has chronic vomiting for several years now. He has been told in the past this may be cannabinoid hyperemesis syndrome. Currently he states he ate chicken two nights ago and has been vomiting since. He has been unable to tolerate a diet or take medications. Upon arrival to ED, patient tachypneic and hypertensive with BP elevated at 197/93. EKG per ED physician read with no ST elevations - LBBB, no obvious ischemia. CT chest demonstrates new borderline cardiomegaly with CABG surgery, diffuse pulmonary edema, and tiny bilateral effusions. Rule out mild cardiac composition/CHF versus fluid overload. Lab findings remarkable for leukocytosis most likely reactive with vomiting at 12.0, normocytic anemia with hgb at 11.6, Co2 at 20, GAP at 17.1, BUN 21, creat at 1.53 (baseline around 1.6), total prot at 8.8, and BNP at 3650. Patient given droperidol, lasix, zofran, protonix, and benadryl in ED. Admit for CHF exacerbation/COPD exacerbation. - Review of Systems Constitutional: Fatigue, Weakness Eyes: No Symptoms Ears, Nose, & Throat: No Symptoms Respiratory: Cough, Short Of Breath, Wheezing Cardiac: No Symptoms Abdominal/Gastrointestinal: Nausea, Vomiting Genitourinary Symptoms: No Symptoms Musculoskeletal: No Symptoms Skin: No Symptoms Neurological: No Symptoms Psychological: No Symptoms Endocrine: No Symptoms Hematologic/Lymphatic: No Symptoms Immunological/Allergic: No Symptoms Medications & Allergies Home Medications: Home Medication List Furosemide 20 mg [Lasix 20 mg] 20 mg PO DAILY 10/29/19 [History Confirmed 09/06/23] Metoprolol Tartrate 25 mg PO DAILY 10/29/19 [History Confirmed 09/06/23] Clopidogrel Bisulfate [PLAVIX Tablet] 75 mg PO DAILY 03/11/21 [History Confirmed 09/06/23] Amitriptyline HCl 25 mg [Amitriptyline 25 mg Tablet] 25 mg PO DAILY 11/28/22 [History Confirmed 09/06/23] Carbidopa/Levodopa [Carbidopa-Levo 25-100 mg Odt] 1 tab PO DAILY 11/28/22 [History Confirmed 09/06/23] Desvenlafaxine Succinate [Desvenlafaxine Succinate ER] 50 mg PO DAILY 11/28/22 [History Confirmed 09/06/23] Albuterol Sulfate [Proair Respiclick] 2 puffs IH QID PRN PRN 09/06/23 [History Confirmed 09/06/23] Aspirin EC 81 mg [Ecotrin 81 mg] 81 mg PO DAILY 09/06/23 [History Confirmed 09/06/23] Atorvastatin Calcium 10 mg PO DAILY 09/06/23 [History Confirmed 09/06/23] Finasteride 5 mg [Proscar 5 MG] 5 mg PO DAILY 09/06/23 [History Confirmed 09/06/23] Gabapentin 100 mg PO TID PRN PRN 09/06/23 [History Confirmed 09/06/23] Nicotine [Nicotine Patch 7Mg] 7 mg TOP DAILY 09/06/23 [History Confirmed 09/06/23] PANTOPRAZOLE 40 mg Tablet [Protonix 40MG Tablet] 40 mg PO DAILY 09/06/23 [History Confirmed 09/06/23] Prochlorperazine Maleate 5 mg* [Compazine 5 MG] 5 mg PO Q4H PRN PRN 09/06/23 [History Confirmed 09/06/23] Tamsulosin HCl 0.4 mg [Flomax 0.4 MG] 0.4 mg PO HS 09/06/23 [History Confirmed 09/06/23] Allergies/Adverse Reactions: Allergies Allergy/AdvReac Type Severity Reaction Status Date / Time hydrocodone bitartrate Allergy Mild Verified 09/06/23 17:30 [From Vicodin] morphine Allergy Mild Verified 09/06/23 17:30 oxycodone [From OxyContin] Allergy Verified 09/06/23 17:30 - Past Medical History Past Medical History: Yes Neurological History: Stroke, Other ENT History: Cataracts Cardiac History: Coronary Artery Disease, Deep Vein Thrombosis, High Cholesterol, Hypertension, Myocardial Infarction ([place]) Respiratory History: COPD Endocrine Medical History: Adrenal Insufficiency, Diabetes Type II, Other Musculoskelatal History: Osteoarthritis GI Medical History: No Pertinent History History: No Pertinent History Pyscho-Social History: Anxiety, Bipolar, Depression Male Reproductive Disorders: No Pertinent History Comment: Blood clots, skin cancer,melanoma 2 years ago - Past Surgical History Past Surgical History: Yes Neuro Surgical History: No Pertinent History Cardiac History: Cardiac Catheterization, Cardiac Stent, Vascular Surgery Respiratory Surgery: No Pertinent History GI Surgical History: No Pertinent History Genitourinary Surgical Hx: No Pertinent History Musculskeletal Surgical Hx: Orthopedic Surgery Male Surgical History: No Pertinent History Other Surgical History: R hand and R leg surgeries, skin cancers removed Significant Family History: no pertinent family hx - Social History Smoking Status: Former smoker How long have you smoked: age 15 Exposure to second hand smoke: Yes Alcohol: None Drug Use: marijuana - Social Determinants of Health Will the patient participate in the screening: Yes Do you worry about a steady place to live?: No Do you have any problems with any of the following?: No known problems In the past 12 months,have you had to go without utilities?: No Have you or anyone in your house had to go without enough: No Transportation Issues: Yes Has anyone in your support network made you feel unsafe?: No Does the patient want assistance with any of the above?: No - Physical Exam Vital Signs: Vital Signs - 24 hr Temp Pulse Resp BP BP Pulse Ox 09/06/23 17:24 95 09/06/23 17:00 86 22 193/125 97 09/06/23 16:51 90 23 171/83 97 09/06/23 16:40 198/114 95 09/06/23 16:30 78 19 194/111 96 09/06/23 16:20 83 25 H 193/102 09/06/23 16:19 81 24 194/108 91 L 09/06/23 15:40 77 16 194/110 95 09/06/23 15:30 81 20 98 09/06/23 15:26 98 09/06/23 15:10 199/114 09/06/23 15:01 191/99 97 09/06/23 14:50 191/100 96 09/06/23 14:41 185/96 94 L 09/06/23 14:30 191/101 96 09/06/23 14:20 186/93 96 09/06/23 14:11 188/94 91 L 09/06/23 14:00 186/99 95 09/06/23 13:50 186/101 96 09/06/23 13:40 76 186/98 94 L 09/06/23 13:31 77 189/92 93 L 09/06/23 13:11 97.2 F 79 28 H 197/93 100 09/06/23 13:02 24 100 General Appearance: mild distress Neurologic Exam: alert, oriented x 3, cooperative Eye Exam: PERRL/EOMI Ears, Nose, Throat Exam: dry mucous membranes Neck Exam: normal inspection Respiratory Exam: crackles/rales Cardiovascular Exam: tachycardia Rectal Exam: deferred Back Exam: normal inspection Extremity Exam: normal inspection Skin Exam: normal color Results - Labs Lab/Micro Results: Lab Results-Last 24 Hours 09/06/23 09/06/23 09/06/23 Range/Units 13:15 13:15 13:15 WBC 12.0 H (4.23-9.07) x10^3/uL RBC 4.30 L (4.63-6.08) x10^6/uL Hgb 11.6 L (13.7-17.5) g/dL Hct 35.5 L (40.1-51.0) % MCV 82.6 (79.0-92.2) fL MCH 27.0 (25.7-32.2) pg MCHC 32.7 (32.3-36.5) g/dL RDW 16.3 H (11.6-14.4) % Plt Count 339 H (163-337) x10^3/uL MPV 8.8 L (9.4-12.4) fL Gran % 49.0 (34.0-67.9) % Immature Gran % (Auto) 0.4 (0.001-0.429) % Nucleat RBC Rel Count 0.0 (0.00-0.2) % Eos # (Auto) 0.34 (0.04-0.54) x10^3/uL Immature Gran # (Auto) 0.05 H (0.001-0.031) x10^3u/L Absolute Lymphs (auto) 4.55 H (1.32-3.57) x10^3/uL Absolute Monos (auto) 1.16 H (0.30-0.82) x10^3/uL Absolute Nucleated RBC 0.00 (0.00-0.012) x10^3u/L Lymphocytes % 37.8 (21.8-53.1) % Monocytes % 9.6 (5.3-12.2) % Eosinophils % 2.8 (0.8-7.0) % Basophils % 0.4 (0.2-1.2) % Absolute Granulocytes 5.89 H (1.78-5.38) x10^3/uL Basophils # 0.05 (0.01-0.08) x10^3/uL Sodium 140 (135-145) mmol/L Potassium 4.2 (3.5-5.1) mmol/L Chloride 107 (98-107) mmol/L Carbon Dioxide 20 L (22-30) mmol/L Anion Gap 17.1 H (5-15) MEQ/L BUN 21 H (9-20) mg/dL Creatinine 1.53 H (0.66-1.25) mg/dL Estimated GFR 49.2 ML/MIN Glucose 127 H (74-106) mg/dL Calcium 10.2 (8.4-10.2) mg/dL Total Bilirubin 0.70 (0.2-1.3) mg/dL AST 30 (17-59) U/L ALT 26 (0-50) U/L Alkaline Phosphatase 145 H (38-126) U/L Troponin I 0.027 (0.000-0.033) ng/mL NT-Pro-B Natriuret Pep 3650 (<300) pg/mL Serum Total Protein 8.8 H (6.3-8.2) g/dL Albumin 4.5 (3.5-5.0) g/dL Amylase 81 (30-110) U/L Lipase 71 (23-300) U/L Urine Color (Yellow) Urine Appearance (Clear) Urine pH (4.6-8.0) Ur Specific [place] (1.005-1.030) Urine Protein (Negative) Urine Glucose (UA) (Negative) mg/dL Urine Ketones (Negative) Urine Blood (Negative) Urine Nitrite (Negative) Urine Bilirubin (Negative) Urine Urobilinogen (0.2) mg/dL Ur Leukocyte Esterase (Negative) U Hyaline Cast (Auto) (0-2) /LPF Urine Microscopic RBC (0-5) /HPF Urine Microscopic WBC (0-5) /HPF Ur Epithelial Cells (None Seen) /HPF Urine Bacteria (None Seen) /HPF Urine Culture Reflexed (NO) Urine Opiates Level (NEGATIVE) Ur Methadone (NEGATIVE) Urine Barbiturates (NEGATIVE) Ur Phencyclidine (PCP) (NEGATIVE) Urine Amphetamine (NEGATIVE) U Benzodiazepine Level (NEGATIVE) Urine Cocaine (NEGATIVE) Urine Marijuana (THC) (NEGATIVE) Influenza Type A Ag (NEGATIVE) Influenza Type B Ag (NEGATIVE) RSV (PCR) (NEGATIVE) SARS-CoV-2 (PCR) (NEGATIVE) 09/06/23 09/06/23 09/06/23 Range/Units 13:15 14:39 14:39 WBC (4.23-9.07) x10^3/uL RBC (4.63-6.08) x10^6/uL Hgb (13.7-17.5) g/dL Hct (40.1-51.0) % MCV (79.0-92.2) fL MCH (25.7-32.2) pg MCHC (32.3-36.5) g/dL RDW (11.6-14.4) % Plt Count (163-337) x10^3/uL MPV (9.4-12.4) fL Gran % (34.0-67.9) % Immature Gran % (Auto) (0.001-0.429) % Nucleat RBC Rel Count (0.00-0.2) % Eos # (Auto) (0.04-0.54) x10^3/uL Immature Gran # (Auto) (0.001-0.031) x10^3u/L Absolute Lymphs (auto) (1.32-3.57) x10^3/uL Absolute Monos (auto) (0.30-0.82) x10^3/uL Absolute Nucleated RBC (0.00-0.012) x10^3u/L Lymphocytes % (21.8-53.1) % Monocytes % (5.3-12.2) % Eosinophils % (0.8-7.0) % Basophils % (0.2-1.2) % Absolute Granulocytes (1.78-5.38) x10^3/uL Basophils # (0.01-0.08) x10^3/uL Sodium (135-145) mmol/L Potassium (3.5-5.1) mmol/L Chloride (98-107) mmol/L Carbon Dioxide (22-30) mmol/L Anion Gap (5-15) MEQ/L BUN (9-20) mg/dL Creatinine (0.66-1.25) mg/dL Estimated GFR ML/MIN Glucose (74-106) mg/dL Calcium (8.4-10.2) mg/dL Total Bilirubin (0.2-1.3) mg/dL AST (17-59) U/L ALT (0-50) U/L Alkaline Phosphatase (38-126) U/L Troponin I (0.000-0.033) ng/mL NT-Pro-B Natriuret Pep (<300) pg/mL Serum Total Protein (6.3-8.2) g/dL Albumin (3.5-5.0) g/dL Amylase (30-110) U/L Lipase (23-300) U/L Urine Color Dark Yellow (Yellow) Urine Appearance Clear (Clear) Urine pH 6.5 (4.6-8.0) Ur Specific [place] 1.020 (1.005-1.030) Urine Protein 30 (Negative) Urine Glucose (UA) Negative (Negative) mg/dL Urine Ketones Trace A (Negative) Urine Blood NHT (Negative) Urine Nitrite Negative (Negative) Urine Bilirubin Negative (Negative) Urine Urobilinogen 1.0 A (0.2) mg/dL Ur Leukocyte Esterase Negative (Negative) U Hyaline Cast (Auto) 3-5 A (0-2) /LPF Urine Microscopic RBC 3-5 (0-5) /HPF Urine Microscopic WBC 0-2 (0-5) /HPF Ur Epithelial Cells None Seen (None Seen) /HPF Urine Bacteria None Seen (None Seen) /HPF Urine Culture Reflexed NO (NO) Urine Opiates Level NEGATIVE (NEGATIVE) Ur Methadone NEGATIVE (NEGATIVE) Urine Barbiturates NEGATIVE (NEGATIVE) Ur Phencyclidine (PCP) NEGATIVE (NEGATIVE) Urine Amphetamine NEGATIVE (NEGATIVE) U Benzodiazepine Level NEGATIVE (NEGATIVE) Urine Cocaine NEGATIVE (NEGATIVE) Urine Marijuana (THC) POSITIVE A (NEGATIVE) Influenza Type A Ag NEGATIVE (NEGATIVE) Influenza Type B Ag NEGATIVE (NEGATIVE) RSV (PCR) NEGATIVE (NEGATIVE) SARS-CoV-2 (PCR) NEGATIVE (NEGATIVE) 09/06/23 Range/Units 16:30 WBC (4.23-9.07) x10^3/uL RBC (4.63-6.08) x10^6/uL Hgb (13.7-17.5) g/dL Hct (40.1-51.0) % MCV (79.0-92.2) fL MCH (25.7-32.2) pg MCHC (32.3-36.5) g/dL RDW (11.6-14.4) % Plt Count (163-337) x10^3/uL MPV (9.4-12.4) fL Gran % (34.0-67.9) % Immature Gran % (Auto) (0.001-0.429) % Nucleat RBC Rel Count (0.00-0.2) % Eos # (Auto) (0.04-0.54) x10^3/uL Immature Gran # (Auto) (0.001-0.031) x10^3u/L Absolute Lymphs (auto) (1.32-3.57) x10^3/uL Absolute Monos (auto) (0.30-0.82) x10^3/uL Absolute Nucleated RBC (0.00-0.012) x10^3u/L Lymphocytes % (21.8-53.1) % Monocytes % (5.3-12.2) % Eosinophils % (0.8-7.0) % Basophils % (0.2-1.2) % Absolute Granulocytes (1.78-5.38) x10^3/uL Basophils # (0.01-0.08) x10^3/uL Sodium (135-145) mmol/L Potassium (3.5-5.1) mmol/L Chloride (98-107) mmol/L Carbon Dioxide (22-30) mmol/L Anion Gap (5-15) MEQ/L BUN (9-20) mg/dL Creatinine (0.66-1.25) mg/dL Estimated GFR ML/MIN Glucose (74-106) mg/dL Calcium (8.4-10.2) mg/dL Total Bilirubin (0.2-1.3) mg/dL AST (17-59) U/L ALT (0-50) U/L Alkaline Phosphatase (38-126) U/L Troponin I 0.019 (0.000-0.033) ng/mL NT-Pro-B Natriuret Pep (<300) pg/mL Serum Total Protein (6.3-8.2) g/dL Albumin (3.5-5.0) g/dL Amylase (30-110) U/L Lipase (23-300) U/L Urine Color (Yellow) Urine Appearance (Clear) Urine pH (4.6-8.0) Ur Specific [place] (1.005-1.030) Urine Protein (Negative) Urine Glucose (UA) (Negative) mg/dL Urine Ketones (Negative) Urine Blood (Negative) Urine Nitrite (Negative) Urine Bilirubin (Negative) Urine Urobilinogen (0.2) mg/dL Ur Leukocyte Esterase (Negative) U Hyaline Cast (Auto) (0-2) /LPF Urine Microscopic RBC (0-5) /HPF Urine Microscopic WBC (0-5) /HPF Ur Epithelial Cells (None Seen) /HPF Urine Bacteria (None Seen) /HPF Urine Culture Reflexed (NO) Urine Opiates Level (NEGATIVE) Ur Methadone (NEGATIVE) Urine Barbiturates (NEGATIVE) Ur Phencyclidine (PCP) (NEGATIVE) Urine Amphetamine (NEGATIVE) U Benzodiazepine Level (NEGATIVE) Urine Cocaine (NEGATIVE) Urine Marijuana (THC) (NEGATIVE) Influenza Type A Ag (NEGATIVE) Influenza Type B Ag (NEGATIVE) RSV (PCR) (NEGATIVE) SARS-CoV-2 (PCR) (NEGATIVE) - Radiology Impressions Radiology Exams & Impressions: Radiology Procedures Category Date Time Status CHEST 1 VIEW (PORTABLE) Stat Exams 09/06/23 13:07 Completed CHEST WITH CONTRAST [CT] Stat Exams 09/06/23 14:20 Completed - Other Procedures and Tests Respiratory Therapy 09/06/23 16:54 Respiratory Therapy Consult ONCE Assessment/Plan (1) Acute CHF Current Visit: Yes Status: Acute Assessment & Plan: -Most recent echo reviewed from 11/14/22 - follows with Dr. Nicholas EF 45-50% IMPRESSION: 1) MILD LEFT VENTRICULAR HYPOKINESIA. EJECTION FRACTION BETWEEN 45 TO 50%. 2) MODERATE-SEVERE AORTIC REGURGITATION. 3) AORTIC VALVE STENOSIS WITH A PEAK TRANSAORTIC GRADIENT OF 29 MM OF MERCURY AND MEAN GRADIENT OF 18 MM OF MERCURY. 4) MILD TO MODERATE MITRAL REGURGITATION. -recent CABG 03/22 -repeat echo -BNP at 3650 -supplemental oxygen with goal spo2 > 92% -Start lasix 40mg IV BID -Strict I&O/elevated HOB/daily weights -CT showing new borderline cardiomegaly with CABG surgery, diffuse pulmonary edema, and tiny bilateral effusions. Rule out mild cardiac composition/CHF versus -Optimize electrolytes K>4, mg>2 Code(s): I50.9 - HEART FAILURE, UNSPECIFIED (2) Hypertensive urgency Current Visit: Yes Status: Acute Assessment & Plan: -Most likely secondary to not being able to take home medications -Received Lasix 60mg in ED -troponins negative x 1 -EKG with no acute findings -continue to monitor -tele -hydralazine prn for sbp >180 DBP > 100 -metoprolol 5mg q6h scheduled -resume home meds when able to tolerate Code(s): I16.0 - HYPERTENSIVE URGENCY (3) Vomiting Current Visit: Yes Status: Acute Assessment & Plan: -? cannoboid hyperemesis syndrome -compazine/zofran prn Code(s): R11.10 - VOMITING, UNSPECIFIED (4) CKD (chronic kidney disease) Current Visit: Yes Status: Acute Assessment & Plan: -at baseline -Avoid NELSY/ARB/NSAIDS -monitor renal/lytes - patient did receive contrast in ED -monitor closely with use of lasix as well Code(s): N18.9 - CHRONIC KIDNEY DISEASE, UNSPECIFIED (5) Leukocytosis Current Visit: Yes Status: Acute Assessment & Plan: -Most likely reactive with vomiting -UA negative -CXR with no pulmonary process -Continue to monitor Code(s): D72.829 - ELEVATED WHITE BLOOD CELL COUNT, UNSPECIFIED (6) CAD (coronary artery disease) Current Visit: Yes Status: Acute Assessment & Plan: -Follows with [facility] -S/p CABG February of 2023 -resume home meds when able -metoprolol 5mg q6h Code(s): I25.10 - ATHSCL HEART DISEASE OF [place] CORONARY ARTERY W/O ANG PCTRS (7) COPD with exacerbation Current Visit: No Status: Acute Assessment & Plan: -RT eval -Neb/INH, supplemental oxygen with goal spo2 > 90% -ABG if significant hypoxia/lethargy/confusion -consider pulm consult if no improvement -CT chest as stated above Code(s): J44.1 - CHRONIC OBSTRUCTIVE PULMONARY DISEASE W (ACUTE) EXACERBATION (8) Anxiety Current Visit: No Status: Acute Assessment & Plan: -continue home meds when able VTE: plavix/asa PPI: protonix Dispo: 2-3 days Code(s): F41.9 - ANXIETY DISORDER, UNSPECIFIED Telemedicine Encounter - Telemedicine Encounter Telemedicine Encounter: "The entirety of this encounter was performed via Telemedicine" This visit was performed using real-time audio and video connection between my location and thepatients locationwith the assistance of a surrogateat the patients location. Written or verbal consent was obtained from the patient/guardian to perform this visit usingsynchrHitatelemedicine technology. Any patient questions regarding the telemedicine interaction were answered. <BELEM ECHEVERRIA - Last Filed: 09/06/23 20:43> History of Present Illness - Chief Complaint History of Present Illness: is a 68 year old male. - Physical Exam Vital Signs: Vital Signs - 24 hr Temp Pulse Resp BP BP Pulse Ox 09/06/23 20:37 95 09/06/23 18:28 81 208/99 09/06/23 17:36 93 H 20 96 09/06/23 17:30 97.1 F 90 30 H 218/98 94 L 09/06/23 17:24 95 09/06/23 17:00 86 22 193/125 97 09/06/23 16:51 90 23 171/83 97 09/06/23 16:40 198/114 95 09/06/23 16:30 78 19 194/111 96 09/06/23 16:20 83 25 H 193/102 09/06/23 16:19 81 24 194/108 91 L 09/06/23 15:40 77 16 194/110 95 09/06/23 15:30 81 20 98 09/06/23 15:26 98 09/06/23 15:10 199/114 09/06/23 15:01 191/99 97 09/06/23 14:50 191/100 96 07/10/24 14:41 185/96 94 L 09/06/23 14:30 191/101 96 09/06/23 14:20 186/93 96 09/06/23 14:11 188/94 91 L 09/06/23 14:00 186/99 95 09/06/23 13:50 186/101 96 09/06/23 13:40 76 186/98 94 L 09/06/23 13:31 77 189/92 93 L 09/06/23 13:11 97.2 F 79 28 H 197/93 100 09/06/23 13:02 24 100 Results - Labs Lab/Micro Results: Lab Results-Last 24 Hours 09/06/23 09/06/23 09/06/23 Range/Units 13:15 13:15 13:15 WBC 12.0 H (4.23-9.07) x10^3/uL RBC 4.30 L (4.63-6.08) x10^6/uL Hgb 11.6 L (13.7-17.5) g/dL Hct 35.5 L (40.1-51.0) % MCV 82.6 (79.0-92.2) fL MCH 27.0 (25.7-32.2) pg MCHC 32.7 (32.3-36.5) g/dL RDW 16.3 H (11.6-14.4) % Plt Count 339 H (163-337) x10^3/uL MPV 8.8 L (9.4-12.4) fL Gran % 49.0 (34.0-67.9) % Immature Gran % (Auto) 0.4 (0.001-0.429) % Nucleat RBC Rel Count 0.0 (0.00-0.2) % Eos # (Auto) 0.34 (0.04-0.54) x10^3/uL Immature Gran # (Auto) 0.05 H (0.001-0.031) x10^3u/L Absolute Lymphs (auto) 4.55 H (1.32-3.57) x10^3/uL Absolute Monos (auto) 1.16 H (0.30-0.82) x10^3/uL Absolute Nucleated RBC 0.00 (0.00-0.012) x10^3u/L Lymphocytes % 37.8 (21.8-53.1) % Monocytes % 9.6 (5.3-12.2) % Eosinophils % 2.8 (0.8-7.0) % Basophils % 0.4 (0.2-1.2) % Absolute Granulocytes 5.89 H (1.78-5.38) x10^3/uL Basophils # 0.05 (0.01-0.08) x10^3/uL Sodium 140 (135-145) mmol/L Potassium 4.2 (3.5-5.1) mmol/L Chloride 107 (98-107) mmol/L Carbon Dioxide 20 L (22-30) mmol/L Anion Gap 17.1 H (5-15) MEQ/L BUN 21 H (9-20) mg/dL Creatinine 1.53 H (0.66-1.25) mg/dL Estimated GFR 49.2 ML/MIN Glucose 127 H (74-106) mg/dL Hemoglobin A1c (4.5-6.0) % Calcium 10.2 (8.4-10.2) mg/dL Magnesium (1.6-2.3) mg/dL Total Bilirubin 0.70 (0.2-1.3) mg/dL AST 30 (17-59) U/L ALT 26 (0-50) U/L Alkaline Phosphatase 145 H (38-126) U/L Troponin I 0.027 (0.000-0.033) ng/mL NT-Pro-B Natriuret Pep 3650 (<300) pg/mL Serum Total Protein 8.8 H (6.3-8.2) g/dL Albumin 4.5 (3.5-5.0) g/dL Amylase 81 (30-110) U/L Lipase 71 (23-300) U/L Urine Color (Yellow) Urine Appearance (Clear) Urine pH (4.6-8.0) Ur Specific [place] (1.005-1.030) Urine Protein (Negative) Urine Glucose (UA) (Negative) mg/dL Urine Ketones (Negative) Urine Blood (Negative) Urine Nitrite (Negative) Urine Bilirubin (Negative) Urine Urobilinogen (0.2) mg/dL Ur Leukocyte Esterase (Negative) U Hyaline Cast (Auto) (0-2) /LPF Urine Microscopic RBC (0-5) /HPF Urine Microscopic WBC (0-5) /HPF Ur Epithelial Cells (None Seen) /HPF Urine Bacteria (None Seen) /HPF Urine Culture Reflexed (NO) Urine Opiates Level (NEGATIVE) Ur Methadone (NEGATIVE) Urine Barbiturates (NEGATIVE) Ur Phencyclidine (PCP) (NEGATIVE) Urine Amphetamine (NEGATIVE) U Benzodiazepine Level (NEGATIVE) Urine Cocaine (NEGATIVE) Urine Marijuana (THC) (NEGATIVE) Influenza Type A Ag (NEGATIVE) Influenza Type B Ag (NEGATIVE) RSV (PCR) (NEGATIVE) SARS-CoV-2 (PCR) (NEGATIVE) 09/06/23 09/06/23 09/06/23 Range/Units 13:15 14:39 14:39 WBC (4.23-9.07) x10^3/uL RBC (4.63-6.08) x10^6/uL Hgb (13.7-17.5) g/dL Hct (40.1-51.0) % MCV (79.0-92.2) fL MCH (25.7-32.2) pg MCHC (32.3-36.5) g/dL RDW (11.6-14.4) % Plt Count (163-337) x10^3/uL MPV (9.4-12.4) fL Gran % (34.0-67.9) % Immature Gran % (Auto) (0.001-0.429) % Nucleat RBC Rel Count (0.00-0.2) % Eos # (Auto) (0.04-0.54) x10^3/uL Immature Gran # (Auto) (0.001-0.031) x10^3u/L Absolute Lymphs (auto) (1.32-3.57) x10^3/uL Absolute Monos (auto) (0.30-0.82) x10^3/uL Absolute Nucleated RBC (0.00-0.012) x10^3u/L Lymphocytes % (21.8-53.1) % Monocytes % (5.3-12.2) % Eosinophils % (0.8-7.0) % Basophils % (0.2-1.2) % Absolute Granulocytes (1.78-5.38) x10^3/uL Basophils # (0.01-0.08) x10^3/uL Sodium (135-145) mmol/L Potassium (3.5-5.1) mmol/L Chloride (98-107) mmol/L Carbon Dioxide (22-30) mmol/L Anion Gap (5-15) MEQ/L BUN (9-20) mg/dL Creatinine (0.66-1.25) mg/dL Estimated GFR ML/MIN Glucose (74-106) mg/dL Hemoglobin A1c (4.5-6.0) % Calcium (8.4-10.2) mg/dL Magnesium (1.6-2.3) mg/dL Total Bilirubin (0.2-1.3) mg/dL AST (17-59) U/L ALT (0-50) U/L Alkaline Phosphatase (38-126) U/L Troponin I (0.000-0.033) ng/mL NT-Pro-B Natriuret Pep (<300) pg/mL Serum Total Protein (6.3-8.2) g/dL Albumin (3.5-5.0) g/dL Amylase (30-110) U/L Lipase (23-300) U/L Urine Color Dark Yellow (Yellow) Urine Appearance Clear (Clear) Urine pH 6.5 (4.6-8.0) Ur Specific [place] 1.020 (1.005-1.030) Urine Protein 30 (Negative) Urine Glucose (UA) Negative (Negative) mg/dL Urine Ketones Trace A (Negative) Urine Blood NHT (Negative) Urine Nitrite Negative (Negative) Urine Bilirubin Negative (Negative) Urine Urobilinogen 1.0 A (0.2) mg/dL Ur Leukocyte Esterase Negative (Negative) U Hyaline Cast (Auto) 3-5 A (0-2) /LPF Urine Microscopic RBC 3-5 (0-5) /HPF Urine Microscopic WBC 0-2 (0-5) /HPF Ur Epithelial Cells None Seen (None Seen) /HPF Urine Bacteria None Seen (None Seen) /HPF Urine Culture Reflexed NO (NO) Urine Opiates Level NEGATIVE (NEGATIVE) Ur Methadone NEGATIVE (NEGATIVE) Urine Barbiturates NEGATIVE (NEGATIVE) Ur Phencyclidine (PCP) NEGATIVE (NEGATIVE) Urine Amphetamine NEGATIVE (NEGATIVE) U Benzodiazepine Level NEGATIVE (NEGATIVE) Urine Cocaine NEGATIVE (NEGATIVE) Urine Marijuana (THC) POSITIVE A (NEGATIVE) Influenza Type A Ag NEGATIVE (NEGATIVE) Influenza Type B Ag NEGATIVE (NEGATIVE) RSV (PCR) NEGATIVE (NEGATIVE) SARS-CoV-2 (PCR) NEGATIVE (NEGATIVE) 09/06/23 09/06/23 09/06/23 Range/Units 16:30 18:35 Unknown WBC (4.23-9.07) x10^3/uL RBC (4.63-6.08) x10^6/uL Hgb (13.7-17.5) g/dL Hct (40.1-51.0) % MCV (79.0-92.2) fL MCH (25.7-32.2) pg MCHC (32.3-36.5) g/dL RDW (11.6-14.4) % Plt Count (163-337) x10^3/uL MPV (9.4-12.4) fL Gran % (34.0-67.9) % Immature Gran % (Auto) (0.001-0.429) % Nucleat RBC Rel Count (0.00-0.2) % Eos # (Auto) (0.04-0.54) x10^3/uL Immature Gran # (Auto) (0.001-0.031) x10^3u/L Absolute Lymphs (auto) (1.32-3.57) x10^3/uL Absolute Monos (auto) (0.30-0.82) x10^3/uL Absolute Nucleated RBC (0.00-0.012) x10^3u/L Lymphocytes % (21.8-53.1) % Monocytes % (5.3-12.2) % Eosinophils % (0.8-7.0) % Basophils % (0.2-1.2) % Absolute Granulocytes (1.78-5.38) x10^3/uL Basophils # (0.01-0.08) x10^3/uL Sodium (135-145) mmol/L Potassium (3.5-5.1) mmol/L Chloride (98-107) mmol/L Carbon Dioxide (22-30) mmol/L Anion Gap (5-15) MEQ/L BUN (9-20) mg/dL Creatinine (0.66-1.25) mg/dL Estimated GFR ML/MIN Glucose (74-106) mg/dL Hemoglobin A1c 5.38 (4.5-6.0) % Calcium (8.4-10.2) mg/dL Magnesium 2.0 (1.6-2.3) mg/dL Total Bilirubin (0.2-1.3) mg/dL AST (17-59) U/L ALT (0-50) U/L Alkaline Phosphatase (38-126) U/L Troponin I 0.019 (0.000-0.033) ng/mL NT-Pro-B Natriuret Pep (<300) pg/mL Serum Total Protein (6.3-8.2) g/dL Albumin (3.5-5.0) g/dL Amylase (30-110) U/L Lipase (23-300) U/L Urine Color (Yellow) Urine Appearance (Clear) Urine pH (4.6-8.0) Ur Specific [place] (1.005-1.030) Urine Protein (Negative) Urine Glucose (UA) (Negative) mg/dL Urine Ketones (Negative) Urine Blood (Negative) Urine Nitrite (Negative) Urine Bilirubin (Negative) Urine Urobilinogen (0.2) mg/dL Ur Leukocyte Esterase (Negative) U Hyaline Cast (Auto) (0-2) /LPF Urine Microscopic RBC (0-5) /HPF Urine Microscopic WBC (0-5) /HPF Ur Epithelial Cells (None Seen) /HPF Urine Bacteria (None Seen) /HPF Urine Culture Reflexed (NO) Urine Opiates Level (NEGATIVE) Ur Methadone (NEGATIVE) Urine Barbiturates (NEGATIVE) Ur Phencyclidine (PCP) (NEGATIVE) Urine Amphetamine (NEGATIVE) U Benzodiazepine Level (NEGATIVE) Urine Cocaine (NEGATIVE) Urine Marijuana (THC) (NEGATIVE) Influenza Type A Ag (NEGATIVE) Influenza Type B Ag (NEGATIVE) RSV (PCR) (NEGATIVE) SARS-CoV-2 (PCR) (NEGATIVE) - Radiology Impressions Radiology Exams & Impressions: Radiology Procedures Category Date Time Status CHEST 1 VIEW (PORTABLE) Stat Exams 09/06/23 13:07 Completed CHEST WITH CONTRAST [CT] Stat Exams 09/06/23 14:20 Completed ECHO W/2D AND DOPPLER [US] Routine Exams 09/06/23 18:35 Ordered - Other Procedures and Tests Respiratory Therapy 09/06/23 17:35 Oxygen NASAL CANNULA 2 lpm 07/10/24 18:35 EKG REPEAT IN AM Telemedicine Encounter - Telemedicine Encounter Telemedicine Encounter: "The entirety of this encounter was performed via Telemedicine" This visit was performed using real-time audio and video connection between my location and thepatients locationwith the assistance of a surrogateat the patients location. Written or verbal consent was obtained from the patient/guardian to perform this visit usingnchrHitatelemedicine technology . Any patient questions regarding the telemedicine interaction were answered. JORDAN Encounter - JORDAN Encounter Attestation JORDAN Encounter Attestation: "IhavepersonallyseenandexaminedKENIA,MIRELLA MENDOZA andhavediscussed pertinent aspects of their care with Masoud Nguyen agree with the history, physical exam (any modifications based on my personal exam will be noted below), assessment, and plan as outlined in original note. Please see immediately below for my summary of findings and additional assessment and plan along with any meaningful corrections/explanations to the Subjective/Objective portions of the JORDAN note will be noted." My portion of the encounter took place via telemedicine. -Patient with acute on chronic CHF, hypertensive urgency, vomiting (likely related to marijuana use). Will start scheduled IV metoprolol for blood pressure control for now, possibly resume oral meds in the morning. IV lasix for CHF exacerbation.
[2023-09-06] MEDS: LOPRESSOR INJECTION IV SCH (18:27)
[2023-09-06] MEDS ORDERED: NON-FORMULARY ITEM (Albuterol Sulfate [Proair Respiclick] 90 MCG Aer.Pow.Ba) IH PRN (18:31)
[2023-09-06] MEDS ORDERED: Compazine 10 MG/2 ML IM PRN (18:35)
[2023-09-06] MEDS ORDERED: HUMALOG SQ PRN (18:35)
[2023-09-06] MEDS ORDERED: TYLENOL 325 MG PO PRN (18:35)
[2023-09-06] MEDS: APRESOLINE 20 MG/ML INJ IV PRN (19:42)
[2023-09-06] MEDS: Lasix 40 MG/4 ML IV SCH (19:46)
[2023-09-06] MEDS ORDERED: Compazine 10 MG/2 ML ONE (20:07)
[2023-09-06] MEDS: Neurontin PO PRN (20:11)
[2023-09-06] MEDS: Compazine 10 MG/2 ML IV PRN (20:23)
[2023-09-06] MEDS: NICODERM CQ 14 MG TOP SCH (20:59)
[2023-09-06] MEDS: Ambien 5 MG Tablet PO PRN (22:27)
[2023-09-06] MEDS: Flomax 0.4 MG PO SCH (22:27)
[2023-09-07] MEDS: VENTOLIN COMMON CANISTER IH PRN (04:02)
--- NOTE | 2023-09-07 05:19 | PCM.NOTE ---
Date and Time: 09/07/23 0518 Subjective Assessment: is a 67 year old male with history of COPD (not on home oxygen), coronary artery disease (CABG 03/22), [place], Stroke, CKD, anxiety, chronic THC use, DM, and congestive heart failure who presented to the hospital 09/06/23 with complaints of vomiting and progressive shortness of breath. Patient states he has chronic vomiting for several years now. He has been told in the past this may be cannabinoid hyperemesis syndrome. Currently he states he ate chicken two nights ago and has been vomiting since. He has been unable to tolerate a diet or take medications.Upon arrival to ED, patient tachypneic and hypertensive with BP elevated at 197/93. EKG per ED physician read with no ST elevations - LBBB, no obvious ischemia. CT chest demonstrates new borderline cardiomegaly with CABG surgery, diffuse pulmonary edema, and tiny bilateral effusions. Rule out mild cardiac composition/CHF versus fluid overload. Lab findings remarkable for leukocytosis most likely reactive with vomiting at 12.0, normocytic anemia with hgb at 11.6, Co2 at 20, GAP at 17.1, BUN 21, creat at 1.53 (baseline around 1.6), total prot at 8.8, and BNP at 3650. Patient given droperidol, lasix, zofran, protonix, and benadryl in ED. Admit for CHF exacerbation/COPD exacerbation. Cardiology consulted with recs to "change his home daily metoprolol tartrate to metoprolol succinate and increase dose to 50 mg daily. Add valsartan 160 mg daily. Will need BMP in one week." Additionally, no CHF by exam/ lasix discontinued, can continue home lasix on discharge. Echo results pending. 09/07/23: Met with patient bedside. No further episodes of nausea or vomiting since admission. Dyspnea improved- patient now at baseline RA. No edema noted on exam. Discussed case with cardiology - plan for changing his home metoprolol tartate to succinate and increase dosing to 50mg daily. Will also add valsartan 160mg daily. Advised follow up in one week with cardiology -Yu with BMP. Cleared from cardiology standpoint pending echo, most likely will discharge tomorrow. Denies fever,cough, sob, cp, abdominal pain, GALLARDO, dizziness, N/V/D. - Review of Systems Constitutional: No Symptoms Eyes: No Symptoms Ears, Nose, & Throat: No Symptoms Respiratory: No Symptoms Cardiac: No Symptoms Abdominal/Gastrointestinal: No Symptoms Genitourinary Symptoms: No Symptoms Musculoskeletal: No Symptoms Skin: No Symptoms Neurological: No Symptoms Psychological: No Symptoms Endocrine: No Symptoms Hematologic/Lymphatic: No Symptoms Immunological/Allergic: No Symptoms All Other Systems: Reviewed and Negative Objective Exam General Appearance: no apparent distress Neurologic Exam: alert, oriented x 3, cooperative Skin Exam: normal color Eye Exam: PERRL Ears, Nose, Throat Exam: normal ENT inspection Neck Exam: normal inspection Respiratory Exam: diminished breath sounds Cardiovascular Exam: regular rate/rhythm, normal heart sounds Gastrointestinal/Abdomen Exam: soft, normal bowel sounds Extremity Exam: normal inspection Back Exam: normal inspection Male Genitalia Exam: deferred Rectal Exam: deferred Objective Data Vital Signs: Vital Signs - 24 hr Temp Pulse Resp BP BP Pulse Ox 09/07/23 04:06 87 16 91 L 09/07/23 00:00 98.5 F 87 17 176/93 93 L 09/06/23 20:37 95 09/06/23 20:00 97.8 F 77 16 183/109 93 L 09/06/23 18:28 81 208/99 09/06/23 17:36 93 H 20 96 09/06/23 17:30 97.1 F 90 30 H 218/98 94 L 09/06/23 17:24 95 09/06/23 17:00 86 22 193/125 97 09/06/23 16:51 90 23 171/83 97 09/06/23 16:40 198/114 95 09/06/23 16:30 78 19 194/111 96 09/06/23 16:20 83 25 H 193/102 09/06/23 16:19 81 24 194/108 91 L 09/06/23 15:40 77 16 194/110 95 09/06/23 15:30 81 20 98 09/06/23 15:26 98 09/06/23 15:10 199/114 09/06/23 15:01 191/99 97 09/06/23 14:50 191/100 96 09/06/23 14:41 185/96 94 L 09/06/23 14:30 191/101 96 09/06/23 14:20 186/93 96 09/06/23 14:11 188/94 91 L 09/06/23 14:00 186/99 95 09/06/23 13:50 186/101 96 09/06/23 13:40 76 186/98 94 L 09/06/23 13:31 77 189/92 93 L 09/06/23 13:11 97.2 F 79 28 H 197/93 100 09/06/23 13:02 24 100 Pain Assessment - Last Documented Pain Intensity 3 Intake and Output: Intake & Output 09/04/23 09/05/23 09/06/23 09/07/23 11:59 11:59 11:59 11:59 Intake Total 480 Output Total 300 Balance 180 Weight 82.1 kg Lab Results: Lab Results-Last 24 Hours 09/06/23 09/06/23 09/06/23 Range/Units 13:15 13:15 13:15 WBC 12.0 H (4.23-9.07) x10^3/uL RBC 4.30 L (4.63-6.08) x10^6/uL Hgb 11.6 L (13.7-17.5) g/dL Hct 35.5 L (40.1-51.0) % MCV 82.6 (79.0-92.2) fL MCH 27.0 (25.7-32.2) pg MCHC 32.7 (32.3-36.5) g/dL RDW 16.3 H (11.6-14.4) % Plt Count 339 H (163-337) x10^3/uL MPV 8.8 L (9.4-12.4) fL Gran % 49.0 (34.0-67.9) % Immature Gran % (Auto) 0.4 (0.001-0.429) % Nucleat RBC Rel Count 0.0 (0.00-0.2) % Eos # (Auto) 0.34 (0.04-0.54) x10^3/uL Immature Gran # (Auto) 0.05 H (0.001-0.031) x10^3u/L Absolute Lymphs (auto) 4.55 H (1.32-3.57) x10^3/uL Absolute Monos (auto) 1.16 H (0.30-0.82) x10^3/uL Absolute Nucleated RBC 0.00 (0.00-0.012) x10^3u/L Lymphocytes % 37.8 (21.8-53.1) % Monocytes % 9.6 (5.3-12.2) % Eosinophils % 2.8 (0.8-7.0) % Basophils % 0.4 (0.2-1.2) % Absolute Granulocytes 5.89 H (1.78-5.38) x10^3/uL Basophils # 0.05 (0.01-0.08) x10^3/uL Sodium 140 (135-145) mmol/L Potassium 4.2 (3.5-5.1) mmol/L Chloride 107 (98-107) mmol/L Carbon Dioxide 20 L (22-30) mmol/L Anion Gap 17.1 H (5-15) MEQ/L BUN 21 H (9-20) mg/dL Creatinine 1.53 H (0.66-1.25) mg/dL Estimated GFR 49.2 ML/MIN Glucose 127 H (74-106) mg/dL POC Glucometer (74 to 106) mg/dL Hemoglobin A1c (4.5-6.0) % Calcium 10.2 (8.4-10.2) mg/dL Magnesium (1.6-2.3) mg/dL Total Bilirubin 0.70 (0.2-1.3) mg/dL AST 30 (17-59) U/L ALT 26 (0-50) U/L Alkaline Phosphatase 145 H (38-126) U/L Troponin I 0.027 (0.000-0.033) ng/mL NT-Pro-B Natriuret Pep 3650 (<300) pg/mL Serum Total Protein 8.8 H (6.3-8.2) g/dL Albumin 4.5 (3.5-5.0) g/dL Amylase 81 (30-110) U/L Lipase 71 (23-300) U/L Urine Color (Yellow) Urine Appearance (Clear) Urine pH (4.6-8.0) Ur Specific [place] (1.005-1.030) Urine Protein (Negative) Urine Glucose (UA) (Negative) mg/dL Urine Ketones (Negative) Urine Blood (Negative) Urine Nitrite (Negative) Urine Bilirubin (Negative) Urine Urobilinogen (0.2) mg/dL Ur Leukocyte Esterase (Negative) U Hyaline Cast (Auto) (0-2) /LPF Urine Microscopic RBC (0-5) /HPF Urine Microscopic WBC (0-5) /HPF Ur Epithelial Cells (None Seen) /HPF Urine Bacteria (None Seen) /HPF Urine Culture Reflexed (NO) Urine Opiates Level (NEGATIVE) Ur Methadone (NEGATIVE) Urine Barbiturates (NEGATIVE) Ur Phencyclidine (PCP) (NEGATIVE) Urine Amphetamine (NEGATIVE) U Benzodiazepine Level (NEGATIVE) Urine Cocaine (NEGATIVE) Urine Marijuana (THC) (NEGATIVE) Influenza Type A Ag (NEGATIVE) Influenza Type B Ag (NEGATIVE) RSV (PCR) (NEGATIVE) SARS-CoV-2 (PCR) (NEGATIVE) 09/06/23 09/06/23 09/06/23 Range/Units 13:15 14:39 14:39 WBC (4.23-9.07) x10^3/uL RBC (4.63-6.08) x10^6/uL Hgb (13.7-17.5) g/dL Hct (40.1-51.0) % MCV (79.0-92.2) fL MCH (25.7-32.2) pg MCHC (32.3-36.5) g/dL RDW (11.6-14.4) % Plt Count (163-337) x10^3/uL MPV (9.4-12.4) fL Gran % (34.0-67.9) % Immature Gran % (Auto) (0.001-0.429) % Nucleat RBC Rel Count (0.00-0.2) % Eos # (Auto) (0.04-0.54) x10^3/uL Immature Gran # (Auto) (0.001-0.031) x10^3u/L Absolute Lymphs (auto) (1.32-3.57) x10^3/uL Absolute Monos (auto) (0.30-0.82) x10^3/uL Absolute Nucleated RBC (0.00-0.012) x10^3u/L Lymphocytes % (21.8-53.1) % Monocytes % (5.3-12.2) % Eosinophils % (0.8-7.0) % Basophils % (0.2-1.2) % Absolute Granulocytes (1.78-5.38) x10^3/uL Basophils # (0.01-0.08) x10^3/uL Sodium (135-145) mmol/L Potassium (3.5-5.1) mmol/L Chloride (98-107) mmol/L Carbon Dioxide (22-30) mmol/L Anion Gap (5-15) MEQ/L BUN (9-20) mg/dL Creatinine (0.66-1.25) mg/dL Estimated GFR ML/MIN Glucose (74-106) mg/dL POC Glucometer (74 to 106) mg/dL Hemoglobin A1c (4.5-6.0) % Calcium (8.4-10.2) mg/dL Magnesium (1.6-2.3) mg/dL Total Bilirubin (0.2-1.3) mg/dL AST (17-59) U/L ALT (0-50) U/L Alkaline Phosphatase (38-126) U/L Troponin I (0.000-0.033) ng/mL NT-Pro-B Natriuret Pep (<300) pg/mL Serum Total Protein (6.3-8.2) g/dL Albumin (3.5-5.0) g/dL Amylase (30-110) U/L Lipase (23-300) U/L Urine Color Dark Yellow (Yellow) Urine Appearance Clear (Clear) Urine pH 6.5 (4.6-8.0) Ur Specific [place] 1.020 (1.005-1.030) Urine Protein 30 (Negative) Urine Glucose (UA) Negative (Negative) mg/dL Urine Ketones Trace A (Negative) Urine Blood NHT (Negative) Urine Nitrite Negative (Negative) Urine Bilirubin Negative (Negative) Urine Urobilinogen 1.0 A (0.2) mg/dL Ur Leukocyte Esterase Negative (Negative) U Hyaline Cast (Auto) 3-5 A (0-2) /LPF Urine Microscopic RBC 3-5 (0-5) /HPF Urine Microscopic WBC 0-2 (0-5) /HPF Ur Epithelial Cells None Seen (None Seen) /HPF Urine Bacteria None Seen (None Seen) /HPF Urine Culture Reflexed NO (NO) Urine Opiates Level NEGATIVE (NEGATIVE) Ur Methadone NEGATIVE (NEGATIVE) Urine Barbiturates NEGATIVE (NEGATIVE) Ur Phencyclidine (PCP) NEGATIVE (NEGATIVE) Urine Amphetamine NEGATIVE (NEGATIVE) U Benzodiazepine Level NEGATIVE (NEGATIVE) Urine Cocaine NEGATIVE (NEGATIVE) Urine Marijuana (THC) POSITIVE A (NEGATIVE) Influenza Type A Ag NEGATIVE (NEGATIVE) Influenza Type B Ag NEGATIVE (NEGATIVE) RSV (PCR) NEGATIVE (NEGATIVE) SARS-CoV-2 (PCR) NEGATIVE (NEGATIVE) 09/06/23 09/06/23 09/06/23 Range/Units 16:30 18:35 21:15 WBC (4.23-9.07) x10^3/uL RBC (4.63-6.08) x10^6/uL Hgb (13.7-17.5) g/dL Hct (40.1-51.0) % MCV (79.0-92.2) fL MCH (25.7-32.2) pg MCHC (32.3-36.5) g/dL RDW (11.6-14.4) % Plt Count (163-337) x10^3/uL MPV (9.4-12.4) fL Gran % (34.0-67.9) % Immature Gran % (Auto) (0.001-0.429) % Nucleat RBC Rel Count (0.00-0.2) % Eos # (Auto) (0.04-0.54) x10^3/uL Immature Gran # (Auto) (0.001-0.031) x10^3u/L Absolute Lymphs (auto) (1.32-3.57) x10^3/uL Absolute Monos (auto) (0.30-0.82) x10^3/uL Absolute Nucleated RBC (0.00-0.012) x10^3u/L Lymphocytes % (21.8-53.1) % Monocytes % (5.3-12.2) % Eosinophils % (0.8-7.0) % Basophils % (0.2-1.2) % Absolute Granulocytes (1.78-5.38) x10^3/uL Basophils # (0.01-0.08) x10^3/uL Sodium (135-145) mmol/L Potassium (3.5-5.1) mmol/L Chloride (98-107) mmol/L Carbon Dioxide (22-30) mmol/L Anion Gap (5-15) MEQ/L BUN (9-20) mg/dL Creatinine (0.66-1.25) mg/dL Estimated GFR ML/MIN Glucose (74-106) mg/dL POC Glucometer (74 to 106) mg/dL Hemoglobin A1c (4.5-6.0) % Calcium (8.4-10.2) mg/dL Magnesium 2.0 (1.6-2.3) mg/dL Total Bilirubin (0.2-1.3) mg/dL AST (17-59) U/L ALT (0-50) U/L Alkaline Phosphatase (38-126) U/L Troponin I 0.019 0.048 H* (0.000-0.033) ng/mL NT-Pro-B Natriuret Pep (<300) pg/mL Serum Total Protein (6.3-8.2) g/dL Albumin (3.5-5.0) g/dL Amylase (30-110) U/L Lipase (23-300) U/L Urine Color (Yellow) Urine Appearance (Clear) Urine pH (4.6-8.0) Ur Specific [place] (1.005-1.030) Urine Protein (Negative) Urine Glucose (UA) (Negative) mg/dL Urine Ketones (Negative) Urine Blood (Negative) Urine Nitrite (Negative) Urine Bilirubin (Negative) Urine Urobilinogen (0.2) mg/dL Ur Leukocyte Esterase (Negative) U Hyaline Cast (Auto) (0-2) /LPF Urine Microscopic RBC (0-5) /HPF Urine Microscopic WBC (0-5) /HPF Ur Epithelial Cells (None Seen) /HPF Urine Bacteria (None Seen) /HPF Urine Culture Reflexed (NO) Urine Opiates Level (NEGATIVE) Ur Methadone (NEGATIVE) Urine Barbiturates (NEGATIVE) Ur Phencyclidine (PCP) (NEGATIVE) Urine Amphetamine (NEGATIVE) U Benzodiazepine Level (NEGATIVE) Urine Cocaine (NEGATIVE) Urine Marijuana (THC) (NEGATIVE) Influenza Type A Ag (NEGATIVE) Influenza Type B Ag (NEGATIVE) RSV (PCR) (NEGATIVE) SARS-CoV-2 (PCR) (NEGATIVE) 09/06/23 09/06/23 09/07/23 Range/Units 21:27 Unknown 01:10 WBC (4.23-9.07) x10^3/uL RBC (4.63-6.08) x10^6/uL Hgb (13.7-17.5) g/dL Hct (40.1-51.0) % MCV (79.0-92.2) fL MCH (25.7-32.2) pg MCHC (32.3-36.5) g/dL RDW (11.6-14.4) % Plt Count (163-337) x10^3/uL MPV (9.4-12.4) fL Gran % (34.0-67.9) % Immature Gran % (Auto) (0.001-0.429) % Nucleat RBC Rel Count (0.00-0.2) % Eos # (Auto) (0.04-0.54) x10^3/uL Immature Gran # (Auto) (0.001-0.031) x10^3u/L Absolute Lymphs (auto) (1.32-3.57) x10^3/uL Absolute Monos (auto) (0.30-0.82) x10^3/uL Absolute Nucleated RBC (0.00-0.012) x10^3u/L Lymphocytes % (21.8-53.1) % Monocytes % (5.3-12.2) % Eosinophils % (0.8-7.0) % Basophils % (0.2-1.2) % Absolute Granulocytes (1.78-5.38) x10^3/uL Basophils # (0.01-0.08) x10^3/uL Sodium (135-145) mmol/L Potassium (3.5-5.1) mmol/L Chloride (98-107) mmol/L Carbon Dioxide (22-30) mmol/L Anion Gap (5-15) MEQ/L BUN (9-20) mg/dL Creatinine (0.66-1.25) mg/dL Estimated GFR ML/MIN Glucose (74-106) mg/dL POC Glucometer 180 H (74 to 106) mg/dL Hemoglobin A1c 5.38 (4.5-6.0) % Calcium (8.4-10.2) mg/dL Magnesium (1.6-2.3) mg/dL Total Bilirubin (0.2-1.3) mg/dL AST (17-59) U/L ALT (0-50) U/L Alkaline Phosphatase (38-126) U/L Troponin I 0.073 H* (0.000-0.033) ng/mL NT-Pro-B Natriuret Pep (<300) pg/mL Serum Total Protein (6.3-8.2) g/dL Albumin (3.5-5.0) g/dL Amylase (30-110) U/L Lipase (23-300) U/L Urine Color (Yellow) Urine Appearance (Clear) Urine pH (4.6-8.0) Ur Specific [place] (1.005-1.030) Urine Protein (Negative) Urine Glucose (UA) (Negative) mg/dL Urine Ketones (Negative) Urine Blood (Negative) Urine Nitrite (Negative) Urine Bilirubin (Negative) Urine Urobilinogen (0.2) mg/dL Ur Leukocyte Esterase (Negative) U Hyaline Cast (Auto) (0-2) /LPF Urine Microscopic RBC (0-5) /HPF Urine Microscopic WBC (0-5) /HPF Ur Epithelial Cells (None Seen) /HPF Urine Bacteria (None Seen) /HPF Urine Culture Reflexed (NO) Urine Opiates Level (NEGATIVE) Ur Methadone (NEGATIVE) Urine Barbiturates (NEGATIVE) Ur Phencyclidine (PCP) (NEGATIVE) Urine Amphetamine (NEGATIVE) U Benzodiazepine Level (NEGATIVE) Urine Cocaine (NEGATIVE) Urine Marijuana (THC) (NEGATIVE) Influenza Type A Ag (NEGATIVE) Influenza Type B Ag (NEGATIVE) RSV (PCR) (NEGATIVE) SARS-CoV-2 (PCR) (NEGATIVE) 09/07/23 Range/Units 05:11 WBC (4.23-9.07) x10^3/uL RBC (4.63-6.08) x10^6/uL Hgb (13.7-17.5) g/dL Hct (40.1-51.0) % MCV (79.0-92.2) fL MCH (25.7-32.2) pg MCHC (32.3-36.5) g/dL RDW (11.6-14.4) % Plt Count (163-337) x10^3/uL MPV (9.4-12.4) fL Gran % (34.0-67.9) % Immature Gran % (Auto) (0.001-0.429) % Nucleat RBC Rel Count (0.00-0.2) % Eos # (Auto) (0.04-0.54) x10^3/uL Immature Gran # (Auto) (0.001-0.031) x10^3u/L Absolute Lymphs (auto) (1.32-3.57) x10^3/uL Absolute Monos (auto) (0.30-0.82) x10^3/uL Absolute Nucleated RBC (0.00-0.012) x10^3u/L Lymphocytes % (21.8-53.1) % Monocytes % (5.3-12.2) % Eosinophils % (0.8-7.0) % Basophils % (0.2-1.2) % Absolute Granulocytes (1.78-5.38) x10^3/uL Basophils # (0.01-0.08) x10^3/uL Sodium (135-145) mmol/L Potassium (3.5-5.1) mmol/L Chloride (98-107) mmol/L Carbon Dioxide (22-30) mmol/L Anion Gap (5-15) MEQ/L BUN (9-20) mg/dL Creatinine (0.66-1.25) mg/dL Estimated GFR ML/MIN Glucose (74-106) mg/dL POC Glucometer 152 H (74 to 106) mg/dL Hemoglobin A1c (4.5-6.0) % Calcium (8.4-10.2) mg/dL Magnesium (1.6-2.3) mg/dL Total Bilirubin (0.2-1.3) mg/dL AST (17-59) U/L ALT (0-50) U/L Alkaline Phosphatase (38-126) U/L Troponin I (0.000-0.033) ng/mL NT-Pro-B Natriuret Pep (<300) pg/mL Serum Total Protein (6.3-8.2) g/dL Albumin (3.5-5.0) g/dL Amylase (30-110) U/L Lipase (23-300) U/L Urine Color (Yellow) Urine Appearance (Clear) Urine pH (4.6-8.0) Ur Specific [place] (1.005-1.030) Urine Protein (Negative) Urine Glucose (UA) (Negative) mg/dL Urine Ketones (Negative) Urine Blood (Negative) Urine Nitrite (Negative) Urine Bilirubin (Negative) Urine Urobilinogen (0.2) mg/dL Ur Leukocyte Esterase (Negative) U Hyaline Cast (Auto) (0-2) /LPF Urine Microscopic RBC (0-5) /HPF Urine Microscopic WBC (0-5) /HPF Ur Epithelial Cells (None Seen) /HPF Urine Bacteria (None Seen) /HPF Urine Culture Reflexed (NO) Urine Opiates Level (NEGATIVE) Ur Methadone (NEGATIVE) Urine Barbiturates (NEGATIVE) Ur Phencyclidine (PCP) (NEGATIVE) Urine Amphetamine (NEGATIVE) U Benzodiazepine Level (NEGATIVE) Urine Cocaine (NEGATIVE) Urine Marijuana (THC) (NEGATIVE) Influenza Type A Ag (NEGATIVE) Influenza Type B Ag (NEGATIVE) RSV (PCR) (NEGATIVE) SARS-CoV-2 (PCR) (NEGATIVE) Radiology Exams: Radiology Procedures Category Date Time Status CHEST 1 VIEW (PORTABLE) Stat Exams 09/06/23 13:07 Completed CHEST WITH CONTRAST [CT] Stat Exams 09/06/23 14:20 Completed ECHO W/2D AND DOPPLER [US] Routine Exams 09/06/23 18:35 Ordered Assessment/Plan (1) Acute CHF Current Visit: Yes Status: Acute Assessment & Plan: -Most recent echo reviewed from 11/14/22 - follows with Dr. Nicholas EF 45-50% IMPRESSION: 1) MILD LEFT VENTRICULAR HYPOKINESIA. EJECTION FRACTION BETWEEN 45 TO 50%. 2) MODERATE-SEVERE AORTIC REGURGITATION. 3) AORTIC VALVE STENOSIS WITH A PEAK TRANSAORTIC GRADIENT OF 29 MM OF MERCURY AND MEAN GRADIENT OF 18 MM OF MERCURY. 4) MILD TO MODERATE MITRAL REGURGITATION. -recent CABG 03/22 -repeat echo -BNP at 3650 -supplemental oxygen with goal spo2 > 92% -Start lasix 40mg IV BID -Strict I&O/elevated HOB/daily weights -CT showing new borderline cardiomegaly with CABG surgery, diffuse pulmonary edema, and tiny bilateral effusions. Rule out mild cardiac composition/CHF versus -Optimize electrolytes K>4, mg>2 09/06: -echo pending -no edema on exam - discontinue lasix per cardiology recs -cardiology note reviewed, -change metoprolol tartate to succinate and increase dosing to 50mg daily. Will also add valsartan 160mg daily. Advised follow up in one week with cardiology -Yu with BMP. Cleared from cardiology standpoint pending echo, most likely will discharge tomorrow. Code(s): I50.9 - HEART FAILURE, UNSPECIFIED (2) Hypertensive urgency Current Visit: Yes Status: Acute Assessment & Plan: -Most likely secondary to not being able to take home medications -Received Lasix 60mg in ED -troponins negative x 1 -EKG with no acute findings -continue to monitor -tele -hydralazine prn for sbp >180 DBP > 100 -metoprolol 5mg q6h scheduled -resume home meds when able to tolerate 09/06: -Agree with above cardiology plan with med changes and adding valsartan -BP improved since admission Code(s): I16.0 - HYPERTENSIVE URGENCY (3) Vomiting Current Visit: Yes Status: Acute Assessment & Plan: -? cannoboid hyperemesis syndrome -compazine/zofran prn 09/06: -resolved Code(s): R11.10 - VOMITING, UNSPECIFIED (4) CKD (chronic kidney disease) Current Visit: Yes Status: Acute Assessment & Plan: -at baseline -Avoid NELSY/ARB/NSAIDS -monitor renal/lytes - patient did receive contrast in ED -monitor closely with use of lasix as well Code(s): N18.9 - CHRONIC KIDNEY DISEASE, UNSPECIFIED (5) Leukocytosis Current Visit: Yes Status: Acute Assessment & Plan: -Most likely reactive with vomiting -UA negative -CXR with no pulmonary process -Continue to monitor 09/06: -Resolved Code(s): D72.829 - ELEVATED WHITE BLOOD CELL COUNT, UNSPECIFIED (6) CAD (coronary artery disease) Current Visit: Yes Status: Acute Assessment & Plan: -Follows with [facility] -S/p CABG February of 2023 -resume home meds when able -metoprolol 5mg q6h 09/06: -see CHF for plan Code(s): I25.10 - ATHSCL HEART DISEASE OF [place] CORONARY ARTERY W/O ANG PCTRS (7) COPD with exacerbation Current Visit: No Status: Acute Assessment & Plan: -RT eval -Neb/INH, supplemental oxygen with goal spo2 > 90% -ABG if significant hypoxia/lethargy/confusion -consider pulm consult if no improvement -CT chest as stated above Code(s): J44.1 - CHRONIC OBSTRUCTIVE PULMONARY DISEASE W (ACUTE) EXACERBATION (8) Anxiety Current Visit: No Status: Acute Assessment & Plan: -continue home meds when able VTE: plavix/asa PPI: protonix Dispo: 2-3 days Code(s): I50.9 - HEART FAILURE, UNSPECIFIED (2) Hypertensive urgency Current Visit: Yes Status: Acute Code(s): I16.0 - HYPERTENSIVE URGENCY (3) Vomiting Current Visit: Yes Status: Acute Code(s): R11.10 - VOMITING, UNSPECIFIED (4) CKD (chronic kidney disease) Current Visit: Yes Status: Acute Code(s): N18.9 - CHRONIC KIDNEY DISEASE, UNSPECIFIED (5) Leukocytosis Current Visit: Yes Status: Acute Code(s): D72.829 - ELEVATED WHITE BLOOD CELL COUNT, UNSPECIFIED (6) CAD (coronary artery disease) Current Visit: Yes Status: Chronic Qualifiers: Coronary Disease-Associated Artery/Lesion type: bypass graft, autologous artery Associated angina: without angina Qualified Code(s): I25.810 - Atherosclerosis of coronary artery bypass graft(s) without angina pectoris Code(s): I25.10 - ATHSCL HEART DISEASE OF [place] CORONARY ARTERY W/O ANG PCTRS (7) COPD with exacerbation Current Visit: No Status: Acute Code(s): J44.1 - CHRONIC OBSTRUCTIVE PULMONARY DISEASE W (ACUTE) EXACERBATION (8) Anxiety Current Visit: No Status: Acute Code(s): F41.9 - ANXIETY DISORDER, UNSPECIFIED (9) Elevated troponin Current Visit: Yes Status: Acute Code(s): R79.89 - OTHER SPECIFIED ABNORMAL FINDINGS OF BLOOD CHEMISTRY
[2023-09-07 05:27] LABS: Absolute Neutrophil Ct (ANC) 7.14 x10^3/uL (1.78-5.38); BASOPHIL % 0.1 % (0.2-1.2); Basophil (Absolute #) 0.01 x10^3/uL (0.01-0.08); Eosinophil (Absolute #) 0 x10^3/uL (0.04-0.54); Hematocrit 32.6 % (40.1-51.0); Hemoglobin 10.5 g/dL (13.7-17.5); IMMATURE GRAN # 0.03 x10^3u/L (0.001-0.031); IMMATURE GRAN % 0.4 % (0.001-0.429); Lymphocyte (Absolute #) 0.71 x10^3/uL (1.32-3.57); Lymphocytes % 8.5 % (21.8-53.1); Mean Cell Volume 82.7 fL (79.0-92.2); Mean Corpuscular Hemoglobin 26.6 pg (25.7-32.2); Mean Corpuscular Hgb Concent. 32.2 g/dL (32.3-36.5); Mean Platelet Volume 8.9 fL (9.4-12.4); Monocyte (Absolute #) 0.42 x10^3/uL (0.30-0.82); Monocytes % 5.1 % (5.3-12.2); Neutrophil % 85.9 % (34.0-67.9); Platelet Count 254 x10^3/uL (163-337); Red Blood Count 3.94 x10^6/uL (4.63-6.08); Red Cell Distribution Width 16.1 % (11.6-14.4); White Blood Count 8.3 x10^3/uL (4.23-9.07)
[2023-09-07 05:48] LABS: ALBUMIN 4.1 g/dL (3.5-5.0); ANION GAP 12.5 MEQ/L (5-15); BILIRUBIN,TOTAL 0.8 mg/dL (0.2-1.3); Calcium 9.3 mg/dL (8.4-10.2); Creatinine 1 1.66 mg/dL (0.66-1.25); EST GLOMERULAR FILTRATION RATE 44.6 ML/MIN; MAGNESIUM 1.7 mg/dL (1.6-2.3); Potassium 3.7 mmol/L (3.5-5.1); Total Protein 7.9 g/dL (6.3-8.2)
[2023-09-07] MEDS: Zofran 4 MG/2 ML VIAL IV PRN (09:11)
[2023-09-07] MEDS: ECOTRIN 81 MG PO SCH (09:43)
[2023-09-07] MEDS: Sinemet 25/100 MG PO SCH (09:43)
[2023-09-07] MEDS: PRISTIQ ER PO SCH (09:43)
[2023-09-07] MEDS: Klor Con PO SCH (09:43)
[2023-09-07] MEDS: Protonix 40MG Tablet PO SCH (09:44)
[2023-09-07] MEDS: Lasix 40 MG/4 ML IV SCH (09:44)
[2023-09-07] MEDS: Proscar 5 MG PO SCH (09:45)
[2023-09-07] MEDS: PLAVIX Tablet PO SCH (09:45)
[2023-09-07] MEDS: AMITRIPTYLINE 25 MG TABLET PO SCH (09:45)
[2023-09-07] MEDS ORDERED: NON-FORMULARY ITEM (Carbidopa/Levodopa [Carbidopa-Levo 25-100 Mg Odt] 1 EACH Tab.Rapdis) PO SCH (10:00)
[2023-09-07] MEDS ORDERED: NON-FORMULARY ITEM (Atorvastatin Calcium [Atorvastatin Calcium] 10 MG Tablet) PO SCH (10:00)
--- NOTE | 2023-09-07 10:47 | PCM.CONS ---
History of Present Illness - Date of Consult Date of Encounter: 09/07/23 Consulting Range Scientist: ALBARO GILL MD Requesting Provider: Attending Provider: BELEM ECHEVERRIA MD Primary Care Provider: PCP: SAMANTHA GRIFFITH Consent was: Given for this tele-med encounter - Consult Narrative Reason for Consult: CHF, elevated troponin-I HPI: Patient is a 68M who denies fevers, chills, nausea, vomiting, diarrhea, syncope, presyncope, dysphagia,odynophagia, orthopnea, paroxysmal nocturnal dyspnea, shortness of breath, chest pain, refluxsymptoms, belly pain, dysuria, hematuria, melena, hematochezia, seizures, paralysis, or other neurological changes. All other systems have been reviewed and are negative. cc:: The requesting physician will be sent a copy of the consult. - Past Medical History Past Medical History: Yes Neurological History: Stroke, Other ENT History: Cataracts Cardiac History: Coronary Artery Disease, Deep Vein Thrombosis, High Cholesterol, Hypertension, Myocardial Infarction ([place]) Respiratory History: COPD Endocrine Medical History: Adrenal Insufficiency, Diabetes Type II, Other Musculoskelatal History: Osteoarthritis GI Medical History: No Pertinent History History: No Pertinent History Pyscho-Social History: Anxiety, Bipolar, Depression Male Reproductive Disorders: No Pertinent History Comment: Blood clots, skin cancer,melanoma 2 years ago - Past Surgical History Past Surgical History: Yes Neuro Surgical History: No Pertinent History Cardiac History: Cardiac Catheterization, Cardiac Stent, Vascular Surgery Respiratory Surgery: No Pertinent History GI Surgical History: No Pertinent History Genitourinary Surgical Hx: No Pertinent History Musculskeletal Surgical Hx: Orthopedic Surgery Male Surgical History: No Pertinent History Other Surgical History: R hand and R leg surgeries, skin cancers removed Significant Family History: no pertinent family hx - Social History Smoking Status: Former smoker How long have you smoked: age 15 Exposure to second hand smoke: Yes Alcohol: None Drug Use: marijuana - Social Determinants of Health Will the patient participate in the screening: Yes Do you worry about a steady place to live?: No Do you have any problems with any of the following?: No known problems In the past 12 months,have you had to go without utilities?: No Have you or anyone in your house had to go without enough: No Transportation Issues: Yes Has anyone in your support network made you feel unsafe?: No Does the patient want assistance with any of the above?: No Medications & Allergies Home Medications: Home Medication List Furosemide 20 mg [Lasix 20 mg] 20 mg PO DAILY 10/29/19 [History Confirmed 09/06/23] Metoprolol Tartrate 25 mg PO DAILY 10/29/19 [History Confirmed 09/06/23] Clopidogrel Bisulfate [PLAVIX Tablet] 75 mg PO DAILY 03/11/21 [History Confirmed 09/06/23] Amitriptyline HCl 25 mg [Amitriptyline 25 mg Tablet] 25 mg PO DAILY 11/28/22 [History Confirmed 09/06/23] Carbidopa/Levodopa [Carbidopa-Levo 25-100 mg Odt] 1 tab PO DAILY 11/28/22 [History Confirmed 09/06/23] Desvenlafaxine Succinate [Desvenlafaxine Succinate ER] 50 mg PO DAILY 11/28/22 [History Confirmed 09/06/23] Albuterol Sulfate [Proair Respiclick] 2 puffs IH QID PRN PRN 09/06/23 [History Confirmed 09/06/23] Aspirin EC 81 mg [Ecotrin 81 mg] 81 mg PO DAILY 09/06/23 [History Confirmed 09/06/23] Atorvastatin Calcium 10 mg PO DAILY 09/06/23 [History Confirmed 09/06/23] Finasteride 5 mg [Proscar 5 MG] 5 mg PO DAILY 09/06/23 [History Confirmed 09/06/23] Gabapentin 100 mg PO TID PRN PRN 09/06/23 [History Confirmed 09/06/23] Nicotine [Nicotine Patch 7Mg] 7 mg TOP DAILY 09/06/23 [History Confirmed 09/06/23] PANTOPRAZOLE 40 mg Tablet [Protonix 40MG Tablet] 40 mg PO DAILY 09/06/23 [History Confirmed 09/06/23] Prochlorperazine Maleate 5 mg* [Compazine 5 MG] 5 mg PO Q4H PRN PRN 09/06/23 [History Confirmed 09/06/23] Tamsulosin HCl 0.4 mg [Flomax 0.4 MG] 0.4 mg PO HS 09/06/23 [History Confirmed 09/06/23] Allergies/Adverse Reactions: Allergies Allergy/AdvReac Type Severity Reaction Status Date / Time hydrocodone bitartrate Allergy Mild Verified 09/06/23 17:30 [From Vicodin] morphine Allergy Mild Verified 09/06/23 17:30 oxycodone [From OxyContin] Allergy Verified 09/06/23 17:30 Exam - Vitals Vital Signs: Vital Signs - 24 hr Temp Pulse Resp BP BP Pulse Ox 09/07/23 07:21 98.0 F 79 16 162/79 95 09/07/23 07:17 74 18 93 L 09/07/23 04:06 87 16 91 L 09/07/23 04:00 98.5 F 82 16 172/90 94 L 09/07/23 00:00 98.5 F 87 17 176/93 93 L 09/06/23 20:37 95 09/06/23 20:00 97.8 F 77 16 183/109 93 L 09/06/23 18:28 81 208/99 09/06/23 17:36 93 H 20 96 09/06/23 17:30 97.1 F 90 30 H 218/98 94 L 09/06/23 17:24 95 09/06/23 17:00 86 22 193/125 97 09/06/23 16:51 90 23 171/83 97 09/06/23 16:40 198/114 95 09/06/23 16:30 78 19 194/111 96 09/06/23 16:20 83 25 H 193/102 09/06/23 16:19 81 24 194/108 91 L 09/06/23 15:40 77 16 194/110 95 09/06/23 15:30 81 20 98 09/06/23 15:26 98 09/06/23 15:10 199/114 09/06/23 15:01 191/99 97 09/06/23 14:50 191/100 96 09/06/23 14:41 185/96 94 L 09/06/23 14:30 191/101 96 09/06/23 14:20 186/93 96 09/06/23 14:11 188/94 91 L 09/06/23 14:00 186/99 95 09/06/23 13:50 186/101 96 09/06/23 13:40 76 186/98 94 L 09/06/23 13:31 77 189/92 93 L 09/06/23 13:11 97.2 F 79 28 H 197/93 100 09/06/23 13:02 24 100 SpO2: 95 Results Vital Signs: Vital Signs - 24 hr Temp Pulse Resp BP BP Pulse Ox 09/07/23 07:21 98.0 F 79 16 162/79 95 09/07/23 07:17 74 18 93 L 09/07/23 04:06 87 16 91 L 09/07/23 04:00 98.5 F 82 16 172/90 94 L 09/07/23 00:00 98.5 F 87 17 176/93 93 L 09/06/23 20:37 95 09/06/23 20:00 97.8 F 77 16 183/109 93 L 09/06/23 18:28 81 208/99 09/06/23 17:36 93 H 20 96 09/06/23 17:30 97.1 F 90 30 H 218/98 94 L 09/06/23 17:24 95 09/06/23 17:00 86 22 193/125 97 09/06/23 16:51 90 23 171/83 97 09/06/23 16:40 198/114 95 09/06/23 16:30 78 19 194/111 96 09/06/23 16:20 83 25 H 193/102 09/06/23 16:19 81 24 194/108 91 L 09/06/23 15:40 77 16 194/110 95 09/06/23 15:30 81 20 98 09/06/23 15:26 98 09/06/23 15:10 199/114 09/06/23 15:01 191/99 97 09/06/23 14:50 191/100 96 09/06/23 14:41 185/96 94 L 09/06/23 14:30 191/101 96 09/06/23 14:20 186/93 96 09/06/23 14:11 188/94 91 L 09/06/23 14:00 186/99 95 09/06/23 13:50 186/101 96 09/06/23 13:40 76 186/98 94 L 09/06/23 13:31 77 189/92 93 L 09/06/23 13:11 97.2 F 79 28 H 197/93 100 09/06/23 13:02 24 100 Pain Assessment - Last Documented Pain Intensity 2 Intake and Output: Intake & Output 09/04/23 09/05/23 09/06/23 09/07/23 11:59 11:59 11:59 11:59 Intake Total 1320 Output Total 300 Balance 1020 Weight 82.1 kg LAB: I have reviewed the Labs in [employer] Radiology Exams: Radiology Procedures Category Date Time Status CHEST 1 VIEW (PORTABLE) Stat Exams 09/06/23 13:07 Completed CHEST WITH CONTRAST [CT] Stat Exams 09/06/23 14:20 Completed ECHO W/2D AND DOPPLER [US] Routine Exams 09/07/23 07:33 Ordered CXR (AP) 09/06/2023: Portable chest remains hyperinflated and clear with incidental tiny calcified granulomas. Heart not enlarged with interval CABG. CTA of pulmonary arteries : 1. Continued negative pulmonary embolus. 2. New borderline cardiomegaly with CABG surgery, diffuse pulmonary edema, and tiny bilateral effusions. Rule out mild cardiac composition/CHF versus fluid overload. 3. Again chronic findings including biapical subpleural cystic changes, left lower lobe bleb, hiatal hernia, and chronic bony findings. Transthoracic echocardiogram 11/14/2022: 1) MILD GLOBAL LEFT VENTRICULAR HYPOKINESIA. EJECTION FRACTION BETWEEN 45 TO 50%. 2) MODERATE-SEVERE AORTIC REGURGITATION. 3) AORTIC VALVE STENOSIS WITH A PEAK TRANSAORTIC GRADIENT OF 29 MM OF MERCURY AND MEAN GRADIENT OF 18 MM OF MERCURY. 4) MILD TO MODERATE MITRAL REGURGITATION. 5) MILD TRICUSPID REGURGITATION. RIGHT VENTRICULAR SYSTOLIC PRESSURE OF 27 MM OF MERCURY. 6) LEFT VENTRICULAR HYPERTROPHY. 7) MILDLY DILATED LEFT VENTRICLE. Assessment & Plan (1) Elevated troponin level not due to acute coronary syndrome Current Visit: Yes Status: Acute Assessment & Plan: Represents demand ischemia related to his hypertensive urgency. Will follow-up echo ordered for today. Code(s): R79.89 - OTHER SPECIFIED ABNORMAL FINDINGS OF BLOOD CHEMISTRY (2) Hypertension Current Visit: Yes Status: Acute Qualifiers: Hypertension type: primary hypertension Qualified Code(s): I10 - Essential (primary) hypertension Assessment & Plan: Presents with hypertensive urgency secondary to stopping metoprolol due to nausea and vomiting. Will change his home daily metoprolol tartrate to metoprolol succinate and increase dose to 50 mg daily. Add valsartan 160 mg daily. Will need BMP in one week. Code(s): I10 - ESSENTIAL (PRIMARY) HYPERTENSION (3) CAD (coronary artery disease) Current Visit: Yes Status: Chronic Qualifiers: Coronary Disease-Associated Artery/Lesion type: bypass graft, autologous artery Associated angina: without angina Qualified Code(s): I25.810 - Atherosclerosis of coronary artery bypass graft(s) without angina pectoris Assessment & Plan: S/P PCI x2 in approx 2020 and CABG x 6 in - [place] class 0 without angina. Continue aspirin, Plavix, and metoprolol. Follow-up echo. 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 Will discontinue IV furosemide. Can restart home furosemide at discharge. Code(s): I25.10 - ATHSCL HEART DISEASE OF [place] CORONARY ARTERY W/O ANG PCTRS (4) Nausea and vomiting Current Visit: No Status: Acute Assessment & Plan: 8 month history with negative work-up including a negatve upper endoscopy 2 months ago. May represent severe HTN secondary to withholding metoprolol. Patient admonished not to discontinue medications on his own. Code(s): R11.2 - NAUSEA WITH VOMITING, UNSPECIFIED - Encounter Encounter: "The entirety of this encounter was performed via Telemedicine using audio and visual " Permission granted by patient. Case discussed with Alyssa Weiner NP. Hopefully patient will be stable for discharge home tomorrow. Addendum: Patient had a drop in his systolic BP within 2 hours of starting metoprolol and varsartan. Will give a 500cc NS bolus and discontinue valsartan. Will keep metoprolol succinate at 50 mg daily. Albaro Gill MD [facility] [employer] [phone]
[2023-09-07] MEDS: Toprol Xl 50 MG PO SCH (13:05)
[2023-09-07] MEDS: DIOVAN 80 MG PO SCH (13:05)
[2023-09-07] MEDS: LOPRESSOR INJECTION IV SCH (13:08)
[2023-09-07] MEDS: Sodium Chloride 0.9% 500 ML 500 ML IV ONE (17:39)
[2023-09-07] MEDS: Zocor 10MG PO SCH (22:35)
[2023-09-08 05:00] LABS: Absolute Neutrophil Ct (ANC) 4.52 x10^3/uL (1.78-5.38); BASOPHIL % 0.4 % (0.2-1.2); Basophil (Absolute #) 0.04 x10^3/uL (0.01-0.08); Eosinophil % 1.1 % (0.8-7.0); Hematocrit 33.4 % (40.1-51.0); Hemoglobin 10.8 g/dL (13.7-17.5); IMMATURE GRAN # 0.03 x10^3u/L (0.001-0.031); IMMATURE GRAN % 0.3 % (0.001-0.429); Lymphocyte (Absolute #) 3.64 x10^3/uL (1.32-3.57); Lymphocytes % 38.9 % (21.8-53.1); Mean Cell Volume 83.3 fL (79.0-92.2); Mean Corpuscular Hemoglobin 26.9 pg (25.7-32.2); Mean Corpuscular Hgb Concent. 32.3 g/dL (32.3-36.5); Mean Platelet Volume 8.9 fL (9.4-12.4); Monocyte (Absolute #) 1.03 x10^3/uL (0.30-0.82); Neutrophil % 48.3 % (34.0-67.9); Platelet Count 302 x10^3/uL (163-337); Red Blood Count 4.01 x10^6/uL (4.63-6.08); Red Cell Distribution Width 16.4 % (11.6-14.4); White Blood Count 9.4 x10^3/uL (4.23-9.07)
[2023-09-08 05:18] LABS: ANION GAP 10.3 MEQ/L (5-15); BILIRUBIN,TOTAL 1.2 mg/dL (0.2-1.3); Calcium 9.2 mg/dL (8.4-10.2); Creatinine 1 2.16 mg/dL (0.66-1.25); EST GLOMERULAR FILTRATION RATE 32.5 ML/MIN; MAGNESIUM 2.1 mg/dL (1.6-2.3); Potassium 3.6 mmol/L (3.5-5.1); Total Protein 7.4 g/dL (6.3-8.2)
--- NOTE | 2023-09-08 09:48 | XRAY ---
Indication: Short of breath. Comparison: September 06, 2023 Portable chest unchanged again hyperinflated and clear with incidental tiny calcified granulomas. Heart not enlarged again with cardiac valve replacement. No new/acute findings.
[2023-09-08] MEDS: xanAX 0.25 MG PO ONE (10:11)
[2023-09-08] MEDS: Klor Con PO ONE (10:42)
--- NOTE | 2023-09-08 11:01 | PCM.NOTE ---
Date and Time: 09/08/23 1101 Subjective Assessment: is a 67 year old male with history of COPD (not on home oxygen), coronary artery disease (CABG 03/22), HI, Stroke, CKD, anxiety, chronic THC use, DM, and congestive heart failure who presented to the hospital 09/06/23 with complaints of vomiting and progressive shortness of breath. Patient states he has chronic vomiting for several years now. He has been told in the past this may be cannabinoid hyperemesis syndrome. Currently he states he ate chicken two nights ago and has been vomiting since. He has been unable to tolerate a diet or take medications.Upon arrival to ED, patient tachypneic and hypertensive with BP elevated at 197/93. EKG per ED physician read with no ST elevations - LBBB, no obvious ischemia. CT chest demonstrates new borderline cardiomegaly with CABG surgery, diffuse pulmonary edema, and tiny bilateral effusions. Rule out mild cardiac composition/CHF versus fluid overload. Lab findings remarkable for leukocytosis most likely reactive with vomiting at 12.0, normocytic anemia with hgb at 11.6, Co2 at 20, GAP at 17.1, BUN 21, creat at 1.53 (baseline around 1.6), total prot at 8.8, and BNP at 3650. Patient given droperidol, lasix, zofran, protonix, and benadryl in ED. Admit for CHF exacerbation/COPD exacerbation. Cardiology consulted with recs to "change his home daily metoprolol tartrate to metoprolol succinate and increase dose to 50 mg daily. Add valsartan 160 mg daily. Will need BMP in one week." Additionally, no CHF by exam/ lasix discontinued, can continue home lasix on discharge. Echo results pending. 09/07/23: Met with patient bedside. No further episodes of nausea or vomiting since admission. Dyspnea improved- patient now at baseline RA. No edema noted on exam. Discussed case with cardiology - plan for changing his home metoprolol tartate to succinate and increase dosing to 50mg daily. Will also add valsartan 160mg daily. Advised follow up in one week with cardiology -Yu with BMP. Cleared from cardiology standpoint pending echo, most likely will discharge tomorrow. Denies fever,cough, sob, cp, abdominal pain, GALLARDO, dizziness, N/V/D. 09/08/23: Met with patient bedside. Overnight events noted of hypotension. Valsartan d/cd by cardiology. Patient states he has been having increased shortness of breath and anxiety. Labs showing increased creat today of 2.16. CXR with no acute findings. Patient having several runs of Vtach this morning. EKG showing NS with LBBB. Cardiology following- will review imaging and follow up with patient today - appreciate recs. No further episodes of nausea since admission. BP stable today. Denies fever,cough, cp, abdominal pain, GALLARDO, dizziness, N/V/D. - Review of Systems Constitutional: No Symptoms Eyes: No Symptoms Ears, Nose, & Throat: No Symptoms Respiratory: Short Of Breath Cardiac: No Symptoms Abdominal/Gastrointestinal: No Symptoms Genitourinary Symptoms: No Symptoms Musculoskeletal: No Symptoms Skin: No Symptoms Neurological: No Symptoms Psychological: No Symptoms Endocrine: No Symptoms Hematologic/Lymphatic: No Symptoms Immunological/Allergic: No Symptoms Objective Exam General Appearance: no apparent distress Neurologic Exam: alert, oriented x 3, cooperative Skin Exam: normal color Eye Exam: PERRL Ears, Nose, Throat Exam: normal ENT inspection Neck Exam: normal inspection Respiratory Exam: crackles/rales Cardiovascular Exam: regular rate/rhythm, normal heart sounds Gastrointestinal/Abdomen Exam: soft, normal bowel sounds Extremity Exam: normal inspection Back Exam: normal inspection Male Genitalia Exam: deferred Rectal Exam: deferred Objective Data Vital Signs: Vital Signs - 24 hr Temp Pulse Resp BP Pulse Ox 09/08/23 10:24 71 16 143/61 94 L 09/08/23 10:03 92 L 09/08/23 07:17 74 16 97 09/08/23 06:45 98.4 F 98 H 16 149/67 92 L 09/08/23 06:02 95 09/08/23 04:00 98.4 F 77 16 116/62 91 L 09/08/23 00:00 99.5 F 68 16 82/52 90 L 09/07/23 20:50 91 L 09/07/23 20:48 75 16 91 L 09/07/23 20:00 98.8 F 79 18 102/61 91 L 09/07/23 16:46 74 96/52 09/07/23 16:00 97.9 F 77 16 88/54 94 L 09/07/23 12:00 97.0 F 79 16 112/55 96 Pain Assessment - Last Documented Pain Intensity 0 Intake and Output: Intake & Output 09/05/23 09/06/23 09/07/23 09/08/23 11:59 11:59 11:59 11:59 Intake Total 1440 2300 Output Total 300 Balance 1140 2300 Weight 82.1 kg 80.7 kg Lab Results: Lab Results-Last 24 Hours 09/07/23 09/08/23 09/08/23 Range/Units 12:04 04:35 04:35 WBC 9.4 H (4.23-9.07) x10^3/uL RBC 4.01 L (4.63-6.08) x10^6/uL Hgb 10.8 L (13.7-17.5) g/dL Hct 33.4 L (40.1-51.0) % MCV 83.3 (79.0-92.2) fL MCH 26.9 (25.7-32.2) pg MCHC 32.3 (32.3-36.5) g/dL RDW 16.4 H (11.6-14.4) % Plt Count 302 (163-337) x10^3/uL MPV 8.9 L (9.4-12.4) fL Gran % 48.3 (34.0-67.9) % Immature Gran % (Auto) 0.3 (0.001-0.429) % Nucleat RBC Rel Count 0.0 (0.00-0.2) % Eos # (Auto) 0.10 (0.04-0.54) x10^3/uL Immature Gran # (Auto) 0.03 (0.001-0.031) x10^3u/L Absolute Lymphs (auto) 3.64 H (1.32-3.57) x10^3/uL Absolute Monos (auto) 1.03 H (0.30-0.82) x10^3/uL Absolute Nucleated RBC 0.00 (0.00-0.012) x10^3u/L Lymphocytes % 38.9 (21.8-53.1) % Monocytes % 11.0 (5.3-12.2) % Eosinophils % 1.1 (0.8-7.0) % Basophils % 0.4 (0.2-1.2) % Absolute Granulocytes 4.52 (1.78-5.38) x10^3/uL Basophils # 0.04 (0.01-0.08) x10^3/uL Sodium 135 (135-145) mmol/L Potassium 3.6 (3.5-5.1) mmol/L Chloride 99 (98-107) mmol/L Carbon Dioxide 29 (22-30) mmol/L Anion Gap 10.3 (5-15) MEQ/L BUN 39 H (9-20) mg/dL Creatinine 2.16 H (0.66-1.25) mg/dL Estimated GFR 32.5 ML/MIN Glucose 98 (74-106) mg/dL POC Glucometer 114 H (74 to 106) mg/dL Calcium 9.2 (8.4-10.2) mg/dL Magnesium 2.1 (1.6-2.3) mg/dL Total Bilirubin 1.20 (0.2-1.3) mg/dL AST 26 (17-59) U/L ALT 16 (0-50) U/L Alkaline Phosphatase 102 (38-126) U/L Serum Total Protein 7.4 (6.3-8.2) g/dL Albumin 4.0 (3.5-5.0) g/dL Radiology Exams: Radiology Procedures Category Date Time Status CHEST 1 VIEW (PORTABLE) Routine Exams 09/08/23 07:50 Completed CHEST 1 VIEW (PORTABLE) Stat Exams 09/06/23 13:07 Completed CHEST WITH CONTRAST [CT] Stat Exams 09/06/23 14:20 Completed ECHO W/2D AND DOPPLER [US] Routine Exams 09/07/23 07:33 Taken Multi-Disciplinary Progress Notes: Multi-Disciplinary Progress Notes 09/08/23 10:52 Case Management Note by Cammy Cisse S/W MARI AMRTINEZ @ [phone]. HE REPORTS HE HAS HIS GRANDCHILDREN TODAY AND WILL NOT BE AVAILABLE FOR A RIDE UNTIL POSSIBLY LATE EVENING. HE REPORTS HE SHOULD BE AVAILABLE TOMORROW HOWEVER. 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 SCOTTY PLANS TO SEE PATIENT MONDAY AT HIS HOME. Initialized on 09/08/23 10:52 - END OF NOTE 09/08/23 10:48 Case Management Note by Cammy Cisse/Shauna PATIENT'S DAUGHTER- SHE REPORTS SHE IS CURRENTLY OUT OF STATE AND UNABLE TO HELP PATIENT AT DC. SHE REPORTS SCOTTY FROM [facility] HELPS HIM BUT HE CONTINUES TO BE NONCOMPLIANT. SHE REPORTS SHE DOES NOT FEEL PATIENT NEEDS ANYTHING ADDITIONAL AT TIME OF DC HE IS NOT HOMEBOUND FOR [facility]. SHE REPORTS HE HAS A FRIEND THAT NORMALLY DRIVES HIM IN TOWN THAT MAY BE ABLE TO GIVE HIM A RIDE AT TIME OF DC SHE IS UNAVAILABLE. Initialized on 09/08/23 10:48 - END OF NOTE 09/08/23 10:02 Case Management Note by Cammy Cisse/Shauna PATIENT ABOUT PLANS AT DC. HE DENIES ANY NEW NEEDS. SCOTTY FROM [facility] REPORTS HE DOES WELL AT HOME AND SHE DIDN'T FEEL ANY ADDITIONAL SERVICES WERE NEEDED AT THIS TIME. CALLED DAUGHTER MAY TO DISCUSS ANY NEEDS OR CONCERNS- NO ANSWER, LM Initialized on 09/08/23 10:02 - END OF NOTE Assessment/Plan (1) Acute CHF Current Visit: Yes Status: Acute Assessment & Plan: -Most recent echo reviewed from 11/14/22 - follows with Dr. Nicholas EF 45-50% IMPRESSION: 1) MILD LEFT VENTRICULAR HYPOKINESIA. EJECTION FRACTION BETWEEN 45 TO 50%. 2) MODERATE-SEVERE AORTIC REGURGITATION. 3) AORTIC VALVE STENOSIS WITH A PEAK TRANSAORTIC GRADIENT OF 29 MM OF MERCURY AND MEAN GRADIENT OF 18 MM OF MERCURY. 4) MILD TO MODERATE MITRAL REGURGITATION. -recent CABG 03/22 -repeat echo -BNP at 3650 -supplemental oxygen with goal spo2 > 92% -Start lasix 40mg IV BID -Strict I&O/elevated HOB/daily weights -CT showing new borderline cardiomegaly with CABG surgery, diffuse pulmonary edema, and tiny bilateral effusions. Rule out mild cardiac composition/CHF versus -Optimize electrolytes K>4, mg>2 09/06: -echo pending -no edema on exam - discontinue lasix per cardiology recs -cardiology note reviewed, -change metoprolol tartate to succinate and increase dosing to 50mg daily. Will also add valsartan 160mg daily. Advised follow up in one week with cardiology -Yu with BMP. Cleared from cardiology standpoint pending echo, most likely will discharge tomorrow. 09/07: -Valsartan d/cd due to hypotension Code(s): I50.9 - HEART FAILURE, UNSPECIFIED (2) Hypertensive urgency Current Visit: Yes Status: Acute Assessment & Plan: -Most likely secondary to not being able to take home medications -Received Lasix 60mg in ED -troponins negative x 1 -EKG with no acute findings -continue to monitor -tele -hydralazine prn for sbp >180 DBP > 100 -metoprolol 5mg q6h scheduled -resume home meds when able to tolerate 09/06: -Agree with above cardiology plan with med changes and adding valsartan -BP improved since admission 09/07: -BP stable- valsartan d/cd - continue metoprolol- Code(s): I16.0 - HYPERTENSIVE URGENCY (3) Vomiting Current Visit: Yes Status: Acute Assessment & Plan: -? cannoboid hyperemesis syndrome -compazine/zofran prn 09/06: -resolved Code(s): R11.10 - VOMITING, UNSPECIFIED (4) CKD (chronic kidney disease) Current Visit: Yes Status: Acute Assessment & Plan: -at baseline -Avoid NELSY/ARB/NSAIDS -monitor renal/lytes - patient did receive contrast in ED -monitor closely with use of lasix as well 09/07: -elevated at 2.16 - this may be a reflection of lasix/IV contrast- continue to monitor Code(s): N18.9 - CHRONIC KIDNEY DISEASE, UNSPECIFIED (5) Leukocytosis Current Visit: Yes Status: Acute Assessment & Plan: -Most likely reactive with vomiting -UA negative -CXR with no pulmonary process -Continue to monitor 09/06: -Resolved Code(s): D72.829 - ELEVATED WHITE BLOOD CELL COUNT, UNSPECIFIED (6) CAD (coronary artery disease) Current Visit: Yes Status: Acute Assessment & Plan: -Follows with Yu -S/p CABG February of 2023 -resume home meds when able -metoprolol 5mg q6h 09/06: -see CHF for plan Code(s): I25.10 - ATHSCL HEART DISEASE OF [place] CORONARY ARTERY W/O ANG PCTRS (7) COPD with exacerbation Current Visit: No Status: Acute Assessment & Plan: -RT eval -Neb/INH, supplemental oxygen with goal spo2 > 90% -ABG if significant hypoxia/lethargy/confusion -consider pulm consult if no improvement -CT chest as stated above 09/07: -CXR 09/07 - no acute findings Code(s): J44.1 - CHRONIC OBSTRUCTIVE PULMONARY DISEASE W (ACUTE) EXACERBATION (8) Anxiety Current Visit: No Status: Acute Assessment & Plan: -continue home meds when able 09/07: -xanax prn -increased anxiety ##VTach -Cardiology following, several episodes- patient asymptomatic - EKG showing NS LBBB- cardiology to review images - appreciate recs VTE: plavix/asa PPI: protonix Dispo: 2-3 days Code(s): I50.9 - HEART FAILURE, UNSPECIFIED (2) Hypertensive urgency Current Visit: Yes Status: Acute Code(s): I16.0 - HYPERTENSIVE URGENCY (3) Vomiting Current Visit: Yes Status: Acute Code(s): R11.10 - VOMITING, UNSPECIFIED (4) CKD (chronic kidney disease) Current Visit: Yes Status: Acute Code(s): N18.9 - CHRONIC KIDNEY DISEASE, UNSPECIFIED (5) Leukocytosis Current Visit: Yes Status: Acute Code(s): D72.829 - ELEVATED [place]ITE BLOOD CELL COUNT, UNSPECIFIED (6) CAD (coronary artery disease) Current Visit: Yes Status: Chronic Qualifiers: Coronary Disease-Associated Artery/Lesion type: bypass graft, autologous artery Associated angina: without angina Qualified Code(s): I25.810 - Atherosclerosis of coronary artery bypass graft(s) without angina pectoris Code(s): I25.10 - ATHSCL HEART DISEASE OF [place] CORONARY ARTERY W/O ANG PCTRS (7) COPD with exacerbation Current Visit: No Status: Acute Code(s): J44.1 - CHRONIC OBSTRUCTIVE PULMONARY DISEASE W (ACUTE) EXACERBATION (8) Anxiety Current Visit: No Status: Acute Code(s): F41.9 - ANXIETY DISORDER, UNSPECIFIED (9) Elevated troponin Current Visit: Yes Status: Acute Code(s): R79.89 - OTHER SPECIFIED ABNORMAL FINDINGS OF BLOOD CHEMISTRY
[2023-09-08] MEDS ORDERED: xanAX 0.25 MG PO PRN (19:30)
[2023-09-09 05:25] LABS: Absolute Neutrophil Ct (ANC) 4.02 x10^3/uL (1.78-5.38); BASOPHIL % 0.6 % (0.2-1.2); Basophil (Absolute #) 0.05 x10^3/uL (0.01-0.08); Eosinophil % 2.7 % (0.8-7.0); Eosinophil (Absolute #) 0.24 x10^3/uL (0.04-0.54); Hematocrit 33.5 % (40.1-51.0); Hemoglobin 10.6 g/dL (13.7-17.5); IMMATURE GRAN # 0.04 x10^3u/L (0.001-0.031); IMMATURE GRAN % 0.5 % (0.001-0.429); Lymphocyte (Absolute #) 3.41 x10^3/uL (1.32-3.57); Lymphocytes % 38.5 % (21.8-53.1); Mean Corpuscular Hemoglobin 26.6 pg (25.7-32.2); Mean Corpuscular Hgb Concent. 31.6 g/dL (32.3-36.5); Monocytes % 12.4 % (5.3-12.2); Neutrophil % 45.3 % (34.0-67.9); Platelet Count 269 x10^3/uL (163-337); Red Blood Count 3.99 x10^6/uL (4.63-6.08); Red Cell Distribution Width 16.2 % (11.6-14.4); White Blood Count 8.9 x10^3/uL (4.23-9.07)
[2023-09-09 05:49] LABS: ALBUMIN 3.9 g/dL (3.5-5.0); ANION GAP 7.4 MEQ/L (5-15); BILIRUBIN,TOTAL 1.2 mg/dL (0.2-1.3); Calcium 9.2 mg/dL (8.4-10.2); Creatinine 1 1.65 mg/dL (0.66-1.25); MAGNESIUM 2.2 mg/dL (1.6-2.3); Potassium 4.2 mmol/L (3.5-5.1); Total Protein 7.5 g/dL (6.3-8.2)
--- NOTE | 2023-09-09 11:14 | PCM.NOTE ---
Date and Time: 09/09/23 1114 Subjective Assessment: No palpitations, shortness of breath, light-headedness, chest discomfort while having the runs of nonsustained ventricular tachycardia yesterday. Not bothered by headaches, nausea, or vomiting. Overall feeling better. Ready to go home. 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, No motor weakness Objective Data Vital Signs: Vital Signs - 24 hr Temp Pulse Resp BP Pulse Ox 09/09/23 11:00 97.7 F 86 20 103/66 96 09/09/23 07:51 97.8 F 71 20 146/65 95 09/09/23 07:00 97 H 14 93 L 09/09/23 04:00 97.3 F 73 18 103/65 97 09/08/23 23:46 98.2 F 74 20 121/70 94 L 09/08/23 20:00 98.5 F 74 20 109/66 92 L 09/08/23 16:15 97.4 F 78 16 133/73 95 09/08/23 11:52 98.7 F 80 16 149/63 93 L Pain Assessment - Last Documented Pain Intensity 0 Intake and Output: Intake & Output 09/06/23 09/07/23 09/08/23 09/09/23 11:59 11:59 11:59 11:59 Intake Total 1440 2300 2640 Output Total 300 400 Balance 1140 2300 2240 Weight 82.1 kg 80.7 kg 82.3 kg LAB: I have reviewed the Labs in [facility]. Lab Results: Lab Results-Last 24 Hours 09/09/23 09/09/23 Range/Units 05:12 05:12 WBC 8.9 (4.23-9.07) x10^3/uL RBC 3.99 L (4.63-6.08) x10^6/uL Hgb 10.6 L (13.7-17.5) g/dL Hct 33.5 L (40.1-51.0) % MCV 84.0 (79.0-92.2) fL MCH 26.6 (25.7-32.2) pg MCHC 31.6 L (32.3-36.5) g/dL RDW 16.2 H (11.6-14.4) % Plt Count 269 (163-337) x10^3/uL MPV 9.0 L (9.4-12.4) fL Gran % 45.3 (34.0-67.9) % Immature Gran % (Auto) 0.5 H (0.001-0.429) % Nucleat RBC Rel Count 0.0 (0.00-0.2) % Eos # (Auto) 0.24 (0.04-0.54) x10^3/uL Immature Gran # (Auto) 0.04 H (0.001-0.031) x10^3u/L Absolute Lymphs (auto) 3.41 (1.32-3.57) x10^3/uL Absolute Monos (auto) 1.10 H (0.30-0.82) x10^3/uL Absolute Nucleated RBC 0.00 (0.00-0.012) x10^3u/L Lymphocytes % 38.5 (21.8-53.1) % Monocytes % 12.4 H (5.3-12.2) % Eosinophils % 2.7 (0.8-7.0) % Basophils % 0.6 (0.2-1.2) % Absolute Granulocytes 4.02 (1.78-5.38) x10^3/uL Basophils # 0.05 (0.01-0.08) x10^3/uL Sodium 136 (135-145) mmol/L Potassium 4.2 (3.5-5.1) mmol/L Chloride 104 (98-107) mmol/L Carbon Dioxide 29 (22-30) mmol/L Anion Gap 7.4 (5-15) MEQ/L BUN 36 H (9-20) mg/dL Creatinine 1.65 H (0.66-1.25) mg/dL Estimated GFR 45.0 ML/MIN Glucose 103 (74-106) mg/dL Calcium 9.2 (8.4-10.2) mg/dL Magnesium 2.2 (1.6-2.3) mg/dL Total Bilirubin 1.20 (0.2-1.3) mg/dL AST 22 (17-59) U/L ALT 16 (0-50) U/L Alkaline Phosphatase 92 (38-126) U/L Serum Total Protein 7.5 (6.3-8.2) g/dL Albumin 3.9 (3.5-5.0) g/dL Radiology Exams: Radiology Procedures Category Date Time Status CHEST 1 VIEW (PORTABLE) Routine Exams 09/08/23 07:50 Completed Transthoracic Echocardiogram 09/07/2023: 1. Mildly dilated left atrium. Other chamber sizes are normal. 2. Moderate concentric left ventricular hypertrophy. 3. Preserved left ventricular systolic function with an estimated visual EF 55%. A small true LV aneurysm is present involving the basal inferolateral and basal inferior wall segments. 4. Mild diastolic dysfunction. 5. Normal right ventricular systolic function. 6. Mild calcification of the aortic root. 7. Normally functioning bioprosthetic arotic valve. 8. Doppler: Mild mitral regurgitation. 9. Unable to measure PA systolic pressure. 10. Unable to estimate right atrial pressure. 11. No pericardial effusion. CXR (AP) 09/08/2023: Portable chest unchanged again hyperinflated and clear with incidental tiny calcified granulomas. Heart not enlarged again with cardiac valve replacement. No new/acute findings. Tracing 1 Attestation: I have reviewed this EKG and interpreted as documented below. EKG Narrative: ECG 09/08/2023 at 1014 and 1015: NSR with 5 beat of monomorphic NSVT. VT has a LBBB morphology and 0 degree axis. No ischemic changes. Telemetry: Frequent 5 beat runs of NSVT occurring between 1008 and 1017. On occasion afterwards thru to 1045. His metoprolol dose was due at 1000. Dose increased to 50 mg daily. Multi-Disciplinary Progress Notes: Multi-Disciplinary Progress Notes 09/08/23 13:56 Case Management Note by Cammy Cisse Addendum entered by Cammy Cisse 09/08/23 14:06: IF MARI CAN FIELD [employer] MEDS AND BRING TO THE HOSPITAL -NURSE CAN THEN USE THESE MEDS TO FILL HIS PILL MANAGER MALL AND NOT HAVE TO USE ANY FROM [facility]. Original Note: PATIENT HAS ALL HOME MEDICATIONS WITH HIM IN CLOSET- ACO NORMALLY SETS UP HIS PILLS HE CANNOT DO THEM HIMSELF. D/T PATIENT DCING HOME OVER THE WEEKEND AND NO FAMILY TO ASSIST- MEDS WILL NEED SET UP IN PILL MANAGER MALL FROM COUNTS INCLUDE 234 BEDS AT THE [facility] BY DISCHARGING NURSE PRIOR TO DC HOME. ANY NEW PRESCRIPTIONS ( MUST BE COST EFFECTIVE) WILL NEED TO BE ORDERED BY PUBLICATION DESIGNER FOR IN HOUSE TO DISPENSE FOR X DOSES FOR PILL MANAGER MALL. THESE WILL THEN NEED CHARGED OUT IN [facility]. THIS NEEDS TO BE DOCUMENTED DONE AND PILL MANAGER MALL FILLED WITH THOSE DOSES. SC[facility] FROM [facility] WILL BE IN MONDAY AM TO GET PILLS SET UP AGAIN. PILL MANAGER MALL ONLY NEEDS SET UP THRU MONDAY PM. FRIEND MICAH MARTINEZ PLANS TO GIVE PATIENT A RIDE HOME AND WILL GO BY AND GET HIS PRESCRIPTIONS FOR HIM WELL SO SCOTTY HAS THEM MONDAY AM TO RE-SET UP HIS MANAGER MALL Initialized on 09/08/23 13:56 - END OF NOTE 09/08/23 12:45 Radiology Note by ALBARO GILL TRANSTHORACIC ECHOCARDIOGRAM 09/07/2023: 1. Mildly dilated left atrium. Other chamber sizes are normal. 2. Moderate concentric left ventricular hypertrophy. 3. Preserved left ventricular systolic function with an estimated visual EF 55%. A small true LV aneurysm is present involving the basal inferolateral and basal inferior wall segments. 4. Mild diastolic dysfunction. 5. Normal right ventricular systolic function. 6. Mild calcification of the aortic root. 7. Mild aortic sclerosis without stenosis. 8. Doppler: Mild mitral regurgitation. 9. Unable to measure PA systolic pressure. 10. Unable to estimate right atrial pressure. 11. No pericardial effusion Albaro Gill MD [facility] Initialized on 09/08/23 12:45 - END OF NOTE Assessment & Plan (1) Nonsustained monomorphic ventricular tachycardia Current Visit: Yes Status: Acute Assessment & Plan: Most likely originating scar tissue in his small true LV aneurym which developed after his DC. This was aymptomatic. His overall good LV function places him in a good prognostic group. It appears to have occurred when his serum metoprolol level was at a tough as he was due for his daily dose of metoprolol at that time. Dose was increased to 50 mg daily on 09/07/2023.. Code(s): I47.29 - OTHER VENTRICULAR TACHYCARDIA (2) Hypertension Current Visit: Yes Status: Acute Qualifiers: Hypertension type: primary hypertension Qualified Code(s): I10 - Essential (primary) hypertension Assessment & Plan: Mildly hypotensive on 09/06 after increasing metoprolol dose and adding valsartan. Suspect he was still mildly volume depleted when valsartan given leading to his transient hypotension treated with a 500 cc bolus of IV saline. BP control now acceptable. Will continue metoprolol sucinate 50 mg daily. Code(s): I10 - ESSENTIAL (PRIMARY) HYPERTENSION (3) Elevated troponin level not due to acute coronary syndrome Current Visit: Yes Status: Acute Code(s): R79.89 - OTHER SPECIFIED ABNORMAL FINDINGS OF BLOOD CHEMISTRY (4) CAD (coronary artery disease) Current Visit: Yes Status: Chronic Qualifiers: Coronary Disease-Associated Artery/Lesion type: bypass graft, autologous artery Associated angina: without angina Qualified Code(s): I25.810 - Atherosclerosis of coronary artery bypass graft(s) without angina pectoris Code(s): I25.10 - ATHSCL HEART DISEASE OF [place] CORONARY ARTERY W/O ANG PCTRS (5) History of aortic valve replacement with bioprosthetic valve Current Visit: Yes Status: Acute Assessment & Plan: History of moderate to severe aortic regurgitation. Performed in 02/2023 with CABG. Functioning normaly on 09/07/2023 echocardiogram. Code(s): Z95.3 - PRESENCE OF XENOGENIC HEART VALVE (6) Nausea and vomiting Current Visit: No Status: Acute Code(s): R11.2 - NAUSEA WITH VOMITING, UNSPECIFIED - Encounter Encounter: "The entirety of this encounter was performed via Telemedicine using audio and visual " OK for discharge from cardiac standpoint. Case discussed with Alyssa Weiner NP. Albaro Gill MD [facility] [phone]
--- NOTE | 2023-09-09 11:15 | PCM.DS ---
Discharge Summary Date of Admission: 09/06/23 17:15 Date of Discharge: 09/09/23 Admitting Physician: BELEM ECHEVERRIA MD Consults: Consults on Case 09/07/23 09:53 Consult Cardiology ROUTINE Primary Care Provider: SAMANTHA GRIFFITH Allergies Allergies hydrocodone bitartrate [From Vicodin] Allergy (Mild, Verified 09/06/23 17:30) morphine Allergy (Mild, Verified 09/06/23 17:30) oxycodone [From OxyContin] Allergy (Verified 09/06/23 17:30) Hospital Summary - Hospital Course Hospital Course: is a 67 year old male with history of COPD (not on home oxygen), coronary artery disease (CABG 03/22), ID, Stroke, CKD, anxiety, chronic THC use, DM, and congestive heart failure admitted 09/06/23 with complaints of vomiting and progressive shortness of breath. Patient states he has chronic vomiting for several years now. He has been told in the past this may be cannabinoid hyperemesis syndrome. Takes compazine at home. Upon arrival to ED, patient tachypneic and hypertensive with BP elevated at 197/93. EKG per ED physician read with no ST elevations - LBBB, no obvious ischemia. CT chest demonstrates new borderline cardiomegaly with CABG surgery, diffuse pulmonary edema, and tiny bilateral effusions. Initial lab findings remarkable for leukocytosis most likely reactive with vomiting at 12.0, normocytic anemia with hgb at 11.6, Co2 at 20, GAP at 17.1, BUN 21, creat at 1.53 (baseline around 1.6), total prot at 8.8, and BNP at 3650. Patient given droperidol, lasix, zofran, protonix, and benadryl in ED. Admitted for CHF exacerbation/COPD exacerbation and hypertensive urgency. Cardiology consulted with recs to "change his home daily metoprolol succinate dose to 50 mg daily. Will need BMP in one week." Additionally, no CHF by exam/ IV lasix discontinued, can continue home lasix on discharge. Echo results TRANSTHORACIC ECHOCARDIOGRAM 09/07/2023:1. Mildly dilated left atrium. Other chamber sizes are normal.2. Moderate concentric left ventricular hypertrophy.3. Preserved left ventricular systolic function with an estimated visual EF 55%. A small true LV aneurysm is present involving the basal inferolateral and basal inferior wall segments.4. Mild diastolic dysfunction.5. Normal right ventricular systolic function. 6. Mild calcification of the aortic root. 7. Mild aortic sclerosis without stenosis. 8. Doppler: Mild mitral regurgitation. 9. Unable to measure PA systolic pressure. 10. Unable to estimate right atrial pressure. 11. No pericardial effusion. Hypertensive urgency resolved. BP control now acceptable. Will continue metoprolol sucinate 50 mg daily. Nausea/vomiting resolved. Patient did have runs of nonsustained ventricular tachycardia yesterday 09/08/23 - which has resolved. Frequent 5 beat runs of NSVT occurring between 1008 and 1017. On occasion afterwards thru to 1045. His metoprolol dose was due at 1000. Dose increased to 50 mg daily.ECG 09/08/2023 at 1014 and 1015: NSR with 5 beat of monomorphic NSVT. VT has a LBBB morphology and 0 degree axis. No ischemic changes.CXR performed 09/08/23 demonstrates hyperinflated and clear lungs with incidental tiny calcified granulomas. Heart not enlarged again with cardiac valve replacement. No new/acute findings. Patient at baseline RA. Pill urban planner will be set up for patient with new dosing of metoprolol through Monday p.m. until his nurse Ermelinda takes over Monday a.m. Discharge Note New Diagnosis: CHF exacerbation/hypertensive urgency New Medications: Metoprolol changes as stated above Follow Up: cardiology/PCP Latest Assessment & Plan (1) Acute CHF Current Visit: Yes Status: Acute Assessment & Plan: -Most recent echo reviewed from 11/14/22 - follows with Dr. Yoo EF 45-50% IMPRESSION: 1) MILD LEFT VENTRICULAR HYPOKINESIA. EJECTION FRACTION BETWEEN 45 TO 50%. 2) MODERATE-SEVERE AORTIC REGURGITATION. 3) AORTIC VALVE STENOSIS WITH A PEAK TRANSAORTIC GRADIENT OF 29 MM OF MERCURY AND MEAN GRADIENT OF 18 MM OF MERCURY. 4) MILD TO MODERATE MITRAL REGURGITATION. -recent CABG 03/22 -repeat echo -BNP at 3650 -supplemental oxygen with goal spo2 > 92% -Start lasix 40mg IV BID -Strict I&O/elevated HOB/daily weights -CT showing new borderline cardiomegaly with CABG surgery, diffuse pulmonary edema, and tiny bilateral effusions. Rule out mild cardiac composition/CHF versus -Optimize electrolytes K>4, mg>2 09/06: -echo pending -no edema on exam - discontinue lasix per cardiology recs -cardiology note reviewed, -change metoprolol tartate to succinate and increase dosing to 50mg daily. Will also add valsartan 160mg daily. Advised follow up in one week with cardiology -Yu with BMP. Cleared from cardiology standpoint pending echo, most likely will discharge tomorrow. 09/07: -Valsartan d/cd due to hypotension Code(s): I50.9 - HEART FAILURE, UNSPECIFIED (2) Hypertensive urgency Current Visit: Yes Status: Acute Assessment & Plan: -Most likely secondary to not being able to take home medications -Received Lasix 60mg in ED -troponins negative x 1 -EKG with no acute findings -continue to monitor -tele -hydralazine prn for sbp >180 DBP > 100 -metoprolol 5mg q6h scheduled -resume home meds when able to tolerate 09/06: -Agree with above cardiology plan with med changes and adding valsartan -BP improved since admission 09/07: -BP stable- valsartan d/cd - continue metoprolol- Code(s): I16.0 - HYPERTENSIVE URGENCY (3) Vomiting Current Visit: Yes Status: Acute Assessment & Plan: -? cannoboid hyperemesis syndrome -compazine/zofran prn 09/06: -resolved Code(s): R11.10 - VOMITING, UNSPECIFIED (4) CKD (chronic kidney disease) Current Visit: Yes Status: Acute Assessment & Plan: -at baseline -Avoid NELSY/ARB/NSAIDS -monitor renal/lytes - patient did receive contrast in ED -monitor closely with use of lasix as well 09/07: -elevated at 2.16 - this may be a reflection of lasix/IV contrast- continue to monitor Code(s): N18.9 - CHRONIC KIDNEY DISEASE, UNSPECIFIED (5) Leukocytosis Current Visit: Yes Status: Acute Assessment & Plan: -Most likely reactive with vomiting -UA negative -CXR with no pulmonary process -Continue to monitor 09/06: -Resolved Code(s): D72.829 - ELEVATED WHITE BLOOD CELL COUNT, UNSPECIFIED (6) CAD (coronary artery disease) Current Visit: Yes Status: Acute Assessment & Plan: -Follows with Yu -S/p CABG February of 2023 -resume home meds when able -metoprolol 5mg q6h 09/06: -see CHF for plan Code(s): I25.10 - ATHSCL HEART DISEASE OF [place] CORONARY ARTERY W/O ANG PCTRS (7) COPD with exacerbation Current Visit: No Status: Acute Assessment & Plan: -RT eval -Neb/INH, supplemental oxygen with goal spo2 > 90% -ABG if significant hypoxia/lethargy/confusion -consider pulm consult if no improvement -CT chest as stated above 09/07: -CXR 09/07 - no acute findings Code(s): J44.1 - CHRONIC OBSTRUCTIVE PULMONARY DISEASE W (ACUTE) EXACERBATION (8) Anxiety Current Visit: No Status: Acute Assessment & Plan: -continue home meds when able 09/07: -xanax prn -increased anxiety ##VTach -Cardiology following, several episodes- patient asymptomatic - EKG showing NS LBBB- cardiology to review images - appreciate recs VTE: plavix/asa PPI: protonix Dispo: 2-3 days I spent 35 minutes [id number] with the patient on the day of discharge performing discharge exam, discussing hospital stay and discharge instructions with patient and caregivers, preparation of discharge records, prescriptions & referral forms and addressing any questions/concerns the patient had as documented above. - Vitals & Intake/Output Vital Signs: Vital Signs Temperature 97.7 F 09/09/23 11:00 Pulse Rate 86 09/09/23 11:00 Respiratory Rate 20 09/09/23 11:00 Blood Pressure 103/66 09/09/23 11:00 O2 Sat by Pulse Oximetry 96 09/09/23 11:00 Intake & Output: Intake & Output 09/06/23 09/07/23 09/08/23 09/09/23 11:59 11:59 11:59 11:59 Intake Total 1440 2300 2640 Output Total 300 400 Balance 1140 2300 2240 Weight 82.1 kg 80.7 kg 82.3 kg - Lab Result Diagrams: 09/09/23 05:12 09/09/23 05:12 Lab Results-Last 24 Hrs: Lab Results-Last 24 Hours 09/09/23 09/09/23 Range/Units 05:12 05:12 WBC 8.9 (4.23-9.07) x10^3/uL RBC 3.99 L (4.63-6.08) x10^6/uL Hgb 10.6 L (13.7-17.5) g/dL Hct 33.5 L (40.1-51.0) % MCV 84.0 (79.0-92.2) fL MCH 26.6 (25.7-32.2) pg MCHC 31.6 L (32.3-36.5) g/dL RDW 16.2 H (11.6-14.4) % Plt Count 269 (163-337) x10^3/uL MPV 9.0 L (9.4-12.4) fL Gran % 45.3 (34.0-67.9) % Immature Gran % (Auto) 0.5 H (0.001-0.429) % Nucleat RBC Rel Count 0.0 (0.00-0.2) % Eos # (Auto) 0.24 (0.04-0.54) x10^3/uL Immature Gran # (Auto) 0.04 H (0.001-0.031) x10^3u/L Absolute Lymphs (auto) 3.41 (1.32-3.57) x10^3/uL Absolute Monos (auto) 1.10 H (0.30-0.82) x10^3/uL Absolute Nucleated RBC 0.00 (0.00-0.012) x10^3u/L Lymphocytes % 38.5 (21.8-53.1) % Monocytes % 12.4 H (5.3-12.2) % Eosinophils % 2.7 (0.8-7.0) % Basophils % 0.6 (0.2-1.2) % Absolute Granulocytes 4.02 (1.78-5.38) x10^3/uL Basophils # 0.05 (0.01-0.08) x10^3/uL Sodium 136 (135-145) mmol/L Potassium 4.2 (3.5-5.1) mmol/L Chloride 104 (98-107) mmol/L Carbon Dioxide 29 (22-30) mmol/L Anion Gap 7.4 (5-15) MEQ/L BUN 36 H (9-20) mg/dL Creatinine 1.65 H (0.66-1.25) mg/dL Estimated GFR 45.0 ML/MIN Glucose 103 (74-106) mg/dL Calcium 9.2 (8.4-10.2) mg/dL Magnesium 2.2 (1.6-2.3) mg/dL Total Bilirubin 1.20 (0.2-1.3) mg/dL AST 22 (17-59) U/L ALT 16 (0-50) U/L Alkaline Phosphatase 92 (38-126) U/L Serum Total Protein 7.5 (6.3-8.2) g/dL Albumin 3.9 (3.5-5.0) g/dL - Radiology Exams Ordered Rad Exams-Entire Visit: Radiology Procedures Category Date Time Status CHEST 1 VIEW (PORTABLE) Routine Exams 09/08/23 07:50 Completed - Procedures and Test Procedures and Tests throughout Hospitalization: Therapy Orders & Screens 09/06/23 16:54 Respiratory Therapy Consult ONCE Comment: Reason For Exam: 09/06/23 17:35 Oxygen NASAL CANNULA 2 lpm Comment: Diagnosis: acute chf 09/06/23 18:35 EKG REPEAT IN AM Comment: Diagnosis: acute chf Respiratory Therapy Consult ONCE Comment: Reason For Exam: Diagnosis: acute chf 09/07/23 04:05 Respiratory Therapy Assessment DAILY Comment: Diagnosis: acute chf Discharge Exam General Appearance: no apparent distress Neurologic Exam: alert, oriented x 3, cooperative Eye Exam: PERRL Ears, Nose, Throat Exam: normal ENT inspection Neck Exam: normal inspection Respiratory Exam: normal breath sounds, lungs clear Cardiovascular Exam: regular rate/rhythm, normal heart sounds Gastrointestinal/Abdomen Exam: soft, normal bowel sounds Male Genitalia Exam: deferred Rectal Exam: deferred Back Exam: normal inspection Extremity Exam: normal inspection Skin Exam: normal color Final Diagnosis/Problem List - Final Discharge Diagnosis/Problem (1) Acute CHF Current Visit: Yes Status: Resolved Code(s): I50.9 - HEART FAILURE, UNSPECIFIED (2) Hypertensive urgency Current Visit: Yes Status: Resolved Code(s): I16.0 - HYPERTENSIVE URGENCY (3) Vomiting Current Visit: Yes Status: Resolved Code(s): R11.10 - VOMITING, UNSPECIFIED (4) CKD (chronic kidney disease) Current Visit: Yes Status: Chronic Code(s): N18.9 - CHRONIC KIDNEY DISEASE, UNSPECIFIED (5) Leukocytosis Current Visit: Yes Status: Resolved Code(s): D72.829 - ELEVATED WHITE BLOOD CELL COUNT, UNSPECIFIED (6) CAD (coronary artery disease) Current Visit: Yes Status: Chronic Code(s): I25.10 - ATHSCL HEART DISEASE OF [place] CORONARY ARTERY W/O ANG PCTRS (7) COPD with exacerbation Current Visit: No Status: Acute Code(s): J44.1 - CHRONIC OBSTRUCTIVE PULM ONARY DISEASE W (ACUTE) EXACERBATION (8) Anxiety Current Visit: No Status: Chronic Code(s): F41.9 - ANXIETY DISORDER, UNSPECIFIED (9) Elevated troponin Current Visit: Yes Status: Ruled-out Code(s): R79.89 - OTHER SPECIFIED ABNORMAL FINDINGS OF BLOOD CHEMISTRY - Discharge Disposition: Home, Self-Care Condition: Stable Prescriptions: New Metoprolol Succinate 50 mg [Toprol Xl 50 MG] 50 mg PO DAILY 30 Days #30 tablet Continue Furosemide 20 mg [Lasix 20 mg] 20 mg PO DAILY Clopidogrel Bisulfate [PLAVIX Tablet] 75 mg PO DAILY Desvenlafaxine Succinate [Desvenlafaxine Succinate ER] 50 mg PO DAILY Carbidopa/Levodopa [Carbidopa-Levo 25-100 mg Odt] 1 tab PO DAILY Amitriptyline HCl 25 mg [Amitriptyline 25 mg Tablet] 25 mg PO DAILY Prochlorperazine Maleate 5 mg* [Compazine 5 MG] 5 mg PO Q4H PRN PRN PRN Reason: Nausea PANTOPRAZOLE 40 mg Tablet [Protonix 40MG Tablet] 40 mg PO DAILY Nicotine [Nicotine Patch 7Mg] 7 mg TOP DAILY Gabapentin 100 mg PO TID PRN PRN PRN Reason: Pain Finasteride 5 mg [Proscar 5 MG] 5 mg PO DAILY Aspirin EC 81 mg [Ecotrin 81 mg] 81 mg PO DAILY Albuterol Sulfate [Proair Respiclick] 2 puffs IH QID PRN PRN PRN Reason: Shortness Of Breath Atorvastatin Calcium 10 mg PO DAILY Tamsulosin HCl 0.4 mg [Flomax 0.4 MG] 0.4 mg PO HS Discontinued Metoprolol Succinate 25 mg Xl* [Toprol-Xl 25MG Tablets] 25 mg PO DAILY Additional Instructions: Will need labs with PCP (SUNIL) in one week Monitor blood pressure and Heart rate at home - keep journal and take with you to PCP/Cardiology appt Follow up with: KALYANI YOO [CONSULTING PHYSICIAN] - 09/20/23 3:15 pm SAMANTHA GRIFFITH MD [Primary Care Provider] -
[2023-09-09 15:54] VITALS: BP 132/83; PULSE 70; RESP 18; TEMP 97.5; O2SAT 99
== END 2023-09-09 16:02 | disposition home or self-care (01) ==
LOC: ED 12:59 → MED SURG 17:15
PROVIDERS: ADMIT Internal Medicine; ATTEND Internal Medicine
DX: E11.22 Type 2 diabetes mellitus with diabetic chronic kidney disease (principal); I13.0 Hypertensive heart and chronic kidney disease with heart failure and stage 1 through stage 4 chronic kidney disease, or unspecified chronic kidney disease; N18.9 Chronic kidney disease, unspecified; I50.9 Heart failure, unspecified; I16.0 Hypertensive urgency; R11.10 Vomiting, unspecified; D72.829 Elevated white blood cell count, unspecified; I25.10 Atherosclerotic heart disease of native coronary artery without angina pectoris; J44.1 Chronic obstructive pulmonary disease with (acute) exacerbation; F41.9 Anxiety disorder, unspecified; R79.89 Other specified abnormal findings of blood chemistry; I25.2 Old myocardial infarction; I95.9 Hypotension, unspecified; Z86.73 Personal history of transient ischemic attack (TIA), and cerebral infarction without residual deficits; F12.90 Cannabis use, unspecified, uncomplicated; Z79.899 Other long term (current) drug therapy; Z79.01 Long term (current) use of anticoagulants; Z95.0 Presence of cardiac pacemaker; Z85.828 Personal history of other malignant neoplasm of skin
CPT/HCPCS: 0241U; 36000; 36415; 71045; 71260; 80053; 80307; 81001; 82150; 82947; 83036; 83690; 83735; 83880; 84484; 85025; 93005; 93306; 94760; 96374; 96375; 96376; 99285; 99291; Q3014; 93268; J0360; J1200; J1940; J2405; A9270-GY; G0378

== ENCOUNTER 2023-11-13 08:31 | Day surgery (SDC) | payer MEDICARE, OTHER ==
--- NOTE | 2023-11-13 08:15 | HP ---
HISTORY AND PHYSICAL HISTORY OF PRESENT ILLNESS: He has some vomiting and some increased reflux. He had a bad prep on exam last November. He is in need of followup colonoscopy as well as an upper endoscopy. PAST MEDICAL HISTORY: He has heart disease; BPH; history of stroke x8 in the past; history of hiatal hernia in the past; history of emesis in the past; history of melanoma on his check, nose, head and neck; has had some coronary artery disease; chronic back pain; hyperlipidemia; history of varicose veins; hypertension; history of IA x2 in the past. HOME MEDICATIONS: Prochlorperazine, metoprolol, furosemide, Entresto, desvenlafaxine, clopidogrel, carbidopa-levodopa, atorvastatin, amitriptyline. ALLERGIES: Morphine, oxycodone, Vicodin. PAST SURGICAL HISTORY: CABG x6; coronary symptoms; has had melanoma in the past head/neck, face, and lymph nodes; has had hand surgery; had pin polyp in the past. SOCIAL HISTORY: Every day smoker. No alcohol abuse. FAMILY HISTORY: Heart disease and Parkinson's. REVIEW OF SYSTEMS: Twelve systems reviewed. Pertinent for other medical problems as noted above. He has had a bypass in the past, at [facility]. PHYSICAL EXAMINATION: GENERAL: Height 6 feet. BMI 24.4. Chronically ill gentleman in no acute distress. HEENT: Sclerae nonicteric. Extraocular movements intact. NECK: No JVD. CHEST: Equal excursion. CARDIOVASCULAR: Regular rate and rhythm pulse. ABDOMEN: Soft. EXTREMITIES: No cyanosis or edema. NEUROLOGIC: Alert. PSYCHIATRIC: Appropriate mood and affect. SKIN: Dry. RECTAL: Deferred until time of endoscopy exam. IMPRESSION: Increased reflux, history of emesis, and also history of poor prep on colonoscopy last time. EGD and colonoscopy for further evaluation. Shown the risk sheet and explained the procedure in detail including but not limited to bleeding or infection; risk of bowel injury or perforation possibly requiring open procedure; risk of misdiagnosis or nondiagnosis; risk of incomplete exam possibly requiring barium enema or barium swallow; possible misdiagnosis or nondiagnosis; risk of sedation or anesthesia; risk of bowel prep but not limited to. Otherwise, we will proceed with EGD and colonoscopy as an outpatient. Otherwise, continue medications for hypertension, coronary artery disease, reflux, and BPH.
[2023-11-13] MEDS: Lactated Ringers 1,000 ML IV SCH (09:17)
[2023-11-13] MEDS ORDERED: DIPRIVAN 200 MG/20 ML IV ONE (12:17)
[2023-11-13] MEDS ORDERED: Xylocaine-Mpf 2% 5 Ml Vial ONE (12:17)
[2023-11-13 13:07] VITALS: RESP 18; TEMP 97
[2023-11-13 13:24] VITALS: O2SAT 98
[2023-11-13 13:36] VITALS: BP 170/98; PULSE 77
--- NOTE | 2023-11-14 21:54 | OP ---
SURGERY DATE/TIME: 11/13/2023 [id number] PREOPERATIVE DIAGNOSES: 1) History of increased reflux, need for upper endoscopy. 2) History of poor bowel prep on last colonoscopy, recommended followup colonoscopy (patient declined, not willing to schedule colonoscopy at this time) accepting the risks. POSTOPERATIVE DIAGNOSES: 1) Some minimal gastric erythema, cold biopsy pending. 2) Fairly normal-appearing esophagus. No signs of erosions. No signs of any large hiatal hernia. No signs visible endoscopically. No signs of any obvious masses or ulcers. PROCEDURE: Esophagogastroduodenoscopy, cold biopsy antrum for histology and to evaluate for H pylori, cold biopsy distal esophagus, cold biopsy of proximal esophagus to evaluate for eosinophilic esophagitis. SURGEON: Greg Velázquez MD ANESTHESIA: MAC. ESTIMATED BLOOD LOSS: Minimal. ASA CLASS: 4. INDICATIONS: As noted above. Consent obtained. DESCRIPTION OF PROCEDURE AND FINDINGS: Patient was taken to the endoscopy room, MAC anesthesia induced. After official time-out and no disagreement for planned procedure, bite block positioned. Videogastroscope easily passed down the esophagus through the patent pylorus to the junction of the second and third portions of duodenum. Duodenum grossly unremarkable. Scope pulled back into the stomach. There was some minimal erythema as the esophagus had not been too impressive. Cold biopsy taken for histology in the stomach to evaluate for H pylori or other etiology. On retroflexion, GE junction was snug against the scope. Scope was straightened. GE junction about 40 cm. Z-line appeared to be fairly crisp, fairly smooth. No signs of any erosions. No signs of any ulcers. Cold biopsy was taken just above GE junction and distal esophagus for pathologic evaluation. There were no signs of any obvious masses. Withdrawing up the esophagus, some random cold biopsies taken in the proximal esophagus to evaluate for eosinophilic esophagitis to rule out other causes of symptoms. Good hemostasis noted. Patient tolerated the procedure well. There was no family to any discuss findings. We will see him back in the office next week. Again, he declined to do a followup colonoscopy at this time.
== END 2023-11-13 13:41 | disposition home or self-care (01) ==
LOC: SDC 08:31
PROVIDERS: ATTEND Surgery
DX: K21.9 Gastro-esophageal reflux disease without esophagitis (principal); I25.10 Atherosclerotic heart disease of native coronary artery without angina pectoris; I10 Essential (primary) hypertension
CPT/HCPCS: 93005; J2704

== ENCOUNTER 2024-02-15 13:27 | Emergency (ER) | payer MEDICARE, OTHER ==
--- NOTE | 2024-02-15 13:29 | ERPHSYRPT ---
- History of Present Illness Time Seen by Provider: 02/15/24 13:29 Source: patient, family, old records Exam Limitations: no limitations Physician History: This is a 68-year-old white male patient brought to the emergency department by the braid pattern setter service from home because of coughing and worsening shortness of breath despite using his friend's nebulizer treatment. His primary care provider, Dr. Griffith, did call in an albuterol inhaler 2 days ago. None of those treatments has helped resolve his symptoms. He denies chest pain. He does complain of headache and bodyaches. He has no known exposures to individuals similar symptoms or known to have viral illness. He is a former smoker of cigarettes. Patient's room air oxygen saturation level is 99%. His respiratory rate is 20. Patient has a history of chronic vomiting, COPD, CVA, hyperlipidemia, Plavix, hypothyroidism, chronic anemia, gastroesophageal reflux disease, hypertension, status post right carotid endarterectomy in the past, coronary artery disease (8 coronary artery bypass grafts and cardiac stent stent) Timing/Duration: day(s) (4), worse Severity of Dyspnea-Max: moderate Severity of Dyspnea-Current: mild (Moderate) Possible Cause: occasional episodes, chronic episodes Modifying Factors: Improves With: activity, coughing Associated Symptoms: cough, wheezing (Right side chest wheezing on inspiration), No chest pain/discomfort, No calf pain, No dizziness, No heaviness Allergies/Adverse Reactions: hydrocodone bitartrate [From Vicodin] Allergy (Mild, Verified 02/15/24 13:28) morphine Allergy (Mild, Verified 02/15/24 13:28) oxycodone [From OxyContin] Allergy (Verified 02/15/24 13:28) Home Medications: Furosemide 20 mg [Lasix 20 mg] 20 mg PO DAILY 10/29/19 [History] Amitriptyline HCl 25 mg [Amitriptyline 25 mg Tablet] 25 mg PO DAILY 11/28/22 [History] Carbidopa/Levodopa [Carbidopa-Levo 25-100 mg Odt] 25 - 100 tab PO DAILY 11/28/22 [History] Atorvastatin Calcium 10 mg PO DAILY 09/06/23 [History] Prochlorperazine Maleate 5 mg* [Compazine 5 MG] 5 mg PO Q4H PRN PRN 09/06/23 [History] Albuterol Sulfate [Proair Respiclick] 90 mcg IH QID PRN 11/07/23 [History] Citalopram Hydrobromide [Celexa] 10 mg PO DAILY 11/07/23 [History] Finasteride 5 mg [Proscar 5 MG] 5 mg PO DAILY 11/07/23 [History] Gabapentin 100 mg PO TID PRN 11/07/23 [History] Metoclopramide HCl 5 mg PO TID 11/07/23 [History] Nicotine [Nicotine Patch 7Mg] 1 each TD UD 11/07/23 [History] PANTOPRAZOLE 40 mg Tablet [Protonix 40MG Tablet] 40 mg PO DAILY 11/07/23 [History] Sucralfate 1 gm [Carafate 1 GM] 1 gm PO TID 11/07/23 [History] Tamsulosin HCl 0.4 mg [Flomax 0.4 MG] 0.8 mg PO DAILY 11/07/23 [History] Aspirin [[place]] 81 mg PO DAILY 02/15/24 [History] Hx Tetanus, Diphtheria Vaccination/Date Given: (unknown) Hx Influenza Vaccination/Date Given: No Hx Pneumococcal Vaccination/Date Given: No Travel Risk - International Travel Have you traveled outside of the country in past 3 weeks: No - Emerging Infectious Disease Are you exhibiting symptoms associated with any current EIDs: Yes Symptoms: Cough: New Onset, Headaches/Body Aches/, Shortness of Breath, Vomitting Comment: past 8 months - Review of Systems Constitutional: No Symptoms Eyes: No Symptoms Ears, Nose, & Throat: No Symptoms Respiratory: Cough, Dyspnea on Exertion (OLIVER), Wheezing Cardiac: No Symptoms Abdominal/Gastrointestinal: Vomiting Genitourinary Symptoms: No Symptoms (Chronic) Musculoskeletal: No Symptoms Skin: No Symptoms Neurological: No Symptoms Psychological: No Symptoms Endocrine: No Symptoms Hematologic/Lymphatic: No Symptoms Immunological/Allergic: No Symptoms All Other Systems: Reviewed and Negative - Past Medical History Pertinent Past Medical History: Yes Neurological History: Stroke, Other ENT History: Cataracts Cardiac History: Coronary Artery Disease, Deep Vein Thrombosis, High Cholesterol, Hypertension, Myocardial Infarction ([place]) Respiratory History: COPD, Other Endocrine Medical History: Adrenal Insufficiency, Other Musculoskeletal History: Osteoarthritis GI Medical History: Hernia History: Other Psycho-Social History: Anxiety, Bipolar, Depression Male Reproductive Disorders: No Pertinent History Other Medical History: Blood clots, skin cancer,melanoma 2 years ago, hiatal hernia, renal lesion, current smoker - Past Surgical History Past Surgical History: Yes Neuro Surgical History: No Pertinent History Cardiac: CABG, Cardiac Catheterization, Cardiac Stent, Vascular Surgery Respiratory: No Pertinent History Gastrointestinal: No Pertinent History Genitourinary: No Pertinent History Musculoskeletal: Orthopedic Surgery Male Surgical History: No Pertinent History Other Surgical History: R hand and R leg surgeries, skin cancers removed Significant Family History: no pertinent family hx - Social History Smoking Status: Former smoker How long have you smoked: age 15 Exposure to second hand smoke: Yes Drug Use: marijuana Patient Lives Alone: No - Social Determinants of Health Will the patient participate in the screening: Yes Do you worry about a steady place to live?: No In the past 12 months,have you had to go without utilities?: No Transportation Issues: Yes Has anyone in your support network made you feel unsafe?: No Have you or anyone in your house had to go without enough: No - Nursing Vital Signs Nursing Vital Signs: Initial Vital Signs Temperature 98.5 F 02/15/24 13:28 Pulse Rate 90 02/15/24 13:28 Respiratory Rate 22 02/15/24 13:28 Blood Pressure 132/73 02/15/24 13:28 O2 Sat by Pulse Oximetry 100 02/15/24 13:28 Pain Scale Pain Intensity 0 - Physical Exam General Appearance: mild distress, alert, anxiety, thin Eye Exam: PERRL/EOMI, eyes nml inspection Ears, Nose, Throat Exam: hearing grossly normal, normal ENT inspection, normal pharynx Neck Exam: normal inspection, non-tender, supple, full range of motion Respiratory Exam: airway intact, wheezing, No chest tenderness, No respiratory distress (Right side) Cardiovascular/Chest Exam: normal heart sounds, regular rate/rhythm Abdominal/Gastrointestinal Exam: soft, normal bowel sounds, No tenderness Extremity Exam: non-tender, normal range of motion, normal inspection Neurologic Exam: alert, oriented x 3, cooperative, personal development coach II-XII nml as tested, sensation nml Skin Exam: normal color, warm, dry Lymphatic Exam: No adenopathy SpO2 Interpretation: normal O2 Delivery: Room Air - Course Nursing assessment & vital signs reviewed: Yes EKG Interpreted by Me: RATE (86), Sinus Rhythm, NORMAL AXIS, NORMAL INTERVALS, Left Bundle Branch Block, Other (No acute ischemic changes on today's twelve- lead EKG. QTc is 454. Comparison twelve-lead EKG is performed on 11/14/2023. Today's twelve-lead EKG does not show any Q waves secondary to LVH.) Ordered Tests: Active Orders 24 hr Category Date Time Status Masonry Contractor STAT Care 02/15/24 13:44 Active EKG-ER Only STAT Care 02/15/24 13:43 Active IV Insertion STAT Care 02/15/24 13:43 Active Pulse Oximetry (ED) STAT Care 02/15/24 13:43 Active CHEST 1 VIEW (PORTABLE) Stat Exams 02/15/24 13:43 Completed BLOOD CULTURE Stat Lab 02/15/24 14:11 Received CBC W DIFF Stat Lab 02/15/24 14:04 Completed CMP Stat Lab 02/15/24 14:04 Completed Lactic Acid Stat Lab 02/15/24 13:50 Completed MAGNESIUM Stat Lab 02/15/24 14:04 Completed NT PRO BNPII Stat Lab 02/15/24 14:04 Completed PROTIME WITH INR Stat Lab 02/15/24 14:04 Completed TROPONIN Q4H Lab 02/15/24 14:04 Completed TROPONIN Q4H Lab 02/15/24 16:00 Ordered TROPONIN Q4H Lab 02/15/24 21:45 Ordered UA W/RFX UR CULTURE Stat Lab 02/15/24 15:38 Received Medication Summary Discontinued Medications Generic Name Dose Route Start Last Admin Trade Name Freq PRN Reason Stop Dose Admin Furosemide 40 mg 02/15/24 15:04 02/15/24 15:08 Furosemide 40 Mg/4 Ml Vial IV 02/15/24 15:05 40 mg STAT ONE Administration Furosemide Confirm 02/15/24 15:06 Furosemide 40 Mg/4 Ml Vial Administered 02/15/24 15:07 Dose 40 mg .ROUTE .STK-MED ONE Ceftriaxone Sodium 1 gm in 100 mls @ 200 mls/hr 02/15/24 15:04 02/15/24 15:41 Rocephin 1 Gm / 100 Ml Nacl IV 02/15/24 15:33 Infused STAT ONE Infusion Ceftriaxone Sodium Confirm 02/15/24 15:06 Rocephin 1 Gm / 100 Ml Nacl Administered 02/15/24 15:07 Dose 1 gm in 100 mls @ ud IV .STK-MED ONE Lab/Rad Data: Laboratory Result Diagrams 02/15/24 14:04 02/15/24 14:04 Laboratory Results 02/15/24 02/15/24 02/15/24 Range/Units 14:11 14:04 14:04 WBC (4.23-9.07) x10^3/uL RBC (4.63-6.08) x10^6/uL Hgb (13.7-17.5) g/dL Hct (40.1-51.0) % MCV (79.0-92.2) fL MCH (25.7-32.2) pg MCHC (32.3-36.5) g/dL RDW (11.6-14.4) % Plt Count (163-337) x10^3/uL MPV (9.4-12.4) fL Gran % (34.0-67.9) % Immature Gran % (Auto) (0.001-0.429) % Nucleat RBC Rel Count (0.00-0.2) % Eos # (Auto) (0.04-0.54) x10^3/uL Immature Gran # (Auto) (0.001-0.031) x10^3u/L Absolute Lymphs (auto) (1.32-3.57) x10^3/uL Absolute Monos (auto) (0.30-0.82) x10^3/uL Absolute Nucleated RBC (0.00-0.012) x10^3u/L Lymphocytes % (21.8-53.1) % Monocytes % (5.3-12.2) % Eosinophils % (0.8-7.0) % Basophils % (0.2-1.2) % Absolute Granulocytes (1.78-5.38) x10^3/uL Basophils # (0.01-0.08) x10^3/uL PT 12.3 (9.4-12.5) SECONDS INR 1.14 (0.8-3.0) Sodium (135-145) mmol/L Potassium (3.5-5.1) mmol/L Chloride (98-107) mmol/L Carbon Dioxide (22-30) mmol/L Anion Gap (5-15) MEQ/L BUN (9-20) mg/dL Creatinine (0.66-1.25) mg/dL Estimated GFR ML/MIN Glucose (74-106) mg/dL Lactic Acid (0.4-2.0) Calcium (8.4-10.2) mg/dL Magnesium (1.6-2.3) mg/dL Total Bilirubin (0.2-1.3) mg/dL AST (17-59) U/L ALT (0-50) U/L Alkaline Phosphatase (38-126) U/L Troponin I 0.061 H* (0.000-0.033) ng/mL NT-Pro-B Natriuret Pep (<300) pg/mL Serum Total Protein (6.3-8.2) g/dL Albumin (3.5-5.0) g/dL Influenza Type A Ag NEGATIVE (NEGATIVE) Influenza Type B Ag NEGATIVE (NEGATIVE) RSV (PCR) NEGATIVE (NEGATIVE) SARS-CoV-2 (PCR) NEGATIVE (NEGATIVE) 02/15/24 02/15/24 02/15/24 Range/Units 14:04 14:04 13:50 WBC 6.8 (4.23-9.07) x10^3/uL RBC 3.16 L (4.63-6.08) x10^6/uL Hgb 7.0 L* (13.7-17.5) g/dL Hct 23.7 L (40.1-51.0) % MCV 75.0 L (79.0-92.2) fL MCH 22.2 L (25.7-32.2) pg MCHC 29.5 L (32.3-36.5) g/dL RDW 17.2 H (11.6-14.4) % Plt Count 290 (163-337) x10^3/uL MPV 9.1 L (9.4-12.4) fL Gran % 70.3 H (34.0-67.9) % Immature Gran % (Auto) 0.4 (0.001-0.429) % Nucleat RBC Rel Count 0.0 (0.00-0.2) % Eos # (Auto) 0.06 (0.04-0.54) x10^3/uL Immature Gran # (Auto) 0.03 (0.001-0.031) x10^3u/L Absolute Lymphs (auto) 1.16 L (1.32-3.57) x10^3/uL Absolute Monos (auto) 0.74 (0.30-0.82) x10^3/uL Absolute Nucleated RBC 0.00 (0.00-0.012) x10^3u/L Lymphocytes % 17.1 L (21.8-53.1) % Monocytes % 10.9 (5.3-12.2) % Eosinophils % 0.9 (0.8-7.0) % Basophils % 0.4 (0.2-1.2) % Absolute Granulocytes 4.78 (1.78-5.38) x10^3/uL Basophils # 0.03 (0.01-0.08) x10^3/uL PT (9.4-12.5) SECONDS INR (0.8-3.0) Sodium 140 (135-145) mmol/L Potassium 3.7 (3.5-5.1) mmol/L Chloride 108 H (98-107) mmol/L Carbon Dioxide 22 (22-30) mmol/L Anion Gap 14.0 (5-15) MEQ/L BUN 26 H (9-20) mg/dL Creatinine 1.68 H (0.66-1.25) mg/dL Estimated GFR 44.0 ML/MIN Glucose 114 H (74-106) mg/dL Lactic Acid 2.6 H (0.4-2.0) Calcium 9.3 (8.4-10.2) mg/dL Magnesium 2.2 (1.6-2.3) mg/dL Total Bilirubin 0.80 (0.2-1.3) mg/dL AST 27 (17-59) U/L ALT 20 (0-50) U/L Alkaline Phosphatase 93 (38-126) U/L Troponin I (0.000-0.033) ng/mL NT-Pro-B Natriuret Pep 7240 (<300) pg/mL Serum Total Protein 7.6 (6.3-8.2) g/dL Albumin 4.2 (3.5-5.0) g/dL Influenza Type A Ag (NEGATIVE) Influenza Type B Ag (NEGATIVE) RSV (PCR) (NEGATIVE) SARS-CoV-2 (PCR) (NEGATIVE) - Progress Progress: improved, re-examined Air Movement: fair Progress Note: 02/15/24 13:55 My medical decision making and the assignment of moderate to high complexity of this patient's medical issue today is based on review of the patient's past medical history, review of the patient's medication list, reviewed patient drug allergy list, history present illness and physical findings on examination. The workup in this patient includes placement of an intravenous line, RT evaluation management, CBC, CMP, lactic acid level, twelve-lead EKG, BNP, troponin level, viral swabs, monotest, chest x-ray, PT/INR, magnesium level. Differential diagnosis includes but is not limited to pneumonia, viral illness, mononucleosis, arrhythmia, CHF exacerbation, COPD exacerbation, myocardial infarction, electrolyte abnormalities 02/15/24 15:47 I interpreted the patient's laboratory data results. Based on the laboratory data results, this patient has symptomatic anemia, non-STEMI and CHF. He also h as chronic renal failure. It is unchanged from prior comparison labs. The chest x-ray was interpreted by the radiologist and I reviewed the impression. The impression states new diffuse right lung and left base hazy airspace disease with small bibasilar effusions. 02/15/24 15:49 I spoke with Gifty at the transfer center for [facility] in [facility]. I provided her with history, presenting complaint, physical findings and workup results. She accepts the patient in transfer on behalf of Dr. Pratt. Patient has significant coronary artery disease, is short of breath and has a hemoglobin of 7. We have ordered a type and cross for 2 units of packed red blood cells. We will transfuse 1 unit of packed red blood cells if they are available in time prior to this patient being transferred. Blood Culture(s) Obtained: Yes Antibiotics given: Yes Counseled pt/family regarding: lab results, diagnosis, rad results Medical Desision Making - Diagnostic Testing Diagnostic test were ordered, analyzed, and reviewed by me: Yes Radiological Interpretation: Reviewed by me, Teleradiologist Report - Risk of complications The pt has a high risk of morbidity or mortality based on: Decision regarding hospitilization or escalation of hosp level of care - Departure Departure Disposition: Transfer Clinical Impression: Non-STEMI (non-ST elevated myocardial infarction), Bilateral pulmonary infiltrates on chest x-ray, Symptomatic anemia, CHF (congestive heart failure) Condition: Fair Critical Care Time: Yes Critical Care Time(excluding separately billable procedures): Critical 30-74 mins (45) Referrals: SAMANTHA GRIFFITH MD [Primary Care Provider] - Follow up/PCP as directed Instructions: Heart Failure
[2024-02-15 13:31] VITALS: TEMP 98.5
[2024-02-15 14:18] LABS: Absolute Neutrophil Ct (ANC) 4.78 x10^3/uL (1.78-5.38); BASOPHIL % 0.4 % (0.2-1.2); Basophil (Absolute #) 0.03 x10^3/uL (0.01-0.08); Eosinophil % 0.9 % (0.8-7.0); Eosinophil (Absolute #) 0.06 x10^3/uL (0.04-0.54); Hematocrit 23.7 % (40.1-51.0); IMMATURE GRAN # 0.03 x10^3u/L (0.001-0.031); IMMATURE GRAN % 0.4 % (0.001-0.429); Lymphocyte (Absolute #) 1.16 x10^3/uL (1.32-3.57); Lymphocytes % 17.1 % (21.8-53.1); Mean Corpuscular Hemoglobin 22.2 pg (25.7-32.2); Mean Corpuscular Hgb Concent. 29.5 g/dL (32.3-36.5); Mean Platelet Volume 9.1 fL (9.4-12.4); Monocyte (Absolute #) 0.74 x10^3/uL (0.30-0.82); Monocytes % 10.9 % (5.3-12.2); Neutrophil % 70.3 % (34.0-67.9); Platelet Count 290 x10^3/uL (163-337); Red Blood Count 3.16 x10^6/uL (4.63-6.08); Red Cell Distribution Width 17.2 % (11.6-14.4); White Blood Count 6.8 x10^3/uL (4.23-9.07)
[2024-02-15 14:31] LABS: INR 1.14 (0.8-3.0); PROTIME 12.3 SECONDS (9.4-12.5)
[2024-02-15 14:40] LABS: ALBUMIN 4.2 g/dL (3.5-5.0); BILIRUBIN,TOTAL 0.8 mg/dL (0.2-1.3); Calcium 9.3 mg/dL (8.4-10.2); Creatinine 1 1.68 mg/dL (0.66-1.25); MAGNESIUM 2.2 mg/dL (1.6-2.3); Potassium 3.7 mmol/L (3.5-5.1); Total Protein 7.6 g/dL (6.3-8.2)
--- NOTE | 2024-02-15 14:49 | XRAY ---
Indication: Cough. Short of breath. Comparison: September 08, 2023 Portable chest demonstrates new diffuse right lung and left base hazy airspace disease with small bibasilar effusions. Heart not enlarged again with cardiac valve replacement. Bony thorax intact again with osteopenia and degenerative changes.
[2024-02-15 14:57] LABS: INFLUENZA A NEGATIVE (NEGATIVE); INFLUENZA B NEGATIVE (NEGATIVE); RESPIRATORY SYNCTIAL VIRUS NEGATIVE (NEGATIVE); SARS-CoV-2 Xpert Express NEGATIVE (NEGATIVE)
[2024-02-15] MEDS ORDERED: ROCEPHIN 1 GM / 100 ML NaCl 1 GM/100 ML IVPB IV ONE (15:06)
[2024-02-15] MEDS ORDERED: Lasix 40 MG/4 ML ONE (15:06)
[2024-02-15] MEDS: Lasix 40 MG/4 ML IV ONE (15:08)
[2024-02-15] MEDS: ROCEPHIN 1 GM / 100 ML NaCl 1 GM/100 ML IVPB IV ONE (15:10)
[2024-02-15 15:50] LABS: Appearance Clear (Clear); Bacteria None Seen /HPF (None Seen); Bilirubin Negative (Negative); Blood Negative (Negative); Epithelial Cells None Seen /HPF (None Seen); Glucose, Urine Negative (Negative); Hyaline Casts NONE SEEN /LPF (0-2); Ketones Negative (Negative); Leukocyte Esterase Negative (Negative); Nitrite Negative (Negative); Ph 5.5 (4.6-8.0); Protein,Urine Dip Negative (Negative); RBC 0-2 /HPF (0-5); WBC 0-2 /HPF (0-5)
[2024-02-15 16:09] LABS: ABO TYPING A; Antibody Screen NEGATIVE (NEGATIVE); RH TYPING POSITIVE
[2024-02-15 16:10] LABS: CROSS MATCH (PRBC) COMPATIBLE (COMPATIBLE)
[2024-02-15 16:11] LABS: CROSS MATCH (PRBC) COMPATIBLE (COMPATIBLE)
[2024-02-15] MEDS ORDERED: Sodium Chloride 0.9% 250 ML 250 ML IV ONE (16:33)
[2024-02-15] MEDS ORDERED: HEPARIN 5000 UNITS/0.5 ML (HIGH RISK MED) ONE (16:40)
[2024-02-15] MEDS ORDERED: Ntg 0.2MG/Ml in D5W GLASS*** 250 ML IV ONE (16:41)
[2024-02-15] MEDS: HEPARIN 5000 UNITS/0.5 ML (HIGH RISK MED) IV ONE (16:45)
[2024-02-15] MEDS: Ntg 0.2MG/Ml in D5W GLASS*** 250 ML IV PRN (16:47)
[2024-02-15 17:51] VITALS: BP 144/76; PULSE 87; RESP 23; O2SAT 100
== END 2024-02-15 17:51 | disposition short-term general hospital (02) ==
LOC: ED 13:27
DX: I21.4 Non-ST elevation (NSTEMI) myocardial infarction (principal); I50.9 Heart failure, unspecified; R51.9 Headache, unspecified; D64.9 Anemia, unspecified; Z79.899 Other long term (current) drug therapy; R91.8 Other nonspecific abnormal finding of lung field
CPT/HCPCS: 0241U; 36415; 71045; 80053; 81001; 83605; 83735; 83880; 84484; 85025; 85610; 86850; 86900; 86901; 86922; 87040; 93005; 93041; 94760; 96365; 96374; 96375; 99291; P9016; 99285; J0696; J1644; J1940